=== PATIENT | male | born 1945 | race Caucasian/White ===

== ENCOUNTER 2017-10-30 16:17 | Emergency (ER) | payer MEDICARE, BC, SELFPAY | END 2017-10-30 18:56 | disposition home or self-care (01) | PROVIDERS: Emergency Provider Emergency Medicine; Family Provider Family Medicine; Visit Provider Emergency Medicine | DX: E86.0 Dehydration (principal) | CPT/HCPCS: 36000; 71010; 71045; 80053; 81003; 83605; 84145; 84484; 85025; 85610; 85730; 87040; 87400; 93005; 93010; 96361; 96374; 96375; 99058; 99285; J1200; J2930 ==

== ENCOUNTER → 2018-01-14 12:02 | Outpatient (CLI) | payer MEDICARE, BC, SELFPAY ==
[2018-01-14 13:01] LABS: Free T4, Direct Thyroxine 1.13 ng/dL (0.78-2.19)
[2018-01-14 13:15] LABS: Thyroid Stimulating Hormone 0.42 uIU/mL (0.47-4.68)
== END ==
PROVIDERS: PCP Family Medicine; Visit Provider Family Medicine
DX: E03.9 Hypothyroidism, unspecified (principal)
CPT/HCPCS: 36415; 84439; 84443

== ENCOUNTER → 2018-10-27 13:53 | Outpatient (CLI) | payer MEDICARE, BC, SELFPAY ==
[2018-10-27 16:04] LABS: Free T3, Triiodothyronine Free 2.98 pg/mL (2.77-5.27); Free T4, Direct Thyroxine 0.51 ng/dL (0.78-2.19)
== END ==
PROVIDERS: PCP Student in an Organized Health Care Education/Training Program; Visit Provider Student in an Organized Health Care Education/Training Program
DX: E03.9 Hypothyroidism, unspecified (principal)
CPT/HCPCS: 36415; 84439; 84443; 84481

== ENCOUNTER → 2019-01-22 15:50 | Outpatient (CLI) | payer MEDICARE, BC, SELFPAY ==
[2019-01-22 19:05] LABS: Alanine Aminotransferase 16 IU/L (21-72); Albumin 4.8 g/dL (3.5-5.0); Albumin Globulin Ratio 1.8 (1.0-2.8); Alkaline Phosphatase 72 U/L (38-126); Aspartate Aminotransferase 19 IU/L (17-59); BUN Creatinine Ratio 21.1 (6-22); Bilirubin Total 1.1 mg/dL (0.2-1.3); Blood Urea Nitrogen 19 mg/dL (9-20); Carbon Dioxide 29 mmol/L (22-32); Chloride 102 mmol/L (98-107); Cholesterol 220 mg/dL (140-199); Estimated Glomerular Filt Rate > 60.0 mL/min (>60); Globulin 2.7 g/dL (1.7-4.1); Glucose 88 mg/dL (80-110); HDL Cholesterol 73 mg/dL (40-60); HEMOLYSIS < 15 (0-50); LDL Cholesterol Calculated 122 mg/dL (<100); Potassium 4.6 mmol/L (3.4-5.1); Sodium 141 mmol/L (137-145); Total Protein 7.5 g/dL (6.3-8.2); Triglycerides 125 mg/dL (35-150)
[2019-01-22 19:21] LABS: Free T4, Direct Thyroxine 1.12 ng/dL (0.78-2.19); Vitamin D 25 Hydroxy (D3) 31.1 ng/mL (30.0-100.0)
[2019-01-22 19:35] LABS: Thyroid Stimulating Hormone 0.63 uIU/mL (0.47-4.68)
== END ==
PROVIDERS: PCP Student in an Organized Health Care Education/Training Program; Visit Provider Student in an Organized Health Care Education/Training Program
DX: E03.9 Hypothyroidism, unspecified (principal); E78.2 Mixed hyperlipidemia; I10 Essential (primary) hypertension; E55.9 Vitamin D deficiency, unspecified
CPT/HCPCS: 36415; 80053; 80061; 82306; 84439; 84443

== ENCOUNTER → 2019-03-06 12:10 | Outpatient (CLI) | payer MEDICARE, BC, SELFPAY ==
--- NOTE | 2019-03-06 12:11 | DI.CT.S_ITS ---
PROCEDURE: CT ABDOMEN PELVIS W CON INDICATIONS: left sided ab pain, unintentional weight loss TECHNIQUE: After the administration of oral and intravenous contrast, 5 mm thick sections acquired from the diaphragms to the symphysis. 5 mm thick coronal and sagittal reformats were performed. For radiation dose reduction, the following was used: automated exposure control, adjustment of mA and/or kV according to patient size. COMPARISON: None. FINDINGS: Image quality: Diagnostic. ABDOMEN: Lung bases: Heterogeneous areas of consolidation are identified within the left costophrenic angle and which are noted to abut the pleural wall and demonstrates decreased enhancement. There are at least 3 nodular densities identified within this region. The largest measures up to approximately 2.5 x 2.7 cm. Left lower lobe bronchiectasis is incidentally noted. No significant bronchiectasis within the imaged portions of the right lower lobe are present. Solid organs: The liver is hypodense when compared to the spleen. No definite liver lesions are appreciated. There is no intrahepatic or extrahepatic biliary dilatation. The gallbladder is not dilated or inflamed. The spleen is mildly enlarged and measures up to 14.3 cm in AP dimension no definite splenic lesions are evident. The adrenals and pancreas are within normal limits. The kidneys are normal in size. There is no hydronephrosis. Peritoneum and bowel: There is a small hiatal hernia. Otherwise, the stomach is unremarkable. The small bowel loops are nondilated. Moderate amount of residual stool is seen within the colon. The appendix is not definitely seen. There is no free fluid, loculated fluid collection or free air. Nodes and vessels: No retroperitoneal or mesenteric adenopathy. Aorta and inferior vena cava are normal in caliber. Bones: No acute fractures or suspicious osseous lesions are identified. Bilateral L5 pars defects are present with corresponding grade 1 anterolisthesis of L5 on S1. Mild to moderate degenerative changes of the lumbar spine are noted. PELVIS: Genitourinary: Bladder wall thickness is normal. The prostate is not significantly enlarged. Miscellaneous: No inguinal hernias or adenopathy. No free fluid or loculated fluid collection is identified. Bones: No suspicious bony lesions. No acute pelvic fracture is evident. A small bone island within the femoral neck on the right is present. Mild degenerative changes of the pelvic joints are present. IMPRESSION: 1. Nodular areas of consolidation at the left lung base are suspicious for lung masses versus less likely rounded atelectasis. A chest CT with contrast is recommended for further evaluation. 2. No acute abnormality within the abdomen or pelvis. 3. Large amount of residual stool within the colon may or present constipation. No bowel obstruction. 4. Mild splenomegaly. 5. Probable mild hepatic steatosis. 6. Small hiatal hernia. Dictated by: Ziyad Bach M.D. on 03/06/2019 at 13:30 Approved by: Ziyad Bach M.D. on 03/06/2019 at 14:05
[2019-03-06 12:29] LABS: Add Manual Diff / Slide Review NO; Basophils Absolute Auto 0 /uL (0-100); Basophils Percent Auto 0.5 % (0-2); Eosinophils Absolute Auto 100 /uL (0-450); Eosinophils Percent Auto 1.9 % (2-4); Hematocrit 34.1 % (41-53); Hemoglobin 12.5 g/dL (13.5-17.5); Lymphocytes Absolute Auto 900 /uL (1100-4500); Lymphocytes Percent Auto 21.3 % (25-40); Mean Corpuscular HGB Conc 36.6 % (30-36); Mean Corpuscular Hemoglobin 32.7 PG (26-34); Mean Corpuscular Volume 89.4 fL (80-100); Monocytes Absolute Auto 500 /uL (0-900); Monocytes Percent Auto 12.9 % (3-14); Neutrophils Absolute Auto 2600 /uL (1500-7000); Neutrophils Percent Auto 63.4 % (50-75); Platelet Count 161 X10^3/uL (150-400); Red Blood Cell Count 3.81 X10^6/uL (4.5-5.9); Red Cell Distribution Width 12.7 % (11.6-14.8); White Blood Cell Count 4.1 X10^3/uL (4.5-11.0)
[2019-03-06 12:44] LABS: Alanine Aminotransferase 16 IU/L (21-72); Albumin 4.6 g/dL (3.5-5.0); Albumin Globulin Ratio 1.5 (1.0-2.8); Alkaline Phosphatase 74 U/L (38-126); Aspartate Aminotransferase 19 IU/L (17-59); Bilirubin Total 0.9 mg/dL (0.2-1.3); Blood Urea Nitrogen 20 mg/dL (9-20); Calcium 9.7 mg/dL (8.4-10.2); Carbon Dioxide 30 mmol/L (22-32); Chloride 99 mmol/L (98-107); Estimated Glomerular Filt Rate > 60.0 mL/min (>60); Globulin 3.1 g/dL (1.7-4.1); Glucose 95 mg/dL (80-110); HEMOLYSIS < 15 (0-50); Potassium 4.4 mmol/L (3.4-5.1); Sodium 137 mmol/L (137-145); Total Protein 7.7 g/dL (6.3-8.2)
[2019-03-06 13:20] LABS: Thyroid Stimulating Hormone 0.34 uIU/mL (0.47-4.68)
== END ==
PROVIDERS: PCP Student in an Organized Health Care Education/Training Program; Visit Provider Nurse Practitioner
DX: R63.4 Abnormal weight loss (principal); R10.9 Unspecified abdominal pain; R91.8 Other nonspecific abnormal finding of lung field; R16.1 Splenomegaly, not elsewhere classified; E03.9 Hypothyroidism, unspecified
CPT/HCPCS: 36415; 74177; 80053; 84443; 85025; Q9967

== ENCOUNTER → 2019-03-10 14:39 | Outpatient (CLI) | payer MEDICARE, BC, SELFPAY ==
--- NOTE | 2019-03-10 14:41 | DI.CT.S_ITS ---
PROCEDURE: CT CHEST W CON INDICATIONS: Lung Nodules TECHNIQUE: After the administration of intravenous contrast, 5 mm thick sections acquired from the pulmonary apices to the posterior costophrenic angles. 1 mm axial lung, 5 mm thick coronal and sagittal reformats and 7 mm axial MIP were acquired. For radiation dose reduction, the following was used: automated exposure control, adjustment of mA and/or kV according to patient size. COMPARISON: [facility], CT, CT ABDOMEN PELVIS W CON, 03/06/2019, 13:22. FINDINGS: Image quality: Excellent. Lungs and pleura: Previous CT finding of nodular densities in posterior aspect of left lung base are less well-defined on the current study, and likely represent resolving nodular infiltrates. No other pulmonary nodule or mass is identified. Ill-defined and patchy airspace opacities are seen scattered in left lower lobe with mild bronchiectasis in left lower lobe. No pleural effusions or pneumothorax. Central and peripheral airways are patent. Mediastinum: Heart size is normal. No pericardial effusion. No mediastinal or hilar adenopathy by size criteria. Thoracic aorta and central pulmonary arteries are normal in size. Esophagus is normal in caliber. There is a small hiatal hernia. Bones and chest wall: No suspicious bony lesions. No vertebral body compression fractures. No axillary or supraclavicular adenopathy by size criteria. Thyroid gland is within normal limits. Abdomen: Visualized upper abdominal solid organs appear normal. Upper abdominal bowel loops are normal in caliber. IMPRESSION: 1. Previously described nodular densities in left lung base are less well-defined and are small in size, most likely represent resolving nodular infiltrates. Hazy opacities scattered in left lower lobe with mild bronchiectasis is noted. No other pulmonary nodule or mass is seen. Additional followup CT in 3-6 month is recommended to confirm complete resolution. 2. No mediastinal or hilar lymphadenopathy. 3. Small hiatal hernia. Dictated by: Scotty Coats M.D. on 03/10/2019 at 15:51 Approved by: Scotty Coats M.D. on 03/10/2019 at 16:42
== END ==
PROVIDERS: PCP Student in an Organized Health Care Education/Training Program; Visit Provider Family Medicine
DX: R91.8 Other nonspecific abnormal finding of lung field (principal); K44.9 Diaphragmatic hernia without obstruction or gangrene
CPT/HCPCS: 71260; Q9967

== ENCOUNTER → 2019-05-05 17:19 | Outpatient (CLI) | payer MEDICARE, BC, SELFPAY ==
[2019-05-05 17:38] LABS: Occult Blood 1 Negative (Negative); Occult Blood 2 Negative (Negative); Occult Blood 3 Negative (Negative)
== END ==
PROVIDERS: Nurse Practitioner; PCP Student in an Organized Health Care Education/Training Program; Visit Provider Student in an Organized Health Care Education/Training Program
DX: K92.2 Gastrointestinal hemorrhage, unspecified (principal); R10.9 Unspecified abdominal pain
CPT/HCPCS: 82270

== ENCOUNTER 2019-09-25 09:00 | Outpatient (RCR) | payer MEDICARE, BC, SELFPAY ==
--- NOTE | 2019-08-26 18:49 | PT.OIE ---
Current Diagnoses Other abnormalities of gait and mobility (08/26/19) Abnormal posture (08/26/19) Weakness (08/26/19) Past Medical History (Last Updated 07/24/19 @ 08:35 by Yann Dempsey MD) Constipation (Chronic) Depression (Chronic) Hypothyroidism (Chronic Unknown) Hypothyroidism (acquired) (Chronic) Past Surgical History (Last Updated 01/23/19 @ 07:00 by Yann Dempsey MD) Hx of cataract surgery (Resolved Unknown) Hx of knee surgery (Resolved Unknown) Visit Care Team Role Provider Type Yann Dempsey MD Attending Provider Physician Primary Care Provider Referring Provider Specialty: Internal Medicine Address: [address] [place] [address], [facility] Email: [email or web address] Physical Therapy Initial Evaluation PT-OP-A Visit Information Start: 08/26/19 09:49 Freq: Status: Active Protocol: Document 08/26/19 09:49 [facility] (Rec: 08/26/19 11:25 [facility] [id number]) Out-Patient Physical Therapy Visit Information Visit Information Visit Type Initial Evaluation Visit Start Time 09:50 Visit Stop Time 10:30 Total Visit Minutes 40 Visit Number 1 Number of LOAN EXAMINER Visits 0 PT-OP-B Current Condition Start: 08/26/19 09:49 Freq: Status: Active Protocol: Document 08/26/19 09:49 [facility] (Rec: 08/26/19 11:25 [facility] [id number]) Current Condition History of Current Condition Current Complaints dec balacne, R knee pain History of Current Condition Pt reports he has noticed his balance is a little worse since he tried doing some balacne exercises at home. No falls reported. Pt reports he likes to walk but hasn't done a ton recently. Pt avoids climbing ladders d/t concern of balance. Pt reports intermittent R knee pain. Unsure how often or why. Pt occ gets charley horses in calves when sitting Treatment Goals Patient/Caregiver Goals improve balance PT-OP-C Subjective Start: 08/26/19 09:49 Freq: Status: Active Protocol: Document 08/26/19 09:49 [facility] (Rec: 08/27/19 18:43 [facility] [id number]) Patient Questionnaires ABC- Activity Specific Balance Confidence Scale ABC Score 86 ABC Functional Impairment 1 to <20% Impaired (Score 81- 99) PT-OP-D Balance Start: 08/26/19 09:49 Freq: Status: Active Protocol: Document 08/26/19 09:49 [facility] (Rec: 08/27/19 18:43 [facility] [id number]) Balance Tests Silver Balance Test Silver Balance Test Score 55 PT-OP-E Functional Tests Start: 08/26/19 09:49 Freq: Status: Active Protocol: Document 08/26/19 09:49 [facility] (Rec: 08/27/19 18:43 [facility] [id number]) Functional Tests Dynamic Gait Index (DGI) Score 23 Functional Gait Assessment Score 25 Functional Gait Assessment Impairment 1 to <20% Impaired (Score 25- Rating 29) PT-OP-G Mobility & Gait Start: 08/26/19 09:49 Freq: Status: Active Protocol: Document 08/26/19 09:49 [facility] (Rec: 08/27/19 18:43 [facility] [email or web address]) OP Gait Assessment Comments Gait Comments Mostly leg walker but no signficiant deviation for evidence for imbalance PT-OP-J Posture/Palpation/Skin Start: 08/26/19 09:49 Freq: Status: Active Protocol: Document 08/26/19 09:49 [facility] (Rec: 08/26/19 11:25 [facility] [id number]) Posture Evaluation Comments Posture Comments fwd & head & shoulders PT-OP-M Strength Start: 08/26/19 09:49 Freq: Status: Active Protocol: Document 08/26/19 09:49 [facility] (Rec: 08/26/19 11:25 [facility] [id number]) Hip Strength Hip Manual Muscle Testing Right Flexion (L2) 4+ Good+ Extension (S1) 4- Good- Abduction 4- Good- External Rotation 4 Good Internal Rotation 4- Good- Left Flexion (L2) 4+ Good+ Extension (S1) 3+ Fair+ Abduction 4 Good External Rotation 4- Good- Internal Rotation 4 Good Knee Strength Knee Manual Muscle Testing Right Flexion (S2) 5 Normal Extension (L3) 5 Normal Left Flexion (S2) 5 Normal Extension (L3) 5 Normal Ankle/Foot Strength Ankle and Foot Manual Muscle Testing Right Dorsiflexion (L4) 5 Normal Plantarflexion (S1) 5 Normal Left Dorsiflexion (L4) 5 Normal Plantarflexion (S1) 5 Normal Comments PF tested seated PT-OP-Q Treatments Start: 08/26/19 09:49 Freq: Status: Active Protocol: Document 08/26/19 09:49 [facility] (Rec: 08/27/19 18:43 [facility] [email or web address]) Therapeutic Exercises Standing Exercises hip abd Side bilateral Equipment Used L1 Reps/Minutes 10 hip ext Side bilateral Equipment Used L1 Reps/Minutes 10 PT-OP-T Assessment and Plan Start: 08/26/19 09:49 Freq: Status: Active Protocol: Document 08/26/19 09:49 [facility] (Rec: 08/26/19 11:25 [facility] [id number]) Physical Therapy Assessment Rehab Potential Rehabilitation Potential Excellent Evaluation Complexity Number of Personal Factors/Comorbidities 3 or More Number of Body Systems Impaired 4 or More Clinical Presentation at Evaluation Evolving Impairments Impairments Balance,Gait,Posture,Strength Goals posture Flexographic Press Plate Setter Goal (LTG) Pt will be able to correct posture within his mechanical limits without cueing. LTG Duration 10/25/19 balance Flexographic Press Plate Setter Goal (LTG) Pt will score 28/30 on FGA to show improved balance LTG Duration 10/25/19 weakness Short Term Goal (STG) Pt will be indepw ith HEP STG Duration 09/24/19 [facility] Goal (LTG) Pt will have 5/5 LE strength and 4/5 LPM to show good stability. LTG Duration 10/25/19 Assessment Summary Assessment Pt presents with concerns about his balance and LE strength with pt noting some recent deterioration. He is motivated to do some exercises to feel more steady to prevent falls. He has mild balance impairments but does not show as a fall risk based on testing. He is likely to improve with therapy as he does have some high level balance deficits and some LE weakness and would beenfit from addressing this with HEP developed for pt to work on at home. Physical Therapy Plan Frequency and Duration Frequency of Treatment 1-2x/week Duration of Treatment 2 months Plan of Care Start Date 08/26/19 Plan of Care End Date 10/25/19 Therapeutic Interventions Therapeutic Interventions Aquatic Therapy,Balance Training,Gait Training,Home Exercise Program,Joint Mobilizations,Manual Therapy, Neuromuscular Re-education, Patient/Caregiver Education, Self-Care/Home Management, Taping,Therapeutic Activities, Therapeutic Exercises Modalities Cold Pack/Ice Massage,Hot Packs Next Visit Focus/Plan Next Note Type Treatment Note Next Visit Plan standing balance HEP that is safe for pt to do indep, Hip strengthening, shuttle balance , foam pads, high level balance
--- NOTE | 2019-08-26 18:49 | PT.OPPOC ---
Physical, Occupational & Speech Therapy At [facility] Current Diagnoses Other abnormalities of gait and mobility (08/26/19) Abnormal posture (08/26/19) Weakness (08/26/19) Visit Care Team Role Provider Type Yann Dempsey MD Attending Provider Physician Primary Care Provider Referring Provider Specialty: Internal Medicine Address: [address] [place] [address], [address], [facility] Email: [email or web address] Plan Of Care PT-OP-T Assessment and Plan Start: 08/26/19 09:49 Freq: Status: Active Protocol: Document 08/26/19 09:49 [facility] (Rec: 08/26/19 11:25 [facility] [id number]) Physical Therapy Assessment Rehab Potential Rehabilitation Potential Excellent Evaluation Complexity Number of Personal Factors/Comorbidities 3 or More Number of Body Systems Impaired 4 or More Clinical Presentation at Evaluation Evolving Impairments Impairments Balance,Gait,Posture,Strength Goals posture Service Planner Goal (LTG) Pt will be able to correct posture within his mechanical limits without cueing. LTG Duration 10/25/19 balance Service Planner Goal (LTG) Pt will score 28/30 on FGA to show improved balance LTG Duration 10/25/19 weakness Short Term Goal (STG) Pt will be indepw ith HEP STG Duration 09/24/19 [facility] Goal (LTG) Pt will have 5/5 LE strength and 4/5 LPM to show good stability. LTG Duration 10/25/19 Assessment Summary Assessment Pt presents with concerns about his balance and LE strength with pt noting some recent deterioration. He is motivated to do some exercises to feel more steady to prevent falls. He has mild balance impairments but does not show as a fall risk based on testing. He is likely to improve with therapy as he does have some high level balance deficits and some LE weakness and would beenfit from addressing this with HEP developed for pt to work on at home. Physical Therapy Plan Frequency and Duration Frequency of Treatment 1-2x/week Duration of Treatment 2 months Plan of Care Start Date 08/26/19 Plan of Care End Date 10/25/19 Therapeutic Interventions Therapeutic Interventions Aquatic Therapy,Balance Training,Gait Training,Home Exercise Program,Joint Mobilizations,Manual Therapy, Neuromuscular Re-education, Patient/Caregiver Education, Self-Care/Home Management, Taping,Therapeutic Activities, Therapeutic Exercises Modalities Cold Pack/Ice Massage,Hot Packs Next Visit Focus/Plan Next Note Type Treatment Note Next Visit Plan standing balance HEP that is safe for pt to do indep, Hip strengthening, shuttle balance , foam pads, high level balance Plan of Care Dates Plan of Care Start Date 08/26/19 Plan of Care End Date 10/25/19 Electronically Signed by: Ellen Maynard, PT 08/27/19 0714 Please Sign and Return: I have reviewed this Plan of Care and certify that the skilled therapy services above are required to meet the patient?s needs. Physician Signature Date Printed Name and Credentials Clinical Instructor Signature Printed Name and Credentials
--- NOTE | 2019-09-01 16:29 | PT.OTN ---
Current Diagnoses Other abnormalities of gait and mobility (09/01/19) Abnormal posture (09/01/19) Weakness (09/01/19) Physical Therapy Treatment Note PT-OP-A Visit Information Start: 08/26/19 09:49 Freq: Status: Active Protocol: Document 09/01/19 12:22 [facility] (Rec: 09/01/19 16:28 [facility] [email or web address]) Out-Patient Physical Therapy Visit Information Visit Information Visit Type Treatment Note Visit Note 08/24 Visit Start Time 13:00 Visit Stop Time 13:43 Total Visit Minutes 43 Visit Number 2 Number of LUMBER KILN OPERATOR Visits 0 PT-OP-B Current Condition Start: 08/26/19 09:49 Freq: Status: Active Protocol: Document 08/26/19 09:49 [facility] (Rec: 08/26/19 11:25 [facility] [id number]) Current Condition History of Current Condition Current Complaints dec balacne, R knee pain History of Current Condition Pt reports he has noticed his balance is a little worse since he tried doing some balacne exercises at home. No falls reported. Pt reports he likes to walk but hasn't done a ton recently. Pt avoids climbing ladders d/t concern of balance. Pt reports intermittent R knee pain. Unsure how often or why. Pt occ gets charley horses in calves when sitting Treatment Goals Patient/Caregiver Goals improve balance PT-OP-C Subjective Start: 08/26/19 09:49 Freq: Status: Active Protocol: Document 09/01/19 12:22 [facility] (Rec: 09/01/19 16:28 [facility] [email or web address]) OP-PT Subjective Patient Comments Patient Comments Pt reports he has been completing his HEP daily and his is usually there with him. would like for him to work on his posture and improve balance. PT-OP-D Balance Start: 08/26/19 09:49 Freq: Status: Active Protocol: Document 08/26/19 09:49 [facility] (Rec: 08/27/19 18:43 [facility] [email or web address]) Balance Tests Silver Balance Test Silver Balance Test Score 55 PT-OP-E Functional Tests Start: 08/26/19 09:49 Freq: Status: Active Protocol: Document 08/26/19 09:49 [facility] (Rec: 08/27/19 18:43 [facility] [email or web address]) Functional Tests Dynamic Gait Index (DGI) Score 23 Functional Gait Assessment Score 25 Functional Gait Assessment Impairment 1 to <20% Impaired (Score 25- Rating 29) PT-OP-G Mobility & Gait Start: 08/26/19 09:49 Freq: Status: Active Protocol: Document 08/26/19 09:49 [facility] (Rec: 08/27/19 18:43 [facility] [id number]) OP Gait Assessment Comments Gait Comments Mostly leg walker but no signficiant deviation for evidence for imbalance PT-OP-J Posture/Palpation/Skin Start: 08/26/19 09:49 Freq: Status: Active Protocol: Document 08/26/19 09:49 [facility] (Rec: 08/26/19 11:25 [facility] [id number]) Posture Evaluation Comments Posture Comments fwd & head & shoulders PT-OP-M Strength Start: 08/26/19 09:49 Freq: Status: Active Protocol: Document 08/26/19 09:49 [facility] (Rec: 08/26/19 11:25 [facility] [id number]) Hip Strength Hip Manual Muscle Testing Right Flexion (L2) 4+ Good+ Extension (S1) 4- Good- Abduction 4- Good- External Rotation 4 Good Internal Rotation 4- Good- Left Flexion (L2) 4+ Good+ Extension (S1) 3+ Fair+ Abduction 4 Good External Rotation 4- Good- Internal Rotation 4 Good Knee Strength Knee Manual Muscle Testing Right Flexion (S2) 5 Normal Extension (L3) 5 Normal Left Flexion (S2) 5 Normal Extension (L3) 5 Normal Ankle/Foot Strength Ankle and Foot Manual Muscle Testing Right Dorsiflexion (L4) 5 Normal Plantarflexion (S1) 5 Normal Left Dorsiflexion (L4) 5 Normal Plantarflexion (S1) 5 Normal Comments PF tested seated PT-OP-Q Treatments Start: 08/26/19 09:49 Freq: Status: Active Protocol: Document 09/01/19 12:22 [facility] (Rec: 09/01/19 16:28 [facility] [email or web address]) Gym Equipment Shuttle Balance red clips Comments fwd & side: wide KRYSTAL, narrow KRYSTAL forward/backward weight shifts , side to side weightshifts staggered BL fwd wide KRYSTAL fwd used body blade Therapeutic Exercises Standing Exercises wall posture Comments attempted wall posture with BL shld abd lunges Standing Exercise Name with rail, mini Side bilateral Reps/Minutes 20 squats Standing Exercise Name over chair, mini Side bilateral Reps/Minutes 20 hip abd Side bilateral Equipment Used L1 Reps/Minutes 20 hip ext Side bilateral Equipment Used L1 Reps/Minutes 20 Neuro Re-Education Treatment Balance Activities hurdles Comments 1. forward stepping with foam 2. side stepping over keely staggered Comments 1. on floor EO/EC/head turns 2. on blue foam EO/EC/head turns tandem Comments 1. on floor EO/EC/head turns 2. on blue foam EO/EC/head turns nbos Comments 1. on floor EO/EC/head turns 2. on blue foam EO/EC/head turns PT-OP-T Assessment and Plan Start: 08/26/19 09:49 Freq: Status: Active Protocol: Document 09/01/19 12:22 [facility] (Rec: 09/01/19 16:28 SP [email or web address]) Physical Therapy Assessment Goals posture Custodial Goal (LTG) Pt will be able to correct posture within his mechanical limits without cueing. LTG Duration 10/25/19 balance Custodial Goal (LTG) Pt will score 28/30 on FGA to show improved balance LTG Duration 10/25/19 weakness Short Term Goal (STG) Pt will be indepw ith HEP STG Duration 09/24/19 Med Surg Nurse Goal (LTG) Pt will have 5/5 LE strength and 4/5 LPM to show good stability. LTG Duration 10/25/19 Assessment Summary Assessment Pt demonstrates B hip ER during hip abd and ext. Pt required cueing for posture and form during squat and lunge exercises. He is able to tolerate higher level balance activities and continues to improve ankle strategies however is challenged by unstable surfaces. Physical Therapy Plan Frequency and Duration Frequency of Treatment 1-2x/week Duration of Treatment 2 months Plan of Care Start Date 08/26/19 Plan of Care End Date 10/25/19 Next Visit Focus/Plan Next Note Type Treatment Note Next Visit Plan progress posture exercises, continue with higher level balance activities and incorporate a variety of different surfaces
--- NOTE | 2019-09-16 10:30 | PT.OTN ---
Current Diagnoses Other abnormalities of gait and mobility (09/16/19) Abnormal posture (09/16/19) Weakness (09/16/19) Physical Therapy Treatment Note PT-OP-A Visit Information Start: 08/26/19 09:49 Freq: Status: Active Protocol: Document 09/16/19 10:30 DLM (Rec: 09/16/19 13:49 DLM [id number]) Out-Patient Physical Therapy Visit Information Visit Information Visit Type Treatment Note Visit Start Time 10:30 Visit Stop Time 11:20 Total Visit Minutes 50 Visit Number 3 Number of SCHOOL ATTENDANCE SECRETARY Visits 0 Evaluation Information Evaluation Date 08/26/19 PT-OP-B Current Condition Start: 08/26/19 09:49 Freq: Status: Active Protocol: Document 08/26/19 09:49 [facility] (Rec: 08/26/19 11:25 [facility] [id number]) Current Condition History of Current Condition Current Complaints dec balance, R knee pain History of Current Condition Pt reports he has noticed his balance is a little worse since he tried doing some balance exercises at home. No falls reported. Pt reports he likes to walk but hasn't done a ton recently. Pt avoids climbing ladders d/t concern of balance. Pt reports intermittent R knee pain. Unsure how often or why. Pt occ gets charley horses in calves when sitting Treatment Goals Patient/Caregiver Goals improve balance PT-OP-C Subjective Start: 08/26/19 09:49 Freq: Status: Active Protocol: Document 09/16/19 10:30 DLM (Rec: 09/16/19 13:49 DLM [id number]) OP-PT Subjective Patient Comments Patient Comments They have many questions about the HEP, not sure they are doing it correctly. His is trying to coach cleaner him with his exercises. PT-OP-D Balance Start: 08/26/19 09:49 Freq: Status: Active Protocol: Document 08/26/19 09:49 [facility] (Rec: 08/27/19 18:43 [facility] [id number]) Balance Tests Silver Balance Test Silver Balance Test Score 55 PT-OP-E Functional Tests Start: 08/26/19 09:49 Freq: Status: Active Protocol: Document 08/26/19 09:49 [facility] (Rec: 08/27/19 18:43 [facility] [id number]) Functional Tests Dynamic Gait Index (DGI) Score 23 Functional Gait Assessment Score 25 Functional Gait Assessment Impairment 1 to <20% Impaired (Score 25- Rating 29) PT-OP-G Mobility & Gait Start: 08/26/19 09:49 Freq: Status: Active Protocol: Document 08/26/19 09:49 [facility] (Rec: 08/27/19 18:43 [facility] [id number]) OP Gait Assessment Comments Gait Comments Mostly leg walker but no significant deviation for evidence for imbalance PT-OP-J Posture/Palpation/Skin Start: 08/26/19 09:49 Freq: Status: Active Protocol: Document 08/26/19 09:49 [facility] (Rec: 08/26/19 11:25 [facility] [id number]) Posture Evaluation Comments Posture Comments fwd & head & shoulders PT-OP-M Strength Start: 08/26/19 09:49 Freq: Status: Active Protocol: Document 08/26/19 09:49 [facility] (Rec: 08/26/19 11:25 [facility] [id number]) Hip Strength Hip Manual Muscle Testing Right Flexion (L2) 4+ Good+ Extension (S1) 4- Good- Abduction 4- Good- External Rotation 4 Good Internal Rotation 4- Good- Left Flexion (L2) 4+ Good+ Extension (S1) 3+ Fair+ Abduction 4 Good External Rotation 4- Good- Internal Rotation 4 Good Knee Strength Knee Manual Muscle Testing Right Flexion (S2) 5 Normal Extension (L3) 5 Normal Left Flexion (S2) 5 Normal Extension (L3) 5 Normal Ankle/Foot Strength Ankle and Foot Manual Muscle Testing Right Dorsiflexion (L4) 5 Normal Plantarflexion (S1) 5 Normal Left Dorsiflexion (L4) 5 Normal Plantarflexion (S1) 5 Normal Comments PF tested seated PT-OP-Q Treatments Start: 08/26/19 09:49 Freq: Status: Active Protocol: Document 09/16/19 10:30 DLM (Rec: 09/16/19 13:49 DLM [id number]) Therapeutic Exercises Standing Exercises wall posture Standing Exercise Name back to wall, feet out, attempts to get head back Comments needed a lot of cuing and education lunges Standing Exercise Name with rail, mini Side bilateral Reps/Minutes 10 reps each side Comments a lot of cuing and education needed squats Standing Exercise Name over chair, full sit done Resistance physical and v.c. needed Reps/Minutes 20 Comments poor control on descent hip abd Side bilateral Equipment Used L1 exercise band Reps/Minutes 2 x 10 reps Comments cuing for technique hip ext Side bilateral Equipment Used L1 exercise band Reps/Minutes 2 x 10 reps Comments cuing for technique Neuro Re-Education Treatment Balance Activities Single Limb Standing Details no UE support used Surface firm Equipment in // bars Reps/Duration 30 sec holds x 3 reps each Comments education on technique and reviewed written HEP tandem Surface firm Equipment in // bars Reps/Duration one min each side Comments education on technique, reviewed written HEP Self-Care/Home Management Treatment Education Patient Education Home Exercise Program,Posture Caregiver Education his is present and participate in all education and review of HEP PT-OP-T Assessment and Plan Start: 08/26/19 09:49 Freq: Status: Active Protocol: Document 09/16/19 10:30 DLM (Rec: 09/16/19 13:49 DLM [id number]) Physical Therapy Assessment Goals posture Clinical Research Scientist Goal (LTG) Pt will be able to correct posture within his mechanical limits without cueing. LTG Duration 10/25/19 balance Assisted Goal (LTG) Pt will score 28/30 on FGA to show improved balance LTG Duration 10/25/19 weakness Short Term Goal (STG) Pt will be indep with HEP STG Duration 09/24/19 Assisted Goal (LTG) Pt will have 5/5 LE strength and 4/5 LPM to show good stability. LTG Duration 10/25/19 Progress Towards Goals Progress Towards Goals Progressing Toward Goals Assessment Summary Assessment Pt and his attended therapy with masks today but they report having no illness themselves. They have many questions about the HEP. They needed extensive education to perform HEP. He tolerated treatment well over-all. His poor awareness of his body position makes it more difficult to follow through with good technique during exercises. His form during all exercises improved with repetition of the movement patterns. Physical Therapy Plan Frequency and Duration Frequency of Treatment 1-2x/week Duration of Treatment 2 months Plan of Care Start Date 08/26/19 Plan of Care End Date 10/25/19 Therapeutic Interventions Therapeutic Interventions Aquatic Therapy,Balance Training,Gait Training,Home Exercise Program,Joint Mobilizations,Manual Therapy, Neuromuscular Re-education, Patient/Caregiver Education, Self-Care/Home Management, Taping,Therapeutic Activities, Therapeutic Exercises Modalities Cold Pack/Ice Massage,Hot Packs Next Visit Focus/Plan Next Note Type Treatment Note Next Visit Plan review HEP with pt and his , advance exercises in the clinic for posture and balance as jez
--- NOTE | 2019-09-25 09:50 | PT.OTN ---
Current Diagnoses Other abnormalities of gait and mobility (09/25/19) Abnormal posture (09/25/19) Weakness (09/25/19) Physical Therapy Treatment Note PT-OP-A Visit Information Start: 08/26/19 09:49 Freq: Status: Active Protocol: Document 09/25/19 09:00 SP (Rec: 09/25/19 11:00 SP [id number]) Out-Patient Physical Therapy Visit Information Visit Information Visit Type Treatment Note Visit Note 10/22 Visit Start Time 09:00 Visit Stop Time 09:50 Total Visit Minutes 50 Visit Number 4 Number of CHANNELING MACHINE RUNNER Visits 1 PT-OP-B Current Condition Start: 08/26/19 09:49 Freq: Status: Active Protocol: Document 08/26/19 09:49 [facility] (Rec: 08/26/19 11:25 [facility] [id number]) Current Condition History of Current Condition Current Complaints dec balacne, R knee pain History of Current Condition Pt reports he has noticed his balance is a little worse since he tried doing some balacne exercises at home. No falls reported. Pt reports he likes to walk but hasn't done a ton recently. Pt avoids climbing ladders d/t concern of balance. Pt reports intermittent R knee pain. Unsure how often or why. Pt occ gets charley horses in calves when sitting Treatment Goals Patient/Caregiver Goals improve balance PT-OP-C Subjective Start: 08/26/19 09:49 Freq: Status: Active Protocol: Document 09/25/19 09:00 SP (Rec: 09/25/19 11:00 SP [id number]) OP-PT Subjective Patient Comments Patient Comments Pt attended with his and wearing face masks for prevention today doing some exercises at home but not as much as should do to pretty busy carring boxes and walking more at home and feel was enough activity without tiring him out to much. PT-OP-D Balance Start: 08/26/19 09:49 Freq: Status: Active Protocol: Document 08/26/19 09:49 [facility] (Rec: 08/27/19 18:43 [facility] [email or web address]) Balance Tests Silver Balance Test Silver Balance Test Score 55 PT-OP-E Functional Tests Start: 08/26/19 09:49 Freq: Status: Active Protocol: Document 08/26/19 09:49 [facility] (Rec: 08/27/19 18:43 [facility] [email or web address]) Functional Tests Dynamic Gait Index (DGI) Score 23 Functional Gait Assessment Score 25 Functional Gait Assessment Impairment 1 to <20% Impaired (Score 25- Rating 29) PT-OP-G Mobility & Gait Start: 08/26/19 09:49 Freq: Status: Active Protocol: Document 08/26/19 09:49 [facility] (Rec: 08/27/19 18:43 [facility] [email or web address]) OP Gait Assessment Comments Gait Comments Mostly leg walker but no signficiant deviation for evidence for imbalance PT-OP-J Posture/Palpation/Skin Start: 08/26/19 09:49 Freq: Status: Active Protocol: Document 08/26/19 09:49 [facility] (Rec: 08/26/19 11:25 [facility] [id number]) Posture Evaluation Comments Posture Comments fwd & head & shoulders PT-OP-M Strength Start: 08/26/19 09:49 Freq: Status: Active Protocol: Document 08/26/19 09:49 [facility] (Rec: 08/26/19 11:25 [facility] [id number]) Hip Strength Hip Manual Muscle Testing Right Flexion (L2) 4+ Good+ Extension (S1) 4- Good- Abduction 4- Good- External Rotation 4 Good Internal Rotation 4- Good- Left Flexion (L2) 4+ Good+ Extension (S1) 3+ Fair+ Abduction 4 Good External Rotation 4- Good- Internal Rotation 4 Good Knee Strength Knee Manual Muscle Testing Right Flexion (S2) 5 Normal Extension (L3) 5 Normal Left Flexion (S2) 5 Normal Extension (L3) 5 Normal Ankle/Foot Strength Ankle and Foot Manual Muscle Testing Right Dorsiflexion (L4) 5 Normal Plantarflexion (S1) 5 Normal Left Dorsiflexion (L4) 5 Normal Plantarflexion (S1) 5 Normal Comments PF tested seated PT-OP-Q Treatments Start: 08/26/19 09:49 Freq: Status: Active Protocol: Document 09/25/19 09:00 SP (Rec: 09/25/19 11:00 SP [id number]) Therapeutic Exercises Standing Exercises wall posture Standing Exercise Name back to wall, feet out, attempts to get head back Comments Needed minimal cuing for CS ext with looking foward (chin tuck) lunges Standing Exercise Name mini rail contact as needed Side bilateral Reps/Minutes 2x5 each side Comments minimal cuing for proper form squats Standing Exercise Name over chair with no UE support Resistance physical and occasional v.c. needed Reps/Minutes 2x5 Comments fair control descent hip abd Side bilateral Equipment Used L2 exercise band Reps/Minutes 2 x 10 reps Comments cuing for technique by upright posture hip ext Side bilateral Equipment Used L2 exercise band Reps/Minutes 2 x 10 reps Comments cuing for technique by cued upright posture Neuro Re-Education Treatment Balance Activities Single Limb Standing Details no UE support used Surface firm Equipment in // bars, not needed Reps/Duration 30 sec holds x 3 reps each Comments education on technique and reviewed written HEP staggered Details feet together, stagger, tandem Equipment back to corner and chair front Comments 1. on floor EO/EC/head turns 2. on blue foam EO/EC/head turns (not today) Next tx continue PT-OP-T Assessment and Plan Start: 08/26/19 09:49 Freq: Status: Active Protocol: Document 09/25/19 09:00 SP (Rec: 09/25/19 11:00 SP [id number]) Physical Therapy Assessment Goals posture Route Rider Goal (LTG) Pt will be able to correct posture within his mechanical limits without cueing. LTG Duration 10/25/[address] Rider Goal (LTG) Pt will score 28/30 on FGA to show improved balance LTG Duration 10/25/19 weakness Short Term Goal (STG) Pt will be indepw ith HEP STG Duration 09/24/19 Intermediate Goal (LTG) Pt will have 5/5 LE strength and 4/5 LPM to show good stability. LTG Duration 10/25/19 Assessment Summary Assessment Tx focused on HEP review, able to increase resistance to standign hip abd/ext Tb #2. Requried decreased cuing and improved balance today. Added NBOS and tandem stance back to corner and chair front with head turns and EC for home, very little unsteady good self recovery, safe to perform at home. gives great cuing for proper form and posture. Physical Therapy Plan Frequency and Duration Frequency of Treatment 1-2x/week Duration of Treatment 2 months Plan of Care Start Date 08/26/19 Plan of Care End Date 10/25/19 Therapeutic Interventions Therapeutic Interventions Aquatic Therapy,Balance Training,Gait Training,Home Exercise Program,Joint Mobilizations,Manual Therapy, Neuromuscular Re-education, Patient/Caregiver Education, Self-Care/Home Management, Taping,Therapeutic Activities, Therapeutic Exercises Modalities Cold Pack/Ice Massage,Hot Packs Next Visit Focus/Plan Next Note Type Treatment Note Next Visit Plan Assess response to last tx. Reivew tandem balance at corner/renetta front HEP, increase challenge balance shuttle balance/balance board, continue hurdles or step up bottom step no UE supprt for home application. Patient and concerned COVID 19 awareness and wants HEP in case cant come to PT for them to progress his strength and balance advance exercises in the clinic for posture and balance as jez.
--- NOTE | 2020-01-06 11:13 | PT.OPDS ---
Current Diagnoses Other abnormalities of gait and mobility (09/25/19) Abnormal posture (09/25/19) Weakness (09/25/19) Visit Care Team Role Provider Type Yann Dempsey MD Attending Provider Physician Primary Care Provider Referring Provider Specialty: Internal Medicine Address: [address] [place] [address], [facility] Email: [email or web address] Visit Number Visit Number 4 PT-OP-T Assessment and Plan Start: 08/26/19 09:49 Freq: Status: Active Protocol: Document 01/06/20 11:12 [facility] (Rec: 01/06/20 11:13 [facility] [id number]) Physical Therapy Plan Discharge Physical Therapy Discharge Reasons No Longer Attending PT Discharge Comments Pt has not been seen for 3 months and when called to rescheudle, pt requested dc.
== END 2020-01-07 07:43 ==
LOC: PHYS 09:00
PROVIDERS: PCP Student in an Organized Health Care Education/Training Program; Referring Provider Student in an Organized Health Care Education/Training Program; Visit Provider Student in an Organized Health Care Education/Training Program
DX: R26.89 Other abnormalities of gait and mobility (principal); R53.1 Weakness; R29.3 Abnormal posture
CPT/HCPCS: 97110; 97112; 97162

== ENCOUNTER → 2019-12-31 10:13 | Outpatient (CLI) | payer MEDICARE, BC, SELFPAY ==
[2019-12-31 12:43] LABS: Vitamin B12 492 pg/mL (239-931)
== END ==
PROVIDERS: PCP Student in an Organized Health Care Education/Training Program; Referring Provider Specialist; Visit Provider Specialist
DX: R41.89 Other symptoms and signs involving cognitive functions and awareness (principal)
CPT/HCPCS: 36415; 82607

== ENCOUNTER 2020-01-31 15:24 | Inpatient (IN) | payer MEDICARE, BC, SELFPAY ==
[2020-01-31] VITALS (13 sets, daily range): BP systolic 100–127; BP diastolic 55–65; PULSE 52–64; RESP 14–18; TEMP 36.4–36.8; O2SAT 95–100; BMI 21.9
--- NOTE | 2020-01-31 15:29 | DI.CT.S_ITS ---
PROCEDURE: CT STROKE INDICATIONS: Facial droop, clinical concern for stroke TECHNIQUE: Noncontrast 4.5 mm thick angled axial sections acquired from the foramen magnum to the vertex, with coronal reformats. For radiation dose reduction, the following was used: automated exposure control, adjustment of mA and/or kV according to patient size. COMPARISON: None. FINDINGS: Image quality: Excellent. CSF spaces: Basal cisterns are patent. No extra-axial fluid collections. The ventricles are symmetric in size and shape. Brain: No intracranial bleeds or masses. There is cerebral volume loss for age, with resultant ventricular and sulcal prominence. There are periventricular and deep white matter chronic small vessel ischemic changes. There is intracranial internal carotid artery atherosclerosis. Skull and face: Calvarium and visualized facial bones appear intact, without suspicious lesions. Sinuses: Visualized sinuses and mastoids are clear. IMPRESSION: No acute intracranial hemorrhage is seen. No acute intracranial process is seen. Note is made of age-appropriate brain parenchymal volume loss and chronic small vessel ischemic changes. Note: Case discussed by telephone with Dr. Lee at 2:40 p.m. [place] time on January 31, 2020. This study fulfills neurological imaging criteria for inclusion or exclusion of acute stroke therapies based on available published neurological guidelines. Dictated by: Timothy Diaz M.D. on 01/31/2020 at 14:39 Approved by: Timothy Diaz M.D. on 01/31/2020 at 14:41
--- NOTE | 2020-01-31 15:31 | ED_ITS ---
HPI - Neuro Symptoms/Deficit General Chief Complaint: Neuro Symptoms/Deficit Stated Complaint: Code Stroke Time Seen by Provider: 01/31/20 15:31 Source: patient and EMS Mode of arrival: EMS Limitations: no limitations History of Present Illness HPI Narrative: The patient developed a right-sided weakness and right facial weakness about 50 minutes prior to arrival. The patient declined the initial right weakness, that history was given by his . He did concur with the right facial weakness and right facial droop. One set happened while at rest at home. He has no history of CVA. Upon arrival he is oriented to person place. He has no complaints of speech or memory. He has no complaints of his vision. He obeys commands without difficulty. He has no chest pain or palpitations. He denies prior history of stroke or TIA. He has a pre-existing droop to the left eye. He does take medications for hypertension, and hyperlipidemia. He does not use tobacco. He denies recent illness. No cough, dyspnea or fever. Related Data Home Medications Medication Instructions Recorded Confirmed docusate sodium 100 mg capsule 200 mg PO DAILY 01/22/19 07/21/19 Previous Rx's Medication Instructions Recorded food supplemt, lactose-reduced 1 each PO .QDAY #5688 ml 03/12/19 0.05 gram-1.5 kcal/mL oral liquid levothyroxine 100 mcg tablet 100 mcg PO DAILY #90 tab 03/15/19 phenelzine 15 mg tablet 30 mg PO QDAY #180 tab 07/21/19 donepezil 10 mg tablet 10 mg PO DAILY #90 tab 10/20/19 atorvastatin 40 mg tablet 40 mg PO BEDTIME #90 tab 10/23/19 losartan 25 mg tablet 25 mg PO DAILY #90 tab 12/02/19 Allergies Allergy/AdvReac Type Severity Reaction Status Date / Time No Known Drug Allergies Allergy Verified 01/31/20 15:44 Review of Systems Review of Systems ROS Unobtainable: All systems reviewed & are unremarkable except as noted in HPI and below Constitutional Constitutional: Denies body ache(s), Denies chills, Denies fatigue, Denies fever(s), Denies headache(s) and Reports weakness Eyes Eyes: Denies blurry vision, Denies change in vision and Denies diplopia ENT Ears, Nose, Mouth, and Throat: Denies headache(s), Denies neck pain, Denies disequilibrium and Denies sore throat Cardiovascular Cardiovascular: Denies chest pain, Denies irregular heart rhythm, Denies lightheadedness, Denies palpitations and Denies dyspnea Respiratory Respiratory: Denies cough and Denies dyspnea Gastrointestinal Gastrointestinal: Denies abdominal pain, Denies change in bowel habits, Denies nausea and Denies vomiting Musculoskeletal Musculoskeletal: Denies back pain, Denies neck pain and Reports numbness Integumentary/Breasts Skin/Breast: Denies pruritus, Denies erythema, Denies rash and Denies wounds Neurologic Neurologic: Reports as per HPI, Denies confusion, Denies headache(s), Reports numbness, Denies disequilibrium and Reports weakness Psychiatric Psychiatric: Denies anxiety and Denies confusion Endocrine Endocrine: Denies fatigue and Denies palpitations Hematologic/Lymphatic Hematologic/Lymphatic: Denies easy bleeding and Denies easy bruising Allergic/Immunologic Comments: No significant issues. Patient History Medical History (Updated 01/31/20 @ 18:24 by Ronald Lee MD) Constipation (Chronic) Depression (Chronic) Hyperlipidemia (Acute) Hypertension (Acute) Hypothyroidism (Chronic Unknown) Hypothyroidism (acquired) (Chronic) Surgical History Hx of cataract surgery (Resolved Unknown) Hx of knee surgery (Resolved Unknown) Family History Father No problems noted. Mother Diabetes mellitus Grandfather Cancer Grandmother No problems noted. Social History marital status: household members: spouse lives independently: Yes Smoking Status: Never smoker alcohol intake: never substance use type: does not use Smoking Status: Never smoker Exam Initial Vital Signs Initial Vital Signs: Vital Signs Temperature 98.3 F 01/31/20 15:34 Pulse Rate 64 01/31/20 15:34 Respiratory Rate 18 01/31/20 15:34 Blood Pressure 127/60 01/31/20 15:34 Pulse Oximetry 98 01/31/20 15:34 Const General: cooperative and well developed Nutritional Appearance: well nourished Limitations: mental status not altered HENPA Head: normocephalic and atraumatic Nose: external nose normal Face and sinus: sinuses nontender and face symmetric Mouth: oral mucosae normal and moist mucous membranes Teeth and gingiva: dentition normal Throat: tonsils normal and uvula midline Eyes General: appearance normal, both eyes and all related structures Eyelids: eyelids normal Conjunctivae: conjunctivae normal Sclera: sclerae normal Pupils: PERRL EOM: EOM intact bilaterally Other: Left-sided ptosis. No visual field deficits. Neck Neck: No lymphadenopathy and No JVD Carotids: no bruits Chest Chest: normal inspection of the chest Resp Effort & Inspection: normal respiratory effort and able to speak in complete sentences Auscultation: clear to auscultation bilaterally, no rales, no rhonchi and no wheezes Cardio Rate: regular rate Rhythm: regular rhythm Heart Sounds: S1 normal, S2 normal, no click, no gallops, no murmurs and no rubs Pulses: normal peripheral pulses GI Inspection: non-distended Palpation: soft, no hepatosplenomegaly, No guarding and No tender Auscultation: normal bowel sounds Back/Spine/Pelvis Back: normal to inspection and No back tenderness Skin General: no rashes or lesions noted and No petechiae Neuro General: patient alert, patient oriented x3 and gait normal Other: The patient has a right facial droop, motor exam extremities normal. He has slight tingling to the right face, sensory exams extremities is normal. His slight change of speech, orientation, vocabulary, and memory are otherwise normal. Extrem General: full ROM, no pedal edema and no calf tenderness Psych Appearance: grossly normal Mental Status: mental status grossly normal Attitude: cooperative Thought Content: normal and suicidality Judgment: judgment good Scores NIH Stroke Scale Level of Conciousness: Alert, keenly responsive Ask month/age: Answers one question correctly, intubated follow commands Open/close eyes, close hand: Performs both tasks correctly Best gaze horizontal: Normal Visual schneider: No visual loss Facial palsy: Minor paralysis, flattened nasolabial fold, asymmetry on smiling Left arm drift: No drift for full 10 sec Right arm drift: No drift for full 10 sec Left leg drift: No drift for full 10 sec Right leg drift: No drift for full 10 sec Limb ataxia: Absent Sensory on face/arms/legs: Mild to moderate sensory loss, can tell touch Best language: No aphasia, normal Dysarthria: Normal Extinction or inattention: No abnormality Total NIH Stroke scale score: 3 Course Course Course Narrative: The patient presented with a history consistent with CVA. He had rapid resolution of the right side apparently, his NIHSS upon arrival was 3. He had already improved. Initial head CT was normal. He was given aspirin. CT a the brain was also evaluated is normal. His an NIHSS improved to 0. His evaluation is otherwise benign. The situation was discussed with the hospi talist, Dr. Mcallister. The patient will be admitted to telemetry for additional evaluation. Orders Ordered: ED Orders 01/31/20 15:15 Complete Blood Count AUTO DIFF Stat Comprehensive Metabolic Panel Stat Partial Thromboplastin Time Stat Prothrombin Time INR Stat Troponin & CK Cardiac Panel Stat 01/31/20 15:29 CT Stroke Stat 01/31/20 15:41 CT angio head and neck Stat 01/31/20 16:20 Urine Drug Screen, Rapid Stat Discontinued Medications Aspirin (Aspirin Chew) 324 mg PO NOW ONE Stop: 01/31/20 15:53 Last Admin: 01/31/20 15:58 Dose: 324 mg Documented by: NHI Vital Signs Vital signs: Vital Signs - 8 hr 01/31/20 15:34 01/31/20 16:16 01/31/20 16:30 Temperature 98.3 F Pulse Rate 64 59 L 59 L Respiratory Rate 18 16 15 Blood Pressure 127/60 108/59 L Pulse Oximetry 98 97 97 01/31/20 16:45 01/31/20 17:05 01/31/20 17:30 Temperature Pulse Rate 58 L 60 62 Respiratory Rate 14 15 Blood Pressure 100/55 L Pulse Oximetry 99 99 98 MDM - Neuro Symptoms/Deficit Lab Data Result diagrams: 01/31/20 15:15 01/31/20 15:15 Labs: Lab Results 01/31/20 01/31/20 01/31/20 Range/Units 15:15 15:15 15:15 WBC 9.9 (4.5-11.0) X10^3/uL RBC 3.71 L (4.5-5.9) X10^6/uL Hgb 12.2 L (13.5-17.5) g/dL Hct 34.4 L (41-53) % MCV 92.7 (80-100) fL MCH 32.9 (26-34) PG MCHC 35.5 (30-36) % RDW 12.7 (11.6-14.8) % Plt Count 124 L (150-400) X10^3/uL Neut % (Auto) 84.2 H (50-75) % Lymph % (Auto) 6.1 L (25-40) % Campbell % (Auto) 9.2 (3-14) % Eos % (Auto) 0.3 L (2-4) % Baso % (Auto) 0.2 (0-2) % Neut # (Auto) 8300 H (8965-0677) /uL Lymph # (Auto) 600 L (9081-9860) /uL Campbell # (Auto) 900 (0-900) /uL Eos # (Auto) 0 (0-450) /uL Baso # (Auto) 0 (0-100) /uL PT 11.8 (10.1-12.7) SECONDS INR 1.0 (0.9-1.3) APTT 29 (26.4-36.2) SECONDS Sodium 136 L (137-145) mmol/L Potassium 3.8 (3.4-5.1) mmol/L Chloride 102 (98-107) mmol/L Carbon Dioxide 28 (22-32) mmol/L BUN 15 (9-20) mg/dL Creatinine 0.81 (0.66-1.25) mg/dL Estimated GFR > 60.0 (>60) mL/min BUN/Creatinine Ratio 18.5 (6-22) Glucose 193 H (80-110) mg/dL Calcium 9.4 (8.4-10.2) mg/dL Total Bilirubin 2.0 H (0.2-1.3) mg/dL AST 29 (17-59) IU/L ALT 27 (<50) IU/L Alkaline Phosphatase 62 (38-126) U/L Total Creatine Kinase 120 (55-170) U/L CK-MB (CK-2) 2.37 (<2.37) ng/mL CK-MB (CK-2) Rel Index 2.0 (1.5-5.0) % Troponin I < 0.012 (0.01-0.034) ng/mL Total Protein 6.6 (6.3-8.2) g/dL Albumin 4.1 (3.5-5.0) g/dL Globulin 2.5 (1.7-4.1) g/dL Albumin/Globulin Ratio 1.6 (1.0-2.8) Point of Care Testing Glucose POC [address] scan - head: Radiologist's Impression: No acute findings. CTA Head: Radiologist's Impression: No acute findings. ECG Data Attestation: I personally reviewed and interpreted this ECG as follows: (Normal sinus rhythm rate 66 bpm. Normal intervals. No ectopy. No acute findings.) Critical Care Time Critical Care Time Critical Care Time: Yes Total Critical Care Time: 45 Attestation: Critical care time included the initial assessment of the patient, review of past medical record, review of EKG, radiology and lab data. Clinical decisions were made. The patient was notified of the findings and the clinical decisions, and consultation with the admitting physician was done. Discharge Plan Departure Patient Disposition: Admitted as Observation Clinical Impression: Acute CVA (cerebrovascular accident) Admit Date/Time: 01/31/20 18:12 Admit Provider: Quincy Mcallister
[2020-01-31 15:40] LABS: Add Manual Diff / Slide Review NO; Basophils Absolute Auto 0 /uL (0-100); Basophils Percent Auto 0.2 % (0-2); Eosinophils Absolute Auto 0 /uL (0-450); Eosinophils Percent Auto 0.3 % (2-4); Hematocrit 34.4 % (41-53); Hemoglobin 12.2 g/dL (13.5-17.5); Lymphocytes Absolute Auto 600 /uL (1100-4500); Lymphocytes Percent Auto 6.1 % (25-40); Mean Corpuscular HGB Conc 35.5 % (30-36); Mean Corpuscular Hemoglobin 32.9 PG (26-34); Mean Corpuscular Volume 92.7 fL (80-100); Monocytes Absolute Auto 900 /uL (0-900); Monocytes Percent Auto 9.2 % (3-14); Neutrophils Absolute Auto 8300 /uL (1500-7000); Neutrophils Percent Auto 84.2 % (50-75); Platelet Count 124 X10^3/uL (150-400); Red Blood Cell Count 3.71 X10^6/uL (4.5-5.9); Red Cell Distribution Width 12.7 % (11.6-14.8); White Blood Cell Count 9.9 X10^3/uL (4.5-11.0)
--- NOTE | 2020-01-31 15:41 | DI.CT.S_ITS ---
PROCEDURE: CT ANGIO HEAD AND NECK INDICATIONS: TIA TECHNIQUE: Noncontrast images were performed earlier in the day and not repeated. After the administration of intravenous contrast, 1 mm thick sections acquired from the aortic arch through the [place]. Post-contrast 4.5 mm thick sections then re-acquired from the foramen magnum to the vertex. 3-dimensional etjdybe-dpasnunew-dpvpbnanhg (MIP) and/or volume rendering reformats were acquired of the central intracranial vasculature and neck separately. COMPARISON: [facility], CT, CT STROKE, 01/31/2020, 15:20. FINDINGS: Image quality: Excellent. BRAIN: CSF spaces: Ventricles are normal in size and shape. Basal cisterns are patent. No extra-axial fluid collections. Brain: No midline shift. No intracranial bleeds or masses. Hyatt-white matter interface appears intact. Skull and face: Calvarium and facial bones appear intact, without suspicious lesions. Orbits appear normal. Sinuses: Sinuses and mastoids are clear. HEAD CT ANGIOGRAPHY: Anterior circulation: Intracranial internal carotid arteries are normal in size and flow. The flow within the paired anterior cerebral arteries is normal and symmetric. The flow within the middle cerebral arteries is normal and symmetric. The anterior communicating artery is seen. No aneurysms are seen. Posterior circulation: Visualized portions of the vertebral arteries demonstrate normal caliber, and join to form a normal appearing basilar artery. There is a prominent right posterior communicating artery seen, with an accompanying diminutive right P1 segment. This is attributed to a type origin of the right posterior cerebral artery, which is considered to be a normal developmental variant of typically no clinical consequence. Flow within the posterior cerebral arteries is normal and symmetric. No aneurysms are seen. NECK CT ANGIOGRAPHY: Carotid system: The great vessels demonstrate a conventional anatomy as they arise from the aortic arch. The origins of the common carotid arteries appear patent. The common carotid arteries demonstrate normal caliber and courses. The bifurcation regions are both widely patent. The internal carotid arteries demonstrate normal calibers and courses. Posterior circulation: The origins of the vertebral arteries both appear widely patent. The more superior extracranial portions of both vertebral arteries also demonstrate normal courses and calibers. The right vertebral artery is dominant to the left. They join to form a normal appearing basilar artery. Soft tissues: Visualized neck soft tissues demonstrate no suspicious abnormalities. Bones: No suspicious bony lesions. Visualized cervical spine appears normally aligned. Age-appropriate bony degenerative changes are seen. IMPRESSION: Unremarkable angiogram, without a hemodynamically significant stenosis identified. Any quantitative measurements of stenosis were performed using NASCET criteria. Dictated by: Timothy Diaz M.D. on 01/31/2020 at 16:20 Approved by: Timothy Diaz M.D. on 01/31/2020 at 16:22
[2020-01-31 15:50] LABS: Prothrombin Time 11.8 SECONDS (10.1-12.7)
[2020-01-31 15:53] LABS: PTT Partial Thromboplastin Tim 29 SECONDS (26.4-36.2)
[2020-01-31] MEDS: ASPIRIN 81 MG CHEW TAB 324 MG PO (15:58)
[2020-01-31 16:43] LABS: Alanine Aminotransferase 27 IU/L (<50); Albumin 4.1 g/dL (3.5-5.0); Albumin Globulin Ratio 1.6 (1.0-2.8); Alkaline Phosphatase 62 U/L (38-126); Aspartate Aminotransferase 29 IU/L (17-59); BUN Creatinine Ratio 18.5 (6-22); Blood Urea Nitrogen 15 mg/dL (9-20); Calcium 9.4 mg/dL (8.4-10.2); Carbon Dioxide 28 mmol/L (22-32); Chloride 102 mmol/L (98-107); Creatine Kinase 120 U/L (55-170); Estimated Glomerular Filt Rate > 60.0 mL/min (>60); Globulin 2.5 g/dL (1.7-4.1); Glucose 193 mg/dL (80-110); HEMOLYSIS < 15 (0-50); Potassium 3.8 mmol/L (3.4-5.1); Sodium 136 mmol/L (137-145); Total Protein 6.6 g/dL (6.3-8.2)
[2020-01-31 16:53] LABS: Troponin I < 0.012 ng/mL (0.01-0.034)
[2020-01-31 16:58] LABS: Creatine Kinase MB 2.37 ng/mL (<2.37)
--- NOTE | 2020-01-31 18:20 | DI.RAD.S_ITS ---
PROCEDURE: XR CHEST 1V INDICATIONS: TIA TECHNIQUE: One view of the chest was acquired. COMPARISON: [facility], CT, CT CHEST W CON, 03/10/2019, 14:49. [facility], CR, CHEST 1 VIEW, 10/30/2017, 17:19. FINDINGS: Surgical changes and devices: None. Lungs and pleura: Lungs are clear. No pleural effusions or pneumothorax. Mediastinum: Mediastinal contours appear normal. Heart size is normal. Bones and chest wall: No suspicious bony lesions. Overlying soft tissues appear unremarkable. IMPRESSION: No evidence acute pulmonary process. Dictated by: Aakash Guzman M.D. on 01/31/2020 at 19:01 Approved by: Aakash Guzman M.D. on 01/31/2020 at 19:01
--- NOTE | 2020-01-31 18:43 | DI.MRI.S_ITS ---
PROCEDURE: MR STROKE Pre- and post-contrast brain MRI, non-contrast brain MR angiogram, pre- and postcontrast neck MR angiogram INDICATIONS: TIA TECHNIQUE: Brain: Noncontrast axial T1 spin echo, axial T2 fast spin echo, sagittal and axial FLAIR, coronal T2 fast spin echo, axial gradient echo, axial diffusion and ADC through the brain. After the administration of contrast, axial 3D VIBE of the cranial vasculature and brain. Brain MRA: Non-contrast 3-D time of flight MR angiogram, with multiple dgvbbow-hmfjwvglx-fhmnlxwcvz (MIP) reformats performed. Neck MRA: Axial and sagittal TruFISP through the neck. Coronal dynamic MR angiogram during administration of contrast in the arterial and venous phases, with 3-dimenstional wmtxqci-sqzpznxhf-zagouqolqh (MIP) reformats constructed from subtraction images. COMPARISON: [facility], CT, CT ANGIO HEAD AND NECK, 01/31/2020, 16:46. [facility], CT, CT STROKE, 01/31/2020, 15:20. FINDINGS: Image quality: Excellent. BRAIN: CSF spaces: Ventricles are normal in size and shape. Basal cisterns are patent. No extra-axial fluid collections. Brain: No intracranial bleeds or mass effects. Hyatt-white matter interface is normal. There is mild, diffuse cerebral volume loss. There are mild periventricular and subcortical white matter chronic microvascular ischemic changes. Diffusion weighted images show no acute ischemic insults. Brainstem appears normal. Normal intravascular flow voids are present. No abnormal intracranial enhancement. Dural sinuses demonstrate normal postcontrast enhancement. Skull and face: Calvarial marrow signal is normal. Orbits appear normal. Sinuses: Sinuses and mastoids are clear. BRAIN MR ANGIOGRAM: Anterior circulation: Intracranial internal carotid arteries are normal in size and enhancement. The flow within the paired anterior cerebral arteries is normal. 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 There is normal flow in the A2 segment of the right anterior cerebral artery via patent anterior communicating artery. The flow within the middle cerebral arteries is normal and symmetric. The anterior communicating artery is seen. No stenoses, occlusions, or aneurysms. Posterior circulation: The visualized portions of the vertebral arteries demonstrate normal caliber, and join to form a normal appearing basilar artery. The flow within the posterior cerebral arteries is normal and symmetric. Right posterior cerebral artery has a origin which is a congenital anatomic variant. No stenoses, occlusions, or aneurysms. NECK MR ANGIOGRAM: Carotids: Great vessels demonstrate a conventional anatomy as they arise from the aortic arch. The origins of the common carotid arteries appear patent. The calibers and courses of both common carotid arteries are normal. The bifurcation regions appear normal bilaterally. The internal carotid arteries demonstrate normal course and caliber. Posterior circulation: The origins of the vertebral arteries appear patent. 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 More superior portions of both vertebral arteries demonstrate normal course and caliber, and join to form a normal appearing basilar artery. Miscellaneous: Subclavian arteries appear patent. Pre-contrast images through the neck show no soft tissue abnormalities. IMPRESSION: BRAIN MRI: 1. No acute intracranial disease process. 2. No areas of acute or chronic infarction. 3. No abnormal intracranial mass or suspicious postcontrast enhancement. 4. Mild, diffuse cerebral volume loss. 5. Mild periventricular and subcortical white matter chronic microvascular ischemic changes. BRAIN MR ANGIOGRAM: No large vessel occlusion, hemodynamically significant stenosis or aneurysm. NECK MR ANGIOGRAM: No large vessel occlusion, hemodynamically significant stenosis or aneurysm. Dictated by: Patsy Rizzo MD, PhD on 02/01/2020 at 11:51 Approved by: Patsy Rizzo MD, PhD on 02/01/2020 at 12:02
--- NOTE | 2020-01-31 18:47 | P.HP_ITS ---
History of Present Illness History of Present Illness Date Patient Seen: 01/31/20 Time Patient Seen: 18:00 Date of Onset of Symptoms: 01/31/20 Chief complaint: Code Stroke Narrative: Patient is a 74-year-old male with history of hypertension, hyperlipidemia, hypothyroidism, memory loss who had an unwitnessed ground level fall about 50 minutes prior to ED arrival. 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 Per ER physician documentation, his observed right sided weakness. Patient endorses some weakness of his right lower face and was noted to have some drooping of his right lower lip by the ER physician. By the time this examiner saw patient the facial drooping had resolved. Patient denies any headache, LOC, change in vision or diplopia, unilateral weakness or numbness of arms or legs, difficulty with speech, chest pain or palpitations. He has pre-existing ptosis of the left eye. He is not a smoker. It is noted patient takes donepezil but unclear if he carries diagnosis of dementia. He states his keeps track of his medications. Spouse is not available at time of this examination for corroborative history. Head CT showed age-related small-vessel disease without acute findings. CTA was normal. Patient History Medical History (Updated 01/31/20 @ 18:24 by Ronald Lee MD) Constipation (Chronic) Depression (Chronic) Hyperlipidemia (Acute) Hypertension (Acute) Hypothyroidism (Chronic Unknown) Hypothyroidism (acquired) (Chronic) Surgical History Hx of cataract surgery (Resolved Unknown) Hx of knee surgery (Resolved Unknown) Family & Social History Family History Father No problems noted. Mother Diabetes mellitus Grandfather Cancer Grandmother No problems noted. Social History: household members spouse lives independently Yes Safety & Behavioral: Feels Safe in Current Yes Environment Been Physically Hurt or No Threatened By a Person Tobacco & Substance use: Smoking Status Never smoker alcohol intake never alcohol intake frequency 0-2 drinks per day Substance Use Type does not use Meds Home Medications and Allergies Home Medications Medication Instructions Recorded Confirmed Type docusate sodium 100 mg capsule 200 mg PO DAILY 01/22/19 07/21/19 History food supplemt, lactose-reduced 1 each PO .QDAY #5688 ml 03/12/19 07/21/19 Rx 0.05 gram-1.5 kcal/mL oral liquid levothyroxine 100 mcg tablet 100 mcg PO DAILY #90 tab 03/15/19 07/21/19 Rx phenelzine 15 mg tablet 30 mg PO QDAY #180 tab 07/21/19 01/31/20 Rx donepezil 10 mg tablet 10 mg PO DAILY #90 tab 10/20/19 Rx atorvastatin 40 mg tablet 40 mg PO BEDTIME #90 tab 10/23/19 Rx losartan 25 mg tablet 25 mg PO DAILY #90 tab 12/02/19 Rx Allergies Allergy/AdvReac Type Severity Reaction Status Date / Time No Known Drug Allergies Allergy Verified 01/31/20 15:44 Review of Systems Review of Systems ROS: Yes All systems reviewed with the patient and are negative except as otherwise documented Exam Vital Signs (past 8 hours): - 01/31/20 15:34 01/31/20 16:16 01/31/20 16:30 Temperature 98.3 F Pulse Rate 64 59 L 59 L Respiratory Rate 18 16 15 Blood Pressure 127/60 108/59 L Pulse Oximetry 98 97 97 01/31/20 16:45 01/31/20 17:05 01/31/20 17:30 Temperature Pulse Rate 58 L 60 62 Respiratory Rate 14 15 Blood Pressure 100/55 L Pulse Oximetry 99 99 98 01/31/20 18:00 01/31/20 18:25 01/31/20 18:30 Temperature Pulse Rate 52 L 58 L 56 L Respiratory Rate 14 15 16 Blood Pressure 121/60 106/57 L Pulse Oximetry 98 98 97 01/31/20 18:33 Temperature 97.6 F Pulse Rate Respiratory Rate Blood Pressure Pulse Oximetry Oxygen Delivery Method Room Air Narrative Exam Narrative: General: Patient is alert elderly male in no acute distress HEENT: Nontraumatic, pupils equal and reactive, extraocular muscles intact, visual schneider grossly intact, there is mild ptosis of the left eye. There is no facial asymmetry and no facial weakness. Neck: Supple, no lymphadenopathy Lungs: Breathing nonlabored, clear to auscultation Heart: Normal S1 and S2, regular rate and rhythm, no murmur Abdomen: Soft, nontender, no HSM Extremities: Warm, dry, no edema Neurological: Alert, affect normal, oriented to month and year, follows com mands without difficulty, no aphasia, no pronator drift, lower extremity strength intact, [id number] and heel to melvin intact, no focal numbness Skin: No rash or petechiae Objective Labs Result Diagrams: 01/31/20 15:15 01/31/20 15:15 Labs: Laboratory Results - last 24 hr 01/31/20 01/31/20 01/31/20 15:15 15:15 15:15 WBC 9.9 RBC 3.71 L Hgb 12.2 L Hct 34.4 L MCV 92.7 MCH 32.9 MCHC 35.5 RDW 12.7 Plt Count 124 L Neut % (Auto) 84.2 H Lymph % (Auto) 6.1 L Gilpin % (Auto) 9.2 Eos % (Auto) 0.3 L Baso % (Auto) 0.2 Neut # (Auto) 8300 H Lymph # (Auto) 600 L Gilpin # (Auto) 900 Eos # (Auto) 0 Baso # (Auto) 0 PT 11.8 INR 1.0 APTT 29 Sodium 136 L Potassium 3.8 Chloride 102 Carbon Dioxide 28 BUN 15 Creatinine 0.81 Estimated GFR > 60.0 BUN/Creatinine Ratio 18.5 Glucose 193 H Calcium 9.4 Total Bilirubin 2.0 H AST 29 ALT 27 Alkaline Phosphatase 62 Total Creatine Kinase 120 CK-MB (CK-2) 2.37 CK-MB (CK-2) Rel Index 2.0 Troponin I < 0.012 Total Protein 6.6 Albumin 4.1 Globulin 2.5 Albumin/Globulin Ratio 1.6 Assessment & Plan Assessment & Plan narrative: This is a 74-year-old male with history of memory loss, hypertension, hyperlipidemia, hypothyroidism who presents with acute weakness and ground level fall with right facial weakness observed by spouse and ER physician. 1. Acute TIA, present on admission, active -right facial weakness resolved in the ED -head CT and CTA without acute findings -admit to hospital observation -received aspirin in ED, continue aspirin 81 mg daily -BP noted low normal, start NS 100 cc/hour to support blood pressure in setting of acute TIA -neuro check q.4 hours -MR stroke protocol -transthoracic echo -telemetry monitoring -general diet 2. Essential hypertension, chronic -continue losartan 25 mg q.d. per home routine 3. Hyperlipidemia, chronic -continue atorvastatin 40 mg HS per home routine -check lipid panel 4. Memory loss -unclear if patient carries diagnosis of dementia, continue donepezil 10 mg daily 5. Mood disorder NOS -affect normal, patient is on phenelzine which is a MAO I inhibitor 6. Chronic anemia -patient noted to have mild normocytic anemia which appears chronic dating back to at least 2018 -check iron studies 7. Hypothyroidism -continue levothyroxine 100 mcg q.d. per home routine Code status: Full code per discussion with patient on admission Surrogate decision maker: Spouse DVT prophylaxis: Lovenox
[2020-01-31 19:20] LABS: Cholesterol 103 mg/dL (140-199); HDL Cholesterol 58 mg/dL (40-60); LDL Cholesterol Calculated 31 mg/dL (<100); Triglycerides 70 mg/dL (35-150)
--- NOTE | 2020-01-31 19:42 | PC.NURSE ---
Per - patient has a normal speech impediment and also has been seen recently by Dr. Dudley Burris, neurology, for memory loss/mild cognitive impairment. Patient has strict dietary restrictions due to medication Nardil, including: yogurt, cheese (except cottage cheese), aged meats (smoke/cured, sausage/bologna, liver), soy/teriyaki sauce, tofu, or anything with meat tenderizer on it. 's # is
[2020-01-31] MEDS: SODIUM CHLORIDE 0.9% 1,000 ML 100 ML IV (19:53)
[2020-01-31 19:56] LABS: Ferritin 177 ng/mL (18-464)
[2020-01-31 21:11] LABS: COVID19 -Nasal RAPID Negative (Negative)
[2020-01-31] MEDS: ATORVASTATIN 20 MG TABLET 40 MG PO (21:12)
[2020-01-31 21:27] LABS: HEMOLYSIS < 15 (0-50); Iron 31 ug/dL (49-181)
[2020-01-31 21:37] LABS: Percent Iron Saturation 11 % (20-50); Total Iron Binding Capacity 284 ug/dL (261-462); Transferrin 204 mg/dL (206-381)
--- NOTE | 2020-01-31 23:13 | PC.NURSE ---
Patient has slight speech impediment at baseline, per - not considered in NIH stroke scale.
[2020-02-01] VITALS (16 sets, daily range): BP systolic 95–166; BP diastolic 49–104; PULSE 55–98; RESP 14–18; TEMP 36.6–36.9; O2SAT 96–100
--- NOTE | 2020-02-01 00:15 | PC.NURSE ---
NIH/lily check - pt has slight droop on R lower lip. States his lip feels, abnormal. More like it's swollen than numb. All other assessments WNL.
--- NOTE | 2020-02-01 01:06 | PC.NURSE ---
Addendum entered by Natalee Lara R.N. 02/01/20 03:58: Vitals stable throughout night. Q4 neuro checks WNL Original Note: Rapid response/bayron Blue called at 0035. Pt was sitting in bath chair in bathroom, preparing for a shower. 2 COMMUNITY DEVELOPMENT COORDINATOR's present at time and noticed pt began to not respond to their questions. This RN was called and found the patient to be answering questions but very slow/lethargic. MEDICAL TERMINOLOGIST reported a heart rate of 31. Bayron Mike/rapid response was called, pt was aided into recliner chair. Code team arrived, pacer pads were placed and pt was evaluated Pt began to improve once he was in a reclining position. BG = 147. Pt was evaluated by nurse practitioner, NIH scale scored w/deficit of a slight right sided droop of lower lip - no other deficits. Pt continued to improve and stated he was feeling much better. Now resting comfortably in bed. Blood pressure checks q 30 minutes.
--- NOTE | 2020-02-01 01:09 | PM.EVENT ---
Event Note Date Patient Seen: 02/01/20 Time Patient Seen: 00:35 Event Note: Mr. González Hough is a 74-year-old male with history of hypertension, hyperlipidemia, hypothyroidism, memory loss who had an unwitnessed ground level fall about 50 minutes prior to ED arrival. 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 Per ER physician documentation, his observed right sided weakness. Patient endorses some weakness of his right lower face and was noted to have some drooping of his right lower lip. Initial NIH score was 3. The patient's symptoms had improved and the patient was admitted to the medicine service for further evaluation monitoring of TIA. The patient was being assisted to the shower when he demonstrated a decreased level of conscious but not syncope was helped to seated position. A code blue was called. The patient transfer to recliner chair. Patient was obtained but responsive pale and diaphoretic. Telemetry demonstrates sinus bradycardia without block ischemia or infarct. The patient's quickly assessed for neurological event with BEFAST exam and found to be at baseline functioning. While reclined in the chair the patient's heart rate improved slowly but steadily and diaphoresis cleared. Patient mentation improved to conversant and interactive and appropriate aligning with preventing mental status per the nurse. Vasovagal episode, acute -unclear event trigger. Heart rate decreased to 32 on telemetry and steadily improved while reclined improving to greater than 60. -no complaints of chest pain or palpitations, no complaints shortness of breath. Mentation improving to baseline -pacer pads remain applied, Multi lead analysis reveals sinus bradycardia with no indication of block, ischemia or infarct. Patient remains on telemetry. Patient with stable vital signs and back to baseline function.
[2020-02-01 01:40] LABS: UR Morphine/Opiate cutoff 300 Negative (Negative); Ur Creatinine 50 (Normal); Ur Specific Gravity 1.015 (Normal); Urine Amphetamines Negative (Negative); Urine Barbiturates Negative (Negative); Urine Benzodiazepines Negative (Negative); Urine Cocaine Negative (Negative); Urine MDMA Negative (Negative); Urine Methadone Negative (Negative); Urine Methamphetamines Negative (Negative); Urine Oxycodone Negative (Negative); Urine Phencyclidine Negative (Negative); Urine Tetrahydrocannabinol Negative (Negative); Urine Tricyclic Antidepressant Negative (Negative); Urine pH 5 (Normal)
[2020-02-01] MEDS: SODIUM CHLORIDE 0.9% 1,000 ML 100 ML IV ×2 (02:47→14:55)
[2020-02-01] MEDS: LEVOTHYROXINE 100 MCG TABLET PO (06:11)
[2020-02-01] MEDS: DONEPEZIL 5 MG TABLET 10 MG PO (10:14)
[2020-02-01] MEDS: ENOXAPARIN 40 MG/0.4 ML SYRINGE SUBCUT (10:14)
[2020-02-01] MEDS: DOCUSATE 100 MG CAPSULE 200 MG PO (10:14)
--- NOTE | 2020-02-01 11:16 | CM.DANOTE ---
DCP assessment: EMR Reviewed: patient is a 74 yr old male who was admitted for TIA symptoms. Patients PCP is Dr Lerner. Cm/RN met with patient at the bedside and explained role. Patient was alert and oriented x3 at time of Visit. Patient currently lives in a single level home with his Lissette on [facility]. Patient only has a cane at home and no other DME. Patient states he is Independent and drives at base line. patient is Pending PT and OT evaluations as well as an MRI and an ECHO. I: Medicare and [employer] P: D/C home with when medically stable. This may change pending results of ECHO, MRI , OT and PT evaluations. Dr. Mendez is R/O heart issues that may need a account review specialist to manage. Cm department will follow to determine if any changes need to be made to D/C plan. Shey Parson RN Discharge Planning/Care Management CM Discharge Assessment Start: 02/01/20 11:13 Freq: Status: Active Protocol: Document 02/01/20 11:13 HS (Rec: 02/01/20 11:16 HS [id number]) Discharge Planning Assessment Assigned Blowing Weasand Shey Parson RN DPOA/Assigned Designee Name Lissette Prado () Contact Information [phone] Advance Directives? No History Provided By Patient Has Patient been admitted in last 30 No days? Prior Living Arrangements Mobile home Household Members spouse Type of transporation used prior to Drives own vehicle admit Willing to Return to Facility? No Independent with ADL's Yes Is patient alert and oriented? Yes Caregiver for Another No DME Already Rented / Owned Cane Comment no other DME at home. Discharge Plan Home Referrals Initiated None needed Additional Comment patient doesn't want any services at this time. Whiteboard Updated in Patient Room with Yes name and ext. # of Blowing Weasand Review Status In Process Next Review Type Continued Stay Review
--- NOTE | 2020-02-01 11:32 | DI.ECHO.S_ITS ---
Echocardiogram Report + + :Name: ANN MARIE BROWN Study Date: 02/01/2020 Height: 68 in : :[facility] Weight: 143 lb : : Gender: Male BSA: 1.8 m2 : :: 1945 Age: 74 yrs BP: 106/62 mmHg: :Reason For Study: TIA : :Ordering Physician: SHELLI, : :DANTE Performed By: Zuly Lyle : :Referring: DANTE MARQUES : + + Interpretation Summary 1) Normal left ventricular thickness, size, wall motion, and systolic function (EF 60-65%). 2) Normal right ventricular size and function. 3) No significant valvular abnormalities. 4) No prior Echo available for comparison. Procedure: A two-dimensional transthoracic echocardiogram with color flow and Doppler was performed. The study quality was technically adequate. There is no prior echocardiogram noted for this patient. The heart rate ranged between 60-63 bpm during the study. Left Ventricle: The left ventricle is normal in size and wall thickness. The ejection fraction is estimated to be 60-65%. Left ventricular systolic function is normal without focal wall motion abnormalities. Diastolic parameters suggest probable normal left ventricular diastolic function and normal filling pressures. Right Ventricle: The right ventricle is normal in size and function. Atria: Both atria are normal in size. There is no Doppler evidence for an interatrial shunt. Mitral Valve: The mitral valve is normal in structure and function. There is trace mitral regurgitation. Aortic Valve: The aortic valve is trileaflet. The aortic valve opens well. There is no aortic valve stenosis. No aortic regurgitation is present. Tricuspid Valve: The tricuspid valve is normal in structure and function. The right ventricular systolic pressure is estimated to be at least 31 mmHg based on an estimated right atrial pressure of 3 mm Hg. There is mild tricuspid regurgitation. Pulmonic Valve: The pulmonic valve is not well seen, but is grossly normal. There is no pulmonic valvular regurgitation. Great Vessels: The aortic root is normal size. The ascending aorta could not be visualized. The IVC is of normal diameter and collapses greater than 50% with a sniff. This suggests a low right atrial pressure of 3 mm Hg. Pericardium/ Pleura There is no pericardial effusion. There is no pleural effusion. MMode/2D Measurements & Calculations LVIDd: 4.7 cm LVOT diam: 2.0 cm LVIDs: 2.8 cm Ao root diam: 3.2 cm FS: 39.5 % Ao Arch Diam (Prox Trans): 2.4 cm EPSS: 0.45 cm IVSd: 0.85 cm LVPWd: 0.77 cm LV perez. diameter/BSA (cm/m^2): 2.7 LV sys. diameter/BSA (cm/m^2): 1.6 LA A2 area: 12.3 cm2 RA long axis: 5.0 cm LA A4 area: 12.4 cm2 RA area: 14.0 cm2 LA length (vol): 4.2 cm RA vol: 33.2 ml LA vol: 30.8 ml RA : 18.7 ml/m2 LA vol index: 17.4 ml/m2 IVC diam: 1.8 cm RVD1 (basal): 3.8 cm TAPSE: 3.5 cm Doppler Measurements & Calculations Ao V2 max: 149.1 cm/sec LVOT Max Nathan: 115.7 cm/sec Ao V2 mean: 97.3 cm/sec LV V1 max P.4 mmHg Ao max P.9 mmHg LV V1 VTI: 22.4 cm Ao mean P.4 mmHg MIGUELINA(I,D): 2.4 cm2 Ao V2 VTI: 29.3 cm MIGUELINA(V,D): 2.4 cm2 sev ratio: 0.77 MIGUELINA indexed to BSA (cm^2/m^2): 1.3 MV E max nathan: 78.6 cm/sec TR max nathan: 264.7 cm/sec MV A max nathan: 74.7 cm/sec TR max P.0 mmHg MV E/A: 1.1 PA V2 max: 91.4 cm/sec Med Peak E' Nathan: 8.7 cm/sec PA V2 mean: 59.0 cm/sec E/E' med: 9.1 PA mean P.7 mmHg Lat Peak E' Nathan: 9.0 cm/sec PA pr(Accel): 15.6 mmHg E/E' lat: 8.7 E/e' average: 8.9 MV dec time: 0.19 sec SV(LVOT): 69.6 ml Reading Physician:12:31 PM
--- NOTE | 2020-02-01 15:25 | PC.NURSE ---
Syncopal episode: Late entry (occurred starting at 1128 when patient arriving back from [facility]). DI staff arrived to room 223 at 1128 with patient in wheelchair. When this health underwriter stepped in front of patient noted that he was minimally responsive, eyes partly open, answered yes, I think so when asked if he was with us. Per DI transport staff patient had been responsive and did all transfers for them without any issue. Vitals obtained with patient seated in chair, BP 153/104. Was able to stand and transfer back into bed with 3-person stand/pivot and gait belt. Dr Mendez called and in with patient as of 1130. Vitals measured when patient supine immediately after back to bed, BP 95/49, HR 60. Vitals about 5 minutes later 106/62, HR 68. Patient gradually became more alert once in back in bed, but was unable to really describe how he felt and did not remember episode at all when questioned about it afterwards. A stat EKG was obtained, and tele monitoring replaced. Patient was able to stand at bedside, with 2-person assist to use the urinal, without becoming dizzy/lightheaded/syncopal. Rested in bed most of the afternoon, did not eat lunch... his only complaint being that he is just very tired. Call light within reach, bed alarm on, door and curtain open for easy visualization.
[2020-02-01 16:17] LABS: Creatine Kinase 65 U/L (55-170)
[2020-02-01 16:24] LABS: Erythrocyte Sedimentation Rate 17 MM/HR (0-15)
[2020-02-01 16:30] LABS: Troponin I < 0.012 ng/mL (0.01-0.034)
--- NOTE | 2020-02-01 16:32 | P.DS_ITS ---
History of Present Illness History of Present Illness Date Patient Seen: 02/01/20 Chief complaint: Code Stroke Narrative: Patient is a 74-year-old male with history of hypertension, hyperlip idemia, hypothyroidism, memory loss who had an unwitnessed ground level fall about 50 minutes prior to ED arrival. 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 Per ER physician documentation, his observed right sided weakness. Patient endorses some weakness of his right lower face and was noted to have some drooping of his right lower lip by the ER physician. By the time this examiner saw patient the facial drooping had resolved. Patient denies any headache, LOC, change in vision or diplopia, unilateral weakness or numbness of arms or legs, difficulty with speech, chest pain or palpitations. He has pre-existing ptosis of the left eye. He is not a smoker. It is noted patient takes donepezil but unclear if he carries diagnosis of dementia. He states his keeps track of his medications. Spouse is not available at time of this examination for corroborative history. Head CT showed age-related small-vessel disease without acute findings. CTA was normal. Discharge Providers Provider Date of admission: 02/01/20 11:31 Discharge Date: 02/01/20 Primary care physician: Yann Dempsey MD Discharge provider: Niki Mendez MD Summary Hospital Course Discharge Diagnosis: 1. Probable sick sinus syndrome 2. Syncope, secondary to sick sinus syndrome 3. Probable contrast iodine allergy, with resultant rash 4. Left anterior fascicular block, with an incomplete right bundle branch block 5. Hypertension 6. Hyperlipidemia 7. Hypothyroid 8. Depression Hospital Course: Patient was admitted to the hospital after an unwitnessed fall at home. The patient was found to have right-sided weakness. It there was concern raised regarding possibility of a stroke. Patient had a head CT noncontrast in the emergency room which was unremarkable. He underwent a CT angio with contrast of the head neck which showed no significant vascular abnormality. The patient then had an MRI of the brain which showed no acute stroke he underwent a cardiac echo as well. The dictated cardiac echo results are still pending. The patient had an episode yesterday when he was getting up to the shower and was diaphoretic and had a near syncopal event. At that time his heart rate was 32. He was laid back in bed with improvement of symptomatology. This morning patient was coming back from [facility] when he was trans ferring from the chair to the bed where he felt lightheaded diaphoretic and pale. Heart rate at that time was 53. Blood pressure was 95 systolic. The patient had no identifiable bradycardic rhythm on telemetry. As the patient has had recurrent near syncopal episode associated with bradycardia it was felt that he likely has sick sinus syndrome and would benefit from a pacemaker placement. Arrangements were made to transfer him to [facility] for possible pacemaker placement. The patient developed an abrupt rash on the chest abdomen back and upper extremities. This was new since admission. It was somewhat paretic. It was in close proximity to him receiving IV contrast for his CT angio. It was presumed that the patient had a iodine contrast allergy. He will be given Benadryl and hydrocortisone. Patient will be notified that he likely has a iodine allergy. The patient has a history of depression. He has been treated with an MAO inhibitor Nardil. As a result there multiple medications at interact including many anesthetic that must be considered during his clinical course. Overall the patient is made significant improvement. He is deemed appropriate for transfer and arrangements are made for him to be transferred Exam Vital Signs (past 8 hours): - 02/01/20 10:24 02/01/20 11:28 02/01/20 11:31 Temperature Pulse Rate 60 Respiratory Rate Blood Pressure 153/104 H 95/49 L Pulse Oximetry 98 96 96 02/01/20 11:35 02/01/20 12:29 02/01/20 16:11 Temperature 98.4 F 98.4 F Pulse Rate 68 68 76 Respiratory Rate 14 18 Blood Pressure 106/62 113/68 144/66 H Pulse Oximetry 96 100 99 Oxygen Delivery Method Room Air Oxygen Flow Rate 0 Narrative Exam Narrative: Pleasant gentleman in no obvious distress HEENT: Normocephalic atraumatic, sclerae anicteric, left facial droop is noted tongue is midline Skin macular eruption on the chest abdomen back upper extremities and lower extremities, rate and pruritic, mildly erythematous Lungs: Clear to auscultation Cardiac: Regular rate and rhythm normal S1-S2 with a 2/6 systolic ejection mu rmur Abdomen soft nontender nondistended Extremities: No edema Objective Labs Result Diagrams: 01/31/20 15:15 01/31/20 15:15 Labs: Laboratory Results - last 24 hr 01/31/20 01/31/20 01/31/20 15:15 15:15 15:15 ESR Sodium 136 L Potassium 3.8 Chloride 102 Carbon Dioxide 28 BUN 15 Creatinine 0.81 Estimated GFR > 60.0 BUN/Creatinine Ratio 18.5 Glucose 193 H Calcium 9.4 Magnesium Iron 31 L TIBC 284 % Saturation 11 L Transferrin 204 L Ferritin 177 Total Bilirubin 2.0 H AST 29 ALT 27 Alkaline Phosphatase 62 Total Creatine Kinase 120 CK-MB (CK-2) 2.37 CK-MB (CK-2) Rel Index 2.0 Troponin I < 0.012 Total Protein 6.6 Albumin 4.1 Globulin 2.5 Albumin/Globulin Ratio 1.6 Triglycerides 70 Cholesterol 103 L LDL Cholesterol, Calc 31 HDL Cholesterol 58 U Opiates 300ng/mL cut Ur Oxycodone Screen Urine Methadone Screen Ur Barbiturates Screen U Tricyclic Antidepress Ur Phencyclidine Scrn Ur Amphetamines Screen U Methamphetamines Scrn Ur MDMA Scrn (Ecstasy) U Benzodiazepines Scrn Urine Cocaine Screen U Marijuana (THC) Screen COVID-19 PCR 01/31/20 01/31/20 02/01/20 15:15 18:45 01:10 ESR Sodium Potassium Chloride Carbon Dioxide BUN Creatinine Estimated GFR BUN/Creatinine Ratio Glucose Calcium Magnesium 2.0 Iron TIBC % Saturation Transferrin Ferritin Total Bilirubin AST ALT Alkaline Phosphatase Total Creatine Kinase CK-MB (CK-2) CK-MB (CK-2) Rel Index Troponin I Total Protein Albumin Globulin Albumin/Globulin Ratio Triglycerides Cholesterol LDL Cholesterol, Calc HDL Cholesterol U Opiates 300ng/mL cut Negative Ur Oxycodone Screen Negative Urine Methadone Screen Negative Ur Barbiturates Screen Negative U Tricyclic Antidepress Negative Ur Phencyclidine Scrn Negative Ur Amphetamines Screen Negative U Methamphetamines Scrn Negative Ur MDMA Scrn (Ecstasy) Negative U Benzodiazepines Scrn Negative Urine Cocaine Screen Negative U Marijuana (THC) Screen Negative COVID-19 PCR Negative 02/01/20 02/01/20 14:50 14:50 ESR 17 H Sodium Potassium Chloride Carbon Dioxide BUN Creatinine Estimated GFR BUN/Creatinine Ratio Glucose Calcium Magnesium Iron TIBC % Saturation Transferrin Ferritin Total Bilirubin AST ALT Alkaline Phosphatase Total Creatine Kinase 65 CK-MB (CK-2) TNP CK-MB (CK-2) Rel Index TNP Troponin I < 0.012 Total Protein Albumin Globulin Albumin/Globulin Ratio Triglycerides Cholesterol LDL Cholesterol, Calc HDL Cholesterol U Opiates 300ng/mL cut Ur Oxycodone Screen Urine Methadone Screen Ur Barbiturates Screen U Tricyclic Antidepress Ur Phencyclidine Scrn Ur Amphetamines Screen U Methamphetamines Scrn Ur MDMA Scrn (Ecstasy) U Benzodiazepines Scrn Urine Cocaine Screen U Marijuana (THC) Screen COVID-19 PCR Discharge Plan Discharge Plan Patient Disposition: [facility] Other facility: [facility] Under care of provider: Dr. Dona Hoyos Discharge orders & Medications Prescriptions: No Action donepezil [Aricept] 10 mg tablet 10 mg PO DAILY Qty: 90 RF: 1 atorvastatin 40 mg tablet 40 mg PO BEDTIME Qty: 90 RF: 1 losartan 25 mg tablet 25 mg PO DAILY Qty: 90 RF: 3 Ensure Plus 0.05-1.5 gram-kcal/mL liquid 1 each PO .QDAY Qty: 5688 RF: 11 levothyroxine 100 mcg tablet 100 mcg PO DAILY Qty: 90 RF: 3 phenelzine [Nardil] 15 mg tablet 30 mg PO QDAY Qty: 180 RF: 1 famotidine 10 mg Tablet 10 mg PO DAILY RF: 0 cholecalciferol (vitamin D3) [Vitamin D3] 50 mcg (2,000 unit) Tablet 50 mcg PO BID RF: 0 Follow up/Referrals: Yann Dempsey MD [Primary Care Provider] - Discharge Health Status Multidrug resistant organism: No MDRO Diet/Activity/Treatments Diet: Low-fat, Low-sodium and Low-cholesterol Liquid consistency: Normal/Thin Food texture: Regular Activity: as tolerated Discharge Data Primary Care Provider: Yann Dempsey
[2020-02-01 16:34] LABS: C-Reactive Protein Quant 10.8 mg/dL (<1.0)
[2020-02-01] MEDS: HYDROCORTISONE 100 MG/2 ML VIAL 50 MG IV (17:30)
--- NOTE | 2020-02-01 18:26 | PC.NURSE ---
Evening Shift Note- Patient transfered to [facility] in [place]. Patient left via ALS transport with all personal belonging at 1730. Report called to AMARILYS Winn. notified and provided room number and phone number.
== END 2020-02-01 17:30 | disposition short-term general hospital (02) | DRG 309 ==
LOC: ED 16:24 → AC 18:13
PROVIDERS: Internal Medicine; Nurse Practitioner Adult Health; Admitting Provider Internal Medicine; Emergency Provider Emergency Medicine; PCP Student in an Organized Health Care Education/Training Program; Visit Provider Internal Medicine
DX: I49.5 Sick sinus syndrome (principal); I45.2 Bifascicular block; L27.0 Generalized skin eruption due to drugs and medicaments taken internally; T50.8X5A Adverse effect of diagnostic agents, initial encounter; I44.4 Left anterior fascicular block; I10 Essential (primary) hypertension; E78.5 Hyperlipidemia, unspecified; E03.9 Hypothyroidism, unspecified; W18.30XA Fall on same level, unspecified, initial encounter; D64.9 Anemia, unspecified; R55 Syncope and collapse; F32.9 Major depressive disorder, single episode, unspecified
CPT/HCPCS: 36415; 70450; 70496; 70498; 70548; 70553; 71045; 80053; 80061; 80305; 82550; 82553; 82728; 82962; 83540; 83550; 83735; 84443; 84484; 85025; 85610; 85651; 85730; 86140; 87635; 93005; 93306; 99285; G0378; Q3014; A9579; J1650; J1720; Q9967

== ENCOUNTER → 2020-04-13 08:38 | Outpatient (CLI) | payer MEDICARE, BC, SELFPAY ==
[2020-01-31 18:51] VITALS: BMI 21.9
[2020-04-14 09:02] LABS: COVID19 Sendout Not Detected (Not Detect)
== END ==
PROVIDERS: PCP Student in an Organized Health Care Education/Training Program; Visit Provider Physician Assistant
DX: Z11.59 Encounter for screening for other viral diseases (principal)
CPT/HCPCS: 87635

== ENCOUNTER → 2020-04-27 13:42 | Outpatient (CLI) | payer MEDICARE, BC, SELFPAY ==
[2020-04-21 14:12] VITALS: BMI 21.9
[2020-04-27 14:32] LABS: Add Manual Diff / Slide Review NO; Basophils Absolute Auto 0 /uL (0-100); Basophils Percent Auto 0.7 % (0-2); Eosinophils Absolute Auto 0 /uL (0-450); Eosinophils Percent Auto 1.1 % (2-4); Hematocrit 36.9 % (41-53); Hemoglobin 12.9 g/dL (13.5-17.5); Lymphocytes Absolute Auto 800 /uL (1100-4500); Lymphocytes Percent Auto 19.4 % (25-40); Mean Corpuscular Hemoglobin 32.7 PG (26-34); Mean Corpuscular Volume 93.5 fL (80-100); Monocytes Absolute Auto 400 /uL (0-900); Monocytes Percent Auto 9.3 % (3-14); Neutrophils Absolute Auto 2800 /uL (1500-7000); Neutrophils Percent Auto 69.5 % (50-75); Platelet Count 177 X10^3/uL (150-400); Red Blood Cell Count 3.95 X10^6/uL (4.5-5.9); Red Cell Distribution Width 13.2 % (11.6-14.8); Reticulocyte Count, Percent 0.8 % (0.87-2.60); White Blood Cell Count 4.1 X10^3/uL (4.5-11.0)
[2020-04-27 14:49] LABS: HEMOLYSIS < 15 (0-50); Iron 103 ug/dL (49-181)
[2020-04-27 15:00] LABS: Percent Iron Saturation 32 % (20-50); Total Iron Binding Capacity 326 ug/dL (261-462); Transferrin 269 mg/dL (206-381)
[2020-04-27 15:25] LABS: Ferritin 145 ng/mL (18-464)
[2020-04-27 15:55] LABS: Folate > 20.0 ng/mL (2.76-20.0)
== END ==
PROVIDERS: PCP Student in an Organized Health Care Education/Training Program; Referring Provider Student in an Organized Health Care Education/Training Program; Visit Provider Student in an Organized Health Care Education/Training Program
DX: D64.9 Anemia, unspecified (principal)
CPT/HCPCS: 36415; 82728; 82746; 83540; 83550; 85025; 85045

== ENCOUNTER 2020-05-18 13:10 | Outpatient (RCR) | payer MEDICARE, BC, SELFPAY ==
[2020-04-21 14:12] VITALS: BMI 21.9
--- NOTE | 2020-05-20 13:42 | ST.OPIE ---
Visit Care Team Role Provider Type Yann Dempsey MD Attending Provider Physician Primary Care Provider Referring Provider Specialty: Internal Medicine [address]: [address] [place] [address], [address], [place], [address] Email: [email or web address] Speech-Language Pathology Initial Evaluation COMPENSATION EXPERT Adult Cognitive Linguistic Eval Start: 05/18/20 13:16 Freq: Status: Active Protocol: Document 05/18/20 13:16 MATEUSZ (Rec: 05/18/20 13:26 [email or web address]) Adult Cognitive Linguistic Evaluation Session Time Visit Start Time 13:30 Visit Stop Time 14:30 Total Visit Minutes 60 Visit Information Visit Number Initial Evaluation Plan of Care Dates 05/18/20 - 08/18/19 Insurance Information Medicare Referral Referring Provider Dr. Yann Dempsey Reason for Referral Impaired Cognition Setting Assessment Location Outpatient Care Visit Type Note Type Initial evaluation Next Note Type Next Note Type Treatment Note Patient Information Identification Type Name,ID Card Medical History The pt is a 74-yr-old male with, per MD report, gradually worsening problems at home that are associated with emotional lability, depression, and social isolation. Patient continues to have difficulty with multitasking, short term recall, and numerical tasks. He has tried to use puzzles to keep his skills up and his having trouble doing do. There has been no other interval change in symptoms. His is concerned about behavioral changes and the patient's quality of life. The pt was hospitalized secondary to an unwitnessed GLF. There was concern of possible stroke s/t observations of right-sided weakness and facial droop, but this was ruled out by imaging , and symptoms resolved at hospital. The patient has a 20-yr history of depression, is followed by a Psychiatrist and treated with medication. His stated that his depression is stable with medication at this time. Additionally, the pt has had pneumonia 17 times over his life, with lungs impacted by his service in the [place]; therefore, he and his have been exceptionally cautious during the COVID-19 pandemic, as the pt is in a high risk category. The pt also has recently been diagnosed with sleep apnea and has just received a CPAP which he has not yet used. 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 The couple provided case history supplemental to medical records. When asked about memory and cognitive changes, the pt stated, I've been told I have memory problems and was unable to identify any specific areas of cognitive decline. His identified areas where she has observed changes including WFD, memory loss, difficulty with simple math and concepts of time, dates, and orientation to place (e.g., at a familiar grocery store). She stated he has always been absentminded, paying attention to and remembering only things that are of direct importance and interest to him. She also directly requested that therapy focus on establishing a home practice routine, as the couple is very leery of leaving their home. Finally, she stated, You will have to convince González that he needs to come back to see you, if you want him to. Formal Assessment Standardized Test/Screener Type [facility] Mental Status ([facility]) Administration Complete Results Prior to assessment, the pt's informed that the pt had been given the [place] test several times recently. Therefore, the [facility] assessment tool was administered with the following results: pts - Mild Neurocognitive Impairment Pt was oriented to date and state; completed basic addition and subtraction accurately; named 14 animals in 60 seconds; restated 2- digit numbers backwards; correctly placed an X in a triangle and identified the largest of 3 objects; and correctly answered all questions relating to a short story presented orally. In the clock task, the pt included all numbers but in reverse order (counter-clockwise) and pointed hands to the 11 and 10 , in positions that would normally read 1:10. Hands were of 2 lengths with the hour hand pointing to the 11 and the minute hand pointing to the 10. Unfortunately, upon completion of the UMs, the pt and his informed that this was the same test the pt has been given repeatedly his Neurologist, not the [facility]. The pt stated he was familiar with the story and several other tasks. Therefore, the results of this assessment are questionable. Administeration of the SCCAN will be done at next session to more thoroughly assess the pt's skills and may indicate a different level of impairment and prognosis. Findings/Results Language Function Moderately impaired Findings The pt participated very little in conversation during the session, frequently defaulting to his . Therefore, informal assessment of his expressive and receptive language skills was not meaningfully made. His informed that the pt has always had a bit of a speech impediment, which was not perceived by the COMPENSATION EXPERT, given the minimal responses made by the pt. These speech and language skills will be further assessed in subsequent treatment sessions. Suspect cognitive decline is due in part to lack of opportunity for cognitive engagement secondary to retired work status and isolation resulting from COVID -19 restrictions and long history of depression. Lack of healthy rest/sleep secondary to sleep apnea may also play a role; hopefully the use of CPAP will yield positive changes. Discussed POC in light of COVID-19 pandemic. Agreed to meet weekly x3 to complete assessment and establish HEP. Recommended the pt read aloud to target WFDs, engage in enjoyable puzzles and games of his choosing with his or others, if possible, to increase social engagement as well as general cognitive communication skills. Cognitive Communication Deficits Self-awareness of Cognitive- Limited awareness (minimal Communication Deficits appreciation without specificity) Prognosis Prognosis Fair Based on Family support,Comorbidities, Other (comment) Comment Reduced self-awareness of deficits Plan of Care Speech-Language Treatment Yes Frequency 8 visits Duration in 4 mos Patient/Caregiver Education Described results of evaluation,Patient expressed agreement with goals and treatment plans,Family/ caregivers expressed understanding of evaluation, Family/caregivers expressed agreement with goals and treatment plan,Patient requires further education/ training Short Term Goals 1. The pt will participate in further assessment of expressive, receptive and cognitive communication skills to identify strengths and deficits and to guide POC. 2. The pt will engage with cognitively challenging activities (e.g., games, puzzles, reading/viewing content) with at least one other person no less than 3x/ wk to increase exposure to cogntive stimulation and decrease isolation. 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 The pt will demonstrate 80% or greater independent compliance with HEP to improve cognitive communication skills necessary for functional ADLs and to improve QOL. 2. The pt will demonstrate no greater than mild cognitive communication deficits in order to maintain/improve independence and QOL. Additional goals to be developed upon assessment completion Discharge Recommendations Home,Outpatient therapy
--- NOTE | 2020-08-10 11:33 | ST.OPDS ---
Visit Care Team Role Provider Type Yann Dempsey MD Attending Provider Physician Primary Care Provider Referring Provider Address: [address] [place] [address], [address], [place], [address] [employer] Treatment Note [employer] Treatment Note Start: 05/18/20 13:16 Freq: Status: Active Protocol: Document 08/10/20 09:29 MATEUSZ (Rec: 08/10/20 09:30 [email or web address] [id number]) Speech Pathology Treatment Note Visit Information Plan of Care Dates 05/18/20 - 08/18/19 Insurance Information Medicare Setting Treatment Setting Outpatient Care Next Note Type Next Note Type Discharge Summary General Information General Information he pt is a 74-yr-old male with , per MD report, gradually worsening problems at home that are associated with emotional lability, depression , and social isolation. Patient continues to have difficulty with multitasking, short term recall, and numerical tasks. He has tried to use puzzles to keep his skills up and his having trouble doing do. There has been no other interval change in symptoms. His is concerned about behavioral changes and the patient's quality of life. The pt was hospitalized secondary to an unwitnessed GLF. There was concern of possible stroke s/t observations of right-sided weakness and facial droop, but this was ruled out by imaging , and symptoms resolved at hospital. The patient has a 20-yr history of depression, is followed by a Psychiatrist and treated with medication. His stated that his depression is stable with medication at this time. Additionally, the pt has had pneumonia 17 times over his life, with lungs impacted by his service in the [place] War; therefore, he and his have been exceptionally cautious during the COVID-19 pandemic, as the pt is in a high risk category. The pt also has recently been diagnosed with sleep apnea and has just received a CPAP which he has not yet used. Subjective Observations/Patient Presentation The pt was seen for initial evaluation on 05/16/20 and has not returned for therapy d/t COVID-19 risks. He is discharged from services at this time. Chief Complaint(s) Cognitive Objective Short Term Goals 1. The pt will participate in further assessment of expressive, receptive and cognitive communication skills to identify strengths and deficits and to guide POC. 2. The pt will engage with cognitively challenging activities (e.g., games, puzzles, reading/viewing content) with at least one other person no less than 3x/ wk to increase exposure to cogntive stimulation and decrease isolation. Additional goals to be developed upon assessment completion Shelter Goals 1. The pt will demonstrate 80% or greater independent compliance with HEP to improve cognitive communication skills necessary for functional ADLs and to improve QOL. 2. The pt will demonstrate no greater than mild cognitive communication deficits in order to maintain/improve independence and QOL. Additional goals to be developed upon assessment completion Plan Therapy Recommendations Discharge from Speech Therapy
== END 2020-08-31 07:53 ==
LOC: SP 13:10
PROVIDERS: PCP Student in an Organized Health Care Education/Training Program; Referring Provider Student in an Organized Health Care Education/Training Program; Visit Provider Student in an Organized Health Care Education/Training Program
DX: R41.89 Other symptoms and signs involving cognitive functions and awareness (principal)
CPT/HCPCS: 96125

== ENCOUNTER 2020-06-13 14:13 | Emergency (ER) | payer MEDICARE, BC, SELFPAY ==
[2020-04-21 14:12] VITALS: BMI 21.9
[2020-06-13] VITALS (11 sets, daily range): BP systolic 150–163; BP diastolic 72–77; PULSE 54–59; RESP 13–24; TEMP 35.7; O2SAT 97–100
--- NOTE | 2020-06-13 15:31 | DI.RAD.S_ITS ---
PROCEDURE: XR CHEST 1V INDICATIONS: chest pain TECHNIQUE: One view of the chest was acquired. COMPARISON: [facility], , CHEST 1 VIEW, 10/30/2017, 17:19. [facility], , XR CHEST 1V, 01/31/2020, 18:18. FINDINGS: Surgical changes and devices: None. Lungs and pleura: Lungs are clear. No pleural effusions or pneumothorax. Mediastinum: The cardiac contours are within normal limits. The aorta demonstrates calcification and tortuosity. Bones and chest wall: No suspicious bony lesions. Age-appropriate bony degenerative changes are seen. Overlying soft tissues appear unremarkable. IMPRESSION: Portable chest within normal limits. Dictated by: Timothy Diaz M.D. on 06/13/2020 at 14:48 Approved by: Timothy Diaz M.D. on 06/13/2020 at 14:49
[2020-06-13 15:41] LABS: Prothrombin Time 11.2 SECONDS (10.1-12.7)
[2020-06-13 15:42] LABS: Add Manual Diff / Slide Review NO; Basophils Absolute Auto 0 /uL (0-100); Basophils Percent Auto 0.6 % (0-2); Eosinophils Absolute Auto 0 /uL (0-450); Eosinophils Percent Auto 1.1 % (2-4); Hematocrit 36.9 % (41-53); Lymphocytes Absolute Auto 900 /uL (1100-4500); Lymphocytes Percent Auto 23.3 % (25-40); Mean Corpuscular HGB Conc 35.2 % (30-36); Mean Corpuscular Hemoglobin 32.8 PG (26-34); Mean Corpuscular Volume 93.3 fL (80-100); Monocytes Absolute Auto 400 /uL (0-900); Neutrophils Absolute Auto 2400 /uL (1500-7000); Platelet Count 158 X10^3/uL (150-400); Red Blood Cell Count 3.95 X10^6/uL (4.5-5.9); Red Cell Distribution Width 13.1 % (11.6-14.8); White Blood Cell Count 3.8 X10^3/uL (4.5-11.0)
[2020-06-13 15:44] LABS: PTT Partial Thromboplastin Tim 32 SECONDS (26.4-36.2)
[2020-06-13 15:46] LABS: Alanine Aminotransferase 18 IU/L (<50); Albumin 4.3 g/dL (3.5-5.0); Albumin Globulin Ratio 1.4 (1.0-2.8); Alkaline Phosphatase 64 U/L (38-126); Aspartate Aminotransferase 26 IU/L (17-59); BUN Creatinine Ratio 22.5 (6-22); Bilirubin Total 1.3 mg/dL (0.2-1.3); Blood Urea Nitrogen 16 mg/dL (9-20); Carbon Dioxide 32 mmol/L (22-32); Chloride 102 mmol/L (98-107); Creatine Kinase 39 U/L (55-170); Estimated Glomerular Filt Rate > 60.0 mL/min (>60); Glucose 90 mg/dL (80-110); HEMOLYSIS < 15 (0-50); Lipase 90 U/L (23-300); Potassium 4.1 mmol/L (3.4-5.1); Sodium 137 mmol/L (137-145); Total Protein 7.3 g/dL (6.3-8.2)
[2020-06-13 15:57] LABS: Troponin I < 0.012 ng/mL (0.01-0.034)
--- NOTE | 2020-06-13 16:46 | ED_ITS ---
HPI - Chest Pain General Chief Complaint: Chest Pain Stated Complaint: Chest Pain, Brief Sharp Pain, Upper Left Time Seen by Provider: 06/13/20 14:50 Source: patient Mode of arrival: Ambulatory Limitations: no limitations History of Present Illness HPI narrative: PATIENT IS A 74-YEAR-OLD MALE WHO PRESENTS WITH left-sided chest pain off and on for last 3 days. Most of the history is given by his who just found out about his chest pain today. He has a hard time describing it but it seems to be a dull ache that is nonradiating comes and goes without provocation or palliation.. No recent travel. He has no lower extremity edema. He is currently denying any pain Related Data Home Medications Medication Instructions Recorded Confirmed cholecalciferol (vitamin D3) 50 mcg PO BID 01/31/20 04/27/20 [Vitamin D3] famotidine 10 mg tablet 20 mg PO BID tab 04/04/20 04/27/20 phenelzine 15 mg PO TID 06/13/20 06/13/20 Previous Rx's Medication Instructions Recorded food supplemt, lactose-reduced 1 each PO .QDAY #5688 ml 03/12/19 0.05 gram-1.5 kcal/mL oral liquid atorvastatin 40 mg tablet 40 mg PO BEDTIME #90 tab 10/23/19 losartan 25 mg tablet 25 mg PO DAILY #90 tab 12/02/19 levothyroxine 100 mcg tablet 100 mcg PO DAILY #90 tab 04/27/20 phenelzine 15 mg tablet 15 mg PO TID #270 tab 05/05/20 Allergies Allergy/AdvReac Type Severity Reaction Status Date / Time contrast dye Allergy Mild Rash Uncoded 04/27/20 12:49 Review of Systems Review of Systems ROS Unobtainable: All systems reviewed & are unremarkable except as noted in HPI and below Constitutional Constitutional: Denies chills, Denies fever(s), Denies lethargy and Denies weakness Cardiovascular Cardiovascular: Reports as per HPI, Reports chest pain, Denies diaphoresis, Denies syncope, Denies rapid heart rate, Denies pedal edema, Denies edema, Denies claudication, Denies lightheadedness, Denies radiating jaw, neck or arm pain, Denies dyspnea and Denies dyspnea on exertion Respiratory Respiratory: Denies cough, Denies dyspnea, Denies dyspnea on exertion and Denies wheezing Gastrointestinal Gastrointestinal: Denies abdominal pain, Denies change in bowel habits, Denies diarrhea, Denies nausea and Denies vomiting Musculoskeletal Musculoskeletal: Denies back pain and Denies myalgias Integumentary/Breasts Skin/Breast: Denies pruritus, Denies erythema, Denies rash and Denies wounds Neurologic Neurologic: Denies syncope, Denies memory loss and Denies weakness Psychiatric Psychiatric: Denies memory loss Allergic/Immunologic Allergic/Immunologic: Denies wheezing Patient History Medical History (Updated 06/13/20 @ 17:43 by Claudia Denney DO) Constipation Depression Hyperlipidemia Hypertension Hypothyroidism (Unknown) Hypothyroidism (acquired) Surgical History Hx of cataract surgery (Unknown) Hx of knee surgery (Unknown) Family History Father Hypertension Heart disease Mother Diabetes mellitus Hypertension Dementia Grandfather Cancer Grandmother No problems noted. Family/Other Hypertension Diabetes mellitus Social History marital status: household members: spouse lives independently: Yes Smoking Status: Never smoker alcohol intake: never substance use type: does not use Smoking Status: Never smoker alcohol intake frequency: 0-2 drinks per day Substance Use Type: does not use Exam Initial Vital Signs Initial Vital Signs: Vital Signs Temperature 96.2 F L 06/13/20 14:25 Pulse Rate 58 L 06/13/20 14:25 GENERAL: A week alert male HEENT: Head atraumatic,EOMI, pupils reactive, face symmetric, moist mucous membranes CARDIOVASCULAR: Regular rate and rhythm without murmurs, rubs or gallops. RESPIRATORY: Breath sounds equal bilaterally, no wheezes rales or rhonchi. ABDOMEN: Soft, nontender. Normoactive bowel sounds all 4 quadrants. No guarding or rebound. EXTREMITIES: Normal range of motion, no clubbing or edema. Neurovascularly intact NEUROLOGICAL: Alert and oriented x4.Normal gait and speech. Guardian Ad Litem strength equal bilaterally SKIN: Warm, dry, no laceration, no petechiae, no rashes or lesions. Course Orders Ordered: ED Orders 06/13/20 15:15 Complete Blood Count AUTO DIFF Stat Comprehensive Metabolic Panel Stat Lipase Stat Partial Thromboplastin Time Stat Prothrombin Time INR Stat Troponin & CK Cardiac Panel Stat 06/13/20 15:31 XR chest 1V Stat Vital Signs Vital signs: Vital Signs - 8 hr 06/13/20 14:25 06/13/20 14:32 06/13/20 14:40 Temperature 96.2 F L Pulse Rate 58 L 58 L 56 L Respiratory Rate 16 15 Blood Pressure 162/77 H 163/76 H Pulse Oximetry 99 99 06/13/20 15:00 06/13/20 15:30 06/13/20 16:00 Temperature Pulse Rate 54 L 56 L 57 L Respiratory Rate 13 24 23 Blood Pressure 153/72 H 150/74 H 156/76 H Pulse Oximetry 99 97 100 06/13/20 16:30 06/13/20 16:31 06/13/20 16:43 Temperature Pulse Rate 57 L 57 L 59 L Respiratory Rate 20 21 16 Blood Pressure 158/75 H 155/77 H Pulse Oximetry 99 06/13/20 17:00 06/13/20 17:30 Temperature Pulse Rate 57 L 56 L Respiratory Rate 20 21 Blood Pressure 156/75 H 154/72 H Pulse Oximetry 99 100 MDM - Chest Pain Lab Data Attestation: I reviewed the patient's lab results. Result diagrams: 06/13/20 15:15 06/13/20 15:15 Labs: Lab Results 06/13/20 06/13/20 06/13/20 Range/Units 15:15 15:15 15:15 WBC 3.8 L (4.5-11.0) X10^3/uL RBC 3.95 L (4.5-5.9) X10^6/uL Hgb 13.0 L (13.5-17.5) g/dL Hct 36.9 L (41-53) % MCV 93.3 (80-100) fL MCH 32.8 (26-34) PG MCHC 35.2 (30-36) % RDW 13.1 (11.6-14.8) % Plt Count 158 (150-400) X10^3/uL Neut % (Auto) 65.0 (50-75) % Lymph % (Auto) 23.3 L (25-40) % Gove % (Auto) 10.0 (3-14) % Eos % (Auto) 1.1 L (2-4) % Baso % (Auto) 0.6 (0-2) % Neut # (Auto) 2400 (7202-4210) /uL Lymph # (Auto) 900 L (3049-4182) /uL Gove # (Auto) 400 (0-900) /uL Eos # (Auto) 0 (0-450) /uL Baso # (Auto) 0 (0-100) /uL PT 11.2 (10.1-12.7) SECONDS INR 1.0 (0.9-1.3) APTT 32 D (26.4-36.2) SECONDS Sodium 137 (137-145) mmol/L Potassium 4.1 (3.4-5.1) mmol/L Chloride 102 (98-107) mmol/L Carbon Dioxide 32 (22-32) mmol/L BUN 16 (9-20) mg/dL Creatinine 0.71 (0.66-1.25) mg/dL Estimated GFR > 60.0 (>60) mL/min BUN/Creatinine Ratio 22.5 H (6-22) Glucose 90 (80-110) mg/dL Calcium 10.0 (8.4-10.2) mg/dL Total Bilirubin 1.3 (0.2-1.3) mg/dL AST 26 (17-59) IU/L ALT 18 (<50) IU/L Alkaline Phosphatase 64 (38-126) U/L Total Creatine Kinase 39 L (55-170) U/L CK-MB (CK-2) TNP CK-MB (CK-2) Rel Index TNP Troponin I < 0.012 (0.01-0.034) ng/mL Total Protein 7.3 (6.3-8.2) g/dL Albumin 4.3 (3.5-5.0) g/dL Globulin 3.0 (1.7-4.1) g/dL Albumin/Globulin Ratio 1.4 (1.0-2.8) Lipase 90 (23-300) U/L Imaging Data Chest x-ray: Radiologist's Impression: PROCEDURE: XR CHEST 1V INDICATIONS: chest pain TECHNIQUE: One view of the chest was acquired. COMPARISON: [facility], , CHEST 1 VIEW, 10/30/2017, 17:19. [facility], , XR CHEST 1V, 01/31/2020, 18:18. FINDINGS: Surgical changes and devices: None. Lungs and pleura: Lungs are clear. No pleural effusions or pneumothorax. Mediastinum: The cardiac contours are within normal limits. The aorta demonstra tavia calcification and tortuosity. Bones and chest wall: No suspicious bony lesions. Age-appropriate bony degenerative changes are seen. Overlying soft tissues appear unremarkable. IMPRESSION: Portable chest within normal limits. Dictated by: Timothy Diaz M.D. on 06/13/2020 at 14:48 ECG Data Attestation: I personally reviewed and interpreted this ECG as follows: Prior ECG tracings: available for review Interpretation: Normal sinus rhythm rate 58 p.r. interval 194 QRS [address] changes similar to previous EKG MDM Narrative Medical decision making narrative: Patient did have an echocardiogram her earlier this year that did not show any abnormality. At this time does not quite sound like cardiac workup in the ED is negative. I feel he can have a stress test as outpatient does not need to be admitted to the hospital Discharge Plan Departure Patient Disposition: Home Clinical Impression: Atypical chest pain Instructions: DI for Atypical Chest Pain Activity Restrictions/Additional Instructions: *You have been diagnosed with atypical chest pain *What to do: At this time the you not need to stay in the hospital to have a stress test however you still may need [address] Wyatt can help schedule this *Continue to take medications as directed *Follow up with your primary care provider in 2-3 days *Return to ER if you should have worsening chest discomfort shortness of breath or any new, worsening or concerning symptoms Prescriptions: No Action atorvastatin 40 mg tablet 40 mg PO BEDTIME Qty: 90 RF: 1 losartan 25 mg tablet 25 mg PO DAILY Qty: 90 RF: 3 levothyroxine 100 mcg tablet 100 mcg PO DAILY Qty: 90 RF: 3 phenelzine [Nardil] 15 mg tablet 15 mg PO TID Qty: 270 RF: 1 Ensure Plus 0.05-1.5 gram-kcal/mL liquid 1 each PO .QDAY Qty: 5688 RF: 11 cholecalciferol (vitamin D3) [Vitamin D3] 50 mcg (2,000 unit) Tablet 50 mcg PO BID RF: 0 famotidine 10 mg tablet 20 mg PO BID RF: 0 phenelzine 15 mg tablet 15 mg PO TID RF: 0 Referrals: Yann Dempsey MD [Primary Care Provider] -
== END 2020-06-13 18:32 | disposition home or self-care (01) ==
PROVIDERS: Emergency Provider Emergency Medicine; PCP Student in an Organized Health Care Education/Training Program
DX: R07.89 Other chest pain (principal)
CPT/HCPCS: 36415; 71045; 80053; 82550; 83690; 84484; 85025; 85610; 85730; 93005; 93010; 99283; 99284

== ENCOUNTER → 2020-06-27 13:22 | Outpatient (CLI) | payer MEDICARE, BC, SELFPAY ==
[2020-04-21 14:12] VITALS: BMI 21.9
[2020-06-27 15:31] LABS: COVID19 -Nasal RAPID Negative (Negative)
== END ==
PROVIDERS: PCP Student in an Organized Health Care Education/Training Program; Visit Provider Physician Assistant
DX: Z01.812 Encounter for preprocedural laboratory examination; Z20.828 Contact with and (suspected) exposure to other viral communicable diseases
CPT/HCPCS: 87635; C9803

== ENCOUNTER → 2020-06-29 07:48 | Outpatient (CLI) | payer MEDICARE, BC, SELFPAY ==
[2020-04-21 14:12] VITALS: BMI 21.9
== END ==
PROVIDERS: PCP Student in an Organized Health Care Education/Training Program; Referring Provider Student in an Organized Health Care Education/Training Program; Visit Provider Student in an Organized Health Care Education/Training Program
DX: R07.89 Other chest pain (principal); Z53.9 Procedure and treatment not carried out, unspecified reason

== ENCOUNTER 2020-07-09 15:27 | Emergency (ER) | payer MEDICARE, BC, SELFPAY ==
[2020-04-21 14:12] VITALS: BMI 21.9
[2020-07-09] VITALS (9 sets, daily range): BP systolic 106–127; BP diastolic 55–64; PULSE 74–87; RESP 16; TEMP 36.8; O2SAT 95–99; BMI 21.2
--- NOTE | 2020-07-09 17:02 | PC.NURSE ---
reports noticing rash on pt at about 1300 this afternoon. Rash is generalized all over pts body. PT reports it is itchy.
--- NOTE | 2020-07-09 19:16 | ED.SKABFB ---
HPI - Skin/Abscess/Foreign Bdy General Chief complaint: Skin/Abscess/Foreign Body Stated complaint: Rash/Whole Body, HX Constipation Time Seen by Provider: 07/09/20 19:03 Source: patient and family Mode of arrival: Ambulatory Limitations: no limitations History of Present Illness HPI narrative: Patient is a 74-year-old male who does have memory issues presenting today with his with a rash that started today. She states that he has had issues with constipation in the past they felt he was constipated the last couple of days. She gave him a Vicente Colace yesterday to see if it would help his the only new medication he has had. She says that he has had in the past not had issue but it has been a number of years. In fact they are going to come here today for possible enema however they noticed that he developed a rash on his arms and trunk. He denies any pruritus no difficulty breathing tongue swelling or lip swelling. He denies any abdominal pain. She states that they just tried using the restroom and he was having intense pain and cursing which is something that is abnormal for him. She states that because of 1 of the medications he is on- phenelzine he cannot take Benadryl complaint: rash and other (Constipation) Onset (ago): hour(s) Relieving factors: none Exacerbating factors: none Related Data Home Medications Medication Instructions Recorded Confirmed cholecalciferol (vitamin D3) 100 mcg PO BID 01/31/20 07/09/20 [Vitamin D3] famotidine 10 mg tablet 20 mg PO BID tab 04/04/20 04/27/20 phenelzine 15 mg PO TID 06/13/20 07/09/20 docusate sodium [Ex-Lax (docusate)] 300 mg PO DAILY PRN 07/09/20 07/09/20 polyethylene glycol 3350 [Miralax] 17 g PO DAILY PRN 07/09/20 07/09/20 Previous Rx's Medication Instructions Recorded food supplemt, lactose-reduced 1 each PO .QDAY #5688 ml 03/12/19 0.05 gram-1.5 kcal/mL oral liquid atorvastatin 40 mg tablet 40 mg PO BEDTIME #90 tab 10/23/19 losartan 25 mg tablet 25 mg PO DAILY #90 tab 12/02/19 levothyroxine 100 mcg tablet 100 mcg PO DAILY #90 tab 04/27/20 prednisone 20 mg PO DAILY #4 tab 07/09/20 Allergies Allergy/AdvReac Type Severity Reaction Status Date / Time contrast dye Allergy Mild Rash Uncoded 07/09/20 15:35 Review of Systems Review of Systems ROS Unobtainable: All systems reviewed & are unremarkable except as noted in HPI and below Constitutional Constitutional: Denies chills, Denies fever(s), Denies frequent falls, Denies lethargy and Denies weakness Cardiovascular Cardiovascular: Denies chest pain, Denies irregular heart rhythm, Denies lightheadedness, Denies palpitations, Denies dyspnea, Denies dyspnea on exertion and Denies orthopnea Respiratory Respiratory: Denies cough, Denies dyspnea, Denies dyspnea on exertion and Denies wheezing Gastrointestinal Gastrointestinal: Reports as per HPI, Reports change in stool character and Reports constipation Musculoskeletal Musculoskeletal: Denies back pain and Denies myalgias Integumentary/Breasts Skin/Breast: Reports as per HPI and Reports rash Neurologic Neurologic: Denies frequent falls and Denies weakness Endocrine Endocrine: Denies palpitations Allergic/Immunologic Allergic/Immunologic: Denies wheezing Patient History Medical History (Updated 07/09/20 @ 20:32 by Claudia Denney DO) Constipation Depression Hyperlipidemia Hypertension Hypothyroidism (Unknown) Hypothyroidism (acquired) Surgical History Hx of cataract surgery (Unknown) Hx of knee surgery (Unknown) Family History Father Hypertension Heart disease Mother Diabetes mellitus Hypertension Dementia Grandfather Cancer Grandmother No problems noted. Family/Other Hypertension Diabetes mellitus Social History marital status: household members: spouse lives independently: Yes Smoking Status: Never smoker alcohol intake: never substance use type: does not use Smoking Status: Never smoker alcohol intake frequency: 0-2 drinks per day Substance Use Type: does not use Exam Initial Vital Signs Initial Vital Signs: Vital Signs Temperature 98.3 F 07/09/20 15:35 Pulse Rate 87 07/09/20 15:35 Respiratory Rate 16 07/09/20 15:35 Blood Pressure 111/62 07/09/20 15:35 Pulse Oximetry 95 07/09/20 15:35 GENERAL: Alert pleasant 74-year-old male slightly confused HEENT: Head atraumatic,EOMI, pupils reactive, face symmetric, moist mucous membranes CARDIOVASCULAR: Regular rate and rhythm without murmurs, rubs or gallops. RESPIRATORY: Breath sounds equal bilaterally, no wheezes rales or rhonchi. ABDOMEN: Soft, nontender. Normoactive bowel sounds all 4 quadrants. No guarding or rebound. EXTREMITIES: Normal range of motion, no clubbing or edema. Neurovascularly intact NEUROLOGICAL: Alert male cranial nerves grossly intact SKIN: Hives noted on arms and trunk. Procedures Rectal Disimpaction Time out performed rectal disimpaction: Yes Indication: fecal impaction Procedural Sedation: No Sedation/Analgesia: none Technique: manual disimpaction with gloved finger Result: significant stool output Patient Tolerated Procedure: Well Complications: none Course Orders Ordered: ED Orders 07/09/20 19:33 XR abdomen min 2V Stat Discontinued Medications Lidocaine HCl (Lidocaine 2% (Urojet) 5 Ml Gel) 5 ml TOP NOW ONE Stop: 07/09/20 20:38 Last Admin: 07/09/20 20:41 Dose: 5 ml Documented by: NARDA Prednisone (Prednisone 20 Mg Tablet) 20 mg PO NOW ONE Stop: 07/09/20 19:34 Last Admin: 07/09/20 19:45 Dose: 20 mg Documented by: NARDA Sodium Biphosphate/Sodium Phosphate (Fleets Enema) 1 each OR NOW ONE Stop: 07/09/20 19:34 Last Admin: 07/09/20 19:45 Dose: 1 each Documented by: NARDA Vital Signs Vital signs: Vital Signs - 8 hr 07/09/20 15:35 07/09/20 18:03 07/09/20 18:04 Temperature 98.3 F Pulse Rate 87 82 76 Respiratory Rate 16 Blood Pressure 111/62 122/56 L Pulse Oximetry 95 97 97 07/09/20 18:30 07/09/20 19:00 07/09/20 19:23 Temperature Pulse Rate 74 78 76 Respiratory Rate Blood Pressure 110/59 L 114/62 112/55 L Pulse Oximetry 97 99 07/09/20 19:30 07/09/20 21:29 07/09/20 21:32 Temperature Pulse Rate 77 85 Respiratory Rate 16 Blood Pressure 106/55 L 127/64 Pulse Oximetry 98 98 MDM - Skin/Abscess/Foreign Bdy Imaging Data Abdominal x-ray: Radiologist's Impression: PROCEDURE: XR ABDOMEN MIN 2V INDICATIONS: pain, constipation TECHNIQUE: 2 views of the abdomen were acquired. COMPARISON: None. FINDINGS: Surgical changes and devices: None. Bowel: No pneumoperitoneum. Nonspecific bowel gas pattern with gaseous distention of the mid to distal colon and moderate size solid quantity of rectal stool. No dilated air-filled small bowel loops. Soft tissues: No masses; visualized solid organ contours appear normal in size. No suspicious abdominal calcifications. Bones: No suspicious bony abnormalities. IMPRESSION: Probable rectal obstipation. Dictated by: Jimena Cuellar M.D. on 07/09/2020 at 20:06 Approved by: Jimena Cuellar M.D. on 07/09/2020 at 20:07 [facility] Narrative Medical decision making narrative: The patient was manually disimpacted with a large amount of stool removed. He did not have any bowel movement afterwards. He clearly has a rash all over his body including buttocks and legs. It seems be urticaria nature. Benadryl is contraindicated with the phenelzine. He is given prednisone and prescription for prednisone. Recommend avoiding Dulcolax at this time. I told like she can try an enema again at home. X-ray and exam do confirm obvious rectal obstipation at this time I do not feel any further imaging or blood work is indicated. He is also not having any anaphylactic reaction this time. Discharge Plan Departure Patient Disposition: Home Clinical Impression: Constipation, Urticaria Instructions: DI for Constipation, DI for Hives Activity Restrictions/Additional Instructions: *You have been diagnosed with constipation and allergic reaction *What to do: Rash may be from Dulcolax. Recommend avoiding this medication. Please stick with MiraLax which has worked in the past. Increase water intake *Continue to take medications as directed Prednisone 20 mg once daily for 4 days--> SENT TO [facility] [place] *Follow up with your primary care provider in 2-3 days *Return to ER if you should have worsening rash, increased abdominal pain, worsening constipation or any new, worsening or concerning symptoms Prescriptions: New prednisone 20 mg tablet 20 mg PO DAILY Qty: 4 RF: 0 No Action atorvastatin 40 mg tablet 40 mg PO BEDTIME Qty: 90 RF: 1 losartan 25 mg tablet 25 mg PO DAILY Qty: 90 RF: 3 levothyroxine 100 mcg tablet 100 mcg PO DAILY Qty: 90 RF: 3 Ensure Plus 0.05-1.5 gram-kcal/mL liquid 1 each PO .QDAY Qty: 5688 RF: 11 polyethylene glycol 3350 [Miralax] 17 gram/dose Powder 17 g PO DAILY PRN (Reason: Constipation) RF: 0 docusate sodium [Ex-Lax (docusate)] 100 mg Tablet 300 mg PO DAILY PRN (Reason: Constipation) RF: 0 cholecalciferol (vitamin D3) [Vitamin D3] 50 mcg (2,000 unit) Tablet 100 mcg PO BID RF: 0 famotidine 10 mg tablet 20 mg PO BID RF: 0 phenelzine 15 mg tablet 15 mg PO TID RF: 0 Referrals: Yann Dempsey MD [Primary Care Provider] -
--- NOTE | 2020-07-09 19:33 | DI.RAD.S_ITS ---
PROCEDURE: XR ABDOMEN MIN 2V INDICATIONS: pain, constipation TECHNIQUE: 2 views of the abdomen were acquired. COMPARISON: None. FINDINGS: Surgical changes and devices: None. Bowel: No pneumoperitoneum. Nonspecific bowel gas pattern with gaseous distention of the mid to distal colon and moderate size solid quantity of rectal stool. No dilated air-filled small bowel loops. Soft tissues: No masses; visualized solid organ contours appear normal in size. No suspicious abdominal calcifications. Bones: No suspicious bony abnormalities. IMPRESSION: Probable rectal obstipation. Dictated by: Jimena Cuellar M.D. on 07/09/2020 at 20:06 Approved by: Jimena Cuellar M.D. on 07/09/2020 at 20:07
[2020-07-09] MEDS: FLEETS ENEMA 1 EACH PR (19:45)
[2020-07-09] MEDS: predniSONE 20 MG TABLET PO (19:45)
[2020-07-09] MEDS: LIDOCAINE 2% (UROJET) 5 ML GEL TOP (20:41)
--- NOTE | 2020-07-09 21:05 | PC.NURSE ---
Pt on BSC. Spouse asking about discharge time due to needing to catch the ferry back home. PT given prune juice per request.
== END 2020-07-09 21:46 | disposition home or self-care (01) ==
PROVIDERS: Emergency Provider Emergency Medicine; PCP Student in an Organized Health Care Education/Training Program
DX: K59.00 Constipation, unspecified (principal); L50.9 Urticaria, unspecified; E78.5 Hyperlipidemia, unspecified; I10 Essential (primary) hypertension; E03.9 Hypothyroidism, unspecified
CPT/HCPCS: 74019; 99281; 99283

== ENCOUNTER 2020-10-08 20:06 | Inpatient (IN) | payer MEDICARE, BC, SELFPAY ==
[2020-04-21 14:12] VITALS: BMI 21.9
[2020-10-08] VITALS (12 sets, daily range): BP systolic 80–106; BP diastolic 49–61; PULSE 66–89; RESP 13–36; TEMP 36.6; O2SAT 83–99
[2020-10-08] MEDS: SODIUM CHLORIDE 0.9% 1,000 ML 1000 ML IV ×2 (20:40→23:03)
--- NOTE | 2020-10-08 20:40 | DI.RAD.S_ITS ---
PROCEDURE: XR CHEST 1V INDICATIONS: suspected sepsis TECHNIQUE: One view of the chest was acquired. COMPARISON: [facility], [facility], XR CHEST 1V, 06/13/2020, 15:34. FINDINGS: Surgical changes and devices: None. Lungs and pleura: Slight appearance of increased retrocardiac streaky opacity. Mediastinum: Mediastinal contours appear normal. Heart size is normal. Bones and chest wall: No suspicious bony lesions. Overlying soft tissues appear unremarkable. IMPRESSION: Slight retrocardiac streaky opacity. While this could represent atelectasis, developing pneumonia cannot be excluded. Dictated by: Roseanna Abraham M.D. on 10/08/2020 at 21:16 Approved by: Roseanna Abraham M.D. on 10/08/2020 at 21:17
[2020-10-08 20:52] LABS: INR 1.1 (0.9-1.3); Prothrombin Time 12.5 SECONDS (10.1-12.7)
[2020-10-08 20:54] LABS: PTT Partial Thromboplastin Tim 30 SECONDS (26.4-36.2)
--- NOTE | 2020-10-08 20:56 | ED.GENADULT ---
HPI - General Adult General Chief complaint: Weakness Stated complaint: Lethargic/ Febrile/ UTI/Sepsis Time Seen by Provider: 10/08/20 20:56 Source: patient and EMS Mode of arrival: EMS Limitations: no limitations History of Present Illness HPI narrative: 75-year-old gentleman with history of memory loss, hypertension, hypothyroidism presents with global weakness, increased lethargy, fever worsening memory low back and left flank pain and dysuria with hematuria developing this afternoon. His was concerned that perhaps this was constipation causing more of his problems and a Fleet's enema was administered with significant stool returned but no change to the dysuria. He had his 2nd COVID shot and within a week of that developed a urticarial rash over much of his body and was started on prednisone taper. The taper is almost done and as he is in the emergency department noticing more urticarial lesions over his arms (prior to any medications being administered in the ER). He is not complaining of dyspnea, wheezing, cough, abdominal pain and notes no lower extremity edema. Related Data Home Medications Medication Instructions Recorded Confirmed cholecalciferol (vitamin D3) 50 mcg PO BID 01/31/20 10/08/20 [Vitamin D3] famotidine 10 mg tablet 10 mg PO BID tab 04/04/20 10/08/20 phenelzine 15 mg PO TID 06/13/20 10/08/20 docusate sodium [Ex-Lax (docusate)] 300 mg PO DAILY PRN 07/09/20 08/10/20 polyethylene glycol 3350 [Miralax] 17 g PO DAILY PRN 07/09/20 08/10/20 memantine 10 mg tablet 10 mg PO BID 08/10/20 10/08/20 Previous Rx's Medication Instructions Recorded food supplemt, lactose-reduced 1 each PO .QDAY #5688 ml 03/12/19 0.05 gram-1.5 kcal/mL oral liquid losartan 25 mg tablet 25 mg PO DAILY #90 tab 12/02/19 levothyroxine 100 mcg tablet 100 mcg PO DAILY #90 tab 04/27/20 epinephrine 0.3 mg/0.3 mL 0.3 mg IM ONCE #1 ea 07/27/20 injection, auto-injector clonidine HCl 0.2 mg tablet 0.2 mg PO ONCE PRN #10 tab 08/10/20 atorvastatin 40 mg tablet 40 mg PO BEDTIME #90 tab 08/31/20 prednisone 20 mg tablet 20 mg PO DAILY #10 tab 10/04/20 Allergies Allergy/AdvReac Type Severity Reaction Status Date / Time contrast dye Allergy Mild Rash Uncoded 08/10/20 09:00 Review of Systems Review of Systems Narrative: Review of systems is otherwise unremarkable except for as noted in HPI Patient History Medical History Constipation Depression Hyperlipidemia Hypertension Hypothyroidism (acquired) Obstructive sleep apnea syndrome Snoring Surgical History Hx of cataract surgery (Unknown) Hx of knee surgery (Unknown) Family History Father Hypertension Heart disease Mother Diabetes mellitus Hypertension Dementia Grandfather Cancer Grandmother No problems noted. Family/Other Hypertension Diabetes mellitus Social History marital status: household members: spouse lives independently: Yes Smoking Status: Never smoker alcohol intake: never substance use type: does not use Smoking Status: Never smoker alcohol intake frequency: 0-2 drinks per day Substance Use Type: does not use Exam Narrative Exam Narrative: General: Frail-appearing in no acute distress. Significant memory dysfunction, minimally participating in history HEENT: Dry mucous membranes, normal sclera with reactive pupils, Neck: No JVD, supple Respiratory: Lungs are clear to auscultation, no wheezing no rales no rhonchi. Full and symmetrical air movement Cardiac: Regular rate and rhythm no murmurs no bruits Abdomen: Soft, mild suprapubic tenderness, good bowel tones, no flank pain Skin: Warm and dry, urticarial rash over both forearms Neurologic: Globally weak but Grossly neurologically intact with no obvious asymmetries or abnormalities Extremities: No trauma, well perfused, 1+ bilateral lower extremity edema Psych: Cooperative, flat affect, minimal insight Initial Vital Signs Initial Vital Signs: Vital Signs Pulse Rate 68 10/08/20 20:12 Pulse Oximetry 95 10/08/20 20:12 Course Orders Ordered: ED Orders 10/08/20 20:40 XR chest 1V Stat 10/08/20 20:43 EKG-12 Lead Stat 10/08/20 21:00 Lactate (Lactic Acid) Stat 10/08/20 21:08 Blood Culture Stat 10/08/20 23:10 Lactate (Lactic Acid) Stat 10/08/20 23:22 COVID19 - ADMIT ([employer] swab/PCR) Stat Acetaminophen (Acetaminophen 325 Mg Tablet) 650 mg PO Q6HR PRN PRN Reason: Fever/Mild Pain (1-3) Atorvastatin Calcium (Atorvastatin 20 Mg Tablet) 40 mg PO BEDTIME MICHELLE Bisacodyl (Bisacodyl 10 Mg Supp) 10 mg ID DAILY PRN PRN Reason: Constipation Enoxaparin Sodium (Enoxaparin 30 Mg/0.3 Ml Syringe) 30 mg SUBCUT DAILY [facility] Haloperidol (Haloperidol 5 Mg/Ml Vial) 1 mg IV Q1H PRN PRN Reason: Agitation Last Admin: 10/09/20 02:30 Dose: 1 mg Documented by: MILKA Hydromorphone HCl (Hydromorphone 0.5 Mg Inj) 0.5 mg IV Q6H PRN PRN Reason: Pain, Moderate (4-6) Last Admin: 10/09/20 03:30 Dose: 0.5 mg Documented by: MILKA Vancomycin HCl (Vancomycin) 1,000 mg in 200 mls @ 200 mls/hr IV Q24H [facility] Last Infusion: 10/09/20 04:20 Dose: 0 mls/hr Documented by: Admin: 10/09/20 03:19 Dose: 200 mls/hr Documented by: MILKA Lactated Ringer's (Lactated Ringers) 1,000 mls @ 75 mls/hr IV CONT [facility] Last Admin: 10/09/20 03:19 Dose: 75 mls/hr Documented by: MILKA Meropenem 500 mg/ Sodium (Chloride) 100 mls @ 200 mls/hr IV Q12H [facility] Last Admin: 10/09/20 04:50 Dose: 200 mls/hr Documented by: MILKA Levothyroxine Sodium (Levothyroxine 100 Mcg Tablet) 100 mcg PO 0600 [facility] Naloxone HCl (Naloxone 0.4 Mg/Ml Vial) 0.2 mg IV Q2MIN PRN PRN Reason: Opiate Reversal Ondansetron HCl (Ondansetron 4 Mg/2 Ml Inj) 4 mg IV Q8HR PRN PRN Reason: Nausea And Vomiting Polyethylene Glycol (Polyethylene Glycol 3350 17 Gm Powd.Pack) 17 gm PO DAILY PRN PRN Reason: Constipation Vancomycin HCl (Vancomycin Per Pharmacy) 1 request MISC NOW ONE Stop: 10/09/20 05:26 Discontinued Medications Apixaban (Apixaban 5 Mg Tablet) 5 mg PO BID MICHELLE Bisacodyl (Bisacodyl 10 Mg Supp) 10 mg ID NOW ONE Stop: 10/09/20 05:18 Haloperidol (Haloperidol 5 Mg/Ml Vial) 1 mg IV NOW ONE Stop: 10/09/20 01:11 Haloperidol (Haloperidol 5 Mg/Ml Vial) 1 mg IV NOW ONE Stop: 10/09/20 02:18 Last Admin: 10/09/20 03:21 Dose: 1 mg Documented by: MILKA Sodium Chloride (Normal Saline 0.9%) 1,000 mls @ 1,000 mls/hr IV BOLUS ONE Stop: 10/08/20 21:39 Last Infusion: 10/08/20 22:25 Dose: 0 mls/hr Documented by: Admin: 10/08/20 20:40 Dose: 1,000 mls/hr Documented by: GERARD Sodium Chloride (Normal Saline 0.9%) 1,000 mls @ 1,000 mls/hr IV BOLUS ONE Stop: 10/08/20 23:50 Last Infusion: 10/09/20 00:30 Dose: 0 mls/hr Documented by: Admin: 10/08/20 23:03 Dose: 1,000 mls/hr Documented by: GERARD Piperacillin/Tazobactam/Dextrose (Zosyn) 3.375 gm in 50 mls @ 100 mls/hr IV NOW ONE Stop: 10/08/20 23:21 Last Infusion: 10/08/20 23:38 Dose: 0 mls/hr Documented by: Admin: 10/08/20 23:04 Dose: 100 mls/hr Documented by: GERARD Levofloxacin (Levaquin) 750 mg in 150 mls @ 100 mls/hr IV Q24H MICHELLE Meropenem 2 gm/ Sodium (Chloride) 100 mls @ 200 mls/hr IV Q8H MICHELLE Piperacillin/Tazobactam/Dextrose (Zosyn) 4.5 gm in 100 mls @ 200 mls/hr IV Q6H MICHELLE Meropenem 2 gm/ Sodium (Chloride) 100 mls @ 200 mls/hr IV Q12H MICHELLE Vital Signs Vital signs: Vital Signs - 8 hr 10/08/20 22:00 10/08/20 22:30 10/08/20 23:00 Pulse Rate 89 71 66 Respiratory Rate 36 H 23 Blood Pressure 94/51 L 101/57 L Pulse Oximetry 83 L 98 97 Medical Decision Making Medical Records Medical records reviewed: Yes I reviewed the patient's medical records. Lab Data Lab results reviewed: Yes I reviewed the patient's lab results. Result diagrams: 10/08/20 20:00 10/09/20 04:35 Labs: Lab Results 10/08/20 10/08/20 10/08/20 Range/Units 20:00 20:00 20:00 WBC 19.8 H (4.5-11.0) X10^3/uL RBC 3.43 L (4.5-5.9) X10^6/uL Hgb 10.9 L (13.5-17.5) g/dL Hct 31.8 L (41-53) % MCV 92.8 (80-100) fL MCH 31.9 (26-34) PG MCHC 34.3 (30-36) % RDW 12.8 (11.6-14.8) % Plt Count 152 (150-400) X10^3/uL Neut % (Auto) 92.9 H (50-75) % Lymph % (Auto) 0.9 L (25-40) % [place] % (Auto) 6.1 (3-14) % Eos % (Auto) 0.0 L (2-4) % Baso % (Auto) 0.1 (0-2) % Neut # (Auto) 39956 H (0041-0204) /uL Lymph # (Auto) 200 L (7173-0362) /uL [place] # (Auto) 1200 H (0-900) /uL Eos # (Auto) 0 (0-450) /uL Baso # (Auto) 0 (0-100) /uL PT 12.5 (10.1-12.7) SECONDS INR 1.1 (0.9-1.3) APTT 30 (26.4-36.2) SECONDS Sodium 135 L (137-145) mmol/L Potassium 4.6 (3.4-5.1) mmol/L Chloride 99 (98-107) mmol/L Carbon Dioxide 24 (22-32) mmol/L BUN 54 H (9-20) mg/dL Creatinine 2.53 H (0.66-1.25) mg/dL Estimated GFR 25.0 L (>60) mL/min BUN/Creatinine Ratio 21.3 (6-22) Glucose 109 (80-110) mg/dL Lactate (0.7-2.1) mmol/L Calcium 8.5 (8.4-10.2) mg/dL Total Bilirubin 1.3 (0.2-1.3) mg/dL AST 59 (17-59) IU/L ALT 23 (<50) IU/L Alkaline Phosphatase 83 (38-126) U/L Total Protein 6.0 L (6.3-8.2) g/dL Albumin 3.4 L (3.5-5.0) g/dL Globulin 2.6 (1.7-4.1) g/dL Albumin/Globulin Ratio 1.3 (1.0-2.8) Lipase 38 (23-300) U/L Procalcitonin 159 H (<0.5) ng/mL 10/08/20 Range/Units 21:00 WBC (4.5-11.0) X10^3/uL RBC (4.5-5.9) X10^6/uL Hgb (13.5-17.5) g/dL Hct (41-53) % MCV (80-100) fL MCH (26-34) PG MCHC (30-36) % RDW (11.6-14.8) % Plt Count (150-400) X10^3/uL Neut % (Auto) (50-75) % Lymph % (Auto) (25-40) % [place] % (Auto) (3-14) % Eos % (Auto) (2-4) % Baso % (Auto) (0-2) % Neut # (Auto) (2463-4622) /uL Lymph # (Auto) (3240-5800) /uL [place] # (Auto) (0-900) /uL Eos # (Auto) (0-450) /uL Baso # (Auto) (0-100) /uL PT (10.1-12.7) SECONDS INR (0.9-1.3) APTT (26.4-36.2) SECONDS Sodium (137-145) mmol/L Potassium (3.4-5.1) mmol/L Chloride (98-107) mmol/L Carbon Dioxide (22-32) mmol/L BUN (9-20) mg/dL Creatinine (0.66-1.25) mg/dL Estimated GFR (>60) mL/min BUN/Creatinine Ratio (6-22) Glucose (80-110) mg/dL Lactate 2.4 H (0.7-2.1) mmol/L Calcium (8.4-10.2) mg/dL Total Bilirubin (0.2-1.3) mg/dL AST (17-59) IU/L ALT (<50) IU/L Alkaline Phosphatase (38-126) U/L Total Protein (6.3-8.2) g/dL Albumin (3.5-5.0) g/dL Globulin (1.7-4.1) g/dL Albumin/Globulin Ratio (1.0-2.8) Lipase (23-300) U/L Procalcitonin (<0.5) ng/mL ECG Data Attestation: I personally reviewed and interpreted this ECG as follows: Interpretation: Sinus rhythm at a rate of 72 Leftward axis Normal intervals No acute ischemic changes MDM Narrative Medical decision making narrative: Cheek catheter placed and has minimal concentrated urine returned. 75-year-old gentleman with progressive dementia presents with fever, minimal urinary output, slightly elevated lactic acid, hypotension and urine suggesting acute urinary tract infection. There is no evidence of acute coronary syndrome, stroke, pneumonia, heart failure, intra-abdominal infection. He is given a L of fluid started on Zosyn after Cheek is placed and urine sample is obtained. His lactic acid level comes down from 2.4 to 1.6 and he remains afebrile in the emergency department. Blood pressure does respond to fluid resuscitation. Patient will need admission for urinary tract infection with acute dehydration and acute renal injury Discharge Plan Departure Patient Disposition: Admitted As Inpatient Clinical Impression: Acute dehydration Acute renal failure Qualifiers: Acute renal failure type: unspecified Qualified Code(s): N17.9 - Acute kidney failure, unspecified Urinary tract infection Qualifiers: Urinary tract infection type: acute cystitis Hematuria presence: with hematuria Qualified Code(s): N30.01 - Acute cystitis with hematuria Admit Date/Time: 10/08/20 23:01 Admit Provider: Jose Roberson
[2020-10-08 20:58] LABS: Add Manual Diff / Slide Review NO; Basophils Absolute Auto 0 /uL (0-100); Basophils Percent Auto 0.1 % (0-2); Eosinophils Absolute Auto 0 /uL (0-450); Hematocrit 31.8 % (41-53); Hemoglobin 10.9 g/dL (13.5-17.5); Lymphocytes Absolute Auto 200 /uL (1100-4500); Lymphocytes Percent Auto 0.9 % (25-40); Mean Corpuscular HGB Conc 34.3 % (30-36); Mean Corpuscular Hemoglobin 31.9 PG (26-34); Mean Corpuscular Volume 92.8 fL (80-100); Monocytes Absolute Auto 1200 /uL (0-900); Monocytes Percent Auto 6.1 % (3-14); Neutrophils Absolute Auto 18400 /uL (1500-7000); Neutrophils Percent Auto 92.9 % (50-75); Platelet Count 152 X10^3/uL (150-400); Red Blood Cell Count 3.43 X10^6/uL (4.5-5.9); Red Cell Distribution Width 12.8 % (11.6-14.8); White Blood Cell Count 19.8 X10^3/uL (4.5-11.0)
[2020-10-08 21:01] LABS: Alanine Aminotransferase 23 IU/L (<50); Albumin 3.4 g/dL (3.5-5.0); Albumin Globulin Ratio 1.3 (1.0-2.8); Alkaline Phosphatase 83 U/L (38-126); Aspartate Aminotransferase 59 IU/L (17-59); BUN Creatinine Ratio 21.3 (6-22); Bilirubin Total 1.3 mg/dL (0.2-1.3); Blood Urea Nitrogen 54 mg/dL (9-20); Calcium 8.5 mg/dL (8.4-10.2); Carbon Dioxide 24 mmol/L (22-32); Chloride 99 mmol/L (98-107); Globulin 2.6 g/dL (1.7-4.1); Glucose 109 mg/dL (80-110); HEMOLYSIS < 15 (0-50); Lipase 38 U/L (23-300); Potassium 4.6 mmol/L (3.4-5.1); Sodium 135 mmol/L (137-145)
[2020-10-08 21:35] LABS: Lactate (Lactic Acid) 2.4 mmol/L (0.7-2.1)
[2020-10-08 21:41] LABS: Procalcitonin 159 ng/mL (<0.5)
[2020-10-08] MEDS: PIPERACILLIN-TAZO 3.375 GM/50 ML FROZ.PIGGY IV (23:04)
[2020-10-08 23:23] LABS: Reflexed Lactate in 2 Hours Y
[2020-10-08 23:29] LABS: Appearance Urine UA CLOUDY; Bilirubin Urine UA NEGATIVE (NEGATIVE); Color Urine UA YELLOW; Glucose Urine UA TRACE g/dL (Negative); Ketones Urine UA NEGATIVE (NEGATIVE); Leukocyte Esterase Urine UA TRACE (NEGATIVE); Nitrite Urine UA POSITIVE (Negative); Occult Blood Urine UA 3+ (Negative); Protein Urine UA 1+ (Negative); pH Urine UA 7.5 (4.5-8.0)
[2020-10-08 23:29] LABS: Lactate (Lactic Acid) 1.6 mmol/L (0.7-2.1)
--- NOTE | 2020-10-08 23:33 | PC.NURSE ---
Pt alert but only oriented to self. Pts was present but needed to go home to take care of their dog. Her name is Lissette and she can be reached at [phone]. She would like to be kept updated on patient's status. Pt has had labs drawn, including urine sent down, and agrawal was placed.
[2020-10-08 23:45] LABS: Bacteria Urine Many (>30); Culture Indicated Urine Specimen Cultured; RBC Urine 10-30/HPF (0-5/HPF); WBC Urine 1-5/HPF (0-5/HPF)
--- NOTE | 2020-10-08 23:50 | DI.CT.S_ITS ---
PROCEDURE: CT ABDOMEN PELVIS WO CON INDICATIONS: Sepsis, acute kidney injury TECHNIQUE: Noncontrast 5 mm thick sections acquired from the diaphragms to the symphysis. 5 mm thick coronal and sagittal reformats were then performed. For radiation dose reduction, the following was used: automated exposure control, adjustment of mA and/or kV according to patient size. COMPARISON: [facility], CT, CT ABDOMEN PELVIS W CON, 03/06/2019, 13:22. [facility], CR, XR CHEST 1V, 10/08/2020, 21:10. [facility], CR, XR ABDOMEN MIN 2V, 07/09/2020, 19:40. FINDINGS: Image quality: Excellent. Lung bases: Dependent atelectasis can be seen on both sides, left greater than right. Heart size is normal. Urinary system: Both kidneys are normal in size. No kidney stones. No hydronephrosis. There is senescent cobwebbing seen on both sides. Both ureters appear non-dilated throughout their expected courses. The urinary bladder is decompressed by the presence of a Cheek catheter. No calcified bladder stones are seen. Other solid organs: Liver is normal in size. Gallbladder wall is not thickened. Pancreas is normal in contours. Spleen is normal in size. There is generalized minimal nodular thickening of the adrenal glands noted. Peritoneum and bowel: Prominent stool is seen within the rectum, with the rectal wall measuring 7.8 cm transversely. Wall thickening can be seen involving the cecum. Unenhanced bowel loops otherwise demonstrate normal wall thickness and caliber. No free fluid or air. A normal appendix is incidentally noted. Nodes and vessels: No retroperitoneal or mesenteric adenopathy by size criteria. Aorta and inferior vena cava are normal in caliber. Abdominal wall: No ventral hernias. Pelvis: No free pelvic fluid. No inguinal adenopathy. Bilateral fat containing inguinal hernias are seen, left larger than right. Bones: No suspicious bony lesions. No vertebral body compression fractures. Mild dextroconvex scoliotic curvature is seen. Focal degenerative change is seen at L5-S1. Bilateral L5 pars defects are seen, with mild grade 1 L5-S1 anterolisthesis Milder degenerative changes are seen elsewhere. IMPRESSION: No hydronephrosis or stones can be seen. Prominent stool seen at the rectal vault. Mild wall thickening can be seen involving the cecum. Please consider typhlitis. Incidental note is made of: Generalized minimal nodular thickening of the adrenal glands Normal appendix Cheek catheter Fat containing inguinal hernias, left larger than right Dextroconvex scoliotic curvature Focal L5-S1 degenerative change L5 pars defects, with grade 1 L5-S1 anterolisthesis Note: No significant discrepancy from the preliminary report. Dictated by: Timothy Diaz M.D. on 10/09/2020 at 7:20 Approved by: Timothy Diaz M.D. on 10/09/2020 at 7:26
[2020-10-09] VITALS (32 sets, daily range): BP systolic 80–119; BP diastolic 43–73; PULSE 64–105; RESP 9–28; TEMP 36.6–37.1; O2SAT 93–99; BMI 24.2
--- NOTE | 2020-10-09 00:13 | P.HP_ITS ---
History of Present Illness History of Present Illness Date Patient Seen: 10/09/20 Time Patient Seen: 01:13 Chief complaint: Lethargic/ Febrile/ UTI/Sepsis Narrative: Mr. González Hough is a Movement is all purposeful The patient has memory issues and is confused and unable to contribute to the medical record. Per phone conversation with the patient's she does report that the patient has longstanding confusional issues but is is function much lower than baseline. She distal he states that he to block the morning last night he was having shaking chills and rigors. She describes his teeth would be chattering if his mouth closed. She reports the patient had no complaints of headaches but has been dizzy, chest pain or palpitations, shortness of breath cough or wheezing. He has not reported to her having abdominal pain pre does have constipation. Upon arrival to the ER the patient temperature is 97.9, heart rate of 66, blood pressure is 93/53 dropping to 80/50 with respirations of 18 saturating at 96%. Chest x-ray identifies retrocardiac streaky opacities. On laboratory analysis he has white count of 19.8 with neutrophils of 18,400, hemoglobin of 10.9, hematocrit 31.8 and platelets 152. His coagulation studies within normal limits. He has a sodium 135 potassium 4.6, a BUN of 54 and a creatinine of 1.53. His nonfasting glucose is 109. He has a total bilirubin of 1.3 with an AST of 59, ALT of 23 and alkaline phosphatase of 93. His initial lactic acid is 2.4 and on repeat is 1.6 his procalcitonin is 159. His COVID screening is negative. Ordered additional lab studies including a cardiac panel which showed a total CK of 1234, CK-MB of 13.40 for an index of 1.1. His troponin is 0.016. Also ordered a proBNP which is of 3670. Also ordered a CT of the abdomen and pelvis which finds no urinary tract obstruction with perinephritic stranding likely sequelae of renal insufficiency, mild bilateral pelviectasis no thickening of the adrenal glands, fecal retention constipation of the rectum and sigmoid junction, mesenteric swirl sign with mid abdomen with fluid filled loops of small bowel thickening of the cecum, bladder wall thickening. In the ER the patient received 2 L of normal saline, blood cultures and urine culture were completed and then administered Zosyn 3.375 g IV. The patient initially requested for admission for urosepsis found to be cecal colitis. Patient History Medical History Constipation Depression Hyperlipidemia Hypertension Hypothyroidism (acquired) Obstructive sleep apnea syndrome Snoring Surgical History Hx of cataract surgery (Unknown) Hx of knee surgery (Unknown) Family & Social History Family History Father Hypertension Heart disease Mother Diabetes mellitus Hypertension Dementia Grandfather Cancer Grandmother No problems noted. Family/Other Hypertension Diabetes mellitus Social History: household members spouse lives independently Yes Safety & Behavioral: Feels Safe in Current Yes Environment Been Physically Hurt or No Threatened By a Person Tobacco & Substance use: Smoking Status Never smoker alcohol intake never alcohol intake frequency 0-2 drinks per day Substance Use Type does not use Meds Home Medications and Allergies Home Medications Medication Instructions Recorded Confirmed Type food supplemt, lactose-reduced 1 each PO .QDAY #5688 ml 03/12/19 10/08/20 Rx 0.05 gram-1.5 kcal/mL oral liquid losartan 25 mg tablet 25 mg PO DAILY #90 tab 12/02/19 10/08/20 Rx cholecalciferol (vitamin D3) 50 mcg PO BID 01/31/20 10/08/20 History [Vitamin D3] famotidine 10 mg tablet 10 mg PO BID tab 04/04/20 10/08/20 History levothyroxine 100 mcg tablet 100 mcg PO DAILY #90 tab 04/27/20 10/08/20 Rx phenelzine 15 mg PO TID 06/13/20 10/08/20 History docusate sodium [Ex-Lax (docusate)] 300 mg PO DAILY PRN 07/09/20 08/10/20 History polyethylene glycol 3350 [Miralax] 17 g PO DAILY PRN 07/09/20 08/10/20 History epinephrine 0.3 mg/0.3 mL 0.3 mg IM ONCE #1 ea 07/27/20 08/10/20 Rx injection, auto-injector clonidine HCl 0.2 mg tablet 0.2 mg PO ONCE PRN #10 tab 08/10/20 08/10/20 Rx memantine 10 mg tablet 10 mg PO BID 08/10/20 10/08/20 History atorvastatin 40 mg tablet 40 mg PO BEDTIME #90 tab 08/31/20 10/08/20 Rx prednisone 20 mg tablet 20 mg PO DAILY #10 tab 10/04/20 10/08/20 Rx Allergies Allergy/AdvReac Type Severity Reaction Status Date / Time contrast dye Allergy Mild Rash Uncoded 08/10/20 09:00 Review of Systems Review of Systems ROS: Yes All systems reviewed with the patient and are negative except as otherwise documented Exam Vital Signs (past 8 hours): - 10/08/20 20:12 10/08/20 20:14 10/08/20 20:17 Temperature 97.9 F Pulse Rate 68 73 66 Respiratory Rate 31 H 18 Blood Pressure 93/53 L 93/53 L Pulse Oximetry 95 99 96 10/08/20 20:30 10/08/20 20:31 10/08/20 20:33 Temperature Pulse Rate 68 73 72 Respiratory Rate 13 24 18 Blood Pressure 80/50 L 82/49 L Pulse Oximetry 91 89 L 99 10/08/20 21:00 10/08/20 21:30 10/08/20 22:00 Temperature Pulse Rate 69 67 89 Respiratory Rate 16 36 H Blood Pressure 89/51 L 88/50 L Pulse Oximetry 99 98 83 L 10/08/20 22:30 10/08/20 23:00 Temperature Pulse Rate 71 66 Respiratory Rate 23 Blood Pressure 94/51 L 101/57 L Pulse Oximetry 98 97 Oxygen Delivery Method Room Air Narrative Exam Narrative: GENERAL APPEARANCE: well developed, well nourished, with confusion and agitation and metabolic encephalopathy. HEENT: Normocephalic, PERRLA, conjunctiva clear, EOMs intact without nystagmus, no sinus tenderness to percussion, no rhinorrhea, mucous membranes are dry and pink. NECK/THYROID: neck supple, no JVD, no thyromegaly, trachea midline. LYMPH NODES: no cervical or supraclavicular lymphadenopathy. SKIN: [place], warm and dry. HEART: regular rate and rhythm, auscultation bear by patient movement and agitation however S1-S2 with no murmur are appreciated, brisk capillary refill, no edema LUNGS: Auscultation hampered by patient movement, breath sounds clear to auscultation bilaterally as able to auscultate, no conversational dyspnea, no tachypnea, oxygen saturation 98%, no cough present. CHEST: Symmetrical movement, no accessory muscle use, good tidal volume. ABDOMEN: Soft, no distention, no abdominal elicited on palpation, no guarding or peritoneal signs, no organomegaly, unable auscultated bowel times. EXTREMITIES: moves all extremities, strength is 5/5 and symmetrical, no deformities or joint effusions no clubbing or cyanosis. NEUROLOGIC: Patient is confused disoriented, no lateralizing symptoms, unable to assess cranial nerve function secondary to lack of patient cooperation, sensation intact to light touch, hearing grossly normal to speech. PSYCH: Confused agitated pulling on lines and Cheek catheter, combative with staff. Objective Labs Result Diagrams: 10/08/20 20:00 10/08/20 20:00 Labs: Laboratory Results - last 24 hr 10/08/20 10/08/20 10/08/20 20:00 20:00 20:00 WBC 19.8 H RBC 3.43 L Hgb 10.9 L Hct 31.8 L MCV 92.8 MCH 31.9 MCHC 34.3 RDW 12.8 Plt Count 152 Neut % (Auto) 92.9 H Lymph % (Auto) 0.9 L [place] % (Auto) 6.1 Eos % (Auto) 0.0 L Baso % (Auto) 0.1 Neut # (Auto) 58096 H Lymph # (Auto) 200 L [place] # (Auto) 1200 H Eos # (Auto) 0 Baso # (Auto) 0 PT 12.5 INR 1.1 APTT 30 Sodium 135 L Potassium 4.6 Chloride 99 Carbon Dioxide 24 BUN 54 H Creatinine 2.53 H Estimated GFR 25.0 L BUN/Creatinine Ratio 21.3 Glucose 109 Lactate Calcium 8.5 Total Bilirubin 1.3 AST 59 ALT 23 Alkaline Phosphatase 83 Total Protein 6.0 L Albumin 3.4 L Globulin 2.6 Albumin/Globulin Ratio 1.3 Lipase 38 Procalcitonin 159 H Urine Color Urine Appearance Urine pH Ur Specific [place] Urine Protein Urine Glucose (UA) Urine Ketones Urine Occult Blood Urine Nitrate Urine Bilirubin Urine Urobilinogen Ur Leukocyte Esterase Urine RBC Urine WBC Urine Bacteria Ur Culture Indicated? 10/08/20 10/08/20 10/08/20 21:00 23:10 23:15 WBC RBC Hgb Hct MCV MCH MCHC RDW Plt Count Neut % (Auto) Lymph % (Auto) [place] % (Auto) Eos % (Auto) Baso % (Auto) Neut # (Auto) Lymph # (Auto) [place] # (Auto) Eos # (Auto) Baso # (Auto) PT INR APTT Sodium Potassium Chloride Carbon Dioxide BUN Creatinine Estimated GFR BUN/Creatinine Ratio Glucose Lactate 2.4 H 1.6 Calcium Total Bilirubin AST ALT Alkaline Phosphatase Total Protein Albumin Globulin Albumin/Globulin Ratio Lipase Procalcitonin Urine Color Yellow Urine Appearance Cloudy Urine pH 7.5 Ur Specific [place] 1.020 Urine Protein 1+ H Urine Glucose (UA) Trace H Urine Ketones Negative Urine Occult Blood 3+ H Urine Nitrate Positive Urine Bilirubin Negative Urine Urobilinogen 1.0 Ur Leukocyte Esterase Trace H Urine RBC 10-30/hpf H Urine WBC 1-5/hpf Urine Bacteria Many (>30) H Ur Culture Indicated? Specimen cultured Assessment & Plan Assessment & Plan narrative: This is a 75-year-old male patient with a past me dical history severe depression, memory loss, hypertension, hyperlipidemia hypothyroidism constipation presents to the emergency department with fevers and progressive weakness patient was initially thought to be uroseptic with metabolic encephalopathy and hypotension with finding cecal colitis. 1. Sepsis with end-organ dysfunction, due to bacterial infection, present on admission, active -patient with acute renal failure with a creatinine of 2.53, elevated white count at 19.8 with neutrophils of 18,400, procalcitonin of 159 with cardiac dysfunction with proBNP of 3670. -patient received 2 L of IV fluid in the emergency department consistent with a sepsis bolus of 30 milliliters/kilos, administered an additional 500 cc bolus for hypotension with lactated Ringer's at 75 cc/hour. -patient initially administered Zosyn 3.375 g in the emergency department. Antibiotics changed to meropenem 2 g every 12 hours for renal dosing and vancomycin pharmacy to dose. -will repeat CBC, BMP, troponin, BMP and procalcitonin. 2. Cecal colitis, present on admission, active. -patient is afebrile with no abdominal pain elicited on palpation. -white count of 19.8 with neutrophils of 18,400 and procalcitonin of 159. -antibiotic therapy as above. -will consider surgical evaluation however is not urgent absent nausea vomiting or significant abdominal findings on exam. 3. Cystitis, present on admission, active -CT scan identifies bladder wall thickening. -urinalysis: Positive protein, glucose, blood, leukocyte esterase, bacteria, reflex to culture. -Cheek catheter placed in the ER draining concentrated jane urine improving to pale yellow. -urine culture pending will update antibiotic therapy pending culture results. 4. Metabolic encephalopathy, present on admission, active -patient has baseline confusion and memory issues and has been on memantine 10 mg daily. -upon arrival to the floor the patient is striking out at staff attempting to remove his Cheek catheter and IVs. -the patient has not responded to least restrictive measures attempting to get out of bed and high risk for injury. -the patient is placed in 2 point soft wrist restraints for patient's safety. -will continue patient we orientation to situation and surroundings. Had spoken to the patient's was return to [facility] and cannot return until morning. -ordered haloperidol, 1 mg IV repeat x1 in 15 minutes, a very tall 1 mg IV every hour as needed for a total dose of 5 mg 5. Hypertension, chronic. -patient is hypotensive with pressure down to 80/50 in the emergency department. -blood pressure responded to fluid resuscitation with no requirement for vasopressors. -will hold patient's clonidine 0.2 mg daily 6. Hyperlipidemia, chronic, stable -will continue patient's home regimen of atorvastatin 40 mg daily. 7. Major depression, present on admission, active -the patient is reports: Through many antidepressants defined that phenezline is affective. She requests we continue the medication to prevent decompensation. VTE prophylaxis: Enoxaparin 30 mg renally dosed IV fluid: Lactated Ringer 75 cc/hour Diet: NPO Code status: Full code, the patient's is his surrogate decision maker. The patient is admitted to the intensive care unit to the severity of his symptoms, multiple system organ dysfunction with hypotension responding to IV fluid therapy. Patient is at high risk for decompensation related to sepsis and infection. The patient is admitted as an inpatient with expected length of stay to be greater than 2 midnights Critical care time: 70 minutes with greater than 50% involved in direct patient care and evaluation. COVID-19 COVID-19 status: Negative Result date/Date tested (Pos, Neg/Pending): 10/08/20 Scores GCS Maryjane coma scale eye opening: Spontaneous [place] coma scale verbal response: Confused [place] coma scale motor response: Obey commands (Movement is all purposeful, refusing to obey commands.) Maryjane coma scale total score: 14 SOFA PaO2/FIO2: >=400 mmHg Platelets: >= 150 Bilirubin: 1.2-1.9 mg/dL Hypotension: MAP < 70 mmHg Maryjane Coma Scale: 15 Renal: Creatinine 2.0-3.4 mg/dL SOFA Score: 4 Quality MIPS - Admit I confirm the patient?s Advance Care Plan is present, Code status is documented, Surrogate decision maker is in patient?s record [If Yes, STOP here]: Yes
[2020-10-09 00:16] LABS: Creatine Kinase 1234 U/L (55-170)
[2020-10-09 00:23] LABS: COVID19 - ADMIT (NP swab/PCR) Negative (Negative)
[2020-10-09 00:29] LABS: NT-proBNP (BNP-Adult 18+) 3670 pg/mL (<450); Troponin I 0.016 ng/mL (0.01-0.034)
[2020-10-09 00:31] LABS: CKMB % Relative Index 1.1 % (1.5-5.0)
--- NOTE | 2020-10-09 00:32 | PC.NURSE ---
Left voicemail for Lissette regarding patient transfer to Rm [address]. [address] prior to transfer
--- NOTE | 2020-10-09 01:13 | PC.NURSE ---
Pt was transported to CT and then up to room 226. Upon arrival to room, pt became very agitated and combative with staff; he grabbed and held RNs arms tightly, was verbally abusive and swung and kicked at RNs. Hospitalist notified.
[2020-10-09] MEDS: HALOPERIDOL 5 MG/ML VIAL (01:15)
[2020-10-09] MEDS: HALOPERIDOL 5 MG/ML VIAL 1 MG IV ×3 (02:30→19:50)
[2020-10-09] MEDS: VANCOMYCIN 1,000 MG/200 ML PIGGYBACK 200 MG IV (03:19)
[2020-10-09] MEDS: LACTATED RINGERS 1,000 ML 75 ML IV ×2 (03:19→21:20)
[2020-10-09] MEDS: HYDROMORPHONE 0.5 MG INJ IV ×3 (03:30→20:02)
[2020-10-09] MEDS: MEROPENEM 500 MG in SODIUM CHLORIDE 0.9% 100 ML 200 ML IV ×2 (04:50→16:56)
--- NOTE | 2020-10-09 05:05 | PC.NURSE ---
Admit/Market Reporter Note-Upon arrival to ICU Room 226, patient was initially calm, moved from stretcher to bed with minimal assist, was confused, as reported from ED RN, but quickly became verbally aggressive, agitated, hitting, kicking, attempting to bite at staff. Unable to reorient or deescalate patient, 5 staff members and MENTAL HEALTH CASE MANAGER at bedside. Patient's , Lissette, was called. She spoke with the patient, he remained confused and anxious. She is on [facility] and unable to come be at the bedside d/t no ferry service at night. Ultimately, patient received a total of 3mg IV Haldol in 1mg increments over 3 hours, one dose of 0.5mg IV Dilaudid, and soft wrist restraints were initiated to keep him from pulling at lines and tubes, in addition to keep him from attempting to hit staff. LR @ 75ml/hr, LR 500ml bolus, Vancomycin, and Mennum IV abx also given, see Emar. Patient is afebrile, SR, ST to 120 when agitated, BP low but stable with MAP >65, see vital trends. SpO2 >93% on RA, lungs CTA, Cheek patent with cloudy jane UOP that started clearing to yellow by am. Box of patients medications in room, will be sent home with when she visits in am.
[2020-10-09 05:24] LABS: Alanine Aminotransferase 21 IU/L (<50); Albumin 2.6 g/dL (3.5-5.0); Albumin Globulin Ratio 1.1 (1.0-2.8); Alkaline Phosphatase 64 U/L (38-126); Aspartate Aminotransferase 60 IU/L (17-59); BUN Creatinine Ratio 28.1 (6-22); Bilirubin Total 0.8 mg/dL (0.2-1.3); Blood Urea Nitrogen 54 mg/dL (9-20); Calcium 7.5 mg/dL (8.4-10.2); Carbon Dioxide 23 mmol/L (22-32); Chloride 107 mmol/L (98-107); Estimated Glomerular Filt Rate 34.3 mL/min (>60); Globulin 2.4 g/dL (1.7-4.1); Glucose 84 mg/dL (80-110); HEMOLYSIS 16 (0-50); Magnesium 1.8 mg/dL (1.6-2.3); Potassium 4.2 mmol/L (3.4-5.1); Sodium 136 mmol/L (137-145)
[2020-10-09 06:39] LABS: Add Manual Diff / Slide Review NO; Basophils Absolute Auto 0 /uL (0-100); Basophils Percent Auto 0.1 % (0-2); Eosinophils Absolute Auto 0 /uL (0-450); Eosinophils Percent Auto 0.1 % (2-4); Hematocrit 28.4 % (41-53); Hemoglobin 9.9 g/dL (13.5-17.5); Lymphocytes Absolute Auto 400 /uL (1100-4500); Lymphocytes Percent Auto 3.1 % (25-40); Mean Corpuscular HGB Conc 34.8 % (30-36); Mean Corpuscular Hemoglobin 32.2 PG (26-34); Mean Corpuscular Volume 92.4 fL (80-100); Monocytes Absolute Auto 1000 /uL (0-900); Monocytes Percent Auto 7.2 % (3-14); Neutrophils Absolute Auto 12500 /uL (1500-7000); Neutrophils Percent Auto 89.5 % (50-75); Platelet Count 103 X10^3/uL (150-400); Red Blood Cell Count 3.07 X10^6/uL (4.5-5.9); Red Cell Distribution Width 12.9 % (11.6-14.8); White Blood Cell Count 13.9 X10^3/uL (4.5-11.0)
[2020-10-09 06:58] LABS: NT-proBNP (BNP-Adult 18+) 2580 pg/mL (<450); Troponin I < 0.012 ng/mL (0.01-0.034)
[2020-10-09 07:02] LABS: Procalcitonin 90.3 ng/mL (<0.5)
[2020-10-09] MEDS: MINERAL OIL 1 EACH ENEMA PR (08:23)
[2020-10-09] MEDS: SODIUM CHLORIDE 0.9% 500 ML 1000 ML IV (08:26)
[2020-10-09] MEDS: ENOXAPARIN 30 MG/0.3 ML SYRINGE SUBCUT (08:28)
--- NOTE | 2020-10-09 09:01 | PM.CN ---
History of Present Illness Consult details Date Patient Seen: 10/09/20 Time Patient Seen: 08:31 Chief complaint: Lethargic/ Febrile/ UTI/Sepsis Reason for consult: abnormal CT abdomen Requesting provider: Jose Roberson Narrative: This is a 75 yo man with baseline cognitive decline/short term memory loss/confusion who was admitted last night by the hospitalist for dehydration, typhlitis. He presented to the ER with rigors/shaking chills/dizziness. He was found to have a WBC of 19, and CT scan which shows perinephritic stranding, fecal retention/constipation of the rectum and sigmoid junction, mesenteric swirl sign with mid abdomen with fluid filled loops of small bowel thickening of the cecum, bladder wall thickening. ROS: The patient reports chronic constipation. Denies abdominal pain, nausea, vomiting. Thirteen system review is otherwise negative other than as mentioned below and in HPI. PE: GENERAL: Eyes closed, but opens them to voice, and answers questions appropriately. Appears stated age. Vital signs noted. HENT: Normocephalic, atraumatic. Hearing intact. EYES: Conjunctiva pink, sclera white, no periorbital swelling. CARDIOVASCULAR: Regular rate. No pedal edema. RESPIRATORY: Non-tachypneic, breathing comfortably on room air. GASTROINTESTINAL: Abdomen soft and non-distended, nontender, no palpable masses, non tympanic, no visible scars GENITALURINARY: No flank tenderness. MUSCULOSKELETAL: Equal tone and mass bilaterally. SKIN: Warm, dry, soft, appropriate color for ethnicity. No other lesions, rashes, or wounds. NEURO: Alert and Oriented X 3. No gross sensory deficits, or cognitive issues. PSYCH: Appropriate affect and mood. Meds Home Medications and Allergies Home Medications Medication Instructions Recorded Confirmed Type food supplemt, lactose-reduced 1 each PO .QDAY #5688 ml 03/12/19 10/08/20 Rx 0.05 gram-1.5 kcal/mL oral liquid losartan 25 mg tablet 25 mg PO DAILY #90 tab 12/02/19 10/08/20 Rx cholecalciferol (vitamin D3) 50 mcg PO BID 01/31/20 10/08/20 History [Vitamin D3] famotidine 10 mg tablet 10 mg PO BID tab 04/04/20 10/08/20 History levothyroxine 100 mcg tablet 100 mcg PO DAILY #90 tab 04/27/20 10/08/20 Rx phenelzine 15 mg PO TID 06/13/20 10/08/20 History docusate sodium [Ex-Lax (docusate)] 300 mg PO DAILY PRN 07/09/20 08/10/20 History polyethylene glycol 3350 [Miralax] 17 g PO DAILY PRN 07/09/20 08/10/20 History epinephrine 0.3 mg/0.3 mL 0.3 mg IM ONCE #1 ea 07/27/20 08/10/20 Rx injection, auto-injector clonidine HCl 0.2 mg tablet 0.2 mg PO ONCE PRN #10 tab 08/10/20 08/10/20 Rx memantine 10 mg tablet 10 mg PO BID 08/10/20 10/08/20 History atorvastatin 40 mg tablet 40 mg PO BEDTIME #90 tab 08/31/20 10/08/20 Rx prednisone 20 mg tablet 20 mg PO DAILY #10 tab 10/04/20 10/08/20 Rx Allergies Allergy/AdvReac Type Severity Reaction Status Date / Time contrast dye Allergy Mild Rash Uncoded 08/10/20 09:00 Exam Vital Signs (past 8 hours): - 10/09/20 01:11 10/09/20 01:50 10/09/20 02:25 Temperature 98.1 F 98.1 F Pulse Rate 79 105 H 92 H Respiratory Rate 20 28 H 22 Blood Pressure 96/52 L 85/43 L 96/52 L Pulse Oximetry 98 94 94 10/09/20 02:50 10/09/20 03:20 10/09/20 03:59 Temperature Pulse Rate 82 79 76 Respiratory Rate 18 16 12 Blood Pressure 101/56 L 102/73 102/73 Pulse Oximetry 93 93 94 10/09/20 04:32 10/09/20 05:00 10/09/20 06:00 Temperature Pulse Rate 72 73 68 Respiratory Rate 10 L 12 12 Blood Pressure 97/52 L 92/53 L 91/54 L Pulse Oximetry 97 98 98 10/09/20 07:00 10/09/20 08:52 Temperature Pulse Rate 72 71 Respiratory Rate 19 13 Blood Pressure 104/57 L 119/55 L Pulse Oximetry 98 97 Oxygen Delivery Method Room Air Oxygen Flow Rate [address] scan - abdomen: Radiologist's impression: CT scan which shows perinephritic stranding, fecal retention/constipation of the rectum and sigmoid junction, mesenteric swirl sign with mid abdomen with fluid filled loops of small bowel thickening of the cecum, bladder wall thickening. Labs Result Diagrams: 10/09/20 04:35 10/09/20 04:35 Labs: Laboratory Results - last 24 hr 10/08/20 10/08/20 10/08/20 20:00 20:00 20:00 WBC 19.8 H RBC 3.43 L Hgb 10.9 L Hct 31.8 L MCV 92.8 MCH 31.9 MCHC 34.3 RDW 12.8 Plt Count 152 Neut % (Auto) 92.9 H Lymph % (Auto) 0.9 L [place] % (Auto) 6.1 Eos % (Auto) 0.0 L Baso % (Auto) 0.1 Neut # (Auto) 98178 H Lymph # (Auto) 200 L [place] # (Auto) 1200 H Eos # (Auto) 0 Baso # (Auto) 0 PT 12.5 INR 1.1 APTT 30 Sodium 135 L Potassium 4.6 Chloride 99 Carbon Dioxide 24 BUN 54 H Creatinine 2.53 H Estimated GFR 25.0 L BUN/Creatinine Ratio 21.3 Glucose 109 Lactate Calcium 8.5 Magnesium Total Bilirubin 1.3 AST 59 ALT 23 Alkaline Phosphatase 83 Total Creatine Kinase CK-MB (CK-2) CK-MB (CK-2) Rel Index Troponin I NT-Pro-B Natriuret Pep Total Protein 6.0 L Albumin 3.4 L Globulin 2.6 Albumin/Globulin Ratio 1.3 Lipase 38 Procalcitonin 159 H Urine Color Urine Appearance Urine pH Ur Specific [place] Urine Protein Urine Glucose (UA) Urine Ketones Urine Occult Blood Urine Nitrate Urine Bilirubin Urine Urobilinogen Ur Leukocyte Esterase Urine RBC Urine WBC Urine Bacteria Ur Culture Indicated? SARS-CoV-2 (PCR) 10/08/20 10/08/20 10/08/20 21:00 23:10 23:10 WBC RBC Hgb Hct MCV MCH MCHC RDW Plt Count Neut % (Auto) Lymph % (Auto) [place] % (Auto) Eos % (Auto) Baso % (Auto) Neut # (Auto) Lymph # (Auto) [place] # (Auto) Eos # (Auto) Baso # (Auto) PT INR APTT Sodium Potassium Chloride Carbon Dioxide BUN Creatinine Estimated GFR BUN/Creatinine Ratio Glucose Lactate 2.4 H 1.6 Calcium Magnesium Total Bilirubin AST ALT Alkaline Phosphatase Total Creatine Kinase 1234 H CK-MB (CK-2) 13.40 H CK-MB (CK-2) Rel Index 1.1 L Troponin I 0.016 NT-Pro-B Natriuret Pep 3670 H Total Protein Albumin Globulin Albumin/Globulin Ratio Lipase Procalcitonin Urine Color Urine Appearance Urine pH Ur Specific [place] Urine Protein Urine Glucose (UA) Urine Ketones Urine Occult Blood Urine Nitrate Urine Bilirubin Urine Urobilinogen Ur Leukocyte Esterase Urine RBC Urine WBC Urine Bacteria Ur Culture Indicated? SARS-CoV-2 (PCR) 10/08/20 10/08/20 10/09/20 23:15 23:22 04:35 WBC RBC Hgb Hct MCV MCH MCHC RDW Plt Count Neut % (Auto) Lymph % (Auto) [place] % (Auto) Eos % (Auto) Baso % (Auto) Neut # (Auto) Lymph # (Auto) [place] # (Auto) Eos # (Auto) Baso # (Auto) PT INR APTT Sodium 136 L Potassium 4.2 Chloride 107 Carbon Dioxide 23 BUN 54 H Creatinine 1.92 H Estimated GFR 34.3 L BUN/Creatinine Ratio 28.1 H Glucose 84 Lactate Calcium 7.5 L Magnesium 1.8 Total Bilirubin 0.8 AST 60 H ALT 21 Alkaline Phosphatase 64 Total Creatine Kinase CK-MB (CK-2) CK-MB (CK-2) Rel Index Troponin I NT-Pro-B Natriuret Pep Total Protein 5.0 L Albumin 2.6 L Globulin 2.4 Albumin/Globulin Ratio 1.1 Lipase Procalcitonin Urine Color Yellow Urine Appearance Cloudy Urine pH 7.5 Ur Specific [place] 1.020 Urine Protein 1+ H Urine Glucose (UA) Trace H Urine Ketones Negative Urine Occult Blood 3+ H Urine Nitrate Positive Urine Bilirubin Negative Urine Urobilinogen 1.0 Ur Leukocyte Esterase Trace H Urine RBC 10-30/hpf H Urine WBC 1-5/hpf Urine Bacteria Many (>30) H Ur Culture Indicated? Specimen cultured SARS-CoV-2 (PCR) Negative 10/09/20 10/09/20 04:35 04:35 WBC 13.9 H RBC 3.07 L Hgb 9.9 L Hct 28.4 L MCV 92.4 MCH 32.2 MCHC 34.8 RDW 12.9 Plt Count 103 L Neut % (Auto) 89.5 H Lymph % (Auto) 3.1 L [place] % (Auto) 7.2 Eos % (Auto) 0.1 L Baso % (Auto) 0.1 Neut # (Auto) 37939 H Lymph # (Auto) 400 L [place] # (Auto) 1000 H Eos # (Auto) 0 Baso # (Auto) 0 PT INR APTT Sodium Potassium Chloride Carbon Dioxide BUN Creatinine Estimated GFR BUN/Creatinine Ratio Glucose Lactate Calcium Magnesium Total Bilirubin AST ALT Alkaline Phosphatase Total Creatine Kinase CK-MB (CK-2) CK-MB (CK-2) Rel Index Troponin I < 0.012 NT-Pro-B Natriuret Pep 2580 H Total Protein Albumin Globulin Albumin/Globulin Ratio Lipase Procalcitonin 90.3 H Urine Color Urine Appearance Urine pH Ur Specific [place] Urine Protein Urine Glucose (UA) Urine Ketones Urine Occult Blood Urine Nitrate Urine Bilirubin Urine Urobilinogen Ur Leukocyte Esterase Urine RBC Urine WBC Urine Bacteria Ur Culture Indicated? SARS-CoV-2 (PCR) Assessment & Plan Assessment and plan (1) Abnormal CT scan: Status: Acute (2) Chronic constipation: Status: Acute Assessment & Plan narrative: This is a 75-year-old man who is admitted to the hospitalist service. I was consulted regarding his CT scan. He does technically have a swirl sign on the CT scan, but it is very mild, and I do not think it represents a significant threat to his bowel. His abdominal exam is entirely benign, and at this point I would recommend close observation, hydration, and bowel care. He may benefit from mineral oil from above or below, including mineral oil enemas if tolerated to help unobstruct his rectum. He may pass things through simply with hydration and oral bowel regimen. I do not see a surgical indication at this point, but if something changes on his condition or his abdominal exam, please call us to see him again. I will sign off for now. COVID-19 COVID-19 status: Negative Time Spent With Patient Time with patient: 25 - 35 minutes
--- NOTE | 2020-10-09 11:17 | PC.NURSE ---
Addendum entered by Brianda Wang R.N. 10/09/20 14:12: pt assisted to bsc for XL brown soft formed stool- sent to lab for GI panel, agrawal remains intact and marginal b/p remain- pt will get a picc line later this afternoon for potential pressors if indicated Original Note: pt soft spoken and requires frequent reorientation- but remains calm and cooperative as able- lungs dim bilat bases not requiring any o2 at all with spo2 97-100% on room air. present at bedside and supportive - pt maintained with NPO status and 1 x 500cc NS given - present MAP 67+, agrawal with odorous urine adequate amounts- mineral oil fleets given with no results other than enema material. Bilat wrist restraints removed at 0730 upon initial assessment
[2020-10-09] MEDS: SODIUM CHLORIDE 0.9% 1,000 ML 1000 ML IV ×2 (13:50→16:33)
--- NOTE | 2020-10-09 15:43 | P.PN_ITS ---
Subjective Subjective Date Patient Seen: 10/09/20 Time Patient Seen: 07:43 Interval history: He is confused today and can not provide detailed description of his symptoms. He denies pain aside from slight abdominal pain. He is too confused to provide further details. Exam Vital Signs (past 8 hours): - 10/09/20 08:00 10/09/20 08:52 10/09/20 09:00 Temperature Pulse Rate 65 71 77 Respiratory Rate 18 13 16 Blood Pressure 101/72 119/55 L Pulse Oximetry 98 97 98 10/09/20 09:52 10/09/20 11:00 10/09/20 12:00 Temperature 98.8 F Pulse Rate 64 71 75 Respiratory Rate 9 L 12 16 Blood Pressure 102/49 L 94/54 L 86/51 L Pulse Oximetry 99 98 97 10/09/20 13:36 10/09/20 14:36 10/09/20 15:42 Temperature 98.6 F Pulse Rate 69 73 75 Respiratory Rate 13 17 16 Blood Pressure 87/48 L 85/52 L Pulse Oximetry 95 95 Oxygen Delivery Method Room Air Oxygen Flow Rate 0 Narrative Exam Narrative: GENERAL APPEARANCE: chronically ill appearing, with confusion and agitation HEENT: Normocephalic, PERRL, conjunctiva clear, EOMs intact without nystagmus, no sinus tenderness to percussion, no rhinorrhea, mucous membranes are dry and pink. NECK/THYROID: neck supple, trachea midline. LYMPH NODES: no cervical or supraclavicular lymphadenopathy. SKIN: [place], warm and dry. HEART: regular rate and rhythm, auscultation bear by patient movement and agitation however S1-S2 with no murmur are appreciated, brisk capillary refill, no edema LUNGS: breath sounds clear to auscultation bilaterally, no tachypnea CHEST: Symmetrical movement, no accessory muscle use, good tidal volume. ABDOMEN: Soft, no distention, no abdominal elicited on palpation, no guarding or peritoneal signs, no organomegaly, unable auscultated bowel times. EXTREMITIES: moves all extremities, strength is 5/5 and symmetrical, no deformities or joint effusions no clubbing or cyanosis. NEUROLOGIC: Patient is confused disoriented, no lateralizing symptoms, unable to assess cranial nerve function secondary to lack of patient cooperation, sensation intact to light touch, hearing grossly normal to speech. PSYCH: Confused agitated pulling on lines and Cheek catheter Objective Labs Result Diagrams: 10/09/20 04:35 10/09/20 04:35 Labs: Laboratory Results - last 24 hr 10/08/20 10/08/20 10/08/20 20:00 20:00 20:00 WBC 19.8 H RBC 3.43 L Hgb 10.9 L Hct 31.8 L MCV 92.8 MCH 31.9 MCHC 34.3 RDW 12.8 Plt Count 152 Neut % (Auto) 92.9 H Lymph % (Auto) 0.9 L [place] % (Auto) 6.1 Eos % (Auto) 0.0 L Baso % (Auto) 0.1 Neut # (Auto) 60178 H Lymph # (Auto) 200 L [place] # (Auto) 1200 H Eos # (Auto) 0 Baso # (Auto) 0 PT 12.5 INR 1.1 APTT 30 Sodium 135 L Potassium 4.6 Chloride 99 Carbon Dioxide 24 BUN 54 H Creatinine 2.53 H Estimated GFR 25.0 L BUN/Creatinine Ratio 21.3 Glucose 109 Lactate Calcium 8.5 Magnesium Total Bilirubin 1.3 AST 59 ALT 23 Alkaline Phosphatase 83 Total Creatine Kinase CK-MB (CK-2) CK-MB (CK-2) Rel Index Troponin I NT-Pro-B Natriuret Pep Total Protein 6.0 L Albumin 3.4 L Globulin 2.6 Albumin/Globulin Ratio 1.3 Lipase 38 Procalcitonin 159 H Urine Color Urine Appearance Urine pH Ur Specific [place] Urine Protein Urine Glucose (UA) Urine Ketones Urine Occult Blood Urine Nitrate Urine Bilirubin Urine Urobilinogen Ur Leukocyte Esterase Urine RBC Urine WBC Urine Bacteria Ur Culture Indicated? Nasal Screen MRSA (PCR) SARS-CoV-2 (PCR) 10/08/20 10/08/20 10/08/20 21:00 23:10 23:10 WBC RBC Hgb Hct MCV MCH MCHC RDW Plt Count Neut % (Auto) Lymph % (Auto) [place] % (Auto) Eos % (Auto) Baso % (Auto) Neut # (Auto) Lymph # (Auto) [place] # (Auto) Eos # (Auto) Baso # (Auto) PT INR APTT Sodium Potassium Chloride Carbon Dioxide BUN Creatinine Estimated GFR BUN/Creatinine Ratio Glucose Lactate 2.4 H 1.6 Calcium Magnesium Total Bilirubin AST ALT Alkaline Phosphatase Total Creatine Kinase 1234 H CK-MB (CK-2) 13.40 H CK-MB (CK-2) Rel Index 1.1 L Troponin I 0.016 NT-Pro-B Natriuret Pep 3670 H Total Protein Albumin Globulin Albumin/Globulin Ratio Lipase Procalcitonin Urine Color Urine Appearance Urine pH Ur Specific [place] Urine Protein Urine Glucose (UA) Urine Ketones Urine Occult Blood Urine Nitrate Urine Bilirubin Urine Urobilinogen Ur Leukocyte Esterase Urine RBC Urine WBC Urine Bacteria Ur Culture Indicated? Nasal Screen MRSA (PCR) SARS-CoV-2 (PCR) 10/08/20 10/08/20 10/09/20 23:15 23:22 04:35 WBC RBC Hgb Hct MCV MCH MCHC RDW Plt Count Neut % (Auto) Lymph % (Auto) [place] % (Auto) Eos % (Auto) Baso % (Auto) Neut # (Auto) Lymph # (Auto) [place] # (Auto) Eos # (Auto) Baso # (Auto) PT INR APTT Sodium 136 L Potassium 4.2 Chloride 107 Carbon Dioxide 23 BUN 54 H Creatinine 1.92 H Estimated GFR 34.3 L BUN/Creatinine Ratio 28.1 H Glucose 84 Lactate Calcium 7.5 L Magnesium 1.8 Total Bilirubin 0.8 AST 60 H ALT 21 Alkaline Phosphatase 64 Total Creatine Kinase CK-MB (CK-2) CK-MB (CK-2) Rel Index Troponin I NT-Pro-B Natriuret Pep Total Protein 5.0 L Albumin 2.6 L Globulin 2.4 Albumin/Globulin Ratio 1.1 Lipase Procalcitonin Urine Color Yellow Urine Appearance Cloudy Urine pH 7.5 Ur Specific [place] 1.020 Urine Protein 1+ H Urine Glucose (UA) Trace H Urine Ketones Negative Urine Occult Blood 3+ H Urine Nitrate Positive Urine Bilirubin Negative Urine Urobilinogen 1.0 Ur Leukocyte Esterase Trace H Urine RBC 10-30/hpf H Urine WBC 1-5/hpf Urine Bacteria Many (>30) H Ur Culture Indicated? Specimen cultured Nasal Screen MRSA (PCR) SARS-CoV-2 (PCR) Negative 10/09/20 10/09/20 10/09/20 04:35 04:35 11:20 WBC 13.9 H RBC 3.07 L Hgb 9.9 L Hct 28.4 L MCV 92.4 MCH 32.2 MCHC 34.8 RDW 12.9 Plt Count 103 L Neut % (Auto) 89.5 H Lymph % (Auto) 3.1 L [place] % (Auto) 7.2 Eos % (Auto) 0.1 L Baso % (Auto) 0.1 Neut # (Auto) 32810 H Lymph # (Auto) 400 L [place] # (Auto) 1000 H Eos # (Auto) 0 Baso # (Auto) 0 PT INR APTT Sodium Potassium Chloride Carbon Dioxide BUN Creatinine Estimated GFR BUN/Creatinine Ratio Glucose Lactate Calcium Magnesium Total Bilirubin AST ALT Alkaline Phosphatase Total Creatine Kinase CK-MB (CK-2) CK-MB (CK-2) Rel Index Troponin I < 0.012 NT-Pro-B Natriuret Pep 2580 H Total Protein Albumin Globulin Albumin/Globulin Ratio Lipase Procalcitonin 90.3 H Urine Color Urine Appearance Urine pH Ur Specific [place] Urine Protein Urine Glucose (UA) Urine Ketones Urine Occult Blood Urine Nitrate Urine Bilirubin Urine Urobilinogen Ur Leukocyte Esterase Urine RBC Urine WBC Urine Bacteria Ur Culture Indicated? Nasal Screen MRSA (PCR) Negative for mrsa SARS-CoV-2 (PCR) PFSH Medical History Constipation Depression Hyperlipidemia Hypertension Hypothyroidism (acquired) Obstructive sleep apnea syndrome Snoring Surgical History Hx of cataract surgery (Unknown) Hx of knee surgery (Unknown) Family History Father Hypertension Heart disease Mother Diabetes mellitus Hypertension Dementia Grandfather Cancer Grandmother No problems noted. Family/Other Hypertension Diabetes mellitus Social History marital status: household members: spouse lives independently: Yes Smoking Status: Never smoker alcohol intake: never substance use type: does not use Assessment & Plan Assessment & Plan narrative: 75-year-old male patient with a past medical history severe depression, memory loss, hypertension, hyperlipidemia hypothyroidism constipation presents to the emergency department with fevers and progressive weakness patient was initially thought to be uroseptic with metabolic encephalopathy and hypotension with finding cecal colitis. 1. Sepsis with end-organ dysfunction, due to bacterial infection, present on admission, active -patient with acute renal failure with a creatinine of 2.53, elevated white count at 19.8 with neutrophils of 18,400, procalcitonin of 159 with cardiac dysfunction with proBNP of 3670. -patient received 2 L of IV fluid in the emergency department, administered additional 1.5L IVF fluid bolus on floor today -patient initially administered Zosyn 3.375 g in the emergency department. Antibiotics changed to meropenem 2 g every 12 hours for renal dosing and vancomycin pharmacy to dose. -cultures pending but etiology is possible urinary infection, vs pneumonia, vs colitis 2. Cecal colitis, possible, rule out. -patient is afebrile with no abdominal pain elicited on palpation. -white count of 19.8 with neutrophils of 18,400 and procalcitonin of 159. -antibiotic therapy as above. -appreciate surgical consultation, no surgical need per consult -unlikely c diff, but if stools will send stool for microbiology 3. Cystitis, present on admission, active -CT scan identifies bladder wall thickening. -urinalysis: Positive protein, glucose, blood, leukocyte esterase, bacteria, reflex to culture. -Cheek catheter placed in the ER draining concentrated jane urine improving to pale yellow. -urine culture pending will update antibiotic therapy pending culture results. -follow up blood cultures 4. Questionable pneumonia. Currently not having any respiratory symptoms -cxray noted slight changes on xray that may represent early pneumonia -given severity of infection, unlikely that is cause of sepsis -for now on broad spectrum antibiotics 4. Metabolic encephalopathy, present on admission, active -patient has baseline confusion and memory issues and has been on memantine 10 mg daily. -upon arrival to the floor the patient is striking out at staff attempting to remove his Cheek catheter and IVs. -the patient has not responded to least restrictive measures attempting to get out of bed and high risk for injury. -the patient is placed in 2 point soft wrist restraints for patient's safety. needed haldol for agitation on admission with good response -will continue patient to orient patient, is improved with at bedside 5. Hypertension, chronic. -patient is hypotensive with pressure down to 80/50 in the emergency department. Responsive to IV bolus of fluid -blood pressure responded to fluid resuscitation with no requirement for vasopressors. -will hold patient's clonidine 0.2 mg daily 6. Hyperlipidemia, chronic, stable -will continue patient's home regimen of atorvastatin 40 mg daily. 7. Major depression, present on admission, active -the patient is reports: Through many antidepressants defined that phenezline is affective. She requests we continue the medication to prevent decompensation. VTE prophylaxis: Enoxaparin 30 mg renally dosed IV fluid: Lactated Ringer 75 cc/hour Diet: NPO Code status: Full code, the patient's is his surrogate decision maker.
--- NOTE | 2020-10-09 16:19 | CM.DANOTE ---
DCP ASSESSMENT: Patient is a 75 year-old male admitted for lethargic, febrile, UTI and sepsis. PCP is Yann Dempsey. Primary payer is Medicare and out of State [employer]. REPLANTER Student met with patient who was in bed alert and Lissette Prado was at bedside. Educated patient and on role of social work in D/C planning. Patient engaged in interview but, presented confused. answered most questions. reported patient has been having more memory loss over the last 8-months. Patient and live on [facility] in a mobile home. endorses providing support to for most meal prep, chores and transportation as he has not driven for the last 8 months. He does not use any adaptive equipment or DME and manages dressing, bathing. Lissette said he has been a little more unstable with walking and would like physical therapy. Spoke with Hospitalist regarding a PT order when patient is more cognitively clear. is comfortable taking patient home at time of D/C. PLAN: Anticipate D/C home with when medically stable. CM Team to continue to follow. DAVID Marroquin MSW Student Discharge Planning/Care Management Advanced directive, confirm from FAMILY Start: 10/09/20 03:03 Freq: Q24H Status: Complete Protocol: Document 10/09/20 02:00 SMS (Rec: 10/09/20 03:13 SMS [id number]) Advance Directive, confirm on record Time 02:00 Person contacted Lissette Copy received No Copy received No Advanced directive available on record No Document 10/09/20 10:54 TJB (Rec: 10/09/20 10:54 TJB [id number]) Advance Directive, confirm on record Time 02:00 Person contacted Lissette Copy received No Time 10:54 Person contacted LISSETTE- SPOUSE Copy received No Advanced directive available on record No CM Discharge Assessment Start: 10/09/20 10:28 Freq: Status: Active Protocol: Document 10/09/20 10:28 AL (Rec: 10/09/20 10:32 AL [id number]) Discharge Planning Assessment Assigned Ambulatory Services Representative DAVID Peña Student Contact Information Lissette Prado, . Advance Directives? No Advance Directives on File No History Provided By Patient,Significant Other, Medical Record Has Patient been admitted in last 30 No days? Prior Living Arrangements Mobile home Household Members spouse Type of transporation used prior to Relies on Others admit Comment Lissette provides all transportation for patient. He quit driving 8 months ago Independent with ADL's No Is patient alert and oriented? No: Oriented to self Needs Assistance With Meal Prep,Home Chores / Shopping Comment provides assistance with meals (he does engage in simple meal prep), transportation and chores/ shopping Caregiver for Another No Comment no other DME at home. Discharge Plan Home Transportation Arrangement Lissette will provide transportation Additional Comment was interested in PT Whiteboard Updated in Patient Room with Yes name and ext. # of Ambulatory Services Representative Review Status In Process
--- NOTE | 2020-10-09 16:30 | DI.RAD.S_ITS ---
PROCEDURE: XR CHEST FOR PICC 1V INDICATIONS: PICC line placement COMPARISON: [facility], CR, XR CHEST 1V, 01/31/2020, 18:18. [facility], CR, XR CHEST 1V, 06/13/2020, 15:34. [facility], CR, XR CHEST 1V, 10/08/2020, 21:10. FINDINGS: A left-sided PICC line is seen, with the tip overlying the inferior aspect of the superior vena cava, just above the cavoatrial junction. Mild generalized interstitial prominence can be seen. On this semiupright portable chest examination, no large pneumothorax or large pleural effusions are seen. No focal infiltrates are seen. IMPRESSION: Tip of PICC is seen overlying the inferior aspect of the superior vena cava. Interstitial prominence is seen throughout. The interstitial prominence is nonspecific, yet may be related to pulmonary edema. Dictated by: Timothy Diaz M.D. on 10/09/2020 at 15:47 Approved by: Timothy Diaz M.D. on 10/09/2020 at 15:48
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
[2020-10-09] MEDS: LACTATED RINGERS 500 ML 1000 ML IV (19:32)
[2020-10-09] MEDS: LORazepam 2 MG/ML INJ 0.5 MG IV (20:51)
[2020-10-10] VITALS (23 sets, daily range): BP systolic 118–159; BP diastolic 7–99; PULSE 62–111; RESP 12–23; TEMP 36.4–37.7; O2SAT 84–99
[2020-10-10 02:37] LABS: Enterococcus species Not Detected (Not Detect); Listeria monocytogenes Not Detected (Not Detect); Staphylococcus species Not Detected (Not Detect)
[2020-10-10 02:41] LABS: Acinetobacter baumannii Not Detected (Not Detect); Candida albicans Not Detected (Not Detect); Candida glabrata Not Detected (Not Detect); Candida krusei Not Detected (Not Detect); Candida parapsilosis Not Detected (Not Detect); Candida tropicalis Not Detected (Not Detect); E. coli Not Detected (Not Detect); Enterobacter cloacae complex Not Detected (Not Detect); Enterobacteriaceae species Not Detected (Not Detect); Haemophilus influenzae Not Detected (Not Detect); Neisseria meningitidis Not Detected (Not Detect); Proteus species Not Detected (Not Detect); Pseudomonas aeruginosa Not Detected (Not Detect); Serratia marcescens Not Detected (Not Detect); Streptococcus agalactiae (Gr B Not Detected (Not Detect); Streptococcus pneumonia Not Detected (Not Detect); Streptococcus pyogenes (Gr A) Not Detected (Not Detect); Streptococcus species Not Detected (Not Detect)
[2020-10-10] MEDS: VANCOMYCIN 1,000 MG/200 ML PIGGYBACK 200 MG IV (03:10)
[2020-10-10] MEDS: MEROPENEM 500 MG in SODIUM CHLORIDE 0.9% 100 ML 200 ML IV ×2 (04:10→16:19)
[2020-10-10] MEDS: HYDROMORPHONE 0.5 MG INJ IV ×2 (04:19→17:28)
[2020-10-10 05:07] LABS: Add Manual Diff / Slide Review NO; Basophils Absolute Auto 0 /uL (0-100); Basophils Percent Auto 0.3 % (0-2); Eosinophils Absolute Auto 100 /uL (0-450); Eosinophils Percent Auto 1.5 % (2-4); Hematocrit 25.5 % (41-53); Hemoglobin 8.9 g/dL (13.5-17.5); Lymphocytes Absolute Auto 500 /uL (1100-4500); Lymphocytes Percent Auto 5.6 % (25-40); Mean Corpuscular HGB Conc 34.8 % (30-36); Mean Corpuscular Hemoglobin 32.1 PG (26-34); Mean Corpuscular Volume 92.1 fL (80-100); Monocytes Absolute Auto 900 /uL (0-900); Monocytes Percent Auto 9.5 % (3-14); Neutrophils Absolute Auto 7500 /uL (1500-7000); Neutrophils Percent Auto 83.1 % (50-75); Platelet Count 93 X10^3/uL (150-400); Red Blood Cell Count 2.77 X10^6/uL (4.5-5.9); Red Cell Distribution Width 12.7 % (11.6-14.8)
[2020-10-10 05:13] LABS: Creatine Kinase 479 U/L (55-170)
--- NOTE | 2020-10-10 05:27 | PC.NURSE ---
Addendum entered by [place] Sweeney R.N. 10/10/20 06:54: 0745- Am lab shows glucose of 45. COMPUTER HARDWARE DESIGNER Tommy notified and orders rec. 1 amp D50 IVP given and maint fluid changed to D5 at 75cc/hr. Will recheck glucose at 0715. Will monitor. Original Note: 0500- Patient has been restless at times but not combative. Uop is good and patient is afebrile. Labs show improvement but noted that PLT are down to 93 will advise day RN so she can determine if enoxiprine should be given. Lab reports one blood culture is positive but no ID yet and sensitivities are pending. Medicated x1 for C/O back pain. states patient suffers from chronic low back pain. BP has been stable with a mean above 60 all shift. Will monitor.
[2020-10-10 05:58] LABS: BUN Creatinine Ratio 36.7 (6-22); Blood Urea Nitrogen 33 mg/dL (9-20); Carbon Dioxide 19 mmol/L (22-32); Chloride 106 mmol/L (98-107); Estimated Glomerular Filt Rate > 60.0 mL/min (>60); Glucose 46 mg/dL (80-110); HEMOLYSIS < 15 (0-50); Magnesium 1.7 mg/dL (1.6-2.3); Phosphorous 2.3 mg/dL (2.3-3.7); Potassium 3.7 mmol/L (3.4-5.1); Sodium 134 mmol/L (137-145)
[2020-10-10] MEDS: DEXTROSE 50 % IN WATER 25 GM/50 ML SYRINGE (06:49)
[2020-10-10] MEDS: DEXTROSE 5% WATER 1,000 ML 75 ML IV ×2 (06:50→18:30)
--- NOTE | 2020-10-10 08:11 | PC.NURSE ---
Addendum entered by Yoselin Ivan R.N. 10/10/20 13:33: Pt has been NPO per MD order. Pt given sips of water with MD permission. Pt able to swallow small sips safely, good cough, able to cough on command. Pt's cognitive status is waxing and waning and could benefit from a swallow eval for cognition as he cannot consistently follow commands. Addendum entered by Yoselin Ivan R.N. 10/10/20 10:21: Pt became agitated, attempted to forcefully get OOB, OPTICAL SCIENTIST sitter and this RN were able to keep pt in bed, but he was agitated, saying he needed to go home. Pt grabbed his agrawal catheter, it took 2 people to get the catheter tubing out of his hands. Pt given 0.5 mg iv ativan. Pt is now more subdued, sitting in bed and conversing with OPTICAL SCIENTIST sitter. Will continue to monitor. Pt's SPO2 monitor moved to toe, SPO2 on RA 95%. Original Note: Dayshift Note: Pt with dementia at baseline, likely exacerbated by being in hospital and urosepsis. Pt mostly sleeping at this time, opens eyes to name, but is minimally verbally responsive. Pt says no when asked if he is having pain. Pt initially laying flat on RA, SPO2 84%. Repositioned with HOB 30 degrees. Placed on 2 L NC with SPO2 88%, titrated up to 3 L NC with SPO2 up to 96%. Attempted RA wean with SpO2 88-90 when sleeping. Again placed on 2 L NC with SPO2 95%. Lungs CTA. No oberved increase in WOB. Pt with history of sleep apnea, will attempt to wean O2 when pt is more awake. Pt is in SR with 1st degree AVB. HR 70s. Bp 130s-150s/60s-80s. Pt with good BTs. Soft abdomen, non-tender. Pt is NPO at this time per MD order. Indwelling catheter in place draining clear yellow urine. 1:1 sitter with pt in room as pt has been combative and restless. Will continue to monitor, notify MD with changes.
[2020-10-10] MEDS: LORazepam 2 MG/ML INJ 0.5 MG IV (10:12)
[2020-10-10] MEDS: ENOXAPARIN 40 MG/0.4 ML SYRINGE SUBCUT (14:36)
--- NOTE | 2020-10-10 16:32 | PC.NURSE ---
Patient has been in the chair since I arrived for my shift at 15:00. He repeatedly tries to leave the chair and needs to be redirected to remain seated. He follows the directive for a few minutes and then repeats the cycle all over again shortly thereafter. Patient is confused and sees things that are not there.
[2020-10-10] MEDS: HALOPERIDOL 5 MG/ML VIAL 1 MG IV (16:43)
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
[2020-10-10] MEDS: HALOPERIDOL 5 MG/ML VIAL (17:28)
--- NOTE | 2020-10-10 17:59 | PM.PN.1 ---
Subjective Subjective Date Patient Seen: 10/10/20 Interval history: Patient remains markedly confused. He is unable to provide any history. He was more alert and right earlier today. He has become more combative. He is actually attempting to hit staff. Attempts were made to feed the patient. It he had some difficulty swallowing. He is agitated and somewhat delirious. Exam Vital Signs (past 8 hours): - 10/10/20 10:00 10/10/20 11:00 10/10/20 11:12 Temperature 98.2 F 98.4 F Pulse Rate 88 79 111 H Respiratory Rate 18 17 Blood Pressure 159/84 H 142/67 H 142/7 H Pulse Oximetry 96 96 10/10/20 12:00 10/10/20 13:00 10/10/20 14:00 Temperature 99.0 F 99.3 F 99.5 F Pulse Rate 79 78 83 Respiratory Rate 16 16 16 Blood Pressure 155/69 H 143/72 H 143/99 H Pulse Oximetry 96 95 96 10/10/20 15:00 Temperature 99.9 F H Pulse Rate 86 Respiratory Rate 14 Blood Pressure 148/72 H Pulse Oximetry 94 Oxygen Delivery Method Room Air Oxygen Flow Rate 0 Narrative Exam Narrative: Ill-appearing male lying in bed unable to cooperate, and very confused Lungs: Decreased breath sounds, otherwise clear to auscultation Cardiac exam: Regular rate rhythm normal S1-S2 Abdomen: Soft nontender nondistended Extremities: No edema Neuro exam: Patient is uncooperative, he is confused, he is combative, at times he has calm, other times he is agitated Objective Labs Result Diagrams: 10/10/20 04:58 10/10/20 04:58 Labs: Laboratory Results - last 24 hr 10/08/20 10/10/20 10/10/20 21:08 04:58 04:58 WBC 9.0 RBC 2.77 L Hgb 8.9 L Hct 25.5 L MCV 92.1 MCH 32.1 MCHC 34.8 RDW 12.7 Plt Count 93 L Neut % (Auto) 83.1 H Lymph % (Auto) 5.6 L [place] % (Auto) 9.5 Eos % (Auto) 1.5 L Baso % (Auto) 0.3 Neut # (Auto) 7500 H Lymph # (Auto) 500 L [place] # (Auto) 900 Eos # (Auto) 100 Baso # (Auto) 0 Sodium Potassium Chloride Carbon Dioxide BUN Creatinine Estimated GFR BUN/Creatinine Ratio Glucose Calcium Phosphorus Magnesium Total Creatine Kinase 479 H D A. baumannii (PCR) Not detected Rossy albicans (PCR) Not detected C. glabrata (PCR) Not detected C. krusei (PCR) Not detected C. parapsilosis (PCR) Not detected C. tropicalis (PCR) Not detected Enterobacteriac sp PCR Not detected E. cloacae complex PCR Not detected Enterococcus sp PCR Not detected E. coli (PCR) Not detected H. influenzae (PCR) Not detected Klebsiella oxytoca PCR Not detected Klebsiella pneumoniae Not detected List. monocytogenes PCR Not detected N. meningitidis (PCR) Not detected Proteus species (PCR) Not detected Serratia marcescens PCR Not detected Staphylococcus sp PCR Not detected Staph aureus (PCR) Not detected mecA-Methicil Res Gene Not Reportable Streptococcus sp PCR Not detected Group A Strep (PCR) Not detected Strep agalactiae (PCR) Not detected Strep pneumoniae (PCR) Not detected P. aeruginosa (PCR) Not detected Sylvia/B-Vanco Res Genes Not Reportable KPC-Carbap Res Gene PCR Not Reportable 10/10/20 04:58 WBC RBC Hgb Hct MCV MCH MCHC RDW Plt Count Neut % (Auto) Lymph % (Auto) [place] % (Auto) Eos % (Auto) Baso % (Auto) Neut # (Auto) Lymph # (Auto) [place] # (Auto) Eos # (Auto) Baso # (Auto) Sodium 134 L Potassium 3.7 Chloride 106 Carbon Dioxide 19 L BUN 33 H Creatinine 0.90 Estimated GFR > 60.0 BUN/Creatinine Ratio 36.7 H Glucose 46 L Calcium 7.0 L Phosphorus 2.3 Magnesium 1.7 Total Creatine Kinase A. baumannii (PCR) Rossy albicans (PCR) C. glabrata (PCR) C. krusei (PCR) C. parapsilosis (PCR) C. tropicalis (PCR) Enterobacteriac sp PCR E. cloacae complex PCR Enterococcus sp PCR E. coli (PCR) H. influenzae (PCR) Klebsiella oxytoca PCR Klebsiella pneumoniae List. monocytogenes PCR N. meningitidis (PCR) Proteus species (PCR) Serratia marcescens PCR Staphylococcus sp PCR Staph aureus (PCR) mecA-Methicil Res Gene Streptococcus sp PCR Group A Strep (PCR) Strep agalactiae (PCR) Strep pneumoniae (PCR) P. aeruginosa (PCR) Sylvia/B-Vanco Res Genes KPC-Carbap Res Gene PCR PFSH Medical History Constipation Depression Hyperlipidemia Hypertension Hypothyroidism (acquired) Obstructive sleep apnea syndrome Snoring Surgical History Hx of cataract surgery (Unknown) Hx of knee surgery (Unknown) Family History Father Hypertension Heart disease Mother Diabetes mellitus Hypertension Dementia Grandfather Cancer Grandmother No problems noted. Family/Other Hypertension Diabetes mellitus Social History marital status: household members: spouse lives independently: Yes Smoking Status: Never smoker alcohol intake: never substance use type: does not use Assessment & Plan Assessment & Plan narrative: 1. Septic shock, present on admission Patient admitted with confusion, shock, with a systolic blood pressure of 80/50, organ dysfunction such as renal failure, creatinine elevated at 2.53, and acute encephalopathy Blood cultures positive for Gram-negative rods Urine culture growing Morganella Repeat lactate 2.2 HYPOTENSION RESOLVED EARLIER, patient remains febrile at 99.3 2. Acute metabolic encephalopathy -likely related to underlying sepsis, with septic shock -patient is bacteremic, and a urinary tract infection -he is off is MAO inhibitor, patient is unable to take oral intake at this time, will continue to monitor him closely, and resume MAO inhibitor once he can take it 3. Acute on chronic renal failure -secondary to septic shock Blood pressure improved -creatinine normalized now for 1.92 the 0.90 4. Hypertension -blood pressure elevated at 140 3/90, -will resume clonidine 5. Hypoglycemia -likely related to sep sepsis and inability to eat. -IV fluids resumed with D5 -will consider swallow evaluation once mentation is improved 6. Hypothyroid -continue L-thyroxine 7. Depression -will resume phenezine once patient to take p.o. 8. Dementia, now with delirium, related to sepsis -continue Haldol, will hold Ativan at this time
--- NOTE | 2020-10-10 18:01 | PC.NURSE ---
Addendum entered by Mere Posadas R.N. 10/10/20 22:06: 2200: Patient has been significantly less agitated since 1800. Repeat BG was 83. Patient's is now at bedside and this seems to help the patient stay calm and cooperative. Left note with QUARTER INSPECTOR about a speech consult for a swallow evaluation- at present, patient is not able to follow commands consistently enough to swallow on command- as well as patient's home medication Nardil and special diet requirements when restarted. Original Note: Patient in chair at beginning of shift. Patient A/O only to self, although uncooperative with even answering basic questions about birthday/age. Patient is visibly hallucinating, reaching out arms and grasping, but unable to tell us what he is seeing. Vitals stable, slightly elevated temp of 99.7 F. Lungs clear, no tele, no fluids running. AIR DRIER as 1:1. Around 1630 patient started to become increasingly agitated and unable to be oriented or distracted. Patient got out of the chair despite myself and AIR DRIER trying to keep him in the chair. 1mg of IV haldol was given as ordered PRN. Patient unsteady and had to be held up with assistance. We were able to forcibly guide patient to the edge of the bed where it then took both of us with full strength to keep the patient from standing back up. During this time, patient was combative, punching/kicking/scratching, as well as grabbing onto clothing/badges and having to pry athletic turf worker off finger by finger. Additional help was called for, three RNs, two CNAs, and the security project manager were needed to keep patient in bed and from grabbing onto PICC line and nurses clothing. At this time AMARILYS Cotto received verbal order from Dr. Mendez for 5mg dose of IV haldol. Patient relaxed for approximately 5 minutes before becoming agitated again. Use of four point soft restraints were requested but Dr. Mendez refused despite patient requiring 5 people to physically restrain him. At approximately 1730 0.5mg of dilaudid was given for FLACC of 6. After a few minutes patient was snoring, although still waking up intermittently and trying to get up, however he is now easier to restrain and distract. Patient still appears to be hallucinating. Patient still requires 2 people to keep him from getting up/pulling on PICC line when he becomes alert. At 1800 finger BG was 68, received verbal order to restart continuous 5% dextrose at 75 ml/hr from Dr. Mendez.
[2020-10-10 18:43] LABS: Lactate (Lactic Acid) 1.2 mmol/L (0.7-2.1)
--- NOTE | 2020-10-10 20:01 | PC.NURSE ---
Patient's arrived at 19:45. She spoke to him and his talking in his sleep slowed down and calmed him down
[2020-10-10 20:16] LABS: Procalcitonin 19.2 ng/mL (<0.5)
[2020-10-10] MEDS: MEROPENEM 1 GM in SODIUM CHLORIDE 0.9% 100 ML 200 ML IV (23:54)
[2020-10-11] VITALS (7 sets, daily range): BP systolic 110–172; BP diastolic 56–83; PULSE 58–67; RESP 13–16; TEMP 36.1–36.8; O2SAT 91–97
[2020-10-11] MEDS: DEXTROSE 5% WATER 1,000 ML 75 ML IV (00:08)
--- NOTE | 2020-10-11 00:56 | PC.NURSE ---
Addendum entered by Karina Pearson R.N. 10/11/20 06:03: 0600 LUIS Sanders notified of administration of Dilaudid for discomfort and agitation. Pt C/O urgency and some abd discomfort. Pt restless. Patient seemed to relax briefly, but now attempting to get OOB. 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 Patient is twitching occasionally and picking in the air. Patient is starting to kick some as well. Orders received for Ativan. requesting patient receive something to relax, as he has slept little during the night. Original Note: is present at bedside. Pt is wakeful at intervals and is calm. Repositioning self in bed.
--- NOTE | 2020-10-11 01:06 | PC.NURSE ---
Addendum entered by Klever Ruff CNA 10/11/20 06:52: Pt waking frequently, usually jolting awake then falling back asleep with snoring a few seconds later. Pt will state he has to use the bathroom or state that he needs to get up. Attempted multiple times to allow him to use the urinal, but only to find his brief soiled. Pt continuing to be restless, but consolable back to lying in bed. Addendum entered by Klever Ruff CNA 10/11/20 04:08: Pt's brief soiled. Changed brief, linens, and gown w/ at bedside. Addendum entered by Klever Ruff CNA 10/11/20 02:27: Patient made 2 attempts in past 45min to get out of bed stating I need to save the animals. awake at bedside and both times was able to speak to him to calm him and return to lying down in bed. Original Note: Sitting for pt, at bedside, pt calm for me since start of noc shift, waking up briefly for about 10-20 seconds to reposition. Pt alerted me that he may need to urinate, he recognized urinal and positioned appropriately himself, however he was unable to void. Brief and linen was dry. Pt sleeping soundly
[2020-10-11] MEDS: HYDROMORPHONE 0.5 MG INJ IV (05:19)
[2020-10-11 05:50] LABS: Alanine Aminotransferase 22 IU/L (<50); Albumin 2.7 g/dL (3.5-5.0); Alkaline Phosphatase 70 U/L (38-126); Aspartate Aminotransferase 44 IU/L (17-59); BUN Creatinine Ratio 21.1 (6-22); Bilirubin Total 0.8 mg/dL (0.2-1.3); Blood Urea Nitrogen 16 mg/dL (9-20); Carbon Dioxide 28 mmol/L (22-32); Chloride 101 mmol/L (98-107); Estimated Glomerular Filt Rate > 60.0 mL/min (>60); Globulin 2.6 g/dL (1.7-4.1); Glucose 92 mg/dL (80-110); HEMOLYSIS < 15 (0-50); Potassium 3.4 mmol/L (3.4-5.1); Sodium 132 mmol/L (137-145); Total Protein 5.3 g/dL (6.3-8.2)
[2020-10-11] MEDS: LORazepam 2 MG/ML INJ 0.5 MG IV (06:15)
[2020-10-11] MEDS: MEROPENEM 1 GM in SODIUM CHLORIDE 0.9% 100 ML 200 ML IV ×2 (08:11→16:16)
--- NOTE | 2020-10-11 08:31 | PC.NURSE ---
Addendum entered by Lissa Zapata CNA 10/11/20 14:37: Pt has been urinating very frequently. Each Incontinence has had a lot of urine in the brief. When he tries to get up it just means he has to pee but the PT is not able to hold it so he has been incontinent for must of my shift. Addendum entered by Lissa Zapata CNA 10/11/20 11:54: Pt has been resting for most of the shift. Pt still jumps and talks occasionally in his sleep but otherwise looks peaceful. He has made a few attempts to get out of bed because he has to pee but is easily redirected when offered the urinal. Pt lets me help with jeronimo-care and changing but falls back asleep right after care is done and sometimes in the middle of care. Original Note: This SUPERVISOR COMMISSARY PRODUCTION took over for 1:1 observation. Pt was restless in beginning of shift when I first got here but was easily redirected and has now been sleeping for about an hour.
--- NOTE | 2020-10-11 08:54 | PC.NURSE ---
0815 - Patient resting soundly. 1:1 sitter in room. Abx infusion. Monitor.
[2020-10-11] MEDS: ENOXAPARIN 40 MG/0.4 ML SYRINGE SUBCUT (09:45)
--- NOTE | 2020-10-11 10:55 | SLP.IPNOTE ---
Attempted to see pt for swallow evaluation. Pt was resting with sitter present. Discussed with Nsg. Will allow pt to rest now and re-attempt later in the day.
--- NOTE | 2020-10-11 11:59 | PC.NURSE ---
Pt resting in bed with eyes closed, rouses to voice, states that he is very tired and goes back to sleep. 1:1 sitter in room, D5 infusing per order, most recent BG 96. Will continue to monitor.
--- NOTE | 2020-10-11 15:26 | ST.IPCSEOM ---
Visit Care Team Role Provider Type Yann Dempsey MD Primary Care Provider Physician Specialty: Internal Medicine Address: [address] [place] [address], [address], [place], [address] Email: [email or web address] Reyez MD Emergency Provider Physician Referring Provider Specialty: Emergency Medicine Address: [address] [place] [address], [id number] Email: LUIS Altman Admit Provider Physician Attending Provider Specialty: Internal Medicine Address: [address] [place] [address], [id number] Email: [email or web address] Current Diagnoses Other constipation (10/08/20) Acute kidney failure, unspecified (10/08/20) Abnormal findings on diagnostic imaging of other specified body structures (10/08/20) Past Medical History (Last Reviewed 10/09/20 @ 09:07 by Joycelyn Qiu MD) Constipation (Medical) Depression (Medical) Hyperlipidemia (Medical) Hypertension (Medical) Hypothyroidism (acquired) (Medical) Obstructive sleep apnea syndrome (Medical) Snoring (Medical) Speech-Language Pathology Swallow Evaluation LANDFILL GAS TECHNICIAN Clinical Swallow Evaluation Start: 10/11/20 15:12 Freq: Status: Active Protocol: Document 10/11/20 15:12 TLC (Rec: 10/11/20 15:26 TLC [id number]) Clinical Swallow Evaluation Session Time Visit Start Time 14:40 Visit Stop Time 15:00 Total Visit Minutes 20 Setting Assessment Location Acute Care Visit Type Note Type Initial evaluation Next Note Type Next Note Type Treatment Note Patient Information Identification Type Name Subjective Observations Patient was sleeping in bed. Sitter present in room. Patient awoke to his name and a sternal rub. He agreed to participate in a swallow evaluation. Reported by Patient Current Diet Nothing by mouth Baseline Feeding Method Independent in self-feeding Objective Assessment Mental Status Lethargic Oral Integrity Xerostomia/Dry mouth Dentition Within normal limits Lip Function Moderate impairment Observation of Lips at Rest Symmetrical Tongue Function Moderate impairment Observations of Tongue at Rest Within normal limits Tongue Protrusion Reduced range of motion, Reduced strength Tongue Lateralization Reduced range of motion, Reduced strength Phonation Breathy,Hoarse,Reduced loudness Comment Oral [facility] exam was limited due to patient's reduced level of alertness. He followed directions ~50% of the time. On multiple occasions, he needed cues to open his eyes and remain awake . Overall oral impairment is likely related to decreased alertness and should be re- evaluated daily as patient's alertness increases. Food and Liquid Trials Position During Assessment Slightly reclined Liquids Trialed Ice chips,Thin Solids Trialed Puree Administration Type Tea spoon,Cup single sip,Straw ,Needs some assistance Oral Impairment Within functional limits Pharyngeal Impairment Within functional limits Fatigue/Endurance Severe fatigue Results Patient consumed ~10 sips of ice water and ~5 bites of apple sauce before falling back asleep. Patient exhibited throat clearing twice throughout the assessment with small change in vocal quality which improved following cue for second swallow. No overt s /sx of aspiration were observed. No advanced textures trialed due reduced alertness. Findings Swallowing Function Oropharyngeal phase dysphagia Swallowing Function Comments d/t reduced alertness Contributing Factors to Swallow Reduced alertness or attention Impairment ,Difficulty following directions,Reduced oral strength/coordination/ sensation Prognosis Fair Impact on Safety and Functioning Risk for aspiration,Risk for inadequate nutrition/hydration Recommendations Instrumental Assessment No Swallowing Treatment Yes Recommended Solids Puree Recommended Liquids Thin Other Recommendations Advance diet as tolerated Safety Precautions/Swallowing 1 to 1 close supervision,Feed Recommendations only when alert,Reduce distractions,Remain upright ( 90 degrees) during all oral intake,Small bites and sips when eating Medication Recommendations Crushed in Carrier Education Patient/Caregiver Education Patient requires further education/training,Family/ caregivers require further education/training Goals Short-term Goals Patient will maintain alertness in order to safely consume a meal. Patient will implement recommended strategies in order to safely consume the least restrictive diet without overt s/sx of aspiration.
[2020-10-11] MEDS: SODIUM CHLORIDE 0.9% 250 ML 21 ML IV (16:23)
--- NOTE | 2020-10-11 16:28 | PC.NURSE ---
Addendum entered by Yoselin Goyal CNA 10/11/20 20:25: pt resting and comforted by at bedside Original Note: pt in and out of sleep, when trying to perform care pt either refuses or falls asleep mid intervention. pt refused vital signs and states if I want something, I will ask for it. pt currently resting but frequently fidgets with gown and blankets.
[2020-10-11] MEDS: HALOPERIDOL 5 MG/ML VIAL IV (17:05)
--- NOTE | 2020-10-11 17:34 | PC.NURSE ---
pt sleeping but frequently wakes and becomes agitated/wants to get out of bed. took 2 CNAs and 2 RNs in room to deescalate pt.
[2020-10-11] MEDS: CEFTRIAXONE 2 GM/50 ML FROZ.PIGGY IV (17:59)
[2020-10-11] MEDS: HALOPERIDOL 5 MG/ML VIAL 2 MG IV (18:04)
[2020-10-11] MEDS: HYDROMORPHONE 1 MG INJ IV (18:04)
[2020-10-11] MEDS: LORazepam 2 MG/ML INJ 1 MG IV (18:05)
--- NOTE | 2020-10-11 18:55 | PM.PN.1 ---
Subjective Subjective Date Patient Seen: 10/11/20 Interval history: Patient continues to be delirious combative and agitated. He is required multiple people to restrain him and multiple doses of medication to control his behavior. Despite that he did have a period of lucidity today where he was able to pass a swallow evaluation. The patient has low-grade fever. Blood cultures and urine cultures are growing Morganella species which is pansensitive. Patient is unable to provide any further history. He remains markedly confused Exam Vital Signs (past 8 hours): - 10/11/20 12:37 Temperature 97.2 F L Pulse Rate 67 Respiratory Rate 14 Blood Pressure 172/81 H Pulse Oximetry 94 Oxygen Delivery Method Room Air Oxygen Flow Rate 0 Narrative Exam Narrative: Ill-appearing confused male lying in bed agitated and combative HEENT: Normocephalic atraumatic oropharynx reveals dry mucous membrane neck is supple Lungs: Decreased breath sounds otherwise clear Cardiac exam: Regular rate and rhythm normal S1-S2 Abdomen: Soft nontender nondistended, no hepatosplenomegaly Extremities no edema Objective Labs Result Diagrams: 10/10/20 04:58 10/11/20 05:15 Labs: Laboratory Results - last 24 hr 10/08/20 10/10/20 10/11/20 21:08 19:30 05:15 Sodium 132 L Potassium 3.4 Chloride 101 Carbon Dioxide 28 BUN 16 Creatinine 0.76 Estimated GFR > 60.0 BUN/Creatinine Ratio 21.1 Glucose 92 Calcium 8.0 L Total Bilirubin 0.8 AST 44 ALT 22 Alkaline Phosphatase 70 Total Protein 5.3 L Albumin 2.7 L Globulin 2.6 Albumin/Globulin Ratio 1.0 Procalcitonin 19.2 H A. baumannii (PCR) Not detected Rossy albicans (PCR) Not detected C. glabrata (PCR) Not detected C. krusei (PCR) Not detected C. parapsilosis (PCR) Not detected C. tropicalis (PCR) Not detected Enterobacteriac sp PCR Not detected E. cloacae complex PCR Not detected Enterococcus sp PCR Not detected E. coli (PCR) Not detected H. influenzae (PCR) Not detected Klebsiella oxytoca PCR Not detected Klebsiella pneumoniae Not detected List. monocytogenes PCR Not detected N. meningitidis (PCR) Not detected Proteus species (PCR) Not detected Serratia marcescens PCR Not detected Staphylococcus sp PCR Not detected Staph aureus (PCR) Not detected Streptococcus sp PCR Not detected Group A Strep (PCR) Not detected Strep agalactiae (PCR) Not detected Strep pneumoniae (PCR) Not detected P. aeruginosa (PCR) Not detected PFSH Medical History Constipation Depression Hyperlipidemia Hypertension Hypothyroidism (acquired) Obstructive sleep apnea syndrome Snoring Surgical History Hx of cataract surgery (Unknown) Hx of knee surgery (Unknown) Family History Father Hypertension Heart disease Mother Diabetes mellitus Hypertension Dementia Grandfather Cancer Grandmother No problems noted. Family/Other Hypertension Diabetes mellitus Social History marital status: household members: spouse lives independently: Yes Smoking Status: Never smoker alcohol intake: never substance use type: does not use Assessment & Plan Assessment & Plan narrative: Septic shock, present on admission Patient admitted with confusion, shock, with a systolic blood pressure of 80/50, organ dysfunction such as renal failure, creatinine elevated at 2.53, and acute encephalopathy Blood cultures positive for Gram-negative rods Urine culture growing Morganella Repeat lactate 2.2 HYPOTENSION RESOLVED EARLIER, patient remains febrile at 99.3 Urine and blood cultures growing Morganella, this is pansensitive, Will discontinue meropenem, start ceftriaxone 2 g IV daily 2. Acute metabolic encephalopathy -likely related to underlying sepsis, with septic shock -patient is bacteremic, and a urinary tract infection -he is off is MAO inhibitor, patient is unable to take oral intake at this time, will continue to monitor him closely, and resume -patient remains encephalopathic, he is clearly delirious. Will start him on Seroquel -Will so resume his MAO inhibitor other oral medications now that he is on a dysphagia diet 3. Acute on chronic renal failure -secondary to septic shock Blood pressure improved -creatinine normalized now for 1.92 the 0.90 -discontinue IV hydration -will continue to follow creatinine closely, avoid nephrotoxic agent 4. Hypertension -blood pressure elevated at 140 3/90, -will resume clonidine -resume usual outpatient medications including losartan 5. Hypoglycemia -likely related to sep sepsis and inability to eat. -will advance diet per speech based on swallow eval today -6. Hypothyroid -continue L-thyroxine 7. Depression -will resume phenezine once patient to take p.o. 8. Dementia, now with delirium, related to sepsis -patient continues to be agitated and delirious. Will start Seroquel 25 b.i.d. -continue Dilaudid, Ativan, Haldol for highly aggressive behavior -hopefully once he is back on his MAO inhibitor, and Seroquel behavior will improved
--- NOTE | 2020-10-11 23:15 | PC.NURSE ---
1700, attempted to get out of bed several times. pt resistant to care. pt then able to stand up on the side of the bed, but was quickly loosing balance, ble weakness. pt refused to stay in bed. It took 5 staff members to get him back in bed; at that time pt grabbed RN's shirt and squeezed another RN's hand, pt was also swinging his arms. Verbal order from Dr. Mendez to give 5mg IV haldol. Around 1730 pt was trying to get out of bed and was swinging his arms to staff. Verbal order from Dr. Mendez for 2pt restraint and to give ativan, haldol and dilaudid together. placed order for non-violent restraint. per provider, patient maybe taken off restraint once meds take effect. Notified regarding pt's situation. 1950: pt sleeping. by his bedside. 2pt restraint removed.
[2020-10-12] VITALS (8 sets, daily range): BP systolic 102–174; BP diastolic 53–84; PULSE 61–83; RESP 12–20; TEMP 36.3–36.7; O2SAT 94–97
--- NOTE | 2020-10-12 01:54 | PC.NURSE ---
warehouse shift supervisor: pt has been sleeping. at bedside. bed tilt to prevent pressure injury. 1:1 w/cloth dye range operator. no restraints.
--- NOTE | 2020-10-12 02:25 | PC.NURSE ---
Addendum entered by Niki Vega CNA 10/12/20 03:07: JOSE note: changed patient's brief. Patient was wet and needed 2 person to change. Pushing staff off him, while change happening. Since patient's was next to us, we didn't want to alarm her, so we changed him as quick as feasible to allow him to get back to bed. Original Note: ELECTRICAL DESIGNER note: patient was moving around, eyes closed. got up to see what's going on González? Checked his brief, dry. Provided oral care with lemon swabs. Patient is in bed, alarm on, resting. Patient's , Lissette, is at bed side. Sitting right outside patient room with direct eye contact with patient.
[2020-10-12 05:34] LABS: Add Manual Diff / Slide Review NO; Basophils Absolute Auto 0 /uL (0-100); Basophils Percent Auto 0.4 % (0-2); Eosinophils Absolute Auto 100 /uL (0-450); Eosinophils Percent Auto 2.6 % (2-4); Hematocrit 29.8 % (41-53); Hemoglobin 10.7 g/dL (13.5-17.5); Lymphocytes Absolute Auto 1000 /uL (1100-4500); Lymphocytes Percent Auto 18.4 % (25-40); Mean Corpuscular HGB Conc 35.9 % (30-36); Mean Corpuscular Hemoglobin 31.7 PG (26-34); Mean Corpuscular Volume 88.2 fL (80-100); Monocytes Absolute Auto 600 /uL (0-900); Monocytes Percent Auto 10.3 % (3-14); Neutrophils Absolute Auto 3800 /uL (1500-7000); Neutrophils Percent Auto 68.3 % (50-75); Platelet Count 105 X10^3/uL (150-400); Red Blood Cell Count 3.38 X10^6/uL (4.5-5.9); Red Cell Distribution Width 12.8 % (11.6-14.8); White Blood Cell Count 5.5 X10^3/uL (4.5-11.0)
[2020-10-12 05:40] LABS: Alanine Aminotransferase 21 IU/L (<50); Albumin 2.9 g/dL (3.5-5.0); Albumin Globulin Ratio 1.1 (1.0-2.8); Alkaline Phosphatase 68 U/L (38-126); Aspartate Aminotransferase 37 IU/L (17-59); BUN Creatinine Ratio 16.7 (6-22); Bilirubin Total 0.7 mg/dL (0.2-1.3); Blood Urea Nitrogen 12 mg/dL (9-20); Calcium 8.3 mg/dL (8.4-10.2); Carbon Dioxide 30 mmol/L (22-32); Chloride 101 mmol/L (98-107); Estimated Glomerular Filt Rate > 60.0 mL/min (>60); Globulin 2.6 g/dL (1.7-4.1); Glucose 78 mg/dL (80-110); HEMOLYSIS < 15 (0-50); Potassium 3.5 mmol/L (3.4-5.1); Sodium 135 mmol/L (137-145); Total Protein 5.5 g/dL (6.3-8.2)
[2020-10-12 05:57] LABS: Vancomycin Trough < 5.0 ug/mL (10-20)
[2020-10-12] MEDS: DEXTROSE 5%-0.45% NS 1,000 ML 100 ML IV ×2 (07:53→17:31)
[2020-10-12] MEDS: ENOXAPARIN 40 MG/0.4 ML SYRINGE SUBCUT (09:08)
--- NOTE | 2020-10-12 09:50 | SLP.IPNOTE ---
Attempted to see pt for continued swallow evaluation. Discussed with Nsg. Pt has not been rousable this morning. Will attempt again later in the day.
--- NOTE | 2020-10-12 10:50 | PC.NURSE ---
BP elevated at 174/84. Patient rouses to name but does not open eyes. Attempted twice to give morning medications and did not wake first attempt. Second attempt he opened his mouth for the pill in apple sauce and then pulled the pill out saying there is a seed in there. Attempted redirection and patient continued to refuse. Incontinent of bowel and bladder, wearing brief which he has soiled twice. laying comfortably and does not appear to be in pain. Call light within reach. 1:1 observation.
--- NOTE | 2020-10-12 11:42 | P.PN_ITS ---
Subjective Subjective Date Patient Seen: 10/12/20 Interval history: The patient is a 75-year-old male who was admitted to the hospital with septic shock. The patient's blood cultures are growing Morganella, urine cultures are growing Morganella. Patient continues to be confused and delirious. He has required multiple doses of medications for controlling his behavior. He was seen by speech pathology yesterday and his diet was upgraded to a dysphagia diet however with agitation he has been unable to eat. The patient has been off his usual Namenda, and antidepressant, final seen. He remains markedly confused and off from his baseline. Exam Vital Signs (past 8 hours): - 10/12/20 05:31 10/12/20 07:51 10/12/20 10:56 Temperature 97.4 F L 97.5 F L Pulse Rate 61 64 Respiratory Rate 16 14 12 Blood Pressure 174/84 H 153/74 H Pulse Oximetry 97 94 Oxygen Delivery Method Room Air Oxygen Flow Rate 0 Narrative Exam Narrative: Ill-appearing elderly male lying in bed with his eyes closed, he is minimally cooperative, he will arouse, and say a few Lungs: Decreased breath sounds with occasional scattered crackles Cardiac exam: Regular rate and rhythm normal S1-S2 with a 2/6 systolic ejection murmur Abdomen: Soft nontender nondistended Extremities: No edema Objective Labs Result Diagrams: 10/12/20 05:20 10/12/20 05:20 Labs: Laboratory Results - last 24 hr 10/12/20 10/12/20 10/12/20 05:20 05:20 05:20 WBC 5.5 RBC 3.38 L Hgb 10.7 L Hct 29.8 L MCV 88.2 D MCH 31.7 MCHC 35.9 RDW 12.8 Plt Count 105 L Neut % (Auto) 68.3 Lymph % (Auto) 18.4 L [place] % (Auto) 10.3 Eos % (Auto) 2.6 Baso % (Auto) 0.4 Neut # (Auto) 3800 Lymph # (Auto) 1000 L [place] # (Auto) 600 Eos # (Auto) 100 Baso # (Auto) 0 Sodium 135 L Potassium 3.5 Chloride 101 Carbon Dioxide 30 BUN 12 Creatinine 0.72 Estimated GFR > 60.0 BUN/Creatinine Ratio 16.7 Glucose 78 L Calcium 8.3 L Total Bilirubin 0.7 AST 37 ALT 21 Alkaline Phosphatase 68 Total Protein 5.5 L Albumin 2.9 L Globulin 2.6 Albumin/Globulin Ratio 1.1 Vancomycin Trough < 5.0 L PFSH Medical History Constipation Depression Hyperlipidemia Hypertension Hypothyroidism (acquired) Obstructive sleep apnea syndrome Snoring Surgical History Hx of cataract surgery (Unknown) Hx of knee surgery (Unknown) Family History Father Hypertension Heart disease Mother Diabetes mellitus Hypertension Dementia Grandfather Cancer Grandmother No problems noted. Family/Other Hypertension Diabetes mellitus Social History marital status: household members: spouse lives independently: Yes Smoking Status: Never smoker alcohol intake: never substance use type: does not use Assessment & Plan Assessment & Plan narrative: Septic shock, present on admission Patient admitted with confusion, shock, with a systolic blood pressure of 80/50, organ dysfunction such as renal failure, creatinine elevated at 2.53, and acute encephalopathy Blood cultures positive for Gram-negative rods Urine culture growing Morganella Repeat lactate 2.2 HYPOTENSION RESOLVED EARLIER, patient remains febrile at 99.3 Urine and blood cultures growing Morganella, this is pansensitive, Will discontinue meropenem, start ceftriaxone 2 g IV daily No further fevers, will recheck procalcitonin, and continue ceftriaxone, anticipate a minimum of 7 days of IV antibiotic 2. Acute metabolic encephalopathy -likely related to underlying sepsis, with septic shock -patient is bacteremic, and a urinary tract infection -he is off is MAO inhibitor, patient is unable to take oral intake at this time, will continue to monitor him closely, and resume -patient remains encephalopathic, he is clearly delirious. Will start him on Seroquel -Will so resume his MAO inhibitor other oral medications now that he is on a dysphagia diet -patient continues to be delerious but may be improving a little -will add melatonin to bedtime regimen 3. Acute on chronic renal failure -secondary to septic shock Blood pressure improved -creatinine normalized now for 1.92 the 0.90 -discontinue IV hydration -will continue to follow creatinine closely, avoid nephrotoxic agent 4. Hypertension -blood pressure elevated at 140 3/90, -will resume clonidine -resume usual outpatient medications including losartan 5. Hypoglycemia -likely related to sep sepsis and inability to eat. -will advance diet per speech based on swallow eval today -blood sugar low again this morning, IVF restarted, goal to encourage oral intake when he is able -6. Hypothyroid -continue L-thyroxine 7. Depression -will resume phenezine once patient to take p.o. 8. Dementia, now with delirium, related to sepsis -patient continues to be agitated and delirious. Will start Seroquel 25 b.i.d. -continue Dilaudid, Ativan, Haldol for highly aggressive behavior -hopefully once he is back on his MAO inhibitor, and Seroquel behavior will improved -resume namenda when taking oral
--- NOTE | 2020-10-12 12:36 | SLP.IPNOTE ---
Checked with nursing regarding pt's status. Nursing reported pt still not responsive. Also noted that pt has been combative with nursing staff. Will try again later today or tomorrow.
[2020-10-12] MEDS: HALOPERIDOL 5 MG/ML VIAL 2 MG IV ×2 (13:56→19:19)
[2020-10-12] MEDS: LORazepam 2 MG/ML INJ 1 MG IV ×2 (13:56→19:18)
--- NOTE | 2020-10-12 14:12 | PC.NURSE ---
Patient became agitated around 14:10 and attempted to gte out of bed and was pulling at bracelet and IV site. This medical underwriter gave PRN 2m IV haldol and 1 mg Atavan. Patient was redirected to chair. His brief was changed and positioned for his comfort. Call light within reach, 1:1 sitter at door.
--- NOTE | 2020-10-12 15:41 | CM.DPC ---
DCP Ongoing Planning: Per MD, pt with sepsis and switched yesterday to Ceftriaxone IV-Abx and his labs are improving and pt making medical progress but still with delirium/confusion and seems to have twice a day increased agitation/behaviors. ST completed eval with pt and recommended 1:1 supervision for feeding and crushed pills. Attempt will be made today to get pt to take his home meds and Seroquel towards trying to help pt clear closer to baseline. Pt currently too confused and agitated to safely work with PT/OT and those orders on hold until pt more medially appropriate to work with therapies. Pt currently 2PA with nursing due to confusion and inability to follow commands. Spouse has been bedside and supportive with pt and aware that waiting to see if pt will clear to better determine his d/c planning needs and if he will return closer to baseline for safe return home with her to [place] vs need for SNF/LTC planning and pt's memory issues and current agitation could be barriers to placement if needed. Plan: SW to follow closely for PT/OT eval when pt more medically appropriate towards determining d/c planning needs. Kianna Alba, SUPERVISOR RIDE [employer]SEMBLY
[2020-10-12] MEDS: CEFTRIAXONE 2 GM/50 ML FROZ.PIGGY IV (17:30)
[2020-10-12] MEDS: HYDROMORPHONE 1 MG INJ IV (19:19)
[2020-10-12] MEDS: MELATONIN 3 MG TABLET 6 MG PO (20:29)
[2020-10-12] MEDS: QUETIAPINE 25 MG TABLET PO (20:29)
[2020-10-12] MEDS: MEMANTINE HCL 5 MG TABLET 10 MG PO (20:37)
[2020-10-12] MEDS: ATORVASTATIN 20 MG TABLET 40 MG PO (20:37)
[2020-10-13] VITALS (10 sets, daily range): BP systolic 128–170; BP diastolic 72–87; PULSE 56–95; RESP 14–20; TEMP 36.7–37.1; O2SAT 95–97
[2020-10-13] MEDS: DEXTROSE 5%-0.45% NS 1,000 ML 100 ML IV ×2 (04:31→14:34)
[2020-10-13] MEDS: SODIUM CHLORIDE 0.9% FLUSH 10 ML IV ×2 (04:40→23:57)
--- NOTE | 2020-10-13 04:57 | PC.NURSE ---
patient has been sleeping most of shift. Now awake and partially sitting up in bed. Does not respond to questions asked but does follow simple directions. Breath sounds CTA with RA sat of 97%. HRR but bradycardic with rate in 50's. BT present and abdomen is soft. Has been incontinent of urine. Turning self. Gait not assessed as has not been out of bed this shift. FLACC score is 0. Provided 1:1 staff observation due to metabolic encephalopathy and past impulsive/combative behavior but has been cooperative this shift. SCD's not in use as increase patient agitation. Fall risk score is high at RN discretion and bed alarm is activated.
[2020-10-13 05:06] LABS: Alanine Aminotransferase 21 IU/L (<50); Albumin 2.7 g/dL (3.5-5.0); Alkaline Phosphatase 59 U/L (38-126); Aspartate Aminotransferase 32 IU/L (17-59); BUN Creatinine Ratio 17.6 (6-22); Bilirubin Total 0.4 mg/dL (0.2-1.3); Blood Urea Nitrogen 12 mg/dL (9-20); Calcium 8.3 mg/dL (8.4-10.2); Carbon Dioxide 31 mmol/L (22-32); Chloride 101 mmol/L (98-107); Estimated Glomerular Filt Rate > 60.0 mL/min (>60); Globulin 2.6 g/dL (1.7-4.1); Glucose 121 mg/dL (80-110); HEMOLYSIS < 15 (0-50); Potassium 3.3 mmol/L (3.4-5.1); Sodium 135 mmol/L (137-145); Total Protein 5.3 g/dL (6.3-8.2)
[2020-10-13 05:11] LABS: Add Manual Diff / Slide Review NO; Basophils Absolute Auto 0 /uL (0-100); Basophils Percent Auto 0.5 % (0-2); Eosinophils Absolute Auto 200 /uL (0-450); Eosinophils Percent Auto 3.7 % (2-4); Hematocrit 28.2 % (41-53); Hemoglobin 10.1 g/dL (13.5-17.5); Lymphocytes Absolute Auto 1100 /uL (1100-4500); Lymphocytes Percent Auto 25.2 % (25-40); Mean Corpuscular HGB Conc 35.7 % (30-36); Mean Corpuscular Hemoglobin 31.6 PG (26-34); Mean Corpuscular Volume 88.5 fL (80-100); Monocytes Absolute Auto 600 /uL (0-900); Monocytes Percent Auto 12.1 % (3-14); Neutrophils Absolute Auto 2700 /uL (1500-7000); Neutrophils Percent Auto 58.5 % (50-75); Platelet Count 116 X10^3/uL (150-400); Red Blood Cell Count 3.18 X10^6/uL (4.5-5.9); Red Cell Distribution Width 12.7 % (11.6-14.8); White Blood Cell Count 4.5 X10^3/uL (4.5-11.0)
[2020-10-13 05:15] LABS: NT-proBNP (BNP-Adult 18+) 674 pg/mL (<450)
[2020-10-13] MEDS: LEVOTHYROXINE 100 MCG TABLET PO (06:14)
--- NOTE | 2020-10-13 09:01 | DIET.PN ---
Dietary Progress Note RD alerted to pt with no POs x3d due to septic shock/metabolic encephalopathy/somnolence/combativeness. Pt seen by SLT designated dysphagia diet c thin liquids. Pt did consume 75% dinner meal on 10/12. Pts renal fxn normalized. Ordering ONS Ensure Enlive bid until POs consistently >75% and happy to continue if pt desires so.
[2020-10-13] MEDS: LORazepam 2 MG/ML INJ 1 MG IV ×2 (09:11→14:57)
--- NOTE | 2020-10-13 09:12 | SLP.IPNOTE ---
Attempted to see pt for a.m. meal. Pt just waking up. He told this LOADING UNIT OPERATOR that he would pass on breakfast. Will try later today.
[2020-10-13] MEDS: ENOXAPARIN 40 MG/0.4 ML SYRINGE SUBCUT (09:33)
--- NOTE | 2020-10-13 09:57 | PC.NURSE ---
Addendum entered by Ashtyn Jaimes R.N. 10/13/20 15:17: Pt able to eat about 50% of lunch and cooperate for a bed bath. Potassium 3.3, Dr. Light notified in person. Pt able to take seroquel and MAOI at 1400 crushed in applesauce. Pt became agitated and nondirectable at 1430, trying to get out of bed. Addendum entered by Ashtyn Jaimes R.N. 10/13/20 12:42: Pt received full bed bath and had several large voids. Pt more awake and cooperative/lucid at noon. Is sitting up in bed eating lunch with assistance. Speech pathology notified that pt is awake and willing to eat now. Original Note: pt slept soundly until 9am, then woke up and tried to get out of bed. With two person staff assist, unable redirect back into bed or up to chair. Gave 1mg Ativan and pt relaxed. Pt is refusing to take medications.
--- NOTE | 2020-10-13 12:57 | SLP.IPNOTE ---
RN called and notified VARNISH INSPECTOR that patient was sitting up eating lunch. Once VARNISH INSPECTOR arrived on floor, patient had finished eating. Per nursing staff, patient ate lunch without overt s/sx of aspiration. No treatment provided on this date. Patient remains on puree diet d/t reduced alertness. VARNISH INSPECTOR will follow to advance diet as tolerated.
[2020-10-13] MEDS: QUETIAPINE 25 MG TABLET PO (14:28)
[2020-10-13] MEDS: PHENELZINE 15 MG 15 EACH PO (14:34)
--- NOTE | 2020-10-13 16:03 | DIET.PN ---
Addendum entered by Orly Owusu 10/13/20 17:12: RD okayed by hospitalist to add high tyramine foods to adverse reaction list in order to efficiently communicate to kitchen for future admits. Original Note: Dietary Progress Note RD Note: Contacted by nursing c pts spouse concerned regarding pt meal trays c Rx Nardil. Pt needs to avoid tyramine and pressor amines in diet. Pt to avoid: aged cheeses: eg cheddar, blue, gorgonzola, stilton aged meats: eg dry sausage such as salami, mortadella, dried duck soy sauce fermented soy emery and fermented soy emery paste, tofu/fermented emery curd, miso soup gina beans, snowpeas, saurkraut, katherine igor, beer, est extracts (marmite) Provided list to kitchen and brought one up to nursing staff. Hospital patient menu offers cheddar and blue cheese, soy sauce, tofu, and snowpeas but no other items on this list.
[2020-10-13] MEDS: CEFTRIAXONE 2 GM/50 ML FROZ.PIGGY IV (17:17)
--- NOTE | 2020-10-13 18:01 | PC.NURSE ---
Patient ate about 6 spoonfuls of pureed mashed potatoes and chicken.
--- NOTE | 2020-10-13 18:32 | PM.PN.1 ---
Subjective Subjective Date Patient Seen: 10/13/20 Time Patient Seen: 18:32 Interval history: The patient is a 75-year-old male who was admitted to the hospital with septic shock. The patient's blood cultures are growing Morganella, urine cultures are growing Morganella. Patient continues to be confused and delirious, although he is slowly improving. He has required multiple doses of medications for controlling his behavior. He was seen by speech pathology yesterday and his diet was upgraded to a dysphagia diet. He was able to tolerate dinner yesterday evening and some of his breakfast. Exam Vital Signs (past 8 hours): - 10/13/20 11:04 10/13/20 11:49 10/13/20 15:52 Temperature 98.3 F Pulse Rate 64 62 95 H Respiratory Rate 14 16 16 Blood Pressure 157/75 H 166/79 H 149/81 H Pulse Oximetry 95 97 95 Oxygen Delivery Method Room Air Oxygen Flow Rate 0 Narrative Exam Narrative: Ill-appearing elderly male lying in bed with his eyes closed, he is minimally cooperative, he will arouse, mouths words and is comprehensible to his however not to this provider. Lungs: Decreased breath sounds with occasional scattered crackles Cardiac exam: Regular rate and rhythm normal S1-S2 with a 2/6 systolic ejection murmur Abdomen: Soft nontender nondistended Extremities: No edema Objective Labs Result Diagrams: 10/13/20 04:40 10/13/20 04:40 Labs: Laboratory Results - last 24 hr 10/13/20 10/13/20 04:40 04:40 WBC 4.5 RBC 3.18 L Hgb 10.1 L Hct 28.2 L MCV 88.5 MCH 31.6 MCHC 35.7 RDW 12.7 Plt Count 116 L Neut % (Auto) 58.5 Lymph % (Auto) 25.2 [place] % (Auto) 12.1 Eos % (Auto) 3.7 Baso % (Auto) 0.5 Neut # (Auto) 2700 Lymph # (Auto) 1100 [place] # (Auto) 600 Eos # (Auto) 200 Baso # (Auto) 0 Sodium 135 L Potassium 3.3 L Chloride 101 Carbon Dioxide 31 BUN 12 Creatinine 0.68 Estimated GFR > 60.0 BUN/Creatinine Ratio 17.6 Glucose 121 H Calcium 8.3 L Total Bilirubin 0.4 AST 32 ALT 21 Alkaline Phosphatase 59 NT-Pro-B Natriuret Pep 674 H Total Protein 5.3 L Albumin 2.7 L Globulin 2.6 Albumin/Globulin Ratio 1.0 PFSH Medical History Constipation Depression Hyperlipidemia Hypertension Hypothyroidism (acquired) Obstructive sleep apnea syndrome Snoring Surgical History Hx of cataract surgery (Unknown) Hx of knee surgery (Unknown) Family History Father Hypertension Heart disease Mother Diabetes mellitus Hypertension Dementia Grandfather Cancer Grandmother No problems noted. Family/Other Hypertension Diabetes mellitus Social History marital status: household members: spouse lives independently: Yes Smoking Status: Never smoker alcohol intake: never substance use type: does not use Assessment & Plan Assessment & Plan narrative: Septic shock, present on admission Patient admitted with confusion, shock, with a systolic blood pressure of 80/50, organ dysfunction such as renal failure, creatinine elevated at 2.53, and acute encephalopathy Blood and urine cultures with Morganella, sensitive to ceftriaxone Patient was initially continued on meropenem, narrowed to ceftriaxone yesterday Laboratory evaluation has shown continued improvement in leukocytosis and procalcitonin. 2. Acute metabolic encephalopathy, slightly in -likely related to underlying sepsis, with septic shock -patient is bacteremic, and a urinary tract infection -patient remains encephalopathic, he is clearly delirious. Somewhat improved with initiation of Seroquel. Will try and limit Ativan and Haldol. -Have resumed his MAO inhibitor other oral medications now that he is on a dysphagia diet -patient continues to be delerious but may be improving a little -will add melatonin to bedtime regimen 3. Acute on chronic renal failure, acute portion resolved -secondary to septic shock Blood pressure improved -creatinine normalized now -discontinued IV hydration -will continue to follow creatinine closely, avoid nephrotoxic agent 4. Hypertension -will resume clonidine -resume usual outpatient medications including losartan 5. Hypoglycemia -likely related to sep sepsis and inability to eat. -will advance diet per speech based on swallow eval today -blood sugar low again this morning, IVF restarted, goal to encourage oral intake when he is able 6. Hypothyroid -continue L-thyroxine 7. Depression -will resume phenezine 8. Dementia, now with delirium, related to sepsis -patient continues to be agitated and delirious. Have started Seroquel 25 b.i.d. -continue Dilaudid, Ativan, Haldol for highly aggressive behavior -hopefully once he is back on his MAO inhibitor, and Seroquel behavior will improved -resume namenda when taking oral
--- NOTE | 2020-10-13 19:17 | PC.NURSE ---
Addendum entered by Raj Flores CNA 10/13/20 19:41: Patient continued to repeatedly try to get out of bed for another 20 minutes Original Note: Patient became increasingly agitated and managed to quickly pull himself down the bed in an attempt to get out. I called in the RN to get him repositioned in bed. Patient repeatedly kept trying to get out of the bed for the next 20 minutes.
[2020-10-13] MEDS: MEMANTINE HCL 5 MG TABLET 10 MG PO (19:46)
--- NOTE | 2020-10-13 21:50 | PC.NURSE ---
Had a good conversation with patient. González was asking and answering questions coherently. He stated that he is starting to remember things and that they are coming back to him in bits and pieces. He is slightly agitated and keeps trying to get out of bed. I asked if his bottom was sore and he said yes, so I had him bridge and put a waffle cushion under him bottom.
--- NOTE | 2020-10-13 22:19 | PC.NURSE ---
Shift Note: Pt refused all PO meds this shift. taking sips of H2O and ensure but all attempts to give meds unsuccessful. Has remained cooperative for most of shift, occasionally attempts to get OOB but is redirected without much effort. IV D5 1/2 NS @ 100hr continues to DAYSI picc line.
[2020-10-13] MEDS: HALOPERIDOL 5 MG/ML VIAL 2 MG IV (23:56)
[2020-10-14] VITALS (7 sets, daily range): BP systolic 109–178; BP diastolic 63–87; PULSE 60–88; RESP 15–20; TEMP 36.4–37.2; O2SAT 94–98
--- NOTE | 2020-10-14 00:01 | PC.NURSE ---
The patient appears restless and has been attempting to get out of bed, mumbling the need to 'see my animals' and that [place] and needs to get home. Difficult to redirect at first, AMARILYS Collins assisted in calming the patient back to lying down in bed and changing the bed linens. The patient refuses to wear a gown at this time. 1:1 sitter at the bedside for safety monitoring.
[2020-10-14] MEDS: LORazepam 2 MG/ML INJ 1 MG IV (00:40)
[2020-10-14] MEDS: DEXTROSE 5%-0.45% NS 1,000 ML 100 ML IV (00:48)
--- NOTE | 2020-10-14 00:49 | PC.NURSE ---
Addendum entered by Elo Saunders CNA 10/14/20 06:22: 0620 pt has been attempting to get out of bed several times and hour but is easily redirected to stay in bed. the patient seems more alert at the moment and followed commands while this MENTALLY IMPAIRED TEACHER did a total linen change, changed his brief and redressed him in a gown. Still hallucinating, trying to 'eat' things in midair and reaching out into the air. Currently pleasantly confused and cooperative with care. This MENTALLY IMPAIRED TEACHER will continue to monitor 1:1 at bedside. Addendum entered by Elo Saunders CNA 10/14/20 02:01: 0200 pt is less agitated, but still restless and attempting to get out of bed. The last half hour he is much easier to redirect and frequently sits up and lays himself back down. Frequently reaches into the air, appearing to search for something. Continues to mumble to himself. Original Note: 1240 the patient became very agitated and aggressive stating to this sitter I[place], i think it would solve a lot of problems. When this sitter was attempted to calm him down, the patient hit my arm once, saying shut up and get out of my way. AMARILYS Collins helped calm him and the patient lay down, seemingly very tired. He was medicated accordingly. He has been sitting up and attempting to get out of bed every few minutes. This MENTALLY IMPAIRED TEACHER will continue to monitor at bedside.
--- NOTE | 2020-10-14 01:34 | PC.NURSE ---
Addendum entered by Karina Pearson R.N. 10/14/20 05:31: Patient resting for longer periods of time. Patient sitting up in bed occasionally, but able to redirect. No further episodes of being combative. Potassium rider of 40 meq infusing at this time. Original Note: 5027 -2045 Patient awake and attempting to get OOB. Patient encouraged to stay in bed. However, continues to sit up and move towards end of bed. Tommy SMITH notified of patient unable to be redirected and making multiple attempts to get OOB and becoming increasingly agitated. Orders received for Haldol 2 mg and same given. Patient continues with agitation and attempting to kick GOLF COURSE STARTER. Tommy SMITH notified of patients increasing agitation and behaviors. Ativan 1 mg IV ordered and given. Patient less agitated after 30 minutes, but continues to sit up in bed and moves towards the foot of the bed. Patient assisted to head of bed and additional warm blanket given. Patient requesting chocolate ice cream. Patient taking few bites and lying down presently.
[2020-10-14] MEDS: SODIUM CHLORIDE 0.9% FLUSH 10 ML IV (05:07)
[2020-10-14] MEDS: POTASSIUM CHLORIDE 40 MEQ in SODIUM CHLORIDE 0.9% 500 ML 130 ML IV (05:15)
[2020-10-14 05:19] LABS: Magnesium 1.8 mg/dL (1.6-2.3)
[2020-10-14] MEDS: LEVOTHYROXINE 100 MCG TABLET PO (06:14)
[2020-10-14] MEDS: QUETIAPINE 25 MG TABLET PO (08:10)
[2020-10-14] MEDS: ENOXAPARIN 40 MG/0.4 ML SYRINGE SUBCUT (08:11)
[2020-10-14] MEDS: PHENELZINE 15 MG 15 EACH PO ×2 (08:12→14:32)
--- NOTE | 2020-10-14 09:08 | SLP.IPNOTE ---
Attempted to see pt for breakfast. Pt had just completed his meal. Brief conversation with pt during which I told hime we would try again at noon meal.
--- NOTE | 2020-10-14 11:10 | PC.NURSE ---
Addendum entered by Lakshmi Castillo R.N. 10/14/20 14:50: Pt increasingly agitated toward end of shift. Not redirectable. Pt is c/o back pain, per his , lower back pain remains chronic and he takes meds as needed at home. Ok with him having pain control. Given with good effect. IVF have been off since 11 am, as PO intake has improved. Diet restriction list at bedside. and has ordered meals through weekend. Addendum entered by Lakshmi Castillo R.N. 10/14/20 13:32: Speech has evaluated Pt and he advances to [facility] soft, with thin liquids. Self feeding quite a bit this shift. Sitting upright, this is safely allowed for eating 100% of meal on his own. Updated high tyramine foods list requested from dietary for bedside, as Pt was nearly nerved a stir agustin with lunch. Original Note: AM SHIFT Pt is agreeable and redirectable this AM. Tactile, busy with his hands, but cooperative with 1:1 supervision for safety. is in at bedside, feels there is significant improvement from her visit 24 hrs ago. Taking meds well crushed in pudding. OT and PT working with Pt.
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
--- NOTE | 2020-10-14 13:00 | PM.PN.1 ---
Subjective Subjective Date Patient Seen: 10/14/20 Time Patient Seen: 13:00 Interval history: The patient is a 75-year-old male who was admitted to the hospital with septic shock. The patient's blood cultures are growing Morganella, urine cultures are growing Morganella. Patient continues to be confused and delirious, although he is slowly improving. He has required multiple doses of medications for controlling his behavior. His diet was advanced. He seems to shut down when in the presence of anyone with a white coat evidenced today as he will not speak or follow commands when in the room, but shortly after exiting he can be seen talking with staff. Exam Vital Signs (past 8 hours): - 10/14/20 07:00 10/14/20 11:00 Temperature 98.1 F 98.9 F Pulse Rate 60 88 Respiratory Rate 15 Blood Pressure 166/87 H 146/77 H Pulse Oximetry 96 98 Oxygen Delivery Method Room Air Oxygen Flow Rate 0 Narrative Exam Narrative: General: Ill-appearing elderly male lying in bed with his eyes closed, he is minimally cooperative with me but will eat and talk with staff. Lungs: Decreased breath sounds, poor effort but no obvious wheezing, rhonchi, rales. Cardiac exam: Regular rate and rhythm normal S1-S2 with a 2/6 systolic murmur Abdomen: Soft nontender nondistended Extremities: No edema Objective Labs Result Diagrams: 10/13/20 04:40 10/13/20 04:40 Labs: Laboratory Results - last 24 hr 10/14/20 05:00 Magnesium 1.8 PFSH Medical History Constipation Depression Hyperlipidemia Hypertension Hypothyroidism (acquired) Obstructive sleep apnea syndrome Snoring Surgical History Hx of cataract surgery (Unknown) Hx of knee surgery (Unknown) Family History Father Hypertension Heart disease Mother Diabetes mellitus Hypertension Dementia Grandfather Cancer Grandmother No problems noted. Family/Other Hypertension Diabetes mellitus Social History marital status: household members: spouse lives independently: Yes Smoking Status: Never smoker alcohol intake: never substance use type: does not use Assessment & Plan Assessment & Plan narrative: 1. Septic shock, present on admission Patient admitted with confusion, shock, with a systolic blood pressure of 80/50, organ dysfunction such as renal failure, creatinine elevated at 2.53, and acute encephalopathy Blood and urine cultures with Morganella, sensitive to ceftriaxone Patient was initially continued on meropenem, narrowed to ceftriaxone on 10/12. Laboratory evaluation has shown continued improvement in leukocytosis and procalcitonin. 2. Acute metabolic encephalopathy, slightly improving. -likely related to underlying sepsis, with septic shock -patient is bacteremic, and a urinary tract infection -patient remains encephalopathic, he is clearly delirious which may be due to both sepsis and hospital delirium in the setting of known dementia. Somewhat improved with initiation of Seroquel. Will try and limit Ativan and Haldol. -Have resumed his MAO inhibitor other oral medications now that he is on a dysphagia diet -patient continues to be delerious but may be improving a little -melatonin to bedtime regimen 3. Acute on chronic renal failure, acute portion resolved -secondary to septic shock Blood pressure improved -creatinine normalized now -discontinued IV hydration -will continue to follow creatinine closely, avoid nephrotoxic agent 4. Hypertension -resume usual outpatient medications including losartan 5. Hypoglycemia -likely related to sepsis and inability to eat. -will advance diet per speech based on swallow eval today -blood sugar low again this morning, IVF restarted, goal to encourage oral intake when he is able 6. Hypothyroid -continue L-thyroxine 7. Depression -will resume phenezine 8. Dementia, now with delirium, related to sepsis -patient continues to be agitated and delirious. Have started Seroquel 25 b.i.d. -continue Dilaudid, Ativan, Haldol for highly aggressive behavior -hopefully once he is back on his MAO inhibitor, and Seroquel behavior will improved -resume namenda when taking oral Dispo: pending PT/OT, however not cooperative with therapies today. Timing of discharge uncertain.
--- NOTE | 2020-10-14 13:00 | ST.IPDYTX ---
Visit Care Team Role Provider Type Yann Dempsey MD Primary Care Provider Physician Specialty: Internal Medicine Address: [address] [place] [address], [address], [place], [address] Email: [email or web address] Gilma Reyez MD Emergency Provider Physician Referring Provider Specialty: Emergency Medicine Address: [address] [place] [address], [id number] Email: LUIS Altman Admit Provider Physician Attending Provider Specialty: Internal Medicine Address: [address] [place] [address], [id number] Email: [email or web address] MANAGER ASSET MANAGEMENT Dysphagia Treatment MANAGER ASSET MANAGEMENT Dysphagia Treatment Start: 10/14/20 12:45 Freq: Status: Active Protocol: Document 10/14/20 12:46 LNK (Rec: 10/14/20 13:00 LNK [id number]) Dysphagia Treatment Session Time Visit Start Time 12:00 Visit Stop Time 12:30 Total Visit Minutes 30 Setting Assessment Location Acute Care Visit Type Note Type Treatment Note Patient Information Identification Type Name,Other Subjective Observations Pt was seated upright in his bed. Pt apparently has white -coat syndrome per . This MANAGER ASSET MANAGEMENT chose trial foods and was outside pt's room observing while nursing provided trial foods to pt. Pt 's was in his room. Pt self fed all trial foods. Pt much more alert and interacting with nursing staff. Treatment Liquids Trialed Thin Solids Trialed Dysphagia Advanced,Mechanical Soft Oral Strategies Lingual Sweep Pharyngeal Strategies Sitting Upright (90 deg) Treatment Activities Pt was given a fruit cup and turkey sandwich with his meal at noon. Pt was observed to safely tolerate both trial foods. Nursing was able to observe visually that there was no pocketing or oral stasis present following swallows. Observed pt eat all of fruit cup and all of a half sandwich without s/sx aspiration. No cough/choke, wet voicing, throat-clear observed. Assessment Patient Response to Treatment Excellent Assessment of Improvement Pt is much more lucid today. He continues to be figity with his hands. He was covering with staff and his . Improvement in his level of alertness allowed for diet upgrade. Diet Recommendations Recommendations Upgrade Diet Order Liquids Order Thin Diet Order Mechanical Soft Medication Recommendations As Tolerated,Whole in Carrier, Crushed in Carrier Additional Dietary Needs 1:1 Supervision,1:1 Assistance Aspiration Precautions Recommended Precautions Upright at 90 Degrees,Lingual Sweep,Check for Pocketing Treatment Plan Placement Recommendation after Discharge Home,Home with Home Health Therapy Recommendations Monitor pt for diet change tolerance and s/sx aspiration Advance diet as indicated Dysphagia Goals Pt will safely tolerate the least restrictive diet to meet nutrition and hydration needs without s/sx aspiration
--- NOTE | 2020-10-14 13:25 | PT-IP ANOTE ---
checked with nurse and stated that pt is doing better today and is alert and ok for PT to work with. checked on pt and spouse in room with NAC. pt in bed with eyes closed and is very restless. NAC stated that OT just worked with pt. spouse stated that it is only now that pt is calming down. obtained home set up and PLOF of pt from spouse. spouse agreed for PT to check again in the afternoon.
[2020-10-14] MEDS: HYDROMORPHONE 1 MG INJ IV (14:32)
--- NOTE | 2020-10-14 14:45 | PT-IP ANOTE ---
OT stated that pt is unable to follow commands during OT session and has hallucinations as well. OT talked to Dr. Light that pt is not appropriate for therapy intervention at this time and agreed to d/c eval orders for both PT/OT. checked back with pt and pt's spouse. pt continues to be lethargic/eyes closed but restless. nurse stated that pt is unable to follow directions. informed pt's spouse regarding PT goals and that eval will be d/c for now until pt is more alert and more stable to follow directions. spouse is understood and agreed. will d/c PT eval orders.
[2020-10-14] MEDS: CEFTRIAXONE 2 GM/50 ML FROZ.PIGGY IV (16:51)
[2020-10-14] MEDS: HALOPERIDOL 5 MG/ML VIAL IM (22:15)
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
--- NOTE | 2020-10-14 23:32 | PC.NURSE ---
Addendum entered by Lianne Magana R.N. 10/15/20 03:52: BODY MECHANIC noted patient to be partially sitting up in bed so she went in and spoke to him. Requested that she be able to take his BP and he stated not and grabbed hold of his upper arm. BODY MECHANIC attempted to check his brief but he would not allow her to take sheet down. Did not pursue further cares so as not to agitate patient. Original Note: patient is currently lying calmly in bed and responds to questions asked but not always appropriate. When asked his birthdate stated 7 months prior to today. When asked where he is stated right where I'm suppose to be. Following simple directions. Breath sounds CTA with last sat of 95% on RA. HRR. Denied nausea. BT present and abdomen is soft; was incontinent of stool on previous shift. Is incontinent of urine. Able to move himself in bed. Gait not assessed at this time. Allevyn dressing to left elbow is CDI. Denies pain. SCD's not in use as patient becomes more agitated with them on. Fall risk score is high and bed alarm is activated and has 1:1 nursing observation.
--- NOTE | 2020-10-15 04:00 | PC.NURSE ---
Addendum entered by Elo Saunders CNA 10/15/20 06:21: 0620 pt attempted to get out of bed saying I need to use the bathroom. I explained that he could use the urinal in the bed and he agreed to try and he voided 400 mL. His brief was also wet and he allowed me to change his brief and a total linen change by turning and following directions without complaint. Pt is now resting comfortably and this FARM MACHINERY MECHANIC will continue 1:1 monitoring. Original Note: 0400 pt has been sleeping uneventfully for noc shift so far with a single attempt to get out of bed. He was easily redirected to lay down and immediately closed his eyes in sleep again. This FARM MACHINERY MECHANIC will continue to monitor 1:1 for safety.
[2020-10-15] MEDS: SODIUM CHLORIDE 0.9% FLUSH 10 ML IV (05:05)
[2020-10-15 05:44] LABS: Blood Urea Nitrogen 13 mg/dL (9-20); Calcium 8.7 mg/dL (8.4-10.2); Carbon Dioxide 32 mmol/L (22-32); Chloride 103 mmol/L (98-107); Estimated Glomerular Filt Rate > 60.0 mL/min (>60); Glucose 95 mg/dL (80-110); HEMOLYSIS < 15 (0-50); Sodium 138 mmol/L (137-145)
[2020-10-15 06:17] VITALS: BP 147/78; PULSE 67; RESP 17; TEMP 36.9; O2SAT 96
[2020-10-15] MEDS: LEVOTHYROXINE 100 MCG TABLET PO (06:32)
[2020-10-15] MEDS: ENOXAPARIN 40 MG/0.4 ML SYRINGE SUBCUT (09:34)
[2020-10-15] MEDS: MEMANTINE HCL 5 MG TABLET 10 MG PO ×2 (09:34→17:30)
[2020-10-15] MEDS: QUETIAPINE 25 MG TABLET PO ×2 (09:34→17:31)
[2020-10-15] MEDS: PHENELZINE 15 MG 15 EACH PO ×3 (09:35→17:32)
--- NOTE | 2020-10-15 10:17 | PM.PN.1 ---
Subjective Subjective Date Patient Seen: 10/15/20 Time Patient Seen: 10:17 Interval history: The patient is a 75-year-old male with PMH of dementia, HTN, hypothyroidism who was admitted to the hospital with septic shock. The patient's blood cultures are growing Morganella, urine cultures are growing Morganella. Patient today denies complaints, including fever, chills, abdominal pain, nausea, or vomiting. No chest pain or shortness of breath. His mental status is much better today, he has communicated with me and has clear and coherent speech. Will reorder physical therapy and occupational therapy given his marked improvement in mental status. Exam Vital Signs (past 8 hours): - 10/15/20 06:17 Temperature 98.5 F Pulse Rate 67 Respiratory Rate 17 Blood Pressure 147/78 H Pulse Oximetry 96 Oxygen Delivery Method Room Air Oxygen Flow Rate 0 Narrative Exam Narrative: GENERAL APPEARANCE: Well developed, well nourished, elderly male in no acute distress SKIN: Inspection of the skin reveals no rashes, ulcerations or petechiae. HEENT: Normocephalic atraumatic, extraocular muscles are intact, oropharynx is clear and mucous membranes are moist, neck is supple without adenopathy NECK: Supple and symmetric. There was no thyroid enlargement, and no tenderness, or masses were felt. CHEST: Normal AP diameter and normal contour without any kyphoscoliosis. LUNGS: Auscultation of the lungs revealed no wheezes, rhonchi, or rales. CARDIOVASCULAR: There was a regular rate and rhythm without any murmurs, gallops, rubs. Peripheral pulses were 2+ and symmetric. ABDOMEN: Soft and nontender with normal bowel sounds. No ascites was noted. MUSCULOSKELETAL: There was no tenderness or effusions noted. Muscle strength and tone were normal. EXTREMITIES: No cyanosis, clubbing or edema. NEUROLOGIC: Alert and oriented to person and place, (i don't know to date). Strength is grossly +5/5 in the Upper Extremities and Lower Extremities Bilaterally but diffusely weak. Sensation to touch was normal. Cognitive impairment evident. Psych: calm, cooperative. intermittently agitated. Objective Labs Result Diagrams: 10/13/20 04:40 10/15/20 05:05 Labs: Laboratory Results - last 24 hr 10/15/20 05:05 Sodium 138 Potassium 4.0 Chloride 103 Carbon Dioxide 32 BUN 13 Creatinine 1.00 Estimated GFR > 60.0 BUN/Creatinine Ratio 13.0 Glucose 95 Calcium 8.7 PFSH Medical History Constipation Depression Hyperlipidemia Hypertension Hypothyroidism (acquired) Obstructive sleep apnea syndrome Snoring Surgical History Hx of cataract surgery (Unknown) Hx of knee surgery (Unknown) Family History Father Hypertension Heart disease Mother Diabetes mellitus Hypertension Dementia Grandfather Cancer Grandmother No problems noted. Family/Other Hypertension Diabetes mellitus Social History marital status: household members: spouse lives independently: Yes Smoking Status: Never smoker alcohol intake: never substance use type: does not use Assessment & Plan Assessment & Plan narrative: The patient is a 75-year-old male with PMH of dementia, HTN, hypothyroidism who was admitted to the hospital with septic shock. 1. Septic shock, present on admission Patient admitted with confusion, shock, with a systolic blood pressure of 80/50, organ dysfunction such as renal failure, creatinine elevated at 2.53, and acute encephalopathy Blood and urine cultures with Morganella, sensitive to ceftriaxone Patient was initially continued on meropenem, narrowed to ceftriaxone on 10/12, will continue given improvement. Laboratory evaluation has shown continued improvement in leukocytosis and procalcitonin. 2. Acute metabolic encephalopathy, improving. -likely related to underlying sepsis, with septic shock -Have resumed his MAO inhibitor other oral medications now that he is on a dysphagia diet -patient continues to be diminished from baseline but has continuously improved. -melatonin to bedtime regimen 3. Acute on chronic renal failure, acute portion resolved -secondary to septic shock Blood pressure improved -creatinine normalized now -discontinued IV hydration -will continue to follow creatinine closely, avoid nephrotoxic agent 4. Hypertension -resumed usual outpatient medications including losartan 5. Hypoglycemia, resolved -likely related to sepsis and inability to eat. -will advance diet per speech based on swallow eval today -blood sugar low again this morning, IVF restarted, goal to encourage oral intake when he is able 6. Hypothyroid -continue L-thyroxine 7. Depression -will resume phenelzine 8. Dementia, now with delirium, related to sepsis -patient continues to be agitated and delirious. Have started Seroquel 25 b.i.d. -continue Dilaudid, Ativan, Haldol for highly aggressive behavior -hopefully once he is back on his MAO inhibitor, and Seroquel behavior will improved -resume namenda when taking oral Dispo: pending PT/OT evaluations, either home with home health or SNF. Timing of discharge given improvement in mental status today is 1-2 days.
[2020-10-15 12:37] VITALS: BP 124/79; PULSE 70; RESP 16; TEMP 36.2; O2SAT 98
--- NOTE | 2020-10-15 15:10 | PT.IIE ---
Current Diagnoses Other constipation (10/08/20) Acute kidney failure, unspecified (10/08/20) Abnormal findings on diagnostic imaging of other specified body structures (10/08/20) Surgical History (Last Reviewed 10/09/20 @ 09:07 by Joycelyn Qiu MD) Hx of cataract surgery (Unknown) Hx of knee surgery (Unknown) Medical History (Last Reviewed 10/09/20 @ 09:07 by Joycelyn Qiu MD) Constipation Depression Hyperlipidemia Hypertension Hypothyroidism (acquired) Obstructive sleep apnea syndrome Snoring Physical Therapy Inpatient Evaluation/Re-Eval M1 PT/OT-IP Prior Functional Status Start: 10/14/20 14:35 Freq: NEEDED Status: Active Protocol: Document 10/15/20 15:39 CGR (Rec: 10/15/20 15:52 CGR [id number]) Medical Review Prior Functional Status Medical History Reviewed Yes Communication Pt is an effective verbal communicator. Mobility and Gait Pt was IND for all mobility prior to admit. Pt's spouse states that he would ambulate to the end of the drive to take out the trash without difficulty, a total for about 3/4 of a mile. Activities of Daily Living and IADL's Pt was IND with all ADLs but needed VC to initiate some simple ADLs tasks. Pt showers and dresses without assist. Pt no longer cooks as he has burned multiple pots. Social History Household Members spouse Living Arrangements Mobile home Number of Floors (Floors) One Floor Number of Stairs To Enter/Railing? 7 steps to enter with railing on R assending and wall on left. Home Environment Standard Height Toilet,Tub/ Shower Home Equipment Quad Cane,Straight Cane,Tub Transfer Bench Employment Status Retired Additional Social History Comment Pt lives with . Pt does not drive but still drives as needed. M1 PT/OT-IP Prior Functional Status Start: 10/15/20 17:33 Freq: NEEDED Status: Active Protocol: Document 10/15/20 15:10 AB (Rec: 10/15/20 17:54 AB [id number]) Medical Review Prior Functional Status Medical History Reviewed Yes Communication pt was initially sleepy but once more alert was able to follow directions and respond to questions Mobility and Gait spouse stated that pt is independent with all mobilities and ambulation without AD Activities of Daily Living and IADL's per OT's note: Pt was IND with all ADLs but needed VC to initiate some simple ADLs tasks. Pt showers and dresses without assist. Pt no longer cooks as he has burned multiple pots. Social History Household Members spouse Living Arrangements Mobile home Number of Floors (Floors) One Floor Number of Stairs To Enter/Railing? 7 steps to enter with railing on R ascending and wall on left. Home Environment Standard Height Toilet,Tub/ Shower Home Equipment Quad Cane,Straight Cane,Tub Transfer Bench Employment Status Retired Additional Social History Comment Pt lives with . Pt does not drive but still drives as needed. M2 PT-IP Current Condition Start: 10/15/20 17:33 Freq: NEEDED Status: Active Protocol: Document 10/15/20 15:10 AB (Rec: 10/15/20 17:54 AB [id number]) Physical Therapy Current Condition Current Condition Evaluation Date 10/15/20 Treatment Diagnosis UTI; difficulty in walking Onset Date 10/08/20 Precautions Other Precautions falls M3 PT-IP Subjective Start: 10/15/20 17:33 Freq: NEEDED Status: Active Protocol: Document 10/15/20 15:10 AB (Rec: 10/15/20 17:54 AB [id number]) Subjective Physical Therapy Visit Type Type Initial Evaluation Visit Start Time 15:10 Visit Stop Time 15:33 Total Visit Minutes 23 Number of CRAFT DEMONSTRATOR Visits 0 Physical Therapy Visit Comments Patient Comments agreed to do PT; spouse in room with pt M4 PT-IP Mobility and Gait Start: 10/15/20 17:33 Freq: NEEDED Status: Active Protocol: Document 10/15/20 15:10 AB (Rec: 10/15/20 17:54 AB [id number]) PT-Bed Mobility Assessment Supine to Sit Supine to Sit Standby Assistance Sit to Supine Sit to Supine Standby Assistance PT-Transfer Assessment Sit to and From Stand Sit to and from Stand Minimal Assistance,1 Person Assistance,Use of Upper Extremities Equipment Transfer Assistive Device Gait Belt,Front Wheeled Walker Orthotic/Prosthetic Devices or Brace: No Transfers Transfer Destination Toilet Transfer Technique ambulated using FWW Transfer Ability Level of Assist Contact Guard Assistance,1 Person Assistance,Use of Upper Extremities Comments Mobility Comments pt sitting on chair. spouse in room. pt is sleepy but able to answer to questions but initially kept his eye closed. positioned pt more upright and instructed to open his eyes and was able to follow directions. completed sit to stand from chair min A ambulated towards the sink using FWW CGA and cues and was able to maintain standing using counter for support while doing handwashing. pt ambulated from the sink to the toilet without AD but required min A with LLE tending to cross over midline. OT assisted pt with toilet transfers. pt agreed to ambulate more and initially using FWW but then pt started to just carry FWW so ambulated pt more without AD and cued for steadiness and safety. pt has decrease safety awareness and tried to stand on 1 leg but required mod A for steadiness. Pt stated that he was trying to show off. instructed pt to walk to the bed. completed sit <>supine SBA. pt wanted to stay in bed and lay back SBA. positioned in bed. call light and table placed within reach. Left pt with OT and spouse in room. Gait Assessment Gait Gait Assistance Required: Contact Guard Assist,Minimum Assistance Distance (Feet) 35 Able to Maintain Weight Bearing Status Yes During Gait Assistive Devices Assistive Device None,Gait Belt,Front Wheeled Walker Orthotic/Prosthetic Devices or Brace: No Gait Deviations General Gait Pattern Ataxic,Decreased Stride Length ,Decreased Feet Clearance, Narrow Based Gait Factors Limiting Gait Function Factors Limiting Gait Function Decreased Activity Tolerance, Decreased Strength,Difficulty Following Directions,Poor Balance,Poor Safety Awareness Comments Gait Comments pls refer to mobility section for details assessed ambulation without AD and require min A and cues for safety. assessed ambulation using fWW and required CGA and cues and is steadier with use of FWW. recommending use of FWW at this time but PT to continue working towards ambulation without AD. PT-Balance Assessment Sitting Balance and Reactions Static Sitting Balance Ability Good Dynamic Sitting Balance Ability Good Standing Balance and Reactions Static Standing Balance Ability Fair Dynamic Standing Balance Ability Poor Device Used without AD M5 PT-IP Objective Assessments Start: 10/15/20 17:33 Freq: NEEDED Status: Active Protocol: Document 10/15/20 15:10 AB (Rec: 10/15/20 17:54 AB [id number]) Orientation Orientation/Cognition Orientation Name Safety Awareness Decreased Safety Awareness Memory Description Short Term Impaired,Longterm Impaired Comments alert and able to follow directions but with poor safety awareness and need max cues for instructions Gross Range of Motion Lower Extremity ROM Assessment Within Functional Limits Strength Lower Extremity Strength Assessment Within Functional Limits Muscle Tone Muscle Tone WNL Yes M6 PT-IP Treatment Start: 10/15/20 17:33 Freq: NEEDED Status: Active Protocol: Document 10/15/20 15:10 AB (Rec: 10/15/20 17:54 AB [id number]) Physical Therapy Treatment Education Education Provided Safety M7 PT-IP Assessment and Plan Start: 10/15/20 17:33 Freq: NEEDED Status: Active Protocol: Document 10/15/20 15:10 AB (Rec: 10/15/20 17:54 AB [id number]) PT Summary Assessment and Plan Potential Rehabilitation Potential Good Status of Condition at Evaluation Stable Summary Impairments Pain,ROM,Strength,Balance, Coordination,Cognition,Bed Mobility,Transfers,Gait, Activity Tolerance Assessment Summary pt requiring min A with ambulation without AD and has decrease cognition affecting safety awareness and requires max A for all tasks for directions. pt able to ambulate with use of FWW CGA but needs cues for safe use. pt has memory issues even prior to hospitalization and carryover of tasks and safety is a concern and needs to be more independent with mobility and hopefully without AD to decrease risk of falls. pt will benefit from SNF rehab at this time to improve overall strength, standing balance/ tolerance , ambulation and safety awareness. will continue to assess progress for safe d/c needs. Goals Bed Mobility Goal Independent Transfer Goal Independent,Front Wheeled Walker Gait Goal Independent,Front Wheel Walker Gait Distance 200 Other Goals ambulated without AD 150 ft SBA up/down 7 steps R rail ascending SBA Days to Meet Goals 5 Frequency of Treatment Frequency Of Treatment Once a Day Treatment Plan Physical Therapy Treatment Plan Bed Mobility Training,Transfer Training,Gait Training, Therapeutic Exercise,Balance Retraining,Discharge Planning, Neuromuscular Re-ed, Coordination Retraining Precautions Other Precautions falls Recommendations To Nursing Amount of Assist Needed 1 Person Assist Discharge Recommendations PT Discharge Recommendations SNF Rehab Transportation Needs at Discharge Private Vehicle
--- NOTE | 2020-10-15 15:31 | CM.DPNOTE ---
Addendum entered by Danelle Sims, MANAGER TRANSPORTATION PLANNING 10/16/20 14:17: Attempted following SNF referrals: [facility], [facility], [facility] and [facility], spoke w/all but [facility] fam at this time d/t sun downing behaviors...however, if admissions teams are contacted Saturday, and patient has had a good, calm and cooperative night, it's possible review can be done again, and by admissions staff that work M-F. Updated Dr Light. Sent referral to [facility] , faxed completed F2F, H+P and therapy notes, placed call, and rep explained she did not have the schedule for [facility] and would need to have someone f/u w/ DC case planner Saturday. LM for spouse Lissette to please CB as soon as she can to review DCP (no identifiers on her cell), also left copy of Senior Resource Guide and DME provider list in patient room. Patient has been calm, cooperative and not attempting to get up at all today, 1:1 not needed today, OT currently assisting patient in the shower. Medically ready for DC Saturday; Home w/ spouse and [facility] vs SNF stay (?) Following closely JW Original Note: DCP Note Lengthy conversation w/patient's spouse Lissette yesterday afternoon and again today, reviewed DCP options and strongly suggested that spouse make plans now so she doesn't feel overwhelmed when patient is medically closer to DC; spouse much less resistant to discussing plans today and asks if patient could have a short stay at [facility], before he returns home? This MANAGER TRANSPORTATION PLANNING placed call to [facility], had to LM w/referral information. PT/OT evals pending today. Patient improving medically and mentally, sleeping during this MANAGER TRANSPORTATION PLANNING's visit. Patient far below functional baseline and may benefit from short term rehab stay if SNF could accommodate Following closely JW
--- NOTE | 2020-10-15 15:33 | OT.IP.EVAL ---
Current Diagnoses Other constipation (10/08/20) Acute kidney failure, unspecified (10/08/20) Abnormal findings on diagnostic imaging of other specified body structures (10/08/20) Past Medical History (Last Reviewed 10/09/20 @ 09:07 by Joycelyn Qiu MD) Constipation Depression Hyperlipidemia Hypertension Hypothyroidism (acquired) Obstructive sleep apnea syndrome Snoring Surgical History (Last Reviewed 10/09/20 @ 09:07 by Joycelyn Qiu MD) Hx of cataract surgery (Unknown) Hx of knee surgery (Unknown) Occupational Therapy Inpatient Evaluation/Re-Eval M1 PT/OT-IP Prior Functional Status Start: 10/14/20 14:35 Freq: NEEDED Status: Active Protocol: Document 10/15/20 15:39 CGR (Rec: 10/15/20 15:52 CGR [id number]) Medical Review Prior Functional Status Medical History Reviewed Yes Communication Pt is an effective verbal communicator. Mobility and Gait Pt was IND for all mobility prior to admit. Pt's spouse states that he would ambulate to the end of the drive to take out the trash without difficulty, a total for about 3/4 of a mile. Activities of Daily Living and IADL's Pt was IND with all ADLs but needed VC to initiate some simple ADLs tasks. Pt showers and dresses without assist. Pt no longer cooks as he has burned multiple pots. Social History Household Members spouse Living Arrangements Mobile home Number of Floors (Floors) One Floor Number of Stairs To Enter/Railing? 7 steps to enter with railing on R assending and wall on left. Home Environment Standard Height Toilet,Tub/ Shower Home Equipment Quad Cane,Straight Cane,Tub Transfer Bench Employment Status Retired Additional Social History Comment Pt lives with . Pt does not drive but still drives as needed. M2 OT-IP Current Condition Start: 10/14/20 14:35 Freq: Status: Active Protocol: Document 10/15/20 15:39 CGR (Rec: 10/15/20 15:52 CGR [id number]) Occupational Therapy Current Condition Current Condition Evaluation Date 10/15/20 Treatment Diagnosis septic shock with encephalopathy Diagnosis Onset Date 10/08/20 M3 OT- IP Subjective and Pain Start: 10/14/20 14:35 Freq: Status: Active Protocol: Document 10/15/20 15:39 CGR (Rec: 10/15/20 15:52 CGR [id number]) OT- Subjective Occupational Therapy Visit Type Type Initial Evaluation Visit Start Time 15:10 Visit Stop Time 15:33 Total Visit Minutes 23 Notes co-eval with P.T. OT Pain Assessment Pain When Pain Assessed At Rest Pain Present Pain Present Denied Pain M4 OT- IP ADL's Start: 10/14/20 14:35 Freq: Status: Active Protocol: Document 10/15/20 15:39 CGR (Rec: 10/15/20 15:52 CGR [id number]) OT [id number] Comments OT Self-Feeding Comments Not meal time OT ADL-Grooming General Evaluation Grooming Ability Minimal Assistance Comments OT Grooming Comments for washing hands standing at sink. Pt needed assist with getting soap and bynum towel OT ADL-Oral Care Comments Oral Care Comments Not performed OT ADL-Dressing General Eval Lower Body Dressing Ability Standby Assistance Areas Needing Assistance Socks Comments OT Dressing Comments seated EOB without difficulty OT ADL-Toileting General Evaluation Toileting Ability Standby Assistance Comments OT Toileting Comments simulated seated on toilet OT ADL-Bathing Comments OT Bathing Comments not performed M5 OT- IP IADL's Start: 10/14/20 14:35 Freq: Status: Active Protocol: Document 10/15/20 15:39 CGR (Rec: 10/15/20 15:52 CGR [id number]) OT-Instrumental Activities of Daily Living Deficits IADL Deficits Identified Deficits Home Safety Awareness Awareness of Need for Assistance at Home Decreased Awareness Ability to Problem Solve Emergency Unable to Problem Solve Situations Medication Management Medication Management Caregiver Administers Money Management Money Management Caregiver Provides Assistance Meal Preparation Meal Preparation Caregiver Provides Assist Carpenter Form Carpenter Form Caregiver Provides Assist Driving Driving Comments 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 Reported dementia at baseline. OT- Vision and Hearing OT- Hearing Assessment OT- Hearing Assessment Hearing Impaired OT- Vision Assessment Vision Assessment Comments vision not tested in this session. No glasses noted. M7 OT- IP Mobility and Balance Start: 10/14/20 14:35 Freq: Status: Active Protocol: Document 10/15/20 15:39 CGR (Rec: 10/15/20 15:52 CGR [id number]) OT- Bed Mobility Assessment Rolling Level of Assistance Standby Assistance Supine to Sit Supine to Sit Assist Standby Assistance Sit to Supine Sit to Supine Assist Standby Assistance Scooting Scooting to Edge of Bed Standby Assistance OT-Transfer Assessment Sit to and From Stand Sit to and from Stand Contact Guard Assistance, Minimal Assistance Transfers Transfer Ability Contact Guard Assistance, Minimal Assistance Technique Transfer Destination Bed,Chair,Toilet Transfer Technique Stand Step Pivot Devices Transfer Assistive Devices Gait Belt,Front Wheeled Walker Comments Mobility Comments Pt ambulated with and without walker. Pt is CGA-min a without walker and CGA with walker. OT- Balance Assessment Sitting Balance and Reactions Static Sitting Balance Ability Fair Dynamic Sitting Balance Ability Fair M8 OT- IP Objective Assessments Start: 10/14/20 14:35 Freq: Status: Active Protocol: Document 10/15/20 15:39 CGR (Rec: 10/15/20 15:52 CGR [id number]) OT Gross Range of Motion Upper Extremity Range of Motion Assessment Within Functional Limits OT Strength Upper Extremity Strength Assessment Within Functional Limits OT- Coordination Assessment Comments Coordination Comments not tested in this session OT-Muscle Tone Assessment Muscle Tone WNL Yes OT Sensation Assessment Edema Edema Absent M9 OT- IP Assessment and Plan Start: 10/14/20 14:35 Freq: Status: Active Protocol: Document 10/15/20 15:39 CGR (Rec: 10/15/20 15:52 CGR [id number]) OT Summary Assessment and Plan Potential Rehabilitation Potential Good Analytic Complexity at Evaluation Moderate Summary OT Impairments Balance,Functional Cognition, Functional Mobility,Self- Feeding,Grooming,Dressing, Toileting,Bathing,Toilet Transfers,Shower Transfers, Activity Tolerance Progress Towards Goals Slow Progress due to Medical Issues Assessment Summary Pt presents as a moderate complexity evaluation s/p admit for septic shock with encephalopathy. Pt is able to follow commands inconsistently in todays session but did better with more activity. Pt will benefit from continued therapy services while hospitalized and may benefit from SNF upon discharge. Goals Self-Feeding Goal Independent Grooming Goal Independent Dressing Goal Independent Toileting Goal Independent Bathing Goal Independent Toilet Transfer Goal Independent Shower Transfer Goal Independent Days to Meet Goals 10 Frequency of Treatment Frequency Of Treatment Once a Day Treatment Plan OT Treatment Plan ADL Training,Functional Cognition Training,Functional Mobility,Patient/Family Education,Discharge Planning Other Treatment Recommendations and Next ADLs standing, shower Treatment Focus Discharge Recommendations OT Discharge Recommendations Home with Assistance,SNF Rehab Transportation Needs at Discharge Private Vehicle
[2020-10-15 15:52] VITALS: BP 136/67; PULSE 62; RESP 16; TEMP 35.9; O2SAT 100
[2020-10-15] MEDS: CEFTRIAXONE 2 GM/50 ML FROZ.PIGGY IV (17:29)
[2020-10-15] MEDS: MELATONIN 3 MG TABLET 6 MG PO (17:30)
[2020-10-15] MEDS: ATORVASTATIN 20 MG TABLET 40 MG PO (17:31)
[2020-10-15 19:45] VITALS: BP 106/57; PULSE 65; RESP 15; TEMP 36.6; O2SAT 98
[2020-10-15 23:00] VITALS: BP 138/67; PULSE 78; RESP 18; TEMP 36.8; O2SAT 98
[2020-10-16] VITALS (7 sets, daily range): BP systolic 88–144; BP diastolic 51–69; PULSE 60–70; RESP 14–18; TEMP 36.1–36.9; O2SAT 95–99
--- NOTE | 2020-10-16 02:45 | PC.NURSE ---
Addendum entered by Lianne Magana R.N. 10/16/20 05:30: SLIP COVER SEAMSTRESS reports patient asked what's an easy and painless way to commit suicide, I just want out of here. Original Note: at start of shift patient set off bed alarm and got out of bed with SLIP COVER SEAMSTRESS in room. Stated he wanted to go home. Ambulated around room with SBA as refused to use walker. Made aware it was night time and patient agreeable to going back to bed. Now awake so assessment performed. Is oriented to self and that he is in the hospital although thought hospital was in [place]. States he does not care what the date is and when told states I won't remember it anyway. Breath sounds CTA with RA sat of 98%. HRR. Denies nausea. BT present and abdomen is soft. Has at times used urinal to void but is also incontinent at times. Is turning himself in bed. When asked if he was having pain stated only that caused by you annoying me. Was cooperative with assessment. Fall risk score is high and bed alarm is activated. Has 1:1 staff observation. SCD's not in use so as not to increase agitation.
[2020-10-16] MEDS: LEVOTHYROXINE 100 MCG TABLET PO (05:20)
[2020-10-16] MEDS: SODIUM CHLORIDE 0.9% FLUSH 10 ML IV ×2 (05:23→09:11)
--- NOTE | 2020-10-16 05:35 | PC.NURSE ---
2330 PT quickly got out of bed, and would not allow PRODUCT MANAGENT INTERN to assist or use walker or gait belt, very firmly pushing walker and PRODUCT MANAGENT INTERN away. Ambulated to bathroom and window to look out, stating what's the quickest way out of here, and telling PRODUCT MANAGENT INTERN to get back, get away from me. PT seemed steady on feet and was quickly convinced to return to bed. After a similar effort at 2345 patient settled down for the night and twice more woke briefly to ask why he was here, returning quickly to sleep. Changed brief at 0530 with RN, and patient was cooperative. Brief was only slightly wet, but pt stated that he did not need to toilet.
[2020-10-16 05:52] LABS: BUN Creatinine Ratio 19.2 (6-22); Blood Urea Nitrogen 14 mg/dL (9-20); Calcium 8.7 mg/dL (8.4-10.2); Carbon Dioxide 29 mmol/L (22-32); Chloride 103 mmol/L (98-107); Estimated Glomerular Filt Rate > 60.0 mL/min (>60); Glucose 91 mg/dL (80-110); HEMOLYSIS < 15 (0-50); Sodium 135 mmol/L (137-145)
[2020-10-16] MEDS: ENOXAPARIN 40 MG/0.4 ML SYRINGE SUBCUT (09:11)
[2020-10-16] MEDS: MEMANTINE HCL 5 MG TABLET 10 MG PO ×2 (09:11→17:53)
[2020-10-16] MEDS: PHENELZINE 15 MG 15 EACH PO ×3 (09:11→17:52)
[2020-10-16] MEDS: QUETIAPINE 25 MG TABLET PO ×2 (09:11→17:52)
--- NOTE | 2020-10-16 09:32 | PT.IPTN ---
Current Diagnoses Other constipation (10/08/20) Acute kidney failure, unspecified (10/08/20) Abnormal findings on diagnostic imaging of other specified body structures (10/08/20) Physical Therapy Treatment Note M2 PT-IP Current Condition Start: 10/15/20 17:33 Freq: NEEDED Status: Active Protocol: Document 10/15/20 15:10 AB (Rec: 10/15/20 17:54 AB [id number]) Physical Therapy Current Condition Current Condition Evaluation Date 10/15/20 Treatment Diagnosis UTI; difficulty in walking Onset Date 10/08/20 Precautions Other Precautions falls M3 PT-IP Subjective Start: 10/15/20 17:33 Freq: NEEDED Status: Active Protocol: Document 10/16/20 09:00 LJ (Rec: 10/16/20 09:32 LJ [id number]) Subjective Physical Therapy Visit Type Type Treatment Note Visit Start Time 09:00 Visit Stop Time 09:18 Total Visit Minutes 18 Number of DIGITAL COLOR PRESS OPERATOR Visits 1 Physical Therapy Visit Comments Patient Comments Pt agreeable to do PT. Spouse not in room M4 PT-IP Mobility and Gait Start: 10/15/20 17:33 Freq: NEEDED Status: Active Protocol: Document 10/16/20 09:00 LJ (Rec: 10/16/20 09:32 LJ [id number]) PT-Transfer Assessment Sit to and From Stand Sit to and from Stand Standby Assistance,Use of Upper Extremities Equipment Transfer Assistive Device Gait Belt Orthotic/Prosthetic Devices or Brace: No Transfers Transfer Destination Chair Transfer Technique Ambulated to chair then turned to sit Transfer Ability Level of Assist Standby Assistance,1 Person Assistance,Use of Upper Extremities Comments Mobility Comments Pt sitting in chair awake and alert. Agreed to ambulate in hallway and trial walking without AD. Pt ambulated in hallway~200' CGA with FWW towed by DIGITAL COLOR PRESS OPERATOR. Pt walked steadily without LOB. Slowed down near corners with slight confusion as to where to go next. Pt ambulation mostly CGA but trialed SBA on and off during the walk with about 1/3 of the time being SBA. He did well and ambulation remained steady but slow. Nursing entered room to deliver meds. Pt left with nursing in room. Gait Assessment Gait Gait Assistance Required: Standby Assistance,Contact Guard Assist Distance (Feet) 200 Able to Maintain Weight Bearing Status Yes During Gait Assistive Devices Assistive Device None,Gait Belt Orthotic/Prosthetic Devices or Brace: No Gait Deviations General Gait Pattern Ataxic,Decreased Stride Length ,Decreased Feet Clearance, Narrow Based Gait Factors Limiting Gait Function Factors Limiting Gait Function Decreased Activity Tolerance, Decreased Strength,Poor Balance,Poor Safety Awareness Comments Gait Comments See mobility section M5 PT-IP Objective Assessments Start: 10/15/20 17:33 Freq: NEEDED Status: Active Protocol: Document 10/15/20 15:10 AB (Rec: 10/15/20 17:54 AB [id number]) Orientation Orientation/Cognition Orientation Name Safety Awareness Decreased Safety Awareness Memory Description Short Term Impaired,Dry Chain Operator Impaired Comments alert and able to follow directions but with poor safety awareness and need max cues for instructions Gross Range of Motion Lower Extremity ROM Assessment Within Functional Limits Strength Lower Extremity Strength Assessment Within Functional Limits Muscle Tone Muscle Tone WNL Yes M6 PT-IP Treatment Start: 10/15/20 17:33 Freq: NEEDED Status: Active Protocol: Document 10/16/20 09:00 LJ (Rec: 10/16/20 09:32 LJ [id number]) Physical Therapy Treatment Education Education Provided Safety M7 PT-IP Assessment and Plan Start: 10/15/20 17:33 Freq: NEEDED Status: Active Protocol: Document 10/16/20 09:00 LJ (Rec: 10/16/20 09:32 LJ [id number]) PT Summary Assessment and Plan Potential Rehabilitation Potential Good Status of Condition at Evaluation Stable Summary Impairments Pain,ROM,Strength,Balance, Coordination,Cognition,Bed Mobility,Transfers,Gait, Activity Tolerance Assessment Summary Pt requiring less assist with ambulation without AD. No signs of balance issues with ambulation or LOB but he requires monitoring in part, due to his confusion. Safety is a concern therefore unattended ambulation is not recommended. He will benefit from strengthening exercises for activity tolerance, balance , and decrease of fall risk. Goals Bed Mobility Goal Independent Transfer Goal Independent,Front Wheeled Walker Gait Goal Independent,Front Wheel Walker Gait Distance 200 Other Goals ambulated without AD 150 ft SBA up/down 7 steps R rail ascending SBA Days to Meet Goals 5 Frequency of Treatment Frequency Of Treatment Once a Day Treatment Plan Physical Therapy Treatment Plan Bed Mobility Training,Transfer Training,Gait Training, Therapeutic Exercise,Balance Retraining,Discharge Planning, Neuromuscular Re-ed, Coordination Retraining Precautions Other Precautions falls Recommendations To Nursing Amount of Assist Needed 1 Person Assist Discharge Recommendations PT Discharge Recommendations SNF Rehab Transportation Needs at Discharge Private Vehicle
--- NOTE | 2020-10-16 09:53 | PC.NURSE ---
Pt states he is feeling well today. He is alert, smiling, and talking amiably. Pt is calm and cooperative. Pt worked with P.T. and was SBA with gait belt. He was steady on his feet and walked fully around the nurses station and to the window to look out at the cha and then back into his room for bkfst. He denies pain, nausea, or shortness of breath.
--- NOTE | 2020-10-16 12:16 | PM.PN.1 ---
Subjective Subjective Date Patient Seen: 10/16/20 Time Patient Seen: 12:16 Interval history: The patient is a 75-year-old male with PMH of dementia, HTN, hypothyroidism who was admitted to the hospital with septic shock. The patient's blood cultures are growing Morganella, urine cultures are growing Morganella. Patient today denies complaints, including fever, chills, abdominal pain, nausea, or vomiting. No chest pain or shortness of breath. His mental status is much better today, he has communicated with me and has clear and coherent speech. Exam Vital Signs (past 8 hours): - 10/16/20 05:00 10/16/20 08:33 10/16/20 11:51 Temperature 98.2 F 98.4 F 97.0 F L Pulse Rate 60 70 63 Respiratory Rate 14 18 16 Blood Pressure 128/61 108/54 L 105/57 L Pulse Oximetry 95 97 97 Oxygen Delivery Method Room Air Oxygen Flow Rate 0 Narrative Exam Narrative: GENERAL APPEARANCE: Well developed, well nourished, elderly male in no acute distress SKIN: Inspection of the skin reveals no rashes, ulcerations or petechiae. HEENT: Normocephalic atraumatic, extraocular muscles are intact, oropharynx is clear and mucous membranes are moist, neck is supple without adenopathy NECK: Supple and symmetric. There was no thyroid enlargement, and no tenderness, or masses were felt. CHEST: Normal AP diameter and normal contour without any kyphoscoliosis. LUNGS: Auscultation of the lungs revealed no wheezes, rhonchi, or rales. CARDIOVASCULAR: There was a regular rate and rhythm without any murmurs, gallops, rubs. Peripheral pulses were 2+ and symmetric. ABDOMEN: Soft and nontender with normal bowel sounds. No ascites was noted. MUSCULOSKELETAL: There was no tenderness or effusions noted. Muscle strength and tone were normal. EXTREMITIES: No cyanosis, clubbing or edema. NEUROLOGIC: Alert and oriented to person and place, (i don't know to date). Strength is grossly +5/5 in the Upper Extremities and Lower Extremities Bilaterally but diffusely weak. Sensation to touch was normal. Cognitive impairment evident. Psych: calm, cooperative. intermittently agitated. Objective Labs Result Diagrams: 10/13/20 04:40 10/16/20 05:23 Labs: Laboratory Results - last 24 hr 10/16/20 05:23 Sodium 135 L Potassium 4.0 Chloride 103 Carbon Dioxide 29 BUN 14 Creatinine 0.73 Estimated GFR > 60.0 BUN/Creatinine Ratio 19.2 Glucose 91 Calcium 8.7 PFSH Medical History Constipation Depression Hyperlipidemia Hypertension Hypothyroidism (acquired) Obstructive sleep apnea syndrome Snoring Surgical History Hx of cataract surgery (Unknown) Hx of knee surgery (Unknown) Family History Father Hypertension Heart disease Mother Diabetes mellitus Hypertension Dementia Grandfather Cancer Grandmother No problems noted. Family/Other Hypertension Diabetes mellitus Social History marital status: household members: spouse lives independently: Yes Smoking Status: Never smoker alcohol intake: never substance use type: does not use Assessment & Plan Assessment & Plan narrative: he patient is a 75-year-old male with PMH of dementia, HTN, hypothyroidism who was admitted to the hospital with septic shock. 1. Septic shock, present on admission Patient admitted with confusion, shock, with a systolic blood pressure of 80/50, organ dysfunction such as renal failure, creatinine elevated at 2.53, and acute encephalopathy Blood and urine cultures with Morganella, sensitive to ceftriaxone Patient was initially continued on meropenem, narrowed to ceftriaxone on 10/12, will continue for a total 14 day course of therapy given improvement, can change to PO on discharge. Laboratory evaluation has shown continued improvement in leukocytosis and procalcitonin. 2. Acute metabolic encephalopathy, improving. -likely related to underlying sepsis, with septic shock -Have resumed his MAO inhibitor other oral medications now that he is on a dysphagia diet -patient continues to be diminished from baseline but has continuously improved with above treaments. -melatonin to bedtime regimen 3. Acute on chronic renal failure, acute portion resolved -secondary to septic shock Blood pressure improved -creatinine normalized now -discontinued IV hydration -will continue to follow creatinine closely, avoid nephrotoxic agent 4. Hypertension -resumed usual outpatient medications including losartan 5. Hypoglycemia, resolved -likely related to sepsis and inability to eat. -will advance diet per speech based on swallow eval today -blood sugar low again this morning, IVF restarted, goal to encourage oral intake when he is able 6. Hypothyroid -continue L-thyroxine 7. Depression -will resume phenelzine 8. Dementia, now with delirium, related to sepsis -patient continues to be agitated and delirious at night. Have started Seroquel 25 b.i.d. with some improvement along with resumption of his MAOI. -continue Dilaudid, Ativan, Haldol for highly aggressive behavior, though try to reorient and limit medications. -resumed namenda Dispo:either home with home health or SNF, likely tomorrow with continued improvement.
--- NOTE | 2020-10-16 14:10 | OT.IP.TRT ---
Current Diagnoses Other constipation (10/08/20) Acute kidney failure, unspecified (10/08/20) Abnormal findings on diagnostic imaging of other specified body structures (10/08/20) Occupational Therapy Treatment Note M2 OT-IP Current Condition Start: 10/14/20 14:35 Freq: Status: Active Protocol: Document 10/15/20 15:39 CGR (Rec: 10/15/20 15:52 CGR [id number]) Occupational Therapy Current Condition Current Condition Evaluation Date 10/15/20 Treatment Diagnosis septic shock with encephalopathy Diagnosis Onset Date 10/08/20 M3 OT- IP Subjective and Pain Start: 10/14/20 14:35 Freq: Status: Active Protocol: Document 10/16/20 16:08 CGR (Rec: 10/16/20 16:15 CGR [id number]) OT- Subjective Occupational Therapy Visit Type Type Progress Note Visit Start Time 13:31 Visit Stop Time 14:10 Total Visit Minutes 39 Occupational Therapy Visit Comments Patient Comments Well I guess I could take a shower if it is right there. OT Pain Assessment Pain When Pain Assessed At Rest Pain Present Pain Present Denied Pain M4 OT- IP ADL's Start: 10/14/20 14:35 Freq: Status: Active Protocol: Document 10/16/20 16:08 CGR (Rec: 10/16/20 16:15 CGR [id number]) OT [id number] Comments OT Self-Feeding Comments Not meal time OT ADL-Grooming General Evaluation Grooming Ability Minimal Assistance Areas Needing Assistance Combing/Brushing Hair Comments OT Grooming Comments seated in chair after shower OT ADL-Oral Care Comments Oral Care Comments not performed OT ADL-Dressing General Eval Upper Body Dressing Ability Minimal Assistance Lower Body Dressing Ability Standby Assistance Areas Needing Assistance Retrieving/Set-up of Clothing, Socks Comments OT Dressing Comments pt had difficulty understanding how to don a hospital gown. Pt needed a reminder to don sock after provided with socks but performs without difficulty. OT ADL-Toileting Comments OT Toileting Comments not performed OT ADL-Bathing Bathing Type Bathing Type Shower General Evaluation Bathing Ability Moderate Assistance Areas Needing Assistance Retrieving/Setting Up Items, Wash/Dry Back,Wash/Dry Lower Extremities Devices Bathing Equipment Hand Held Shower Sprayer, Shower Chair with Arms Comments OT Bathing Comments Pt performed shower on this date. Pt needs VC to wash each area and to stay seated for safety. Pt does not use grab bars when standing dispite verbal cues but does follow most verbal cues during shower . M5 OT- IP IADL's Start: 10/14/20 14:35 Freq: Status: Active Protocol: Document 10/15/20 15:39 CGR (Rec: 10/15/20 15:52 CGR [id number]) OT-Instrumental Activities of Daily Living Deficits IADL Deficits Identified Deficits Home Safety Awareness Awareness of Need for Assistance at Home Decreased Awareness Ability to Problem Solve Emergency Unable to Problem Solve Situations Medication Management Medication Management Caregiver Administers Money Management Money Management Caregiver Provides Assistance Meal Preparation Meal Preparation Caregiver Provides Assist Mail Carriers Supervisor Mail Carriers Supervisor Caregiver Provides Assist Driving Driving Comments Pt is no longer an active hi lo driver M6 OT- IP Functional Cognition Start: 10/14/20 14:35 Freq: Status: Active Protocol: Document 10/15/20 15:39 CGR (Rec: 10/15/20 15:52 CGR [id number]) Cognitive Factors Limiting Selfcare Function Cognitive Ability Level of Alertness Alert,Confusional State Patient Orientation Name Attention Span Ability Unable to Focus,Unable to Sustain Attention Ability to Follow Commands Able to Follow One Step Commands with Increased Time, Able to Follow One Step Commands with Repetition Cognitive Comments Cognitive Assessment Comments Pt may benefit from formal cog assessment. Reported dementia at baseline. OT- Vision and Hearing OT- Hearing Assessment OT- Hearing Assessment Hearing Impaired OT- Vision Assessment Vision Assessment Comments vision not tested in this session. No glasses noted. M7 OT- IP Mobility and Balance Start: 10/14/20 14:35 Freq: Status: Active Protocol: Document 10/16/20 16:08 CGR (Rec: 10/16/20 16:15 CGR [id number]) OT-Transfer Assessment Sit to and From Stand Sit to and from Stand Contact Guard Assistance Transfers Transfer Ability Contact Guard Assistance Technique Transfer Destination Bedside Commode,Chair,Shower Stall Transfer Technique Stand Step Pivot Devices Transfer Assistive Devices Gait Belt Comments Mobility Comments Pt performed mobility with gait belt and hand held assist . Pt without LOB but is not steady. OT- Balance Assessment Sitting Balance and Reactions Static Sitting Balance Ability Good Dynamic Sitting Balance Ability Good M8 OT- IP Objective Assessments Start: 10/14/20 14:35 Freq: Status: Active Protocol: Document 10/15/20 15:39 CGR (Rec: 10/15/20 15:52 CGR [id number]) OT Gross Range of Motion Upper Extremity Range of Motion Assessment Within Functional Limits OT Strength Upper Extremity Strength Assessment Within Functional Limits OT- Coordination Assessment Comments Coordination Comments not tested in this session OT-Muscle Tone Assessment Muscle Tone WNL Yes OT Sensation Assessment Edema Edema Absent M9 OT- IP Assessment and Plan Start: 10/14/20 14:35 Freq: Status: Active Protocol: Document 10/16/20 16:08 CGR (Rec: 10/16/20 16:15 CGR [id number]) OT Summary Assessment and Plan Potential Rehabilitation Potential Good Analytic Complexity at Evaluation Moderate Summary OT Impairments Balance,Functional Cognition, Functional Mobility,Self- Feeding,Grooming,Dressing, Toileting,Bathing,Toilet Transfers,Shower Transfers, Activity Tolerance Progress Towards Goals Slow Progress due to Medical Issues Assessment Summary Pt presents as a moderate complexity evaluation s/p admit for septic shock with encephalopathy. Pt participated in shower on this date and is able to follow most verbal cues. Pt displays poor safety awareness and personal awareness during session but is agreeable to activities and friendly in todays session. Pt will continue to benefit from OT services. Given pt's unsteadiness, recommendation at this time is for SNF. Goals Self-Feeding Goal Independent Grooming Goal Independent Dressing Goal Independent Toileting Goal Independent Bathing Goal Independent Toilet Transfer Goal Independent Shower Transfer Goal Independent Days to Meet Goals 10 Frequency of Treatment Frequency Of Treatment Once a Day Treatment Plan OT Treatment Plan ADL Training,Functional Cognition Training,Functional Mobility,Patient/Family Education,Discharge Planning Other Treatment Recommendations and Next ADLs standing, shower Treatment Focus Discharge Recommendations OT Discharge Recommendations Home with Assistance,SNF Rehab Transportation Needs at Discharge Private Vehicle
--- NOTE | 2020-10-16 15:19 | CM.DPNOTE ---
DCP Note Spoke w/spouse Lissette, updated on SNF search, suggested SNF could be attempted one more time Saturday AM if patient has a good night? Spouse agreeable to this. Had lengthy conversation to prepare spouse for the possibility of DC home tomorrow w/HH if SNF search does not work. Spouse concerned about patient's safety at home, but also willing and agreeable to cg training w/the therapy team, getting HH, and retrieving DME that will assist at home. According to event staff member, patient much improved physically and mentally today JW
[2020-10-16] MEDS: CEFTRIAXONE 2 GM/50 ML FROZ.PIGGY IV (17:52)
[2020-10-16] MEDS: ATORVASTATIN 20 MG TABLET 40 MG PO (17:52)
[2020-10-16] MEDS: MELATONIN 3 MG TABLET 6 MG PO (17:53)
--- NOTE | 2020-10-16 19:23 | PC.NURSE ---
After patient was done in the bathroom,I asked if he wanted to take a walk in the hallway, patient said yes. I had patients accompany us and walk behind with a chair in case he got tired or was suddenly unsteady on his feet. González did fine, walking steady with the walker. He walked to the Main nurses station twice. When we arrived at his room, he sat back in the chair.
--- NOTE | 2020-10-17 00:28 | PC.NURSE ---
Addendum entered by Shilpa Anderson CNA 10/17/20 05:53: Pt sleeping soundly following blood draw by RN. Addendum entered by Shilpa Anderson CNA 10/17/20 04:20: Pt independently got out of bed and began ambulating to restroom. Pt appeared stable on feet and oriented to room. Pt returned to bed and is asleep with bed alarm set. Addendum entered by Shilpa Anderson CNA 10/17/20 01:28: Pt got up and out of bed to get ice cream and bring the pup up. Explained to pt hospital policy re: pets but Lissette would be in to visit in the morning at which point this RECREATION PROGRAMMER was told pt may be d/c'd. Pt stated understanding and went back to bed. More blankets provided and bed alarm on. Original Note: Pt pleasant and cooperative at beginning of shift. Pt does know how to remove chair alarm and ambulate unassisted, doing so at around 2330. Pt then accepted offer of walk and ambulated without trouble from [facility] nurse station around [place] [facility], choosing to get into bed and is now sleeping soundly. Bed alarm is on.
[2020-10-17 04:15] VITALS: BP 136/71; PULSE 60; RESP 14; TEMP 36.4; O2SAT 97
[2020-10-17] MEDS: LEVOTHYROXINE 100 MCG TABLET PO (05:30)
[2020-10-17 06:09] LABS: BUN Creatinine Ratio 23.5 (6-22); Blood Urea Nitrogen 20 mg/dL (9-20); Calcium 8.8 mg/dL (8.4-10.2); Carbon Dioxide 29 mmol/L (22-32); Chloride 103 mmol/L (98-107); Estimated Glomerular Filt Rate > 60.0 mL/min (>60); Glucose 87 mg/dL (80-110); HEMOLYSIS < 15 (0-50); Potassium 4.2 mmol/L (3.4-5.1); Sodium 136 mmol/L (137-145)
[2020-10-17 08:00] VITALS: BP 145/73; PULSE 60; RESP 17; TEMP 36.8; O2SAT 98
[2020-10-17] MEDS: MEMANTINE HCL 5 MG TABLET 10 MG PO (09:43)
[2020-10-17] MEDS: QUETIAPINE 25 MG TABLET PO (09:43)
[2020-10-17] MEDS: ENOXAPARIN 40 MG/0.4 ML SYRINGE SUBCUT (09:43)
[2020-10-17] MEDS: PHENELZINE 15 MG 15 EACH PO (09:44)
--- NOTE | 2020-10-17 11:45 | PT.IPTN ---
Current Diagnoses Other constipation (10/08/20) Acute kidney failure, unspecified (10/08/20) Abnormal findings on diagnostic imaging of other specified body structures (10/08/20) Physical Therapy Treatment Note M2 PT-IP Current Condition Start: 10/15/20 17:33 Freq: NEEDED Status: Active Protocol: Document 10/15/20 15:10 AB (Rec: 10/15/20 17:54 AB [id number]) Physical Therapy Current Condition Current Condition Evaluation Date 10/15/20 Treatment Diagnosis UTI; difficulty in walking Onset Date 10/08/20 Precautions Other Precautions falls M3 PT-IP Subjective Start: 10/15/20 17:33 Freq: NEEDED Status: Active Protocol: Document 10/17/20 10:20 LJ (Rec: 10/17/20 11:45 LJ [id number]) Subjective Physical Therapy Visit Type Type Treatment Note Visit Start Time 10:20 Visit Stop Time 11:10 Total Visit Minutes 50 Number of ROCKET ASSEMBLY OPERATOR Visits 2 Physical Therapy Visit Comments Patient Comments Caregiver training M4 PT-IP Mobility and Gait Start: 10/15/20 17:33 Freq: NEEDED Status: Active Protocol: Document 10/17/20 10:20 LJ (Rec: 10/17/20 11:45 LJ [id number]) PT-Bed Mobility Assessment Supine to Sit Supine to Sit Standby Assistance Sit to Supine Sit to Supine Standby Assistance PT-Transfer Assessment Sit to and From Stand Sit to and from Stand Independent,Standby Assistance Equipment Transfer Assistive Device None,Gait Belt Orthotic/Prosthetic Devices or Brace: No Transfers Transfer Destination Bed,Chair Transfer Technique Ambulated to chair then turned to sit Transfer Ability Level of Assist Independent,Standby Assistance Comments Mobility Comments in room for caregiver training. Pt transfered from bed to chair and back again several times without use of UEs. shown then demonstrating proper use of gait belt including donning, doffing, hand and body positioning while CGA ambulation with . Pt is independent with transfers and has steady gait. Gait Assessment Gait Gait Assistance Required: Independent,Standby Assistance Distance (Feet) 400 Able to Maintain Weight Bearing Status Yes During Gait Assistive Devices Assistive Device None,Gait Belt Orthotic/Prosthetic Devices or Brace: No Gait Deviations General Gait Pattern Decreased Stride Length, Decreased Feet Clearance, Narrow Based Gait Factors Limiting Gait Function Factors Limiting Gait Function Decreased Activity Tolerance, Decreased Strength,Poor Safety Awareness Comments Gait Comments Pt ambulated with from room to stairs and back again. Pt was steady and able to avoid obstacles while was very nervous and reluctant to let go of gait belt. Pt did very well SBA during ambulation. Performed stairs safely also. Stair Climbing Assessment Evaluation Level of Assist On Stairs Independent,Standby Assistance Devices Stair Climbing Assistive Devices Right Railing Technique/Endurance Stair Climbing Direction Ascend and Descend Stair Climbing Technique Step Over Step,Step to Step Number of Steps Climbed 3 Stair Climbing Set # Repetitions (reps) 3 Comments Stair Climbing Comments pt able to safely navigate stairs with both step to and step through pattern. Cued to hold onto railing for ascend and descend M5 PT-IP Objective Assessments Start: 10/15/20 17:33 Freq: NEEDED Status: Active Protocol: Document 10/15/20 15:10 AB (Rec: 10/15/20 17:54 AB [id number]) Orientation Orientation/Cognition Orientation Name Safety Awareness Decreased Safety Awareness Memory Description Short Term Impaired,Radiology Asst Impaired Comments alert and able to follow directions but with poor safety awareness and need max cues for instructions Gross Range of Motion Lower Extremity ROM Assessment Within Functional Limits Strength Lower Extremity Strength Assessment Within Functional Limits Muscle Tone Muscle Tone WNL Yes M6 PT-IP Treatment Start: 10/15/20 17:33 Freq: NEEDED Status: Active Protocol: Document 10/17/20 10:20 LJ (Rec: 10/17/20 11:45 LJ [id number]) Physical Therapy Treatment Education Education Provided Safety Other Treatments Other Treatment Performed sit<>stand x5 twice. M7 PT-IP Assessment and Plan Start: 10/15/20 17:33 Freq: NEEDED Status: Active Protocol: Document 10/17/20 10:20 LJ (Rec: 10/17/20 11:45 LJ [id number]) PT Summary Assessment and Plan Potential Rehabilitation Potential Good Status of Condition at Evaluation Stable Summary Impairments ROM,Strength,Balance,Cognition ,Activity Tolerance Assessment Summary Pt able to walk SBA - CGA 400+ feet and safely perform stairs. is very protective and nervous about potential mishaps such as LOB or unsteadiness. Pt still with confusion but ambulating safely. He does not require constant hands on attention but, due to his confusion, monitoring is a safety measure . He has easily met all the physical goals set for him by PT but is still a safety concern due to occasional confusional state. is trained with safe measures at home and is aware of his abilities. She tends to be very close to him and almost get in his way during mobility . ROCKET ASSEMBLY OPERATOR suggested contact primary doctor if she feels her is not doing well and/or has regressed in his balance and ambulation.Pt is safe to DC home today with 24/ 7 assist Goals Bed Mobility Goal Independent Transfer Goal Independent,Front Wheeled Walker Gait Goal Independent,Front Wheel Walker Gait Distance 200 Other Goals ambulated without AD 150 ft SBA up/down 7 steps R rail ascending SBA Days to Meet Goals 5 Frequency of Treatment Frequency Of Treatment Once a Day Treatment Plan Physical Therapy Treatment Plan Bed Mobility Training,Transfer Training,Gait Training, Therapeutic Exercise,Balance Retraining,Discharge Planning, Neuromuscular Re-ed, Coordination Retraining Precautions Other Precautions falls Recommendations To Nursing Amount of Assist Needed 1 Person Assist Discharge Recommendations PT Discharge Recommendations Home with 24/7 Assist Available Transportation Needs at Discharge Private Vehicle
[2020-10-17 12:00] VITALS: BP 127/65; PULSE 64; RESP 18; TEMP 36.7; O2SAT 98
--- NOTE | 2020-10-17 13:05 | P.DS_ITS ---
History of Present Illness History of Present Illness Date Patient Seen: 10/17/20 Time Patient Seen: 09:00 Chief complaint: Lethargic/ Febrile/ UTI/Sepsis Narrative: Per LUIS Altman: Mr. González Hough is a Movement is all purposeful The patient has memory issues and is confused and unable to contribute to the medical record. Per phone conversation with the patient's she does report that the patient has longstanding confusional issues but is is function much lower than baseline. She distal he states that he to block the morning last night he was having shaking chills and rigors. She describes his teeth would be chattering if his mouth closed. She reports the patient had no complaints of headaches but has been dizzy, chest pain or palpitations, shortness of breath cough or wheezing. He has not reported to her having abdominal pain pre does have constipation. Upon arrival to the ER the patient temperature is 97.9, heart rate of 66, blood pressure is 93/53 dropping to 80/50 with respirations of 18 saturating at 96%. Chest x-ray identifies retrocardiac streaky opacities. On laboratory analysis he has white count of 19.8 with neutrophils of 18,400, hemoglobin of 10.9, hematocrit 31.8 and platelets 152. His coagulation studies within normal limits. He has a sodium 135 potassium 4.6, a BUN of 54 and a creatinine of 1.53. His nonfasting glucose is 109. He has a total bilirubin of 1.3 with an AST of 59, ALT of 23 and alkaline phosphatase of 93. His initial lactic acid is 2.4 and on repeat is 1.6 his procalcitonin is 159. His COVID screening is negative. Ordered additional lab studies including a cardiac panel which showed a total CK of 1234, CK-MB of 13.40 for an index of 1.1. His troponin is 0.016. Also ordered a proBNP which is of 3670. Also ordered a CT of the abdomen and pelvis which finds no urinary tract obstruction with perinephritic stranding likely sequelae of renal insufficiency, mild bilateral pelviectasis no thickening of the adrenal glands, fecal retention constipation of the rectum and sigmoid junction, mesenteric swirl sign with mid abdomen with fluid filled loops of sm all bowel thickening of the cecum, bladder wall thickening. In the ER the patient received 2 L of normal saline, blood cultures and urine culture were completed and then administered Zosyn 3.375 g IV. The patient initially requested for admission for urosepsis found to be cecal colitis. Discharge Providers Provider Date of admission: 10/08/20 23:01 Discharge Date: 10/17/20 Primary care physician: Yann Dempsey MD Consults: 10/09/20 12:29 Consult After Hours PICC Line RN Urgent Comment: 10/11/20 05:13 Consult to Speech Therapy Evaluate & Treat Comment: Swallow eval Physician Instructions: Evaluate and treat 10/13/20 17:14 Consult to Occupational Therapy Evaluate & Treat Comment: Physician Instructions: Evaluate and treat Consult to Physical Therapy Evaluate & Treat Comment: Physician Instructions: Evaluate and Treat 10/15/20 09:18 Consult to Occupational Therapy Evaluate & Treat Comment: Physician Instructions: Evaluate and treat 10/15/20 09:19 Consult to Physical Therapy Evaluate & Treat Comment: Physician Instructions: Evaluate and Treat Discharge provider: Jose Light DO Summary Hospital Course Discharge Diagnosis: 1. Septic shock secondary to morganella bacteremia secondary to morganella urinary tract infection / acute cystitis, present on admission, resolved 2. Acute metabolic encephalopathy, improving. 3. Acute on chronic renal failure, acute portion resolved 4. Hypertension, chronic 5. Hypoglycemia, resolved 6. Hypothyroid, chronic 7. Depression, chronic 8. Dementia, now with resolved delirium, related to sepsis Hospital Course: The patient is a 75-year-old male with PMH of dementia, HTN, hypothyroidism who was admitted to the hospital with septic shock secondary to Morganella bacteremia secondary to an acute cystitis as his urine and blood cultures both grew this organism. Patient was initially continued on meropenem which was narrowed to ceftriaxone on October 12. He was continued on ceftriaxone for the remainder of his stay and will discharge on oral cefdinir at the time of discharge. Patient's stay was quite prolonged due to multiorgan failure including acute encephalopathy, acute on chronic renal failure and his course was complicated by delirium likely multifactorial secondary to his septic shock as well as possible hospital delirium. He was treated for delirium with some agitation with low-dose Seroquel, and he stabilized with treatment of his septic shock and resumption of his home medications once able to tolerate oral intake. On discharge the patient is very near his usual baseline, and was discharged home with home health after home training with his spouse. Upon discharge it is felt unlikely he will continue to need Seroquel, however this may be a consideration as an outpatient as his behavior has been very stable the last 48 hours and it is unclear at this time if this is due to Seroquel or resolution of his underlying sepsis. Status at Discharge Cognitive/behavioral status at discharge: at baseline, confused and calm Functional status at discharge: uses cane/walker Overall status at discharge: patient is progressing back to baseline Time Spent with Patient Time spent: Greater than 30 minutes Exam Vital Signs (past 8 hours): - 10/17/20 08:00 10/17/20 12:00 Temperature 98.2 F 98.1 F Pulse Rate 60 64 Respiratory Rate 17 18 Blood Pressure 145/73 H 127/65 Pulse Oximetry 98 98 Oxygen Delivery Method Room Air Oxygen Flow Rate 0 Narrative Exam Narrative: GENERAL APPEARANCE: Well developed, well nourished, elderly male in no acute distress SKIN: Inspection of the skin reveals no rashes, ulcerations or petechiae. HEENT: Normocephalic atraumatic, extraocular muscles are intact, oropharynx is clear and mucous membranes are moist, neck is supple without adenopathy NECK: Supple and symmetric. There was no thyroid enlargement, and no tenderness, or masses were felt. CHEST: Normal AP diameter and normal contour without any kyphoscoliosis. LUNGS: Auscultation of the lungs revealed no wheezes, rhonchi, or rales. CARDIOVASCULAR: There was a regular rate and rhythm without any murmurs, gallops, rubs. Peripheral pulses were 2+ and symmetric. ABDOMEN: Soft and nontender with normal bowel sounds. No ascites was noted. MUSCULOSKELETAL: There was no tenderness or effusions noted. Muscle strength and tone were normal. EXTREMITIES: No cyanosis, clubbing or edema. NEUROLOGIC: Alert and oriented to person and place. Strength is grossly +5/5 in the Upper Extremities and Lower Extremities Bilaterally but diffusely weak. Sensation to touch was normal. Cognitive impairment evident. Psych: calm, cooperative.. Objective Labs Result Diagrams: 10/13/20 04:40 10/17/20 05:40 Labs: Laboratory Results - last 24 hr 10/17/20 05:40 Sodium 136 L Potassium 4.2 Chloride 103 Carbon Dioxide 29 BUN 20 Creatinine 0.85 Estimated GFR > 60.0 BUN/Creatinine Ratio 23.5 H Glucose 87 Calcium 8.8 [facility] Medical History Constipation Depression Hyperlipidemia Hypertension Hypothyroidism (acquired) Obstructive sleep apnea syndrome Snoring Surgical History Hx of cataract surgery (Unknown) Hx of knee surgery (Unknown) Family History Father Hypertension Heart disease Mother Diabetes mellitus Hypertension Dementia Grandfather Cancer Grandmother No problems noted. Family/Other Hypertension Diabetes mellitus Social History marital status: household members: spouse lives independently: Yes Smoking Status: Never smoker alcohol intake: never substance use type: does not use Discharge Plan Discharge Plan Patient Disposition: Home Health Service Provider Discharge Comment: You were admitted to the hospital with a bloodstream bacterial infection that took a while to recover from with antibiotics. You should complete another 5 days of antibiotic therapy at home. We can probably stop seroquel, however if behavioral changes are an issue this can be restarted. I recommend you follow up with Dr. Dempsey this week if possible to check on symptoms and to follow up from this hospitalization. No other medication changes are necessary at this time. Discharge orders & Medications Prescriptions: New cefdinir 300 mg capsule 300 mg PO BID 5 Days Qty: 10 RF: 0 Continued losartan 25 mg tablet 25 mg PO DAILY Qty: 90 RF: 3 levothyroxine 100 mcg tablet 100 mcg PO DAILY Qty: 90 RF: 3 memantine 10 mg tablet 10 mg PO BID RF: 0 atorvastatin 40 mg tablet 40 mg PO BEDTIME Qty: 90 RF: 3 Ensure Plus 0.05-1.5 gram-kcal/mL liquid 1 each PO .QDAY Qty: 5688 RF: 11 polyethylene glycol 3350 [Miralax] 17 gram/dose Powder 17 g PO DAILY PRN (Reason: Constipation) RF: 0 cholecalciferol (vitamin D3) [Vitamin D3] 50 mcg (2,000 unit) Tablet 50 mcg PO BID RF: 0 famotidine 10 mg tablet 10 mg PO BID RF: 0 phenelzine 15 mg tablet 15 mg PO TID RF: 0 Discontinued prednisone 20 mg tablet 20 mg PO DAILY Qty: 10 RF: 0 Follow up/Referrals: Yann Dempsey MD [Primary Care Provider] - Diet/Activity/Treatments Diet: Diet as Tolerated Activity: As tolerated Discharge Data Primary Care Provider: Yann Dempsey
--- NOTE | 2020-10-17 13:32 | CM.DPC ---
DCP Discharge Home with HH Per MD, pt medically stable to d/c home today with spouse and HH and able to be on oral abx and no identified barriers to discharge. Per PT/ST, recommending safe d/c home with HH and ST recommending ST for cognition and explained pt's recommended diet suggestions to spouse bedside. SW met bedside with pt and spouse and explained role and discussed plan for d/c home with HH today and provided the [facility] the [facility] brochure and discussed HH services and frequency. Spouse is agreeable with HH still and confirmed that she is comfortable with plan of home via her vehicle back to [facility] today. SW provided copy of Medicare message for discharge and explained pt's Medicare Rights and spouse acknowledged understanding and agreeable with d/c home today. Spouse also inquired about Respite Care and resources for pt for likely upcoming knee surgery for herself and SW encouraged her to call the local facilities to inquire about their financial cost and length of stay criteria sooner rather than later. Spouse very appreciative of the information. SW updated RN and MD and called [facility] the [facility] with update on pt d/c home today and faxed d/c summary and MD orders to review and confirmed that [facility] has ST on staff but scheduled out a ways but for cognition rather than swallow needs so delayed start of care for ST would be acceptable. Plan: Patient to d/c home today via spouse POV and [facility] the [facility] to start pt to service. No further SW needs at this time. Kianna Alba, DAVID
--- NOTE | 2020-10-17 14:14 | PC.NURSE ---
pt discharged to home - with spouse, Lissette and follow up with home health. Lengthy review of all discharge plans and medications as well as follow up plans
== END 2020-10-17 14:13 | disposition home or self-care (01) | DRG 871 ==
LOC: ED 20:56 → AC 10-09 00:13 → ICU 10-09 09:07 → AC 10-10 10:21 → ICU 10-10 10:21
PROVIDERS: Internal Medicine; Nurse Practitioner Family; Admitting Provider Nurse Practitioner Adult Health; Emergency Provider Emergency Medicine; PCP Student in an Organized Health Care Education/Training Program; Referring Provider Emergency Medicine; Visit Provider Nurse Practitioner Adult Health
DX: A41.59 Other Gram-negative sepsis (principal); G93.41 Metabolic encephalopathy; R65.21 Severe sepsis with septic shock; N17.9 Acute kidney failure, unspecified; N39.0 Urinary tract infection, site not specified; F32.9 Major depressive disorder, single episode, unspecified; B96.89 Other specified bacterial agents as the cause of diseases classified elsewhere; R31.29 Other microscopic hematuria; F03.90 Unspecified dementia, unspecified severity, without behavioral disturbance, psychotic disturbance, mood disturbance, and anxiety; E78.5 Hyperlipidemia, unspecified; E03.9 Hypothyroidism, unspecified; E16.2 Hypoglycemia, unspecified; Z20.822 Contact with and (suspected) exposure to COVID-19; Z71.3 Dietary counseling and surveillance
CPT/HCPCS: 36415; 36569; 36592; 51705; 71045; 74176; 80048; 80053; 80202; 81001; 82550; 82553; 82962; 83605; 83690; 83735; 83880; 84100; 84145; 84484; 85025; 85610; 85730; 87040; 87077; 87086; 87150; 87186; 87205; 87635; 87797; 92526; 92610; 93005; 96361; 96365; 97116; 97161; 97165; 97166; 97530; 97535; 99284; J0696; J1170; J1630; J1642; J1650; J2060; J2185; J2543; J3480

== ENCOUNTER 2020-10-21 19:19 | Emergency (ER) | payer MEDICARE, BC, SELFPAY ==
[2020-10-09 15:08] VITALS: BMI 24.2
[2020-10-21 19:28] VITALS: BMI 21.2
[2020-10-21 19:36] VITALS: BP 137/63; PULSE 66; RESP 24; TEMP 36.7; O2SAT 100
--- NOTE | 2020-10-21 20:01 | ED_ITS ---
HPI - Nausea/Vomiting/Diarrhea General Chief complaint: Nausea/Vomiting/Diarrhea Stated complaint: Diarrhea since Saturday, dark stool Time Seen by Provider: 10/21/20 19:32 Source: patient and family () Mode of arrival: Ambulatory Limitations: no limitations History of Present Illness HPI Narrative: This is a 75-year-old male who comes to the emergency department with complaint of diarrhea since Saturday. Patient was hospitalized for urosepsis with Morganella. He is still taking oral antibiotics which states with a see. Appears to be cefdinir. Patient has at least 2 days left. He has been afebrile. He has not any nausea or vomiting. His states his appetite has been baseline, he is taking in sugars as well as eating solids. Patient has not had any abdominal pain. He has not had any new urinary symptoms. She states he is having 1-2 stools daily which are large. She does not describe them as significantly foul smelling. She has thought they were darker and states they may have been melanotic earlier this week but does not appreciated today. Patient does have some baseline memory issues and she states he is at his normal mental status. She states that she in contact with his primary care office today and they recommended that he come to the ER for evaluation. Related Data Home Medications Medication Instructions Recorded Confirmed cholecalciferol (vitamin D3) 50 mcg PO BID 01/31/20 10/08/20 [Vitamin D3] famotidine 10 mg tablet 10 mg PO BID tab 04/04/20 10/08/20 phenelzine 15 mg PO TID 06/13/20 10/08/20 polyethylene glycol 3350 [Miralax] 17 g PO DAILY PRN 07/09/20 10/09/20 memantine 10 mg tablet 10 mg PO BID 08/10/20 10/08/20 Previous Rx's Medication Instructions Recorded food supplemt, lactose-reduced 1 each PO .QDAY #5688 ml 03/12/19 0.05 gram-1.5 kcal/mL oral liquid losartan 25 mg tablet 25 mg PO DAILY #90 tab 12/02/19 levothyroxine 100 mcg tablet 100 mcg PO DAILY #90 tab 04/27/20 atorvastatin 40 mg tablet 40 mg PO BEDTIME #90 tab 08/31/20 Allergies Allergy/AdvReac Type Severity Reaction Status Date / Time contrast dye Allergy Unknown Rash Uncoded 10/21/20 19:56 high tyramine foods AdvReac Severe Hypertensio Uncoded 10/13/20 17:07 n Review of Systems Review of Systems ROS Unobtainable: All systems reviewed & are unremarkable except as noted in HPI and below ( gives majority of history) Patient History Medical History Constipation Depression Hyperlipidemia Hypertension Hypothyroidism (acquired) Obstructive sleep apnea syndrome Snoring Surgical History Hx of cataract surgery (Unknown) Hx of knee surgery (Unknown) Family History Father Hypertension Heart disease Mother Diabetes mellitus Hypertension Dementia Grandfather Cancer Grandmother No problems noted. Family/Other Hypertension Diabetes mellitus Social History marital status: household members: spouse lives independently: Yes Smoking Status: Never smoker alcohol intake: never substance use type: does not use Smoking Status: Never smoker alcohol intake frequency: 0-2 drinks per day Substance Use Type: does not use Exam Narrative Exam Narrative: GENERAL: Alert male, patient was initially resting/sleeping but awakens easily. Mild distress. HEENT: Head normocephalic, atraumatic, EOMI, pupils reactive, face symmetric, moist mucous membranes NECK: Supple, full range of motion CARDIOVASCULAR: Regular rate and rhythm without murmurs, rubs or gallops. RESPIRATORY: Breath sounds equal bilaterally, no wheezes rales or rhonchi. ABDOMEN: Soft, nontender. Nondistended. Normoactive bowel sounds all 4 quadrants. No guarding or rebound, rigidity, no mass. Stool occult is negative. : No CVA tenderness EXTREMITIES: Normal range of motion, no clubbing or edema. Neurovascularly intact NEUROLOGICAL: Cranial nerves II through XII grossly intact. Moving all extremities SKIN: Warm, dry, no petechiae, no rashes or lesions. Initial Vital Signs Initial Vital Signs: Vital Signs Temperature 98.1 F 10/21/20 19:36 Pulse Rate 66 10/21/20 19:36 Respiratory Rate 24 10/21/20 19:36 Blood Pressure 137/63 10/21/20 19:36 Pulse Oximetry 100 10/21/20 19:36 Course Orders Ordered: ED Orders 10/21/20 19:59 Complete Blood Count AUTO DIFF Stat Comprehensive Metabolic Panel Stat Lipase Stat 10/21/20 20:18 XR abdomen min 2V Stat 10/21/20 20:20 Clostridium Difficile Tox PCR Stat Discontinued Medications Sodium Chloride (Normal Saline 0.9%) 1,000 mls @ 150 mls/hr IV CONT MICHELLE Last Infusion: 10/21/20 21:53 Dose: 0 mls/hr Documented by: Admin: 10/21/20 20:03 Dose: 150 mls/hr Documented by: RONNY Reevaluation(s) Reevaluation #1: patient is comfortable, discussed labs and findings. Time: 21:43 Vital Signs Vital signs: Vital Signs - 8 hr 10/21/20 19:36 10/21/20 20:46 10/21/20 21:55 Temperature 98.1 F Pulse Rate 66 65 61 Respiratory Rate 24 23 12 Blood Pressure 137/63 144/74 H 152/73 H Pulse Oximetry 100 100 98 10/21/20 22:05 Temperature Pulse Rate 64 Respiratory Rate 16 Blood Pressure 134/68 Pulse Oximetry 98 MDM - Nausea/Vomiting/Diarrhea Lab Data Attestation: I reviewed the patient's lab results. Result diagrams: 10/21/20 19:59 10/21/20 19:59 Labs: Lab Results 10/21/20 10/21/20 10/21/20 Range/Units 19:59 19:59 20:20 WBC 4.3 L (4.5-11.0) X10^3/uL RBC 3.21 L (4.5-5.9) X10^6/uL Hgb 10.3 L (13.5-17.5) g/dL Hct 29.5 L (41-53) % MCV 92.0 D (80-100) fL MCH 32.1 (26-34) PG MCHC 34.9 (30-36) % RDW 13.1 (11.6-14.8) % Plt Count 268 (150-400) X10^3/uL Neut % (Auto) 61.4 (50-75) % Lymph % (Auto) 22.3 L (25-40) % [place] % (Auto) 12.4 (3-14) % Eos % (Auto) 2.1 (2-4) % Baso % (Auto) 1.8 (0-2) % Neut # (Auto) 2700 (9401-9755) /uL Lymph # (Auto) 1000 L (8150-8085) /uL [place] # (Auto) 500 (0-900) /uL Eos # (Auto) 100 (0-450) /uL Baso # (Auto) 100 (0-100) /uL Sodium 139 (137-145) mmol/L Potassium 4.2 (3.4-5.1) mmol/L Chloride 102 (98-107) mmol/L Carbon Dioxide 31 (22-32) mmol/L BUN 20 (9-20) mg/dL Creatinine 0.81 (0.66-1.25) mg/dL Estimated GFR > 60.0 (>60) mL/min BUN/Creatinine Ratio 24.7 H (6-22) Glucose 98 (80-110) mg/dL Calcium 9.2 (8.4-10.2) mg/dL Total Bilirubin 0.3 (0.2-1.3) mg/dL AST 29 (17-59) IU/L ALT 50 H (<50) IU/L Alkaline Phosphatase 65 (38-126) U/L Total Protein 6.8 (6.3-8.2) g/dL Albumin 3.9 (3.5-5.0) g/dL Globulin 2.9 (1.7-4.1) g/dL Albumin/Globulin Ratio 1.3 (1.0-2.8) Lipase 662 H (23-300) U/L C. difficile Tox (PCR) Negative for c. diff Point of Care Testing Glucose POC 107 Imaging Data Abdominal x-ray: Radiologist's Impression: [address] [id number] ReportSigned Patient: González Hough LMR#: [id number]: [id number]:[id number]/Sex: 75 / MDate of Service: 10/21/20Loc: EDAccession Number: [id number] Procedure: XR abdomen min 2V Ordering Provider: Ines Cool D.O. PROCEDURE: XR ABDOMEN MIN 2V INDICATIONS: diarrhea TECHNIQUE: 2 views of the abdomen were acquired. COMPARISON: [facility], CT, CT ABDOMEN PELVIS WO CON, 10/09/2020, 0:40. [facility], CR, XR ABDOMEN MIN 2V, 07/09/2020, 19:40. FINDINGS: Surgical changes and devices: None. Bowel: No pneumoperitoneum. The bowel gas pattern is nonobstructive. Moderate air is seen within the colon Soft tissues: No masses; visualized solid organ contours appear normal in size. No suspicious abdominal calcifications. Bones: No suspicious bony abnormalities. IMPRESSION: Nonspecific nonobstructive bowel gas pattern. No pneumoperitoneum. Dictated by: Wilton Fuentes M.D. on 10/21/2020 at 21:00 Approved by: Wilton Fuentes M.D. on 10/21/2020 at 21:02 MDM Narrative Medical decision making narrative: This is a 75-year-old male comes in with complaint of diarrhea since Saturday. Patient has had dark stools. Here his stool occult is negative. Patient has had 1-2 episodes each day that are somewhat large. Patient is currently on antibiotics and this may be the source. Labs today show a leukopenia, he did have a leukocytosis while admitted. His hemoglobin appears stable. His platelets have improved since his hospitalization he does not have a leftward shift. 50, and a lipase of 662, his last was 38 in September. Unclear if this could be related to his diarrhea. He has not had any abdominal pain. Patient's x-ray does not show any acute findings. Plan for watchful waiting recheck his lipase in this following week have patient return if any new or worsening symptoms. Discharge Plan Departure Patient Disposition: Home Clinical Impression: Diarrhea Instructions: Diarrhea Activity Restrictions/Additional Instructions: Follow-up with primary care this week for recheck. Call Saturday morning for an appointment. You may give Imodium [id number] for diarrhea if necessary. If only once or twice daily I would not give Imodium. C diff testing was negative today. Antibiotics can cause diarrhea and this may be the source. Your labs do show a elevation in your lipase today. It is unclear if this is related to your symptoms and I would have this rechecked with your physician. Please call on Saturday so they can arrange this. Please return for fevers greater than 100.4 F, chills, new or worsening abdominal, back or flank pain, new chest pain or shortness of breath, lightheadedness or passing out, black or bloody bowel movements or other new or concerning symptoms. Prescriptions: No Action losartan 25 mg tablet 25 mg PO DAILY Qty: 90 RF: 3 levothyroxine 100 mcg tablet 100 mcg PO DAILY Qty: 90 RF: 3 memantine 10 mg tablet 10 mg PO BID RF: 0 atorvastatin 40 mg tablet 40 mg PO BEDTIME Qty: 90 RF: 3 Ensure Plus 0.05-1.5 gram-kcal/mL liquid 1 each PO .QDAY Qty: 5688 RF: 11 polyethylene glycol 3350 [Miralax] 17 gram/dose Powder 17 g PO DAILY PRN (Reason: Constipation) RF: 0 cholecalciferol (vitamin D3) [Vitamin D3] 50 mcg (2,000 unit) Tablet 50 mcg PO BID RF: 0 famotidine 10 mg tablet 10 mg PO BID RF: 0 phenelzine 15 mg tablet 15 mg PO TID RF: 0 Referrals: Yann Dempsey MD [Primary Care Provider] -
[2020-10-21] MEDS: SODIUM CHLORIDE 0.9% 1,000 ML 150 ML IV (20:03)
[2020-10-21 20:12] LABS: Add Manual Diff / Slide Review NO; Basophils Absolute Auto 100 /uL (0-100); Basophils Percent Auto 1.8 % (0-2); Eosinophils Absolute Auto 100 /uL (0-450); Eosinophils Percent Auto 2.1 % (2-4); Hematocrit 29.5 % (41-53); Hemoglobin 10.3 g/dL (13.5-17.5); Lymphocytes Absolute Auto 1000 /uL (1100-4500); Lymphocytes Percent Auto 22.3 % (25-40); Mean Corpuscular HGB Conc 34.9 % (30-36); Mean Corpuscular Hemoglobin 32.1 PG (26-34); Monocytes Absolute Auto 500 /uL (0-900); Monocytes Percent Auto 12.4 % (3-14); Neutrophils Absolute Auto 2700 /uL (1500-7000); Neutrophils Percent Auto 61.4 % (50-75); Platelet Count 268 X10^3/uL (150-400); Red Blood Cell Count 3.21 X10^6/uL (4.5-5.9); Red Cell Distribution Width 13.1 % (11.6-14.8); White Blood Cell Count 4.3 X10^3/uL (4.5-11.0)
--- NOTE | 2020-10-21 20:18 | DI.RAD.S_ITS ---
PROCEDURE: XR ABDOMEN MIN 2V INDICATIONS: diarrhea TECHNIQUE: 2 views of the abdomen were acquired. COMPARISON: [facility], CT, CT ABDOMEN PELVIS WO CON, 10/09/2020, 0:40. [facility], CR, XR ABDOMEN MIN 2V, 07/09/2020, 19:40. FINDINGS: Surgical changes and devices: None. Bowel: No pneumoperitoneum. The bowel gas pattern is nonobstructive. Moderate air is seen within the colon Soft tissues: No masses; visualized solid organ contours appear normal in size. No suspicious abdominal calcifications. Bones: No suspicious bony abnormalities. IMPRESSION: Nonspecific nonobstructive bowel gas pattern. No pneumoperitoneum. Dictated by: Wilton Fuentes M.D. on 10/21/2020 at 21:00 Approved by: Wilton Fuentes M.D. on 10/21/2020 at 21:02
[2020-10-21 20:28] LABS: Alanine Aminotransferase 50 IU/L (<50); Albumin 3.9 g/dL (3.5-5.0); Albumin Globulin Ratio 1.3 (1.0-2.8); Alkaline Phosphatase 65 U/L (38-126); Aspartate Aminotransferase 29 IU/L (17-59); BUN Creatinine Ratio 24.7 (6-22); Bilirubin Total 0.3 mg/dL (0.2-1.3); Blood Urea Nitrogen 20 mg/dL (9-20); Calcium 9.2 mg/dL (8.4-10.2); Carbon Dioxide 31 mmol/L (22-32); Chloride 102 mmol/L (98-107); Estimated Glomerular Filt Rate > 60.0 mL/min (>60); Globulin 2.9 g/dL (1.7-4.1); Glucose 98 mg/dL (80-110); HEMOLYSIS < 15 (0-50); Lipase 662 U/L (23-300); Potassium 4.2 mmol/L (3.4-5.1); Sodium 139 mmol/L (137-145); Total Protein 6.8 g/dL (6.3-8.2)
[2020-10-21 20:46] VITALS: BP 144/74; PULSE 65; RESP 23; O2SAT 100
[2020-10-21 21:21] LABS: Clostridium Difficile Tox PCR Negative for C. diff
[2020-10-21 21:55] VITALS: BP 152/73; PULSE 61; RESP 12; O2SAT 98
[2020-10-21 22:05] VITALS: BP 134/68; PULSE 64; RESP 16; O2SAT 98
== END 2020-10-21 22:23 | disposition home or self-care (01) ==
PROVIDERS: Emergency Provider Emergency Medicine; PCP Student in an Organized Health Care Education/Training Program
DX: R19.7 Diarrhea, unspecified (principal)
CPT/HCPCS: 36415; 74019; 80053; 82962; 83690; 85025; 87493; 96360; 96361; 99284

== ENCOUNTER 2020-11-03 08:40 | Emergency (ER) | payer MEDICARE, BC, SELFPAY ==
[2020-10-09 15:08] VITALS: BMI 24.2
[2020-11-03 08:59] VITALS: BP 115/66; PULSE 78; RESP 16; TEMP 36.8; BMI 21.2
--- NOTE | 2020-11-03 09:09 | ED.MALEGU ---
HPI - Male Genitourinary General Chief complaint: Urogenital-Male Stated complaint: blood in urine Time Seen by Provider: 11/03/20 09:08 Source: patient and family ( gives majority of history.) Mode of arrival: Ambulatory Limitations: no limitations History of Present Illness HPI Narrative: This is a 75-year-old male comes to the emergency department with complaint of hematuria. Patient and noted yesterday when he urinated but was in a public toilet and she was unsure if this was from him or another individual. They noted again today when he used his urinal at home. Patient has not had any fevers or chills at home. He has not had any changes in mentation. His states he has actually improved since he was discharged from the hospital. Was hospitalized in September for urosepsis with Morganella morganii as the organism on urine culture and was quite ill. He was discharged home on oral antibiotics which he has completed. Patient does not have any abdominal, pelvic or flank pain. He denies any painful urination, no frequency, urgency or other new changes in urination. Patient does have some history of memory issues and his helps to supplement his history. He takes medication for hypertension, hypothyroidism and dyslipidemia. is understandably concerned about possible infection. Related Data Home Medications Medication Instructions Recorded Confirmed cholecalciferol (vitamin D3) 50 mcg PO BID 01/31/20 11/03/20 [Vitamin D3] famotidine 10 mg tablet 10 mg PO BID tab 04/04/20 11/03/20 phenelzine 15 mg PO TID 06/13/20 11/03/20 polyethylene glycol 3350 [Miralax] 17 g PO DAILY PRN 07/09/20 11/03/20 memantine 10 mg tablet 10 mg PO BID 08/10/20 11/03/20 Previous Rx's Medication Instructions Recorded food supplemt, lactose-reduced 1 each PO .QDAY #5688 ml 03/12/19 0.05 gram-1.5 kcal/mL oral liquid losartan 25 mg tablet 25 mg PO DAILY #90 tab 12/02/19 levothyroxine 100 mcg tablet 100 mcg PO DAILY #90 tab 04/27/20 atorvastatin 40 mg tablet 40 mg PO BEDTIME #90 tab 08/31/20 Allergies Allergy/AdvReac Type Severity Reaction Status Date / Time contrast dye Allergy Unknown Rash Uncoded 11/03/20 13:27 high tyramine foods AdvReac Severe Hypertensio Uncoded 11/03/20 13:27 n Review of Systems Review of Systems ROS Unobtainable: All systems reviewed & are unremarkable except as noted in HPI and below Patient History Medical History Constipation Depression Hyperlipidemia Hypertension Hypothyroidism (acquired) Obstructive sleep apnea syndrome Snoring Surgical History Hx of cataract surgery (Unknown) Hx of knee surgery (Unknown) Family History Father Hypertension Heart disease Mother Diabetes mellitus Hypertension Dementia Grandfather Cancer Grandmother No problems noted. Family/Other Hypertension Diabetes mellitus Social History marital status: household members: spouse lives independently: Yes Smoking Status: Never smoker alcohol intake: never substance use type: does not use Smoking Status: Never smoker alcohol intake frequency: 0-2 drinks per day Substance Use Type: does not use Exam Narrative Exam Narrative: GENERAL: Alert, thin appearing male patient is cooperative and answers some questions but allow his to answer majority of history. HEENT: Head normocephalic, atraumatic, EOMI, pupils reactive, face symmetric, moist mucous membranes NECK: Supple, full range of motion CARDIOVASCULAR: Regular rate and rhythm without murmurs, rubs or gallops. RESPIRATORY: Breath sounds equal bilaterally, no wheezes rales or rhonchi. ABDOMEN: Soft, nontender. Normoactive bowel sounds all 4 quadrants. No guarding or rebound, rigidity, no mass : No CVA tenderness EXTREMITIES: Normal range of motion, no clubbing or edema. Neurovascularly intact NEUROLOGICAL: Cranial nerves II through XII grossly intact. Moving all extremities SKIN: Warm, dry, no petechiae, no rashes or lesions. Initial Vital Signs Initial Vital Signs: Vital Signs Temperature 98.2 F 11/03/20 08:59 Pulse Rate 78 11/03/20 08:59 Respiratory Rate 16 11/03/20 08:59 Blood Pressure 115/66 11/03/20 08:59 Course Orders Ordered: ED Orders 11/03/20 09:39 Basic Metabolic Panel Stat Complete Blood Count AUTO DIFF Stat Partial Thromboplastin Time Stat Prothrombin Time INR Stat 11/03/20 10:15 Urinalysis and Microscopic Stat Urine Culture Stat Reevaluation(s) Reevaluation #1: Patient's urine shows blood but no obvious infection. It was sent for urine culture. Patient's labs were reviewed with the patient and his . He had CT images at the end of September and this was also reviewed which showed some cobwebbing of the kidneys bilaterally. Time: 10:39 Vital Signs Vital signs: Vital Signs - 8 hr 11/03/20 10:49 Temperature 97.6 F Pulse Rate 62 Respiratory Rate 15 Blood Pressure 124/61 Pulse Oximetry 98 MDM - Male Genitourinary Lab Data Attestation: I reviewed the patient's lab results. Result diagrams: 11/03/20 09:39 11/03/20 09:39 Labs: Lab Results 11/03/20 11/03/20 11/03/20 Range/Units 09:39 09:39 09:39 WBC 2.6 L (4.5-11.0) X10^3/uL RBC 3.13 L (4.5-5.9) X10^6/uL Hgb 10.3 L (13.5-17.5) g/dL Hct 29.0 L (41-53) % MCV 92.5 (80-100) fL MCH 32.9 (26-34) PG MCHC 35.6 (30-36) % RDW 14.7 (11.6-14.8) % Plt Count 130 L (150-400) X10^3/uL Neut % (Auto) 54.6 (50-75) % Lymph % (Auto) 23.9 L (25-40) % [place] % (Auto) 16.7 H (3-14) % Eos % (Auto) 4.0 (2-4) % Baso % (Auto) 0.8 (0-2) % Neut # (Auto) 1400 L (7186-9466) /uL Lymph # (Auto) 600 L (9083-2582) /uL [place] # (Auto) 400 (0-900) /uL Eos # (Auto) 100 (0-450) /uL Baso # (Auto) 0 (0-100) /uL PT 10.6 (10.1-12.7) SECONDS INR 0.9 (0.9-1.3) APTT 30 (26.4-36.2) SECONDS Sodium 136 L (137-145) mmol/L Potassium 4.3 (3.4-5.1) mmol/L Chloride 99 (98-107) mmol/L Carbon Dioxide 31 (22-32) mmol/L BUN 17 (9-20) mg/dL Creatinine 0.82 (0.66-1.25) mg/dL Estimated GFR > 60.0 (>60) mL/min BUN/Creatinine Ratio 20.7 (6-22) Glucose 109 (80-110) mg/dL Calcium 9.1 (8.4-10.2) mg/dL Urine Color Urine Appearance Urine pH (4.5-8.0) Ur Specific [place] (1.000-1.035) Urine Protein (Negative) Urine Glucose (UA) (Negative) g/dL Urine Ketones (NEGATIVE) Urine Occult Blood (Negative) Urine Nitrate (Negative) Urine Bilirubin (NEGATIVE) Urine Urobilinogen (0.2) E.U./dL Ur Leukocyte Esterase (NEGATIVE) Urine RBC (0-5/HPF) Urine WBC (0-5/HPF) Amorphous Sediment Urine Bacteria (None) Ur Culture Indicated? 11/03/20 Range/Units 10:15 WBC (4.5-11.0) X10^3/uL RBC (4.5-5.9) X10^6/uL Hgb (13.5-17.5) g/dL Hct (41-53) % MCV (80-100) fL MCH (26-34) PG MCHC (30-36) % RDW (11.6-14.8) % Plt Count (150-400) X10^3/uL Neut % (Auto) (50-75) % Lymph % (Auto) (25-40) % [place] % (Auto) (3-14) % Eos % (Auto) (2-4) % Baso % (Auto) (0-2) % Neut # (Auto) (9836-1744) /uL Lymph # (Auto) (4969-2944) /uL [place] # (Auto) (0-900) /uL Eos # (Auto) (0-450) /uL Baso # (Auto) (0-100) /uL PT (10.1-12.7) SECONDS INR (0.9-1.3) APTT (26.4-36.2) SECONDS Sodium (137-145) mmol/L Potassium (3.4-5.1) mmol/L Chloride (98-107) mmol/L Carbon Dioxide (22-32) mmol/L BUN (9-20) mg/dL Creatinine (0.66-1.25) mg/dL Estimated GFR (>60) mL/min BUN/Creatinine Ratio (6-22) Glucose (80-110) mg/dL Calcium (8.4-10.2) mg/dL Urine Color Yellow Urine Appearance Clear Urine pH 7.0 (4.5-8.0) Ur Specific [place] 1.010 (1.000-1.035) Urine Protein Negative (Negative) Urine Glucose (UA) Negative (Negative) g/dL Urine Ketones Negative (NEGATIVE) Urine Occult Blood Trace-lysed (Negative) Urine Nitrate Negative (Negative) Urine Bilirubin Negative (NEGATIVE) Urine Urobilinogen 0.2 (0.2) E.U./dL Ur Leukocyte Esterase Negative (NEGATIVE) Urine RBC 0-1/hpf D (0-5/HPF) Urine WBC 0-1/hpf (0-5/HPF) Amorphous Sediment 1+ Urine Bacteria None seen (None) Ur Culture Indicated? Cult not indicated MDM Narrative Medical decision making narrative: This is a 75-year-old male who comes emergency department with hematuria which is painless. Patient does not have an obvious infection today. He was admitted in the last month with urosepsis for Morganella and patient was justify oblique concerned that he may be having a recurrence. Urine showed hematuria, no infection and was sent for urine culture. Labs did not show any clear cause than he had prior CT in September which showed some [place] webbing of the kidneys but no other significant changes. He is otherwise asymptomatic so imaging was not repeated today. Patient's is aware that if infection is not found he needs follow-up to make sure his hematuria has resolved and if it is continuing he will need follow-up for cystoscopy with Urology. We also discussed return precautions and patient's expressed her understanding is she is the patient's main caregiver. Discharge Plan Departure Patient Disposition: Home Clinical Impression: Hematuria Instructions: DI for Hematuria Activity Restrictions/Additional Instructions: Follow-up with your physician next week for recheck. Your urine today does not show clear signs of infection but it was sent for urine culture which typically results in 24-48 hours. If positive you should expect a phone call to update you on the results and call in antibiotics. You had CT that imaged your kidneys in september. They only changes noted were that there was senescent cobwebbing noted on both kidneys. Share this information with your physician. If your urine culture is negative and you continue to have hematuria you should follow-up with your primary care physician for recheck. If this continues you may need to follow up with Urology for cystoscopy for further evaluation. Please return for fevers, new or worsening abdominal, back or flank pain, difficulty or inability to urinate, lightheadedness or passing out, new chest, shortness of breath, increasing hematuria with large clots or other new or concerning symptoms. Prescriptions: No Action losartan 25 mg tablet 25 mg PO DAILY Qty: 90 RF: 3 levothyroxine 100 mcg tablet 100 mcg PO DAILY Qty: 90 RF: 3 memantine 10 mg tablet 10 mg PO BID RF: 0 atorvastatin 40 mg tablet 40 mg PO BEDTIME Qty: 90 RF: 3 Ensure Plus 0.05-1.5 gram-kcal/mL liquid 1 each PO .QDAY Qty: 5688 RF: 11 polyethylene glycol 3350 [Miralax] 17 gram/dose Powder 17 g PO DAILY PRN (Reason: Constipation) RF: 0 cholecalciferol (vitamin D3) [Vitamin D3] 50 mcg (2,000 unit) Tablet 50 mcg PO BID RF: 0 famotidine 10 mg tablet 10 mg PO BID RF: 0 phenelzine 15 mg tablet 15 mg PO TID RF: 0 Referrals: Yann Dempsey MD [Primary Care Provider] -
[2020-11-03 09:48] LABS: Add Manual Diff / Slide Review NO; Basophils Absolute Auto 0 /uL (0-100); Basophils Percent Auto 0.8 % (0-2); Eosinophils Absolute Auto 100 /uL (0-450); Hemoglobin 10.3 g/dL (13.5-17.5); Lymphocytes Absolute Auto 600 /uL (1100-4500); Lymphocytes Percent Auto 23.9 % (25-40); Mean Corpuscular HGB Conc 35.6 % (30-36); Mean Corpuscular Hemoglobin 32.9 PG (26-34); Mean Corpuscular Volume 92.5 fL (80-100); Monocytes Absolute Auto 400 /uL (0-900); Monocytes Percent Auto 16.7 % (3-14); Neutrophils Absolute Auto 1400 /uL (1500-7000); Neutrophils Percent Auto 54.6 % (50-75); Platelet Count 130 X10^3/uL (150-400); Red Blood Cell Count 3.13 X10^6/uL (4.5-5.9); Red Cell Distribution Width 14.7 % (11.6-14.8); White Blood Cell Count 2.6 X10^3/uL (4.5-11.0)
[2020-11-03 09:58] LABS: INR 0.9 (0.9-1.3); Prothrombin Time 10.6 SECONDS (10.1-12.7)
[2020-11-03 10:00] LABS: PTT Partial Thromboplastin Tim 30 SECONDS (26.4-36.2)
[2020-11-03 10:02] LABS: BUN Creatinine Ratio 20.7 (6-22); Blood Urea Nitrogen 17 mg/dL (9-20); Calcium 9.1 mg/dL (8.4-10.2); Carbon Dioxide 31 mmol/L (22-32); Chloride 99 mmol/L (98-107); Estimated Glomerular Filt Rate > 60.0 mL/min (>60); Glucose 109 mg/dL (80-110); HEMOLYSIS < 15 (0-50); Potassium 4.3 mmol/L (3.4-5.1); Sodium 136 mmol/L (137-145)
[2020-11-03 10:21] LABS: Bacteria Urine None Seen
[2020-11-03 10:25] LABS: Appearance Urine UA CLEAR; Bilirubin Urine UA NEGATIVE (NEGATIVE); Color Urine UA YELLOW; Glucose Urine UA NEGATIVE (Negative); Ketones Urine UA NEGATIVE (NEGATIVE); Leukocyte Esterase Urine UA NEGATIVE (NEGATIVE); Nitrite Urine UA NEGATIVE (Negative); Occult Blood Urine UA TRACE-LYSED (Negative); Protein Urine UA NEGATIVE (Negative); Urobilinogen Urine UA 0.2 E.U./dL (0.2)
[2020-11-03 10:33] LABS: Amorphous Sediment Urine 1+; Culture Indicated Urine Cult Not Indicated; RBC Urine 0-1/HPF (0-5/HPF); WBC Urine 0-1/HPF (0-5/HPF)
[2020-11-03 10:49] VITALS: BP 124/61; PULSE 62; RESP 15; TEMP 36.4; O2SAT 98
== END 2020-11-03 11:08 | disposition home or self-care (01) ==
PROVIDERS: Emergency Provider Emergency Medicine; PCP Student in an Organized Health Care Education/Training Program
DX: R31.9 Hematuria, unspecified (principal)
CPT/HCPCS: 36415; 80048; 81001; 85025; 85610; 85730; 87086; 99283

== ENCOUNTER → 2020-11-23 17:37 | Outpatient (CLI) | payer MEDICARE, BC, SELFPAY ==
[2020-10-09 15:08] VITALS: BMI 24.2
[2020-11-23 18:14] LABS: Appearance Urine UA CLEAR; Bilirubin Urine UA NEGATIVE (NEGATIVE); Color Urine UA YELLOW; Glucose Urine UA NEGATIVE (Negative); Ketones Urine UA NEGATIVE (NEGATIVE); Leukocyte Esterase Urine UA TRACE (NEGATIVE); Nitrite Urine UA NEGATIVE (Negative); Occult Blood Urine UA NEGATIVE (Negative); Protein Urine UA NEGATIVE (Negative); Specific Gravity Urine UA 1.025 (1.000-1.035); Urobilinogen Urine UA 0.2 E.U./dL (0.2)
[2020-11-23 19:34] LABS: Calcium Oxalate Crystals Urine Few; RBC Urine 1-5/HPF (0-5/HPF); Squamous Epithelial Cell Urine 1-5 /HPF (0-5/HPF); WBC Urine 10-30/HPF (0-5/HPF)
[2020-11-23 19:35] LABS: Bacteria Urine Occasional (0-1); Culture Indicated Urine Specimen Cultured; Hyaline Casts Urine 1-5/LPF; Mucus Urine 1+ (Negative)
== END ==
PROVIDERS: PCP Student in an Organized Health Care Education/Training Program; Referring Provider Student in an Organized Health Care Education/Training Program; Visit Provider Student in an Organized Health Care Education/Training Program
DX: R31.9 Hematuria, unspecified (principal)
CPT/HCPCS: 81001; 87086

== ENCOUNTER 2020-12-22 08:08 | Emergency (ER) | payer MEDICARE, BC, SELFPAY ==
[2020-10-09 15:08] VITALS: BMI 24.2
[2020-12-22 08:10] VITALS: BP 185/88; PULSE 77; RESP 16; O2SAT 97
--- NOTE | 2020-12-22 08:15 | DI.RAD.S_ITS ---
PROCEDURE: XR ABDOMEN MIN 2V INDICATIONS: severe lower abdomen pain TECHNIQUE: 2 views of the abdomen were acquired. COMPARISON: [facility], CT, CT ABDOMEN PELVIS WO CON, 10/09/2020, 0:40. [facility], CR, XR ABDOMEN MIN 2V, 10/21/2020, 20:17. [facility], CR, XR ABDOMEN MIN 2V, 07/09/2020, 19:40. FINDINGS: Surgical changes and devices: None. Bowel: No pneumoperitoneum. Prominent stool in the colon and rectal vault. No dilated loops of small bowel are identified. Soft tissues: No masses; visualized solid organ contours appear normal in size. No suspicious abdominal calcifications. Bones: No suspicious bony abnormalities. IMPRESSION: No dilated loops of bowel are identified. Prominent stool in the colon and rectal vault. These findings could be seen in constipation. If clinically indicated consider CT abdomen pelvis with IV contrast. Dictated by: Harvey Tian M.D. on 12/22/2020 at 9:11 Approved by: Harvey Tian M.D. on 12/22/2020 at 9:21
--- NOTE | 2020-12-22 08:53 | ED.ABDPAIN ---
HPI - Abdominal Pain General Chief Complaint: Abdominal Pain Stated Complaint: Lower ABD pain Time Seen by Provider: 12/22/20 08:15 Source: patient Mode of arrival: EMS Limitations: no limitations History of Present Illness HPI narrative: 75-year-old male nonsmoker with history of dementia, hypothyroid and hyperlipidemia presents with family in the chief complaint of severe lower pelvic pain over the course of the past day. He is a terrible historian and states only that his abdomen is hurting. He states it hurts worse when he moves and improves with rest. He denies any nausea or vomiting and states his last bowel movement was yesterday and soft. He is passing gas. He denies any change in diet or medications. He denies any dysuria, frequency, urgency or obvious urinary retention. Patient was here few weeks ago and evaluated for hematuria. He has no reported history of prostate trouble MD complaint: abdominal pain Onset (ago): hour(s) Pain Consistency: constant Location: suprapubic Severity: moderate Quality: cramping and stabbing Radiation: none Relieving factors: rest Exacerbating factors: movement Associated symptoms: denies other symptoms Related Data Home Medications Medication Instructions Recorded Confirmed cholecalciferol (vitamin D3) 50 mcg PO BID 01/31/20 11/03/20 [Vitamin D3] famotidine 10 mg tablet 10 mg PO BID tab 04/04/20 11/03/20 phenelzine 15 mg PO TID 06/13/20 11/03/20 polyethylene glycol 3350 [Miralax] 17 g PO DAILY PRN 07/09/20 11/03/20 memantine 10 mg tablet 10 mg PO BID 08/10/20 11/03/20 Previous Rx's Medication Instructions Recorded food supplemt, lactose-reduced 1 each PO .QDAY #5688 ml 03/12/19 0.05 gram-1.5 kcal/mL oral liquid levothyroxine 100 mcg tablet 100 mcg PO DAILY #90 tab 04/27/20 atorvastatin 40 mg tablet 40 mg PO BEDTIME #90 tab 08/31/20 losartan 25 mg tablet 25 mg PO DAILY #90 tab 12/09/20 Allergies Allergy/AdvReac Type Severity Reaction Status Date / Time contrast dye Allergy Unknown Rash Uncoded 11/03/20 13:27 high tyramine foods AdvReac Severe Hypertensio Uncoded 11/03/20 13:27 n Review of Systems Constitutional Constitutional: Denies chills, Denies fatigue, Denies fever(s), Denies frequent falls, Denies lethargy and Denies weakness Eyes Eyes: Denies change in vision, Denies eye discharge, Denies irritation and Denies loss of vision ENT Ears, Nose, Mouth, and Throat: Denies change in voice, Denies dizziness, Denies neck pain, Denies sore throat and Denies throat swelling Cardiovascular Cardiovascular: Denies chest pain, Denies irregular heart rhythm, Denies lightheadedness, Denies palpitations, Denies dyspnea, Denies dyspnea on exertion and Denies orthopnea Respiratory Respiratory: Denies cough, Denies dyspnea, Denies dyspnea on exertion and Denies wheezing Gastrointestinal Gastrointestinal: Reports abdominal pain, Denies change in bowel habits, Denies diarrhea, Denies nausea and Denies vomiting Musculoskeletal Musculoskeletal: Denies neck pain and Denies numbness Integumentary/Breasts Skin/Breast: Denies pruritus, Denies erythema, Denies rash and Denies wounds Neurologic Neurologic: Denies behavioral changes, Denies confusion, Denies dizziness, Denies frequent falls, Denies loss of vision, Denies numbness and Denies weakness Psychiatric Psychiatric: Denies anxiety, Denies behavioral changes, Denies confusion, Denies depression, Denies homicidal ideation and Denies suicidal ideation Endocrine Endocrine: Denies fatigue, Denies flushing and Denies palpitations Hematologic/Lymphatic Hematologic/Lymphatic: Denies easy bruising Allergic/Immunologic Allergic/Immunologic: Denies urticaria, Denies throat swelling and Denies wheezing Patient History Medical History Depression Hyperlipidemia Hypertension Hypothyroidism (acquired) Obstructive sleep apnea syndrome Snoring Surgical History Hx of cataract surgery (Unknown) Hx of knee surgery (Unknown) Family History Father Hypertension Heart disease Mother Diabetes mellitus Hypertension Dementia Grandfather Cancer Grandmother No problems noted. Family/Other Hypertension Diabetes mellitus Social History marital status: household members: spouse lives independently: Yes Smoking Status: Never smoker alcohol intake: never substance use type: does not use Smoking Status: Never smoker alcohol intake frequency: 0-2 drinks per day Substance Use Type: does not use Exam Narrative Exam Narrative: GENERAL: [75] year old patient appears stated age. Well-developed patient, in mild distress. Pleasantly confused HEAD: Atraumatic. Normocephalic. EYES: Pupils equal round and reactive. Extraocular motions intact. No scleral icterus. No injection or drainage. ENT: Nose without bleeding, purulent drainage. Throat without erythema, tonsillar hypertrophy or exudate. Airway patent. NECK: Trachea midline. Non tender CARDIOVASCULAR: Regular rate and rhythm without murmurs, gallops, or rubs. RESPIRATORY: Clear to auscultation. Breath sounds equal bilaterally. No wheezes, rales, or rhonchi. GASTROINTESTINAL: Abdomen firm in the suprapubic region, bowel sounds present, tender to palpate EXTREMITIES: No edema or joint tenderness. BACK: Nontender without deformity or crepitance. No flank tenderness. NEURO: AOx3. SKIN: No rash or erythema of visible areas Initial Vital Signs Initial Vital Signs: Vital Signs Pulse Rate 77 12/22/20 08:10 Respiratory Rate 16 12/22/20 08:10 Blood Pressure 185/88 H 12/22/20 08:10 Pulse Oximetry 97 12/22/20 08:10 Course Course Course Narrative: Nearly immediately after initial evaluation nursing was asked to perform bedside bladder scan which noted over 750 mL. At that point a Cheek catheter was ordered and promptly drained over 1 L of urine, this was sent to the lab, patient's abdomen soft and symptoms greatly improved Orders Ordered: ED Orders 12/22/20 08:15 XR abdomen min 2V Stat 12/22/20 08:58 Urinalysis and Microscopic Stat 12/22/20 09:20 Complete Blood Count AUTO DIFF Stat Comprehensive Metabolic Panel Stat Vital Signs Vital signs: Vital Signs - 8 hr 12/22/20 11:19 Pulse Rate 67 Respiratory Rate 18 Blood Pressure 151/80 H Pulse Oximetry 99 MDM - Abdominal Pain Lab Data Result diagrams: 12/22/20 09:20 12/22/20 09:20 Labs: Lab Results 12/22/20 12/22/20 12/22/20 Range/Units 08:58 09:20 09:20 WBC 8.1 (4.5-11.0) X10^3/uL RBC 3.66 L (4.5-5.9) X10^6/uL Hgb 12.0 L (13.5-17.5) g/dL Hct 34.0 L (41-53) % MCV 92.9 (80-100) fL MCH 32.7 (26-34) PG MCHC 35.2 (30-36) % RDW 13.8 (11.6-14.8) % Plt Count 144 L (150-400) X10^3/uL Neut % (Auto) 86.5 H (50-75) % Lymph % (Auto) 6.8 L (25-40) % [place] % (Auto) 6.4 (3-14) % Eos % (Auto) 0.2 L (2-4) % Baso % (Auto) 0.1 (0-2) % Neut # (Auto) 7000 (2754-9199) /uL Lymph # (Auto) 600 L (1742-7323) /uL [place] # (Auto) 500 (0-900) /uL Eos # (Auto) 0 (0-450) /uL Baso # (Auto) 0 (0-100) /uL Sodium 136 L (137-145) mmol/L Potassium 4.2 (3.4-5.1) mmol/L Chloride 100 (98-107) mmol/L Carbon Dioxide 28 (22-32) mmol/L BUN 20 (9-20) mg/dL Creatinine 0.73 (0.66-1.25) mg/dL Estimated GFR > 60.0 (>60) mL/min BUN/Creatinine Ratio 27.4 H (6-22) Glucose 110 (80-110) mg/dL Calcium 9.8 (8.4-10.2) mg/dL Total Bilirubin 1.0 (0.2-1.3) mg/dL AST 25 (17-59) IU/L ALT 16 (<50) IU/L Alkaline Phosphatase 71 (38-126) U/L Total Protein 7.3 (6.3-8.2) g/dL Albumin 4.3 (3.5-5.0) g/dL Globulin 3.0 (1.7-4.1) g/dL Albumin/Globulin Ratio 1.4 (1.0-2.8) Urine Color Yellow Urine Appearance Clear Urine pH 7.0 (4.5-8.0) Ur Specific [place] 1.015 (1.000-1.035) Urine Protein Negative (Negative) Urine Glucose (UA) Negative (Negative) g/dL Urine Ketones Negative (NEGATIVE) Urine Occult Blood Trace-intact (Negative) Urine Nitrate Negative (Negative) Urine Bilirubin Negative (NEGATIVE) Urine Urobilinogen 0.2 (0.2) E.U./dL Ur Leukocyte Esterase Negative (NEGATIVE) Urine RBC 0-1/hpf (0-5/HPF) Urine WBC 0-1/hpf (0-5/HPF) Urine Bacteria Few (2-10) H (None) Ur Culture Indicated? Cult not indicated Imaging Data Abdominal x-ray: Radiologist's Impression: [address] [id number] ReportSigned Patient: González Hough LMR#: [id number]: 6Acct:[id number]/Sex: 75 / MDate of Service: 12/22/20Loc: EDAccession Number: [id number] Procedure: XR abdomen min 2V Ordering Provider: Xavier Centeno D.O. PROCEDURE: XR ABDOMEN MIN 2V INDICATIONS: severe lower abdomen pain TECHNIQUE: 2 views of the abdomen were acquired. COMPARISON: [facility], CT, CT ABDOMEN PELVIS WO CON, 10/09/2020, 0:40. [facility], CR, XR ABDOMEN MIN 2V, 10/21/2020, 20:17. [facility], CR, XR ABDOMEN MIN 2V, 07/09/2020, 19:40. FINDINGS: Surgical changes and devices: None. Bowel: No pneumoperitoneum. Prominent stool in the colon and rectal vault. No dilated loops of small bowel are identified. Soft tissues: No masses; visualized solid organ contours appear normal in size. No suspicious abdominal calcifications. Bones: No suspicious bony abnormalities. IMPRESSION: No dilated loops of bowel are identified. Prominent stool in the colon and rectal vault. These findings could be seen in constipation. If clinically indicated consider CT abdomen pelvis with IV contrast. Dictated by: Harvey Tian M.D. on 12/22/2020 at 9:11 Approved by: Harvey Tian M.D. on 12/22/2020 at 9:21 Discharge Plan Departure Patient Disposition: Home Clinical Impression: Acute urinary retention Instructions: DI for Urinary Retention in Men Activity Restrictions/Additional Instructions: *You have been diagnosed with [acute urinary retention with very reassuring blood work, no sign of infection in the urine or kidney failure. X-rays demonstrate no obstruction or other ominous finding] *What to do: *Please continue to take your regular medications as directed. [ ] New medication prescriptions sent to your pharmacy: [ ] [ ] New medication written as a paper prescription [x ] No new medications given *Please follow up with your primary care provider in 2-3 days, call for an appointment. Let them know you were seen in the Emergency Department and that we ask that you be seen in follow up. We will electronically transmit a record of today's note if your PCP is in our system *If you do not have a primary care provider please contact the [facility] Resource line at [phone]. They will ask some questions about your medical history and help get you set up with a doctor in the community. *Return to Emergency Department if you should have any new, worsening or concerning symptoms, such as [fever greater than 101 F, shaking chills, worsening pain, persistent vomiting or other bothersome symptoms] Prescriptions: No Action levothyroxine 100 mcg tablet 100 mcg PO DAILY Qty: 90 RF: 3 memantine 10 mg tablet 10 mg PO BID RF: 0 atorvastatin 40 mg tablet 40 mg PO BEDTIME Qty: 90 RF: 3 losartan 25 mg tablet 25 mg PO DAILY Qty: 90 RF: 1 Ensure Plus 0.05-1.5 gram-kcal/mL liquid 1 each PO .QDAY Qty: 5688 RF: 11 polyethylene glycol 3350 [Miralax] 17 gram/dose Powder 17 g PO DAILY PRN (Reason: Constipation) RF: 0 cholecalciferol (vitamin D3) [Vitamin D3] 50 mcg (2,000 unit) Tablet 50 mcg PO BID RF: 0 famotidine 10 mg tablet 10 mg PO BID RF: 0 phenelzine 15 mg tablet 15 mg PO TID RF: 0 Referrals: Yann Dempsey MD [Primary Care Provider] - Mary Reyes MD [Physician] -
[2020-12-22 09:05] LABS: Appearance Urine UA CLEAR; Bilirubin Urine UA NEGATIVE (NEGATIVE); Color Urine UA YELLOW; Glucose Urine UA NEGATIVE (Negative); Ketones Urine UA NEGATIVE (NEGATIVE); Leukocyte Esterase Urine UA NEGATIVE (NEGATIVE); Nitrite Urine UA NEGATIVE (Negative); Occult Blood Urine UA TRACE-INTACT (Negative); Protein Urine UA NEGATIVE (Negative); Specific Gravity Urine UA 1.015 (1.000-1.035); Urobilinogen Urine UA 0.2 E.U./dL (0.2)
[2020-12-22 09:16] LABS: Bacteria Urine Few (2-10); Culture Indicated Urine Cult Not Indicated; RBC Urine 0-1/HPF (0-5/HPF); WBC Urine 0-1/HPF (0-5/HPF)
[2020-12-22 09:27] LABS: Add Manual Diff / Slide Review NO; Basophils Absolute Auto 0 /uL (0-100); Basophils Percent Auto 0.1 % (0-2); Eosinophils Absolute Auto 0 /uL (0-450); Eosinophils Percent Auto 0.2 % (2-4); Lymphocytes Absolute Auto 600 /uL (1100-4500); Lymphocytes Percent Auto 6.8 % (25-40); Mean Corpuscular HGB Conc 35.2 % (30-36); Mean Corpuscular Hemoglobin 32.7 PG (26-34); Mean Corpuscular Volume 92.9 fL (80-100); Monocytes Absolute Auto 500 /uL (0-900); Monocytes Percent Auto 6.4 % (3-14); Neutrophils Absolute Auto 7000 /uL (1500-7000); Neutrophils Percent Auto 86.5 % (50-75); Platelet Count 144 X10^3/uL (150-400); Red Blood Cell Count 3.66 X10^6/uL (4.5-5.9); Red Cell Distribution Width 13.8 % (11.6-14.8); White Blood Cell Count 8.1 X10^3/uL (4.5-11.0)
[2020-12-22 09:41] LABS: Alanine Aminotransferase 16 IU/L (<50); Albumin 4.3 g/dL (3.5-5.0); Albumin Globulin Ratio 1.4 (1.0-2.8); Alkaline Phosphatase 71 U/L (38-126); Aspartate Aminotransferase 25 IU/L (17-59); BUN Creatinine Ratio 27.4 (6-22); Blood Urea Nitrogen 20 mg/dL (9-20); Calcium 9.8 mg/dL (8.4-10.2); Carbon Dioxide 28 mmol/L (22-32); Chloride 100 mmol/L (98-107); Estimated Glomerular Filt Rate > 60.0 mL/min (>60); Glucose 110 mg/dL (80-110); HEMOLYSIS < 15 (0-50); Potassium 4.2 mmol/L (3.4-5.1); Sodium 136 mmol/L (137-145); Total Protein 7.3 g/dL (6.3-8.2)
[2020-12-22 11:19] VITALS: BP 151/80; PULSE 67; RESP 18; O2SAT 99
--- NOTE | 2020-12-22 11:41 | PC.NURSE ---
Detailed teaching about catheter,keeping it sterile and changing bags.
== END 2020-12-22 11:42 | disposition home or self-care (01) ==
PROVIDERS: Emergency Provider Emergency Medicine; PCP Student in an Organized Health Care Education/Training Program
DX: R33.8 Other retention of urine (principal); R10.30 Lower abdominal pain, unspecified
CPT/HCPCS: 36415; 51702; 74019; 80053; 81001; 85025; 99284

== ENCOUNTER 2020-12-23 14:01 | Emergency (ER) | payer MEDICARE, BC, SELFPAY ==
[2020-10-09 15:08] VITALS: BMI 24.2
[2020-12-23 14:08] VITALS: BP 129/63; PULSE 81; RESP 16; TEMP 37.2; O2SAT 95; BMI 21.2
--- NOTE | 2020-12-23 14:13 | ED_ITS ---
HPI - Male Genitourinary <Xavier Bianchian, - Last Filed: 12/24/20 07:22> General Chief complaint: Urogenital-Male Stated complaint: pulled catheter last night/cut it off Time Seen by Provider: 12/23/20 14:06 Source: patient Mode of arrival: Ambulatory Limitations: no limitations History of Present Illness HPI Narrative: 75-year-old male nonsmoker with history of dementia, hypothyroid and hyperlipidemia presents with family and the chief complaint of agrawal catheter problem. He was seen and evaluated by myself a few days ago and diagnosed with urinary retention and a Agrawal catheter was placed. Apparently last evening he was irritated by the presence of the catheter and was pulling and tugging at it for much of the evening. His states that they had multiple conversations about leaving alone and ran the process of following up with local urology but over the course of the night he cut the Agrawal catheter with a pair of scissors and the most distal tip has pulled up within his urethra. He is otherwise well and free of complaint. He did not injure himself with this process. He is having no pain or fever chills. His last oral intake would have been about 8:00 a.m. this morning for both solids and liquids. MD Complaint: other Onset (ago): hour(s) Associated symptoms: Reports denies other symptoms Related Data Home Medications Medication Instructions Recorded Confirmed cholecalciferol (vitamin D3) 50 mcg PO BID 01/31/20 11/03/20 [Vitamin D3] famotidine 10 mg tablet 10 mg PO BID tab 04/04/20 11/03/20 phenelzine 15 mg PO TID 06/13/20 11/03/20 polyethylene glycol 3350 [Miralax] 17 g PO DAILY PRN 07/09/20 11/03/20 memantine 10 mg tablet 10 mg PO BID 08/10/20 11/03/20 Previous Rx's Medication Instructions Recorded food supplemt, lactose-reduced 1 each PO .QDAY #5688 ml 03/12/19 0.05 gram-1.5 kcal/mL oral liquid levothyroxine 100 mcg tablet 100 mcg PO DAILY #90 tab 04/27/20 atorvastatin 40 mg tablet 40 mg PO BEDTIME #90 tab 08/31/20 losartan 25 mg tablet 25 mg PO DAILY #90 tab 12/09/20 cefuroxime axetil 500 mg PO BID #14 tab 12/23/20 Allergies Allergy/AdvReac Type Severity Reaction Status Date / Time COVID-19 vaccine, mRNA, AdvReac Rash Verified 12/23/20 14:11 [id number], [COVID-19 vaccine, mRNA-1273, LNP-S] contrast dye Allergy Unknown Rash Uncoded 11/03/20 13:27 high tyramine foods AdvReac Severe Hypertensio Uncoded 11/03/20 13:27 n Review of Systems <Xavier Centeno DO - Last Filed: 12/24/20 07:22> Constitutional Constitutional: Denies chills, Denies fatigue, Denies fever(s), Denies frequent falls, Denies lethargy and Denies weakness Eyes Eyes: Denies change in vision, Denies eye discharge, Denies irritation and Denies loss of vision ENT Ears, Nose, Mouth, and Throat: Denies change in voice, Denies dizziness, Denies neck pain, Denies sore throat and Denies throat swelling Cardiovascular Cardiovascular: Denies chest pain, Denies irregular heart rhythm, Denies lightheadedness, Denies palpitations, Denies dyspnea, Denies dyspnea on exertion and Denies orthopnea Respiratory Respiratory: Denies cough, Denies dyspnea, Denies dyspnea on exertion and Denies wheezing Gastrointestinal Gastrointestinal: Denies abdominal pain, Denies change in bowel habits, Denies diarrhea, Denies nausea and Denies vomiting Genitourinary Comments: Agrawal catheter problem Musculoskeletal Musculoskeletal: Denies neck pain and Denies numbness Integumentary/Breasts Skin/Breast: Denies pruritus, Denies erythema, Denies rash and Denies wounds Neurologic Neurologic: Denies behavioral changes, Denies confusion, Denies dizziness, Denies frequent falls, Denies loss of vision, Denies numbness and Denies weakness Psychiatric Psychiatric: Denies anxiety, Denies behavioral changes, Denies confusion, Denies depression, Denies homicidal ideation and Denies suicidal ideation Endocrine Endocrine: Denies fatigue, Denies flushing and Denies palpitations Hematologic/Lymphatic Hematologic/Lymphatic: Denies easy bruising Allergic/Immunologic Allergic/Immunologic: Denies urticaria, Denies throat swelling and Denies wheezing Patient History <DO Tor Palma Last Filed: 12/24/20 07:22> Medical History Depression Hyperlipidemia Hypertension Hypothyroidism (acquired) Obstructive sleep apnea syndrome Snoring Surgical History Hx of cataract surgery (Unknown) Hx of knee surgery (Unknown) Family History Father Hypertension Heart disease Mother Diabetes mellitus Hypertension Dementia Grandfather Cancer Grandmother No problems noted. Family/Other Hypertension Diabetes mellitus Social History marital status: household members: spouse lives independently: Yes Smoking Status: Never smoker alcohol intake: never substance use type: does not use Smoking Status: Never smoker alcohol intake frequency: 0-2 drinks per day Substance Use Type: does not use Exam <Xavier Centeno DO - Last Filed: 12/24/20 07:22> Narrative Exam Narrative: GEN: 75M resting comfortably in no obvious distress. Pleasantly confused and at baseline EYES: Pupils are equal, round, and reactive to light and accommodation. Extraoccular muscles are intact bilaterally. There is no subconjunctival hemorrhage or exudate. CHEST: Lungs are clear to auscultation bilaterally and free of wheezes, rales, or rhonchi. Heart rate is regular rhythm, there are no murmurs, clicks, rubs, or gallops. There is no chest wall tenderness. ABD: Abdomen is soft and nontender. There is no guarding or rebound. Bowel soun ds are normal in all 4 quadrants. There is no mass or organomegaly. : no agrawal seen at meatus EXT: Full painless ROM of all extremities with no loss of sensation or strength. SKIN: Warm, pink, and dry. No erythema or rash Initial Vital Signs Initial Vital Signs: Vital Signs Temperature 99.0 F 12/23/20 14:08 Pulse Rate 81 12/23/20 14:08 Respiratory Rate 16 12/23/20 14:08 Blood Pressure 129/63 12/23/20 14:08 Pulse Oximetry 95 12/23/20 14:08 <Claudia Denney DO - Last Filed: 12/23/20 20:36> Initial Vital Signs Initial Vital Signs: Vital Signs Temperature 99.0 F 12/23/20 14:08 Pulse Rate 81 12/23/20 14:08 Respiratory Rate 16 12/23/20 14:08 Blood Pressure 129/63 12/23/20 14:08 Pulse Oximetry 95 12/23/20 14:08 Course <Xavier Centeno DO - Last Filed: 12/24/20 07:22> Course Course Narrative: Of had a lengthy discussion at the bedside with patient's and we sure the opinion that if we can avoid placing another Agrawal that would be in the patient's best interest, she understands that with this we do run the risk of possible recurrence of retention and she understands return precautions for this. Orders Ordered: Discontinued Medications Lidocaine HCl (Lidocaine 2% (Glydo) 6 Ml Gel) 6 ml TOP NOW ONE Stop: 12/23/20 15:41 Last Admin: 12/23/20 15:46 Dose: 6 ml Documented by: CARLOS Reevaluation(s) Reevaluation #1: straight cath easily drains 400mL urine, minimal post void. Will observe until 1830 for ability to void. 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 Dr. Pelaez suggests placing another catheter to push existing catheter into bladder until he can follow up early next week for definitive treatment. If unable then transfer is needed. calls back, same recommendation Vital Signs Vital signs: Vital Signs - 8 hr 12/23/20 14:08 Temperature 99.0 F Pulse Rate 81 Respiratory Rate 16 Blood Pressure 129/63 Pulse Oximetry 95 <Claudia Denney, DO - Last Filed: 12/23/20 20:36> Orders Ordered: Discontinued Medications Lidocaine HCl (Lidocaine 2% (Glydo) 6 Ml Gel) 6 ml TOP NOW ONE Stop: 12/23/20 15:41 Last Admin: 12/23/20 15:46 Dose: 6 ml Documented by: CARLOS Vital Signs Vital signs: Vital Signs - 8 hr 12/23/20 14:08 Temperature 99.0 F Pulse Rate 81 Respiratory Rate 16 Blood Pressure 129/63 Pulse Oximetry 95 MDM - Male Genitourinary <Xavier Centeno DO - Last Filed: 12/24/20 07:22> Lab Data Labs: Lab Results 12/23/20 Range/Units 14:47 SARS-CoV-2 (PCR) Negative (Negative) <Claudia Jumana, DO - Last Filed: 12/23/20 20:36> Lab Data Labs: Lab Results 12/23/20 Range/Units 14:47 SARS-CoV-2 (PCR) Negative (Negative) MDM Narrative Medical decision making narrative: Patient signed out to me by Dr. Frey and seen evaluated patient myself. Awaiting patient to spontaneously void currently has 195 mL in bladder and is unable to do so. Discussed with him Agrawal catheter possible is admissions that he does not remove it or spontaneous void. At this time patient becomes agitated and walks out. large animal husbandry technician was called and notified to find patient he was found on the outskirts of the hospital. Police were called and he was brought back to the emergency department. After speaking to his he finally agrees to Agrawal catheter placement for 5-6 days the is taught how to deflate the balloon. An appointment with Urology on Saturday which is in 3 days. Discharge Plan Departure Patient Disposition: Home Clinical Impression: Agrawal catheter problem Qualifiers: Encounter type: initial encounter Qualified Code(s): T83.9XXA - Unspecified complication of genitourinary prosthetic device, implant and graft, initial encounter Instructions: How to Care for Your Agrawal Catheter -- Male, DI for Urinary Retention in Men Activity Restrictions/Additional Instructions: *You have been diagnosed with [ agrawal cather problem, urinary retention] *What to do: *Please continue to take your regular medications as directed. [ x] New medication prescriptions sent to your pharmacy: [ [facility]] [ ] New medication written as a paper prescription [ ] No new medications given * please contact Dr. Reyes in his office on Saturday, his contact information is listed below. Please let them know that you have been seen in the emergency department twice and we need do seen in follow-up. I will electronically transmitted a record of today's note *Return to Emergency Department if you should have any new, worsening or concerning symptoms, such as [fever greater than 101 F, shaking chills, worsening pain, persistent vomiting, failure to urinate or other bothersome symptoms] Prescriptions: New cefuroxime axetil 500 mg tablet 500 mg PO BID Qty: 14 RF: 0 No Action levothyroxine 100 mcg tablet 100 mcg PO DAILY Qty: 90 RF: 3 memantine 10 mg tablet 10 mg PO BID RF: 0 atorvastatin 40 mg tablet 40 mg PO BEDTIME Qty: 90 RF: 3 losartan 25 mg tablet 25 mg PO DAILY Qty: 90 RF: 1 Ensure Plus 0.05-1.5 gram-kcal/mL liquid 1 each PO .QDAY Qty: 5688 RF: 11 polyethylene glycol 3350 [Miralax] 17 gram/dose Powder 17 g PO DAILY PRN (Reason: Constipation) RF: 0 cholecalciferol (vitamin D3) [Vitamin D3] 50 mcg (2,000 unit) Tablet 50 mcg PO BID RF: 0 famotidine 10 mg tablet 10 mg PO BID RF: 0 phenelzine 15 mg tablet 15 mg PO TID RF: 0 Referrals: Yann Dempsey MD [Primary Care Provider] -
--- NOTE | 2020-12-23 14:15 | PC.NURSE ---
Unable to visualize catheter. Pt cut at the base.
[2020-12-23 15:08] LABS: COVID19 -Nasal RAPID Negative (Negative)
[2020-12-23] MEDS: LIDOCAINE 2% (GLYDO) 6 ML GEL TOP (15:46)
--- NOTE | 2020-12-23 16:20 | PC.NURSE ---
Pt given sandwich, juice and cheese while he waits for PVR check at 1830.
--- NOTE | 2020-12-23 18:11 | PC.NURSE ---
Pt given multiple juices, soda and water. Pt is unable to urinate at this time.
--- NOTE | 2020-12-23 18:39 | PC.NURSE ---
Pt is unable to urinate.
[2020-12-23 21:16] VITALS: BP 112/62; PULSE 90; RESP 16; TEMP 36.8; O2SAT 95
== END 2020-12-23 21:18 | disposition home or self-care (01) ==
PROVIDERS: Emergency Medicine; Emergency Provider Emergency Medicine; PCP Student in an Organized Health Care Education/Training Program
DX: T83.9XXA Unspecified complication of genitourinary prosthetic device, implant and graft, initial encounter (principal); R33.8 Other retention of urine; Z20.822 Contact with and (suspected) exposure to COVID-19
CPT/HCPCS: 51701; 51702; 51798; 87635; 99283; C9803

== ENCOUNTER → 2020-12-28 13:51 | Outpatient (CLI) | payer MEDICARE, BC, SELFPAY ==
[2020-10-09 15:08] VITALS: BMI 24.2
[2020-12-28 14:25] LABS: COVID19 -Nasal RAPID Negative (Negative)
== END ==
PROVIDERS: PCP Student in an Organized Health Care Education/Training Program; Visit Provider Specialist
DX: Z20.822 Contact with and (suspected) exposure to COVID-19 (principal); R33.8 Other retention of urine; T19.1XXA Foreign body in bladder, initial encounter; K59.09 Other constipation; Z68.21 Body mass index [BMI] 21.0-21.9, adult
CPT/HCPCS: 87635; 99215

== ENCOUNTER 2020-12-30 07:19 | Day surgery (SDC) | payer MEDICARE, BC, SELFPAY ==
[2020-10-09 15:08] VITALS: BMI 24.2
[2020-12-29 08:12] VITALS: BMI 21.2
[2020-12-30] VITALS (7 sets, daily range): BP systolic 110–159; BP diastolic 58–80; PULSE 56–67; RESP 9–16; TEMP 36.1–36.8; O2SAT 96–98; BMI 21.2
[2020-12-30] MEDS: LACTATED RINGERS 1,000 ML 42 ML IV (08:28)
--- NOTE | 2020-12-30 08:38 | PM.PREOP ---
Pre-operative Note Interval Note History & Physical reviewed/Exam performed by Physician: Yes Changes to H&P: No
[2020-12-30] MEDS: GENTAMICIN 160 MG in SODIUM CHLORIDE 0.9% 100 ML 104 ML IV (09:04)
[2020-12-30] MEDS: AMPICILLIN/SULBACTAM 3 GM 3 GM in SODIUM CHLORIDE 0.9% 100 ML IV (09:46)
--- NOTE | 2020-12-30 10:14 | P.OP_ITS ---
Operative Date/Time/Diagnoses Date of procedure: 12/30/20 Time of procedure: 10:14 Pre-op diagnosis: Foreign body in bladder Post-op diagnosis: other (Bladder calculi) Procedure & Clinicians Procedure: Cystoscopy/removal bladder calculi (less than 2.5 cm). Same procedure as scheduled: No (No Cheek tip found in lower urinary tract.) Indications: 1. History of patient with dementia transecting Cheek catheter with scissors. Surgeon: Mary Reyes Click Yes if Unassisted: Yes Anesthesia Type: General Operative Notes Findings: Urethra-normal caliber without annular stricture or lesion. External sphincter-coapted with normal overlying urothelium other than mild foreign body related erosions. Prostate 4-4.5 cm length with elevated median bar. Bladder-1+ trabeculation. Ureteral orifices in normal position bilaterally with clear efflux. There was a moderate amount of amorphous calculus debris line dependently in the bladder floor. Multiple inspections with filling and emptying the bladder failed to identify foreign body. The calculus material was irrigated and and removed manually from the bladder. Closure Type: not applicable Specimen(s): other (Stone material) Applied: catheter (18 [place] Cheek) Estimated Blood Loss (mL): 0 Blood products transfused: none Procedure in detail: Patient was positioned supine administered general anesthesia. He was then repositioned semi-lithotomy the lower abdomen, genital ia, and groin were then prepped and draped in sterile fashion. A 22 [place] panendoscope was then passed into the lower urinary tract with the findings as described above. The alligator tip flexible foreign body grasper was then used to remove a portion of the calculus material on the bladder floor. The remainder was irrigated from within the lumen of the bladder. Final inspection failed once again to identify foreign body within the bladder. The bladder was then left partially filled in the panendoscope was removed. An 18 [place] Cheek catheter was then inserted lower urinary tract, the balloon inflated 10 cc, and the catheter was then placed to gravity drainage. Patient was then repositioned in supine, was awakened, transferred to a gurney and transported to recovery in stable condition. Complications: none Post-operative Condition: stable Disposition: PACU Plan for aftercare: Discharge home
--- NOTE | 2020-12-30 10:18 | SUR.OPER ---
Lithotomy on padded OR bed, head on pillow, arms secured on padded arm boards at <90 degrees abduction. Legs secured in padded yellow fins stirrups.
--- NOTE | 2020-12-30 10:55 | SUR.PHASEI ---
Pt gradually awake, follows simple commands, squeezed my hand, stated he did not want ice because he was not thirsty. Denied pain, agrawal draining pink urine with no clots.
--- NOTE | 2020-12-30 12:02 | SUR.PHASEII ---
family member requested leg bag in addition to larger bag to use with FC. Extensive teaching was performed with family member assisting. D/C instructions were reviewed and pt was dressed with the assistance of the family member and myself. Trans[facility] main [facility] by JOSE Rucker
== END 2020-12-30 12:08 | disposition home or self-care (01) ==
PROVIDERS: PCP Student in an Organized Health Care Education/Training Program; Referring Provider Specialist; Visit Provider Specialist
PROC: 0TJB8ZZ Inspection of Bladder, Via Natural or Artificial Opening Endoscopic (ICD-10-PCS; CPT 52000; principal; 2020-12-30 08:45)
DX: N21.0 Calculus in bladder (principal); G47.33 Obstructive sleep apnea (adult) (pediatric); F32.9 Major depressive disorder, single episode, unspecified; E03.9 Hypothyroidism, unspecified; E78.5 Hyperlipidemia, unspecified; I10 Essential (primary) hypertension
CPT/HCPCS: 52310; J0295; J2704; J3010

== ENCOUNTER → 2021-07-31 14:21 | Outpatient (CLI) | payer MEDICARE, BC, SELFPAY ==
[2021-01-02 11:09] VITALS: BMI 24.2
[2021-08-03 17:41] LABS: Clostridium Difficile Tox PCR Negative for C. diff (Negative)
== END ==
PROVIDERS: PCP Student in an Organized Health Care Education/Training Program; Referring Provider Student in an Organized Health Care Education/Training Program; Visit Provider Student in an Organized Health Care Education/Training Program
DX: R19.7 Diarrhea, unspecified (principal)
CPT/HCPCS: 87045; 87205; 87493; 87899

== ENCOUNTER → 2021-08-09 07:39 | Outpatient (CLI) | payer MEDICARE, BC, SELFPAY ==
[2021-01-02 11:09] VITALS: BMI 24.2
[2021-08-09 08:16] LABS: BUN Creatinine Ratio 18.9 (6-22); Blood Urea Nitrogen 21 mg/dL (9-20); Calcium 9.4 mg/dL (8.4-10.2); Carbon Dioxide 34 mmol/L (22-32); Chloride 101 mmol/L (98-107); Estimated Glomerular Filt Rate > 60.0 mL/min (>60); Glucose 92 mg/dL (80-110); HEMOLYSIS < 15 (0-50); Potassium 4.5 mmol/L (3.4-5.1); Sodium 140 mmol/L (137-145)
--- NOTE | 2021-08-09 08:58 | DI.CT.S_ITS ---
PROCEDURE: CT ABDOMEN PELVIS W CON INDICATIONS: ongoing diarrhea x > 1 week, abd pain TECHNIQUE: After the administration of oral and IV contrast, axial sections were acquired from the lung bases to the pubic symphysis. Coronal and sagittal reformats were performed. For radiation dose reduction, the following was used: automated exposure control, adjustment of mA and/or kV according to patient size. COMPARISON: [facility], CT, CT ABDOMEN PELVIS WO CON, 10/09/2020, 0:40. [facility], CT, CT ABDOMEN PELVIS W CON, 03/06/2019, 13:22. FINDINGS: Image quality: Excellent. Lung bases: Mild opacity at the left lung base is decreased compared to 2019. There is left lower lobe bronchiectasis. Heart: No significant findings. ABDOMEN: Liver: No focal lesion. Gallbladder: Not distended. No calcified gallstones. Biliary ducts: Unremarkable. Pancreas: Enhances uniformly. No peripancreatic fluid. Spleen: Unremarkable. Adrenal Glands: No nodule. Kidneys and Ureters: No hydronephrosis. Small low-density cyst at the superior pole the left kidney. Stomach and Bowel: Stomach is not distended. No small bowel obstruction. There is prominent stool in the colon. A few colonic diverticuli. The appendix is not dilated. Peritoneum: No abnormal intraperitoneal fluid. No free air. Ventral Wall: No hernia. Abdominal Nodes: No retroperitoneal or mesenteric adenopathy by size criteria. Vessels: Aorta and inferior vena cava are normal in size. PELVIS: Pelvic Organs: Unremarkable. Bladder: Unremarkable. Pelvic Nodes: No enlarged lymph nodes. Miscellaneous: Fat containing inguinal hernias are seen. Sigmoid colon is at the opening of the left inguinal hernia. Bones: No compression fracture. Grade 1 anterolisthesis of L5 on S1. Multilevel DDD. IMPRESSION: 1. No acute inflammatory process is identified. No free fluid. 2. There is prominent stool in the colon. No bowel obstruction. 3. Left lung base opacity is decreased compared to 2019. Left lower lobe bronchiectasis. Dictated by: Harvey Tian M.D. on 08/09/2021 at 9:28 Approved by: Harvey Tian M.D. on 08/09/2021 at 9:37
== END ==
PROVIDERS: PCP Student in an Organized Health Care Education/Training Program; Referring Provider Student in an Organized Health Care Education/Training Program; Visit Provider Student in an Organized Health Care Education/Training Program
DX: Z01.812 Encounter for preprocedural laboratory examination (principal); R19.7 Diarrhea, unspecified; R10.9 Unspecified abdominal pain; K40.90 Unilateral inguinal hernia, without obstruction or gangrene, not specified as recurrent; J47.9 Bronchiectasis, uncomplicated
CPT/HCPCS: 36415; 74177; 80048; Q9967

== ENCOUNTER 2022-04-13 20:37 | Emergency (ER) | payer MEDICARE, BC, SELFPAY ==
[2021-01-02 11:09] VITALS: BMI 24.2
[2022-04-13] VITALS (9 sets, daily range): BP systolic 104–136; BP diastolic 58–74; PULSE 63–92; RESP 14–28; TEMP 37.2; O2SAT 85–99; BMI 19.8
--- NOTE | 2022-04-13 20:53 | DI.RAD.S_ITS ---
PROCEDURE: XR CHEST 1V INDICATIONS: altered mental status TECHNIQUE: One view of the chest was acquired. COMPARISON: [facility], CR, XR CHEST FOR PICC 1V, 10/09/2020, 16:33. FINDINGS: Surgical changes and devices: None. Lungs and pleura: Lungs are clear. No pleural effusions or pneumothorax. Mediastinum: Mediastinal contours appear normal. Heart size is normal. Bones and chest wall: No suspicious bony lesions. Overlying soft tissues appear unremarkable. IMPRESSION: 1. No acute cardiopulmonary disease. Dictated by: Ghulam Elizondo M.D. on 04/13/2022 at 22:42 Approved by: Ghulam Elizondo M.D. on 04/13/2022 at 22:45
[2022-04-13 21:00] LABS: Add Manual Diff / Slide Review NO; Basophils Absolute Auto 0 /uL (0-100); Basophils Percent Auto 0.5 % (0-2); Eosinophils Absolute Auto 100 /uL (0-450); Eosinophils Percent Auto 2.1 % (2-4); Hematocrit 31.9 % (41-53); Hemoglobin 11.3 g/dL (13.5-17.5); Lymphocytes Absolute Auto 1000 /uL (1100-4500); Mean Corpuscular HGB Conc 35.3 % (30-36); Mean Corpuscular Hemoglobin 32.5 PG (26-34); Mean Corpuscular Volume 92.1 fL (80-100); Monocytes Absolute Auto 500 /uL (0-900); Monocytes Percent Auto 8.2 % (3-14); Neutrophils Absolute Auto 3900 /uL (1500-7000); Neutrophils Percent Auto 71.2 % (50-75); Platelet Count 175 X10^3/uL (150-400); Red Blood Cell Count 3.46 X10^6/uL (4.5-5.9); Red Cell Distribution Width 13.5 % (11.6-14.8); White Blood Cell Count 5.5 X10^3/uL (4.5-11.0)
[2022-04-13 21:01] LABS: Prothrombin Time 11.3 SECONDS (10.1-12.7)
--- NOTE | 2022-04-13 21:13 | DI.CT.S_ITS ---
PROCEDURE: CT HEAD/BRAIN WO CON INDICATIONS: acute confusion TECHNIQUE: Noncontrast 4.5 mm thick angled axial sections acquired from the foramen magnum to the vertex, with coronal and sagittal reformats. For radiation dose reduction, the following was used: automated exposure control, adjustment of mA and/or kV according to patient size. COMPARISON: None. FINDINGS: Image quality: Excellent. CSF spaces: Basal cisterns are patent. No extra-axial fluid collections. There is mild to moderate cerebral volume loss, with resultant ventricular and sulcal prominence. Brain: No intracranial hemorrhage, mass, or mass effect. There are subcortical, periventricular and deep white matter hypodensities consistent with [id number] chronic small vessel ischemic changes. The hall-white matter junction appears preserved. There is intracranial internal carotid artery atherosclerosis. Skull and face: Calvarium and visualized facial bones appear intact, without suspicious lesions. Sinuses: Visualized sinuses and mastoids are clear. IMPRESSION: 1. No acute intracranial abnormality. 2. Mild to moderate chronic white matter small vessel ischemic changes and cerebral volume loss. Dictated by: Ghulam Elizondo M.D. on 04/13/2022 at 21:50 Approved by: Ghulam Elizondo M.D. on 04/13/2022 at 21:51
[2022-04-13 21:28] LABS: Acetaminophen < 10 ug/mL (10-30); Magnesium 2.1 mg/dL (1.6-2.3); Salicylate < 1.0 mg/dL (<20)
[2022-04-13 21:29] LABS: Appearance Urine UA CLEAR; Bilirubin Urine UA NEGATIVE (NEGATIVE); Color Urine UA YELLOW; Glucose Urine UA NEGATIVE (Negative); Ketones Urine UA NEGATIVE (NEGATIVE); Leukocyte Esterase Urine UA NEGATIVE (NEGATIVE); Nitrite Urine UA NEGATIVE (Negative); Occult Blood Urine UA TRACE-INTACT (Negative); Protein Urine UA NEGATIVE (Negative); Urobilinogen Urine UA 0.2 E.U./dL (0.2); pH Urine UA 7.5 (4.5-8.0)
[2022-04-13 21:29] LABS: Ethanol (ETOH) < 10 mg/dL
[2022-04-13 21:32] LABS: Alanine Aminotransferase 16 IU/L (<50); Albumin 4.3 g/dL (3.5-5.0); Albumin Globulin Ratio 1.4 (1.0-2.8); Alkaline Phosphatase 68 U/L (38-126); Aspartate Aminotransferase 21 IU/L (17-59); BUN Creatinine Ratio 25.6 (6-22); Bilirubin Total 0.7 mg/dL (0.2-1.3); Blood Urea Nitrogen 22 mg/dL (9-20); Calcium 9.1 mg/dL (8.4-10.2); Carbon Dioxide 24 mmol/L (22-32); Chloride 102 mmol/L (98-107); Estimated Glomerular Filt Rate > 60 mL/min (>60); Glucose 115 mg/dL (80-110); HEMOLYSIS < 15 (0-50); Sodium 139 mmol/L (137-145); Total Protein 7.3 g/dL (6.3-8.2)
[2022-04-13 21:44] LABS: Bacteria Urine None Seen; Culture Indicated Urine Cult Not Indicated; RBC Urine 0-1/HPF (0-5/HPF); WBC Urine None Seen (0-5/HPF)
[2022-04-13 21:47] LABS: Ur Creatinine 20 (Normal); Urine pH 7.5 (Normal)
[2022-04-13 21:48] LABS: UR Morphine/Opiate cutoff 300 Negative (Negative); Urine Amphetamines Negative (Negative); Urine Barbiturates Negative (Negative); Urine Benzodiazepines Negative (Negative); Urine Cocaine Negative (Negative); Urine MDMA Negative (Negative); Urine Methadone Negative (Negative); Urine Methamphetamines Negative (Negative); Urine Oxycodone Negative (Negative); Urine Phencyclidine Negative (Negative); Urine Tetrahydrocannabinol Negative (Negative); Urine Tricyclic Antidepressant Negative (Negative)
[2022-04-13 21:51] LABS: COVID19 -Nasal RAPID Negative (Negative)
[2022-04-13 22:00] LABS: Ammonia (NH3) < 9 umol/L (9-30)
[2022-04-13 22:02] LABS: Thyroid Stimulating Hormone 0.017 uIU/mL (0.47-4.68)
--- NOTE | 2022-04-13 22:07 | ED.GENADULT ---
HPI - General Adult <Raj Valencia DO - Last Filed: 04/14/22 17:59> General Chief complaint: Altered Mental Status Stated complaint: ALT Mental status Time Seen by Provider: 04/13/22 20:47 Source: family and EMS Mode of arrival: EMS Limitations: altered mental status History of Present Illness HPI narrative: Patient is a 76-year-old male who is brought in by EMS after they were called to the local very the [facility] because the patient was combative and destroying property. Prior to arrival the patient received an initial 200 mg dose of IM ketamine and then an additional 100 mg IM ketamine just prior to arrival. Patient is unable to provide any HPI or review of systems. Patient's did come to the emergency department. She states that the patient has been diagnosed with dementia. He is not on any specific medications for this. She states he is seen neurology and has had all kinds of x-rays and CT scans and lab work. There is no specific etiology of the dementia. She is concerned that he is not been tested for Lyme disease. For some time now she is been taking care of the patient at home. She states that he very frequently takes ?walks ?he does this by himself. He does go on his neighbor's property. states that the neighbors are okay with him roaming the property. She frequently has to go out and find him however over the past week there have been episodes where he has been gone for extended periods of time where she could not find him. They have had to contact the EMS and also the deputy sheriff custody's department to help find him recently. She states that she came to the local area because she needed to get her phone fixed. While they are waiting for the [place] am unsure exactly what caused the patient become very agitated although the thinks that it maybe because he wanted to go and walk around and he was not able to and then when he became combative another individual's became concerned this escalated him. Related Data Home Medications Medication Instructions Recorded Confirmed cholecalciferol (vitamin D3) 50 50 mcg PO BID 01/31/20 04/14/22 mcg (2,000 unit) tablet (Vitamin D3) memantine 10 mg tablet 10 mg PO BID 08/10/20 04/14/22 Previous Rx's Medication Instructions Recorded food supplemt, lactose-reduced 1 each PO .QDAY #5,688 mL 03/12/19 0.05 gram-1.5 kcal/mL oral liquid (Ensure Plus) atorvastatin 40 mg tablet 40 mg PO BEDTIME #90 tabs 10/11/21 phenelzine 15 mg tablet 15 mg PO TID #90 tabs 01/03/22 losartan 25 mg tablet 25 mg PO DAILY #90 tabs 02/20/22 levothyroxine 100 mcg tablet 100 mcg PO DAILY #90 tabs 03/12/22 alfuzosin 10 mg tablet,extended See Rx Instructions .Route 03/20/22 release 24 hr .COMPLEX #90 tabs quetiapine 25 mg tablet (Seroquel) See Rx Instructions .Route 04/14/22 .COMPLEX #45 tabs Allergies Allergy/AdvReac Type Severity Reaction Status Date / Time COVID-19 vaccine, mRNA, AdvReac Rash Verified 07/31/21 14:05 [id number], [COVID-19 vaccine, mRNA-1273, LNP-S] contrast dye Allergy Unknown Rash Uncoded 07/31/21 14:05 high tyramine foods AdvReac Severe Hypertensio Uncoded 07/31/21 14:05 n Review of Systems <Raj Valencia DO - Last Filed: 04/14/22 17:59> Review of Systems ROS Unobtainable: Unobtainable due to mental condition Patient History <Raj Valencia DO - Last Filed: 04/14/22 17:59> Medical History Depression Foreign body in bladder History of recent hospitalization (10/09/20) Hyperlipidemia Hypertension Hypothyroidism (acquired) Obstructive sleep apnea syndrome Snoring Vaccine reaction Surgical History Hx of cataract surgery (Unknown) Hx of knee surgery (Unknown) Family History Father Hypertension Heart disease Mother Diabetes mellitus Hypertension Dementia Grandfather Cancer Grandmother No problems noted. Family/Other Hypertension Diabetes mellitus Social History marital status: household members: spouse lives independently: Yes Smoking Status: Never smoker alcohol intake: never substance use type: does not use Smoking Status: Never smoker alcohol intake frequency: 0-2 drinks per day Substance Use Type: does not use Exam <Raj Valencia DO - Last Filed: 04/14/22 17:59> Initial Vital Signs Initial Vital Signs: Vital Signs Pulse Rate 76 04/13/22 20:46 Pulse Oximetry 86 L 04/13/22 20:46 Const General: cooperative, No in distress and No ill appearing HENVT Head: normal to inspection and normocephalic Eyes General: Yes appearance normal, both eyes and all related structures Resp Effort & Inspection: normal respiratory effort Auscultation: clear to auscultation bilaterally Cardio Rate: regular rate Rhythm: regular rhythm GI Inspection: normal to inspection Skin General: no rashes or lesions noted Neuro General: patient alert, patient awake and moves all extremities Extrem General: normal to inspection and capillary refill normal Psych Appearance: grossly normal <Gilma Reyez MD - Last Filed: 04/14/22 13:03> Initial Vital Signs Initial Vital Signs: Vital Signs Pulse Rate 76 04/13/22 20:46 Pulse Oximetry 86 L 04/13/22 20:46 Course <Raj Valencia DO - Last Filed: 04/14/22 17:59> Orders Ordered: ED Orders 04/14/22 11:19 Free T4, Direct Thyroxine Stat Discontinued Medications Haloperidol (Haloperidol 5 Mg/Ml Vial) 5 mg IV NOW ONE Stop: 04/13/22 22:29 Last Admin: 04/13/22 22:43 Dose: 5 mg Documented By: CTS Lorazepam (Lorazepam 2 Mg/Ml Inj) 2 mg IM NOW ONE Stop: 04/13/22 23:31 Last Admin: 04/13/22 23:46 Dose: 2 mg Documented By: EB Lorazepam (Lorazepam 2 Mg/Ml Inj) 0.5 mg IV NOW ONE Stop: 04/14/22 05:28 Last Admin: 04/14/22 05:59 Dose: 0.5 mg Documented By: KB Quetiapine Fumarate (Quetiapine 25 Mg Tablet) 12.5 mg PO NOW ONE Stop: 04/14/22 11:20 Last Admin: 04/14/22 12:23 Dose: 12.5 mg Documented By: BT Vital Signs Vital signs: Vital Signs - 8 hr 04/14/22 10:00 04/14/22 10:00 04/14/22 10:30 Pulse Rate 57 L Blood Pressure 149/76 H 140/68 Pulse Oximetry 100 04/14/22 10:30 04/14/22 11:00 04/14/22 11:00 Pulse Rate 56 L 61 Blood Pressure 157/77 H Pulse Oximetry 99 99 04/14/22 11:30 04/14/22 11:30 04/14/22 12:00 Pulse Rate 60 60 Blood Pressure 136/93 H Pulse Oximetry 100 99 04/14/22 12:01 04/14/22 12:01 04/14/22 12:30 Pulse Rate 58 L Blood Pressure 149/77 H 162/84 H Pulse Oximetry 100 04/14/22 12:30 04/14/22 13:00 04/14/22 13:00 Pulse Rate 61 58 L Blood Pressure 137/77 Pulse Oximetry 100 100 04/14/22 13:22 04/14/22 13:30 Pulse Rate 65 Blood Pressure 158/75 H Pulse Oximetry 99 <Gilma Reyez MD - Last Filed: 04/14/22 13:03> Orders Ordered: ED Orders 04/14/22 11:19 Free T4, Direct Thyroxine Stat Discontinued Medications Haloperidol (Haloperidol 5 Mg/Ml Vial) 5 mg IV NOW ONE Stop: 04/13/22 22:29 Last Admin: 04/13/22 22:43 Dose: 5 mg Documented By: CTS Lorazepam (Lorazepam 2 Mg/Ml Inj) 2 mg IM NOW ONE Stop: 04/13/22 23:31 Last Admin: 04/13/22 23:46 Dose: 2 mg Documented By: EB Lorazepam (Lorazepam 2 Mg/Ml Inj) 0.5 mg IV NOW ONE Stop: 04/14/22 05:28 Last Admin: 04/14/22 05:59 Dose: 0.5 mg Documented By: KB Quetiapine Fumarate (Quetiapine 25 Mg Tablet) 12.5 mg PO NOW ONE Stop: 04/14/22 11:20 Last Admin: 04/14/22 12:23 Dose: 12.5 mg Documented By: BT Vital Signs Vital signs: Vital Signs - 8 hr 04/14/22 10:00 04/14/22 10:00 04/14/22 10:30 Pulse Rate 57 L Blood Pressure 149/76 H 140/68 Pulse Oximetry 100 04/14/22 10:30 04/14/22 11:00 04/14/22 11:00 Pulse Rate 56 L 61 Blood Pressure 157/77 H Pulse Oximetry 99 99 04/14/22 11:30 04/14/22 11:30 04/14/22 12:00 Pulse Rate 60 60 Blood Pressure 136/93 H Pulse Oximetry 100 99 04/14/22 12:01 04/14/22 12:01 04/14/22 12:30 Pulse Rate 58 L Blood Pressure 149/77 H 162/84 H Pulse Oximetry 100 04/14/22 12:30 04/14/22 13:00 04/14/22 13:00 Pulse Rate 61 58 L Blood Pressure 137/77 Pulse Oximetry 100 100 04/14/22 13:22 04/14/22 13:30 Pulse Rate 65 Blood Pressure 158/75 H Pulse Oximetry 99 Medical Decision Making <Raj Valencia, - Last Filed: 04/14/22 17:59> Lab Data Lab results reviewed: Yes I reviewed the patient's lab results. Result diagrams: 04/13/22 20:46 04/13/22 20:46 Labs: Lab Results 04/13/22 04/13/22 04/13/22 Range/Units 20:40 20:40 20:40 WBC (4.5-11.0) X10^3/uL RBC (4.5-5.9) X10^6/uL Hgb (13.5-17.5) g/dL Hct (41-53) % MCV (80-100) fL MCH (26-34) PG MCHC (30-36) % RDW (11.6-14.8) % Plt Count (150-400) X10^3/uL Neut % (Auto) (50-75) % Lymph % (Auto) (25-40) % [place] % (Auto) (3-14) % Eos % (Auto) (2-4) % Baso % (Auto) (0-2) % Neut # (Auto) (4504-4177) /uL Lymph # (Auto) (8051-4178) /uL [place] # (Auto) (0-900) /uL Eos # (Auto) (0-450) /uL Baso # (Auto) (0-100) /uL PT (10.1-12.7) SECONDS INR (0.9-1.3) Sodium (137-145) mmol/L Potassium (3.4-5.1) mmol/L Chloride (98-107) mmol/L Carbon Dioxide (22-32) mmol/L BUN (9-20) mg/dL Creatinine (0.66-1.25) mg/dL Estimated GFR (>60) mL/min BUN/Creatinine Ratio (6-22) Glucose (80-110) mg/dL Calcium (8.4-10.2) mg/dL Magnesium 2.1 (1.6-2.3) mg/dL Total Bilirubin (0.2-1.3) mg/dL AST (17-59) IU/L ALT (<50) IU/L Alkaline Phosphatase (38-126) U/L Ammonia (9-30) umol/L Total Protein (6.3-8.2) g/dL Albumin (3.5-5.0) g/dL Globulin (1.7-4.1) g/dL Albumin/Globulin Ratio (1.0-2.8) TSH 0.017 L (0.47-4.68) uIU/mL Free T4 (0.78-2.19) ng/dL Urine Color Urine Appearance Urine pH (4.5-8.0) Ur Specific [place] (1.000-1.035) Urine Protein (Negative) Urine Glucose (UA) (Negative) g/dL Urine Ketones (NEGATIVE) Urine Occult Blood (Negative) Urine Nitrate (Negative) Urine Bilirubin (NEGATIVE) Urine Urobilinogen (0.2) E.U./dL Ur Leukocyte Esterase (NEGATIVE) Urine RBC (0-5/HPF) Urine WBC (0-5/HPF) Urine Bacteria (None) Ur Culture Indicated? Salicylates < 1.0 (<20) mg/dL U Opiates 300ng/mL cut (Negative) Ur Oxycodone Screen (Negative) Urine Methadone Screen (Negative) Acetaminophen < 10 (10-30) ug/mL Ur Barbiturates Screen (Negative) U Tricyclic Antidepress (Negative) Ur Phencyclidine Scrn (Negative) Ur Amphetamines Screen (Negative) U Methamphetamines Scrn (Negative) Ur MDMA Scrn (Ecstasy) (Negative) U Benzodiazepines Scrn (Negative) Urine Cocaine Screen (Negative) U Marijuana (THC) Screen (Negative) Ethyl Alcohol < 10 ( - 10) mg/dL SARS-CoV-2 (PCR) (Negative) 04/13/22 04/13/22 04/13/22 Range/Units 20:40 20:46 20:46 WBC 5.5 (4.5-11.0) X10^3/uL RBC 3.46 L (4.5-5.9) X10^6/uL Hgb 11.3 L (13.5-17.5) g/dL Hct 31.9 L (41-53) % MCV 92.1 (80-100) fL MCH 32.5 (26-34) PG MCHC 35.3 (30-36) % RDW 13.5 (11.6-14.8) % Plt Count 175 (150-400) X10^3/uL Neut % (Auto) 71.2 (50-75) % Lymph % (Auto) 18.0 L (25-40) % [place] % (Auto) 8.2 (3-14) % Eos % (Auto) 2.1 (2-4) % Baso % (Auto) 0.5 (0-2) % Neut # (Auto) 3900 (6267-6963) /uL Lymph # (Auto) 1000 L (8453-4840) /uL [place] # (Auto) 500 (0-900) /uL Eos # (Auto) 100 (0-450) /uL Baso # (Auto) 0 (0-100) /uL PT 11.3 (10.1-12.7) SECONDS INR 1.0 (0.9-1.3) Sodium (137-145) mmol/L Potassium (3.4-5.1) mmol/L Chloride (98-107) mmol/L Carbon Dioxide (22-32) mmol/L BUN (9-20) mg/dL Creatinine (0.66-1.25) mg/dL Estimated GFR (>60) mL/min BUN/Creatinine Ratio (6-22) Glucose (80-110) mg/dL Calcium (8.4-10.2) mg/dL Magnesium (1.6-2.3) mg/dL Total Bilirubin (0.2-1.3) mg/dL AST (17-59) IU/L ALT (<50) IU/L Alkaline Phosphatase (38-126) U/L Ammonia (9-30) umol/L Total Protein (6.3-8.2) g/dL Albumin (3.5-5.0) g/dL Globulin (1.7-4.1) g/dL Albumin/Globulin Ratio (1.0-2.8) TSH (0.47-4.68) uIU/mL Free T4 1.10 (0.78-2.19) ng/dL Urine Color Urine Appearance Urine pH (4.5-8.0) Ur Specific [place] (1.000-1.035) Urine Protein (Negative) Urine Glucose (UA) (Negative) g/dL Urine Ketones (NEGATIVE) Urine Occult Blood (Negative) Urine Nitrate (Negative) Urine Bilirubin (NEGATIVE) Urine Urobilinogen (0.2) E.U./dL Ur Leukocyte Esterase (NEGATIVE) Urine RBC (0-5/HPF) Urine WBC (0-5/HPF) Urine Bacteria (None) Ur Culture Indicated? Salicylates (<20) mg/dL U Opiates 300ng/mL cut (Negative) Ur Oxycodone Screen (Negative) Urine Methadone Screen (Negative) Acetaminophen (10-30) ug/mL Ur Barbiturates Screen (Negative) U Tricyclic Antidepress (Negative) Ur Phencyclidine Scrn (Negative) Ur Amphetamines Screen (Negative) U Methamphetamines Scrn (Negative) Ur MDMA Scrn (Ecstasy) (Negative) U Benzodiazepines Scrn (Negative) Urine Cocaine Screen (Negative) U Marijuana (THC) Screen (Negative) Ethyl Alcohol ( - 10) mg/dL SARS-CoV-2 (PCR) (Negative) 04/13/22 04/13/22 04/13/22 Range/Units 20:46 21:06 21:06 WBC (4.5-11.0) X10^3/uL RBC (4.5-5.9) X10^6/uL Hgb (13.5-17.5) g/dL Hct (41-53) % MCV (80-100) fL MCH (26-34) PG MCHC (30-36) % RDW (11.6-14.8) % Plt Count (150-400) X10^3/uL Neut % (Auto) (50-75) % Lymph % (Auto) (25-40) % [place] % (Auto) (3-14) % Eos % (Auto) (2-4) % Baso % (Auto) (0-2) % Neut # (Auto) (2678-5762) /uL Lymph # (Auto) (1026-3548) /uL [place] # (Auto) (0-900) /uL Eos # (Auto) (0-450) /uL Baso # (Auto) (0-100) /uL PT (10.1-12.7) SECONDS INR (0.9-1.3) Sodium 139 (137-145) mmol/L Potassium 4.0 (3.4-5.1) mmol/L Chloride 102 (98-107) mmol/L Carbon Dioxide 24 (22-32) mmol/L BUN 22 H (9-20) mg/dL Creatinine 0.86 (0.66-1.25) mg/dL Estimated GFR > 60 (>60) mL/min BUN/Creatinine Ratio 25.6 H (6-22) Glucose 115 H (80-110) mg/dL Calcium 9.1 (8.4-10.2) mg/dL Magnesium (1.6-2.3) mg/dL Total Bilirubin 0.7 (0.2-1.3) mg/dL AST 21 (17-59) IU/L ALT 16 (<50) IU/L Alkaline Phosphatase 68 (38-126) U/L Ammonia (9-30) umol/L Total Protein 7.3 (6.3-8.2) g/dL Albumin 4.3 (3.5-5.0) g/dL Globulin 3.0 (1.7-4.1) g/dL Albumin/Globulin Ratio 1.4 (1.0-2.8) TSH (0.47-4.68) uIU/mL Free T4 (0.78-2.19) ng/dL Urine Color Yellow Urine Appearance Clear Urine pH 7.5 (4.5-8.0) Ur Specific [place] 1.010 (1.000-1.035) Urine Protein Negative (Negative) Urine Glucose (UA) Negative (Negative) g/dL Urine Ketones Negative (NEGATIVE) Urine Occult Blood Trace-intact (Negative) Urine Nitrate Negative (Negative) Urine Bilirubin Negative (NEGATIVE) Urine Urobilinogen 0.2 (0.2) E.U./dL Ur Leukocyte Esterase Negative (NEGATIVE) Urine RBC 0-1/hpf (0-5/HPF) Urine WBC None seen (0-5/HPF) Urine Bacteria None seen (None) Ur Culture Indicated? Cult not indicated Salicylates (<20) mg/dL U Opiates 300ng/mL cut Negative (Negative) Ur Oxycodone Screen Negative (Negative) Urine Methadone Screen Negative (Negative) Acetaminophen (10-30) ug/mL Ur Barbiturates Screen Negative (Negative) U Tricyclic Antidepress Negative (Negative) Ur Phencyclidine Scrn Negative (Negative) Ur Amphetamines Screen Negative (Negative) U Methamphetamines Scrn Negative (Negative) Ur MDMA Scrn (Ecstasy) Negative (Negative) U Benzodiazepines Scrn Negative (Negative) Urine Cocaine Screen Negative (Negative) U Marijuana (THC) Screen Negative (Negative) Ethyl Alcohol ( - 10) mg/dL SARS-CoV-2 (PCR) (Negative) 04/13/22 04/13/22 Range/Units 21:16 21:42 WBC (4.5-11.0) X10^3/uL RBC (4.5-5.9) X10^6/uL Hgb (13.5-17.5) g/dL Hct (41-53) % MCV (80-100) fL MCH (26-34) PG MCHC (30-36) % RDW (11.6-14.8) % Plt Count (150-400) X10^3/uL Neut % (Auto) (50-75) % Lymph % (Auto) (25-40) % [place] % (Auto) (3-14) % Eos % (Auto) (2-4) % Baso % (Auto) (0-2) % Neut # (Auto) (9746-6242) /uL Lymph # (Auto) (0110-9522) /uL [place] # (Auto) (0-900) /uL Eos # (Auto) (0-450) /uL Baso # (Auto) (0-100) /uL PT (10.1-12.7) SECONDS INR (0.9-1.3) Sodium (137-145) mmol/L Potassium (3.4-5.1) mmol/L Chloride (98-107) mmol/L Carbon Dioxide (22-32) mmol/L BUN (9-20) mg/dL Creatinine (0.66-1.25) mg/dL Estimated GFR (>60) mL/min BUN/Creatinine Ratio (6-22) Glucose (80-110) mg/dL Calcium (8.4-10.2) mg/dL Magnesium (1.6-2.3) mg/dL Total Bilirubin (0.2-1.3) mg/dL AST (17-59) IU/L ALT (<50) IU/L Alkaline Phosphatase (38-126) U/L Ammonia < 9 L (9-30) umol/L Total Protein (6.3-8.2) g/dL Albumin (3.5-5.0) g/dL Globulin (1.7-4.1) g/dL Albumin/Globulin Ratio (1.0-2.8) TSH (0.47-4.68) uIU/mL Free T4 (0.78-2.19) ng/dL Urine Color Urine Appearance Urine pH (4.5-8.0) Ur Specific [place] (1.000-1.035) Urine Protein (Negative) Urine Glucose (UA) (Negative) g/dL Urine Ketones (NEGATIVE) Urine Occult Blood (Negative) Urine Nitrate (Negative) Urine Bilirubin (NEGATIVE) Urine Urobilinogen (0.2) E.U./dL Ur Leukocyte Esterase (NEGATIVE) Urine RBC (0-5/HPF) Urine WBC (0-5/HPF) Urine Bacteria (None) Ur Culture Indicated? Salicylates (<20) mg/dL U Opiates 300ng/mL cut (Negative) Ur Oxycodone Screen (Negative) Urine Methadone Screen (Negative) Acetaminophen (10-30) ug/mL Ur Barbiturates Screen (Negative) U Tricyclic Antidepress (Negative) Ur Phencyclidine Scrn (Negative) Ur Amphetamines Screen (Negative) U Methamphetamines Scrn (Negative) Ur MDMA Scrn (Ecstasy) (Negative) U Benzodiazepines Scrn (Negative) Urine Cocaine Screen (Negative) U Marijuana (THC) Screen (Negative) Ethyl Alcohol ( - 10) mg/dL SARS-CoV-2 (PCR) Negative (Negative) Point of Care Testing Glucose POC 115 Point of care testing: Point of Care Testing Glucose POC 115 Imaging Data Chest x-ray: Radiologist's Impression: [place] [id number] XRay Report Signed Patient: González Hough MR#: [id number] : 1945 Acct:[id number] Age/Sex: 76 / M Date of Service: 04/13/22 Loc: ED Accession Number: [id number] ?? Procedure: XR chest 1V Ordering Provider: Raj Valencia D.O. PROCEDURE:? XR CHEST 1V ? INDICATIONS:? altered mental status ? TECHNIQUE:? One view of the chest was acquired.? ? COMPARISON:? [facility], CR, XR CHEST FOR PICC 1V, 10/09/2020, 16:33. ? FINDINGS:? ? Surgical changes and devices:? None.? ? Lungs and pleura:? Lungs are clear.? No pleural effusions or pneumothorax.? ? Mediastinum:? Mediastinal contours appear normal.? Heart size is normal.? ? Bones and chest wall:? No suspicious bony lesions.? Overlying soft tissues appear unremarkable.? ? IMPRESSION:? ? 1.? No acute cardiopulmonary disease. ? ? ? Dictated by: Ghulam Elizondo M.D. on 04/13/2022 at 22:42 ? ? Approved by: Ghulam Elizondo M.D. on 04/13/2022 at 22:45? CT scan - head: Radiologist's Impression: A Launch?Image [facility] [address] [place] [address] CT Scan Report Signed Patient: González Hough MR#: [id number] : 1945 Acct:[id number] Age/Sex: 76 / M Date of Service: 04/13/22 Loc: ED Accession Number: [id number] ?? Procedure: CT head/brain wo con Ordering Provider: Raj Valencia D.O. PROCEDURE:? CT HEAD/BRAIN WO CON ? INDICATIONS:? acute confusion ? TECHNIQUE:? Noncontrast 4.5 mm thick angled axial sections acquired from the foramen magnum to the vertex, with coronal and sagittal reformats.? For radiation dose reduction, the following was used:? automated exposure control, adjustment of mA and/or kV according to patient size.? ? COMPARISON:? None. ? FINDINGS:? Image quality:? Excellent.? ? CSF spaces:? Basal cisterns are patent.? No extra-axial fluid collections.? There is mild to moderate cerebral volume loss, with resultant ventricular and sulcal prominence.? ? Brain:? No intracranial hemorrhage, mass, or mass effect.? There are subcortical, periventricular and deep white matter hypodensities consistent with [id number] chronic small vessel ischemic changes.? The hall-white matter junction appears preserved. ?There is intracranial internal carotid artery atherosclerosis.? ? Skull and face:? Calvarium and visualized facial bones appear intact, without suspicious lesions.? ? Sinuses:? Visualized sinuses and mastoids are clear.? ? IMPRESSION:? ? 1. No acute intracranial abnormality. ? 2. Mild to moderate chronic white matter small vessel ischemic changes and cerebral volume loss. ? ? Dictated by: Ghulam Elizondo M.D. on 04/13/2022 at 21:50 ? ? Approved by: Ghulam Elizondo M.D. on 04/13/2022 at 21:51? ECG Data Attestation: I personally reviewed and interpreted this ECG as follows: Interpretation: Sinus rhythm Ventricular rate is 78 Left axis deviation Normal QRS Normal QTC No ST T wave changes MDM Narrative Medical decision making narrative: Patient's physical exam is essentially unremarkable. Head CT is unremarkable. No signs of any infection or easily reversible or identifiable cause. According to with the patient's states I suspect that the patient became very agitated because he wanted to go and walk around and was unable to do so and this escalated this situation. It is obvious that the patient's is having problems taking care of him at home. She does seem somewhat in denial about his medical situation. I feel that is best that he stay here in the emergency department this evening and have social work become involved tomorrow to discuss potential other living situations. The patient's expressed understanding and agreement with this. The patient has been given small aliquots of Ativan and this seems to keep him very calm. He has been able to sleep overnight. Social work consult is placed. Care turned over to day provider to follow-up and disposition. <Gilma Reyez MD - Last Filed: 04/14/22 13:03> Lab Data Labs: Lab Results 04/13/22 04/13/22 04/13/22 Range/Units 20:40 20:40 20:40 WBC (4.5-11.0) X10^3/uL RBC (4.5-5.9) X10^6/uL Hgb (13.5-17.5) g/dL Hct (41-53) % MCV (80-100) fL MCH (26-34) PG MCHC (30-36) % RDW (11.6-14.8) % Plt Count (150-400) X10^3/uL Neut % (Auto) (50-75) % Lymph % (Auto) (25-40) % [place] % (Auto) (3-14) % Eos % (Auto) (2-4) % Baso % (Auto) (0-2) % Neut # (Auto) (1344-6150) /uL Lymph # (Auto) (8617-0776) /uL [place] # (Auto) (0-900) /uL Eos # (Auto) (0-450) /uL Baso # (Auto) (0-100) /uL PT (10.1-12.7) SECONDS INR (0.9-1.3) Sodium (137-145) mmol/L Potassium (3.4-5.1) mmol/L Chloride (98-107) mmol/L Carbon Dioxide (22-32) mmol/L BUN (9-20) mg/dL Creatinine (0.66-1.25) mg/dL Estimated GFR (>60) mL/min BUN/Creatinine Ratio (6-22) Glucose (80-110) mg/dL Calcium (8.4-10.2) mg/dL Magnesium 2.1 (1.6-2.3) mg/dL Total Bilirubin (0.2-1.3) mg/dL AST (17-59) IU/L ALT (<50) IU/L Alkaline Phosphatase (38-126) U/L Ammonia (9-30) umol/L Total Protein (6.3-8.2) g/dL Albumin (3.5-5.0) g/dL Globulin (1.7-4.1) g/dL Albumin/Globulin Ratio (1.0-2.8) TSH 0.017 L (0.47-4.68) uIU/mL Free T4 (0.78-2.19) ng/dL Urine Color Urine Appearance Urine pH (4.5-8.0) Ur Specific [place] (1.000-1.035) Urine Protein (Negative) Urine Glucose (UA) (Negative) g/dL Urine Ketones (NEGATIVE) Urine Occult Blood (Negative) Urine Nitrate (Negative) Urine Bilirubin (NEGATIVE) Urine Urobilinogen (0.2) E.U./dL Ur Leukocyte Esterase (NEGATIVE) Urine RBC (0-5/HPF) Urine WBC (0-5/HPF) Urine Bacteria (None) Ur Culture Indicated? Salicylates < 1.0 (<20) mg/dL U Opiates 300ng/mL cut (Negative) Ur Oxycodone Screen (Negative) Urine Methadone Screen (Negative) Acetaminophen < 10 (10-30) ug/mL Ur Barbiturates Screen (Negative) U Tricyclic Antidepress (Negative) Ur Phencyclidine Scrn (Negative) Ur Amphetamines Screen (Negative) U Methamphetamines Scrn (Negative) Ur MDMA Scrn (Ecstasy) (Negative) U Benzodiazepines Scrn (Negative) Urine Cocaine Screen (Negative) U Marijuana (THC) Screen (Negative) Ethyl Alcohol < 10 ( - 10) mg/dL SARS-CoV-2 (PCR) (Negative) 04/13/22 04/13/22 04/13/22 Range/Units 20:40 20:46 20:46 WBC 5.5 (4.5-11.0) X10^3/uL RBC 3.46 L (4.5-5.9) X10^6/uL Hgb 11.3 L (13.5-17.5) g/dL Hct 31.9 L (41-53) % MCV 92.1 (80-100) fL MCH 32.5 (26-34) PG MCHC 35.3 (30-36) % RDW 13.5 (11.6-14.8) % Plt Count 175 (150-400) X10^3/uL Neut % (Auto) 71.2 (50-75) % Lymph % (Auto) 18.0 L (25-40) % [place] % (Auto) 8.2 (3-14) % Eos % (Auto) 2.1 (2-4) % Baso % (Auto) 0.5 (0-2) % Neut # (Auto) 3900 (6245-9261) /uL Lymph # (Auto) 1000 L (8772-4617) /uL [place] # (Auto) 500 (0-900) /uL Eos # (Auto) 100 (0-450) /uL Baso # (Auto) 0 (0-100) /uL PT 11.3 (10.1-12.7) SECONDS INR 1.0 (0.9-1.3) Sodium (137-145) mmol/L Potassium (3.4-5.1) mmol/L Chloride (98-107) mmol/L Carbon Dioxide (22-32) mmol/L BUN (9-20) mg/dL Creatinine (0.66-1.25) mg/dL Estimated GFR (>60) mL/min BUN/Creatinine Ratio (6-22) Glucose (80-110) mg/dL Calcium (8.4-10.2) mg/dL Magnesium (1.6-2.3) mg/dL Total Bilirubin (0.2-1.3) mg/dL AST (17-59) IU/L ALT (<50) IU/L Alkaline Phosphatase (38-126) U/L Ammonia (9-30) umol/L Total Protein (6.3-8.2) g/dL Albumin (3.5-5.0) g/dL Globulin (1.7-4.1) g/dL Albumin/Globulin Ratio (1.0-2.8) TSH (0.47-4.68) uIU/mL Free T4 1.10 (0.78-2.19) ng/dL Urine Color Urine Appearance Urine pH (4.5-8.0) Ur Specific [place] (1.000-1.035) Urine Protein (Negative) Urine Glucose (UA) (Negative) g/dL Urine Ketones (NEGATIVE) Urine Occult Blood (Negative) Urine Nitrate (Negative) Urine Bilirubin (NEGATIVE) Urine Urobilinogen (0.2) E.U./dL Ur Leukocyte Esterase (NEGATIVE) Urine RBC (0-5/HPF) Urine WBC (0-5/HPF) Urine Bacteria (None) Ur Culture Indicated? Salicylates (<20) mg/dL U Opiates 300ng/mL cut (Negative) Ur Oxycodone Screen (Negative) Urine Methadone Screen (Negative) Acetaminophen (10-30) ug/mL Ur Barbiturates Screen (Negative) U Tricyclic Antidepress (Negative) Ur Phencyclidine Scrn (Negative) Ur Amphetamines Screen (Negative) U Methamphetamines Scrn (Negative) Ur MDMA Scrn (Ecstasy) (Negative) U Benzodiazepines Scrn (Negative) Urine Cocaine Screen (Negative) U Marijuana (THC) Screen (Negative) Ethyl Alcohol ( - 10) mg/dL SARS-CoV-2 (PCR) (Negative) 04/13/22 04/13/22 04/13/22 Range/Units 20:46 21:06 21:06 WBC (4.5-11.0) X10^3/uL RBC (4.5-5.9) X10^6/uL Hgb (13.5-17.5) g/dL Hct (41-53) % MCV (80-100) fL MCH (26-34) PG MCHC (30-36) % RDW (11.6-14.8) % Plt Count (150-400) X10^3/uL Neut % (Auto) (50-75) % Lymph % (Auto) (25-40) % [place] % (Auto) (3-14) % Eos % (Auto) (2-4) % Baso % (Auto) (0-2) % Neut # (Auto) (1308-1169) /uL Lymph # (Auto) (6655-4738) /uL [place] # (Auto) (0-900) /uL Eos # (Auto) (0-450) /uL Baso # (Auto) (0-100) /uL PT (10.1-12.7) SECONDS INR (0.9-1.3) Sodium 139 (137-145) mmol/L Potassium 4.0 (3.4-5.1) mmol/L Chloride 102 (98-107) mmol/L Carbon Dioxide 24 (22-32) mmol/L BUN 22 H (9-20) mg/dL Creatinine 0.86 (0.66-1.25) mg/dL Estimated GFR > 60 (>60) mL/min BUN/Creatinine Ratio 25.6 H (6-22) Glucose 115 H (80-110) mg/dL Calcium 9.1 (8.4-10.2) mg/dL Magnesium (1.6-2.3) mg/dL Total Bilirubin 0.7 (0.2-1.3) mg/dL AST 21 (17-59) IU/L ALT 16 (<50) IU/L Alkaline Phosphatase 68 (38-126) U/L Ammonia (9-30) umol/L Total Protein 7.3 (6.3-8.2) g/dL Albumin 4.3 (3.5-5.0) g/dL Globulin 3.0 (1.7-4.1) g/dL Albumin/Globulin Ratio 1.4 (1.0-2.8) TSH (0.47-4.68) uIU/mL Free T4 (0.78-2.19) ng/dL Urine Color Yellow Urine Appearance Clear Urine pH 7.5 (4.5-8.0) Ur Specific [place] 1.010 (1.000-1.035) Urine Protein Negative (Negative) Urine Glucose (UA) Negative (Negative) g/dL Urine Ketones Negative (NEGATIVE) Urine Occult Blood Trace-intact (Negative) Urine Nitrate Negative (Negative) Urine Bilirubin Negative (NEGATIVE) Urine Urobilinogen 0.2 (0.2) E.U./dL Ur Leukocyte Esterase Negative (NEGATIVE) Urine RBC 0-1/hpf (0-5/HPF) Urine WBC None seen (0-5/HPF) Urine Bacteria None seen (None) Ur Culture Indicated? Cult not indicated Salicylates (<20) mg/dL U Opiates 300ng/mL cut Negative (Negative) Ur Oxycodone Screen Negative (Negative) Urine Methadone Screen Negative (Negative) Acetaminophen (10-30) ug/mL Ur Barbiturates Screen Negative (Negative) U Tricyclic Antidepress Negative (Negative) Ur Phencyclidine Scrn Negative (Negative) Ur Amphetamines Screen Negative (Negative) U Methamphetamines Scrn Negative (Negative) Ur MDMA Scrn (Ecstasy) Negative (Negative) U Benzodiazepines Scrn Negative (Negative) Urine Cocaine Screen Negative (Negative) U Marijuana (THC) Screen Negative (Negative) Ethyl Alcohol ( - 10) mg/dL SARS-CoV-2 (PCR) (Negative) 04/13/22 04/13/22 Range/Units 21:16 21:42 WBC (4.5-11.0) X10^3/uL RBC (4.5-5.9) X10^6/uL Hgb (13.5-17.5) g/dL Hct (41-53) % MCV (80-100) fL MCH (26-34) PG MCHC (30-36) % RDW (11.6-14.8) % Plt Count (150-400) X10^3/uL Neut % (Auto) (50-75) % Lymph % (Auto) (25-40) % [place] % (Auto) (3-14) % Eos % (Auto) (2-4) % Baso % (Auto) (0-2) % Neut # (Auto) (4649-5051) /uL Lymph # (Auto) (5929-5848) /uL [place] # (Auto) (0-900) /uL Eos # (Auto) (0-450) /uL Baso # (Auto) (0-100) /uL PT (10.1-12.7) SECONDS INR (0.9-1.3) Sodium (137-145) mmol/L Potassium (3.4-5.1) mmol/L Chloride (98-107) mmol/L Carbon Dioxide (22-32) mmol/L BUN (9-20) mg/dL Creatinine (0.66-1.25) mg/dL Estimated GFR (>60) mL/min BUN/Creatinine Ratio (6-22) Glucose (80-110) mg/dL Calcium (8.4-10.2) mg/dL Magnesium (1.6-2.3) mg/dL Total Bilirubin (0.2-1.3) mg/dL AST (17-59) IU/L ALT (<50) IU/L Alkaline Phosphatase (38-126) U/L Ammonia < 9 L (9-30) umol/L Total Protein (6.3-8.2) g/dL Albumin (3.5-5.0) g/dL Globulin (1.7-4.1) g/dL Albumin/Globulin Ratio (1.0-2.8) TSH (0.47-4.68) uIU/mL Free T4 (0.78-2.19) ng/dL Urine Color Urine Appearance Urine pH (4.5-8.0) Ur Specific [place] (1.000-1.035) Urine Protein (Negative) Urine Glucose (UA) (Negative) g/dL Urine Ketones (NEGATIVE) Urine Occult Blood (Negative) Urine Nitrate (Negative) Urine Bilirubin (NEGATIVE) Urine Urobilinogen (0.2) E.U./dL Ur Leukocyte Esterase (NEGATIVE) Urine RBC (0-5/HPF) Urine WBC (0-5/HPF) Urine Bacteria (None) Ur Culture Indicated? Salicylates (<20) mg/dL U Opiates 300ng/mL cut (Negative) Ur Oxycodone Screen (Negative) Urine Methadone Screen (Negative) Acetaminophen (10-30) ug/mL Ur Barbiturates Screen (Negative) U Tricyclic Antidepress (Negative) Ur Phencyclidine Scrn (Negative) Ur Amphetamines Screen (Negative) U Methamphetamines Scrn (Negative) Ur MDMA Scrn (Ecstasy) (Negative) U Benzodiazepines Scrn (Negative) Urine Cocaine Screen (Negative) U Marijuana (THC) Screen (Negative) Ethyl Alcohol ( - 10) mg/dL SARS-CoV-2 (PCR) Negative (Negative) Point of Care Testing Glucose POC 115 Point of care testing: Point of Care Testing Glucose POC 115 MDM Narrative Medical decision making narrative: Patient's physical exam is essentially unremarkable. Head CT is unremarkable. No signs of any infection or easily reversible or identifiable cause. According to with the patient's states I suspect that the patient became very agitated because he wanted to go and walk around and was unable to do so and this escalated this situation. It is obvious that the patient's is having problems taking care of him at home. She does seem somewhat in denial about his medical situation. I feel that is best that he stay here in the emergency department this evening and have social work become involved tomorrow to discuss potential other living situations. The patient's expressed understanding and agreement with this. The patient has been given small aliquots of Ativan and this seems to keep him very calm. He has been able to sleep overnight. Social work consult is placed. Care turned over to day provider to follow-up and disposition. Dr Dereje Lu is assumed studies labs and patient are reviewed. Long discussion with patient's . They have met with the delinquency prevention social worker, discussed home health, home caregivers, your medication primary care follow-up after the addition of Seroquel, reaching out to friends and family and began researching memory care issues. Discussion with both patient and his regarding POLST form as well as additional advanced directives. t Discussion regarding medications and may help with sundowning as well as behavioral issues. He was given 12.5 mg of Seroquel this morning that did seem to make a nice difference. I am going to suggest that he began 12.5 mg of Seroquel in the morning and 25 mg in the evening. This does not interact with his JELLY inhibitor as the other antipsychotic such is mirtazapine will do. All of this is reviewed with his and BLS transport is arranged for helping him get home. Discharge Plan Departure Patient Disposition: Home Clinical Impression: Dementia with behavioral disturbance Instructions: DI for Alzheimer Disease Activity Restrictions/Additional Instructions: Thank you for coming in today Dealing with our loved ones as they have more memory issues is challenging for everybody. To help with some of the wondering, anger, behavioral issues and such I am suggesting that we start González on quetiapine/Seroquel. Half a pill in the morning and a full pill in the evening. If that seems to make him too sleepy than do half a pill in the morning and half a pill in the evening. [facility] His thyroid level was checked in the emergency department and the more important portion (free T4) of it seems to be okay. Please do not make any changes to his thyroid dose but do discuss this with his primary care doctor You talked with our delinquency prevention social worker and I hope this was helpful. Some of the things for you to consider in the coming weeks are advanced directives such as a POLS form (the green sheet we gave you), a will, looking at options for in home help and care and considering the possibility of a dementia care facility knowing that this disease is unfortunately a relentlessly progressive problem You do need to see your primary care physician as soon as an appointment is available If you find that you are getting worse or develop any new symptoms, please feel free to return to the emergency department for further evaluation. Prescriptions: New quetiapine [Seroquel] 25 mg tablet See Rx Instructions .ROUTE .COMPLEX Qty: 45 1RF Rx Instructions: 1/2 pill (12.5 mg) every morning, full pill (25mg) every evening No Action memantine 10 mg tablet 10 mg PO BID Rx Instructions: Up-titer PO; atorvastatin 40 mg tablet 40 mg PO BEDTIME Qty: 90 2RF phenelzine 15 mg tablet 15 mg PO TID Qty: 90 11RF losartan 25 mg tablet 25 mg PO DAILY Qty: 90 1RF levothyroxine 100 mcg tablet 100 mcg PO DAILY Qty: 90 0RF Rx Instructions: APPT DUE BEFORE END OF RX. PLEASE CALL TO SCHEDULE APPT 03/12/22. alfuzosin 10 mg tablet extended release 24 hr See Rx Instructions .ROUTE .COMPLEX Qty: 90 1RF Dose Instruction: take 1 tablet by mouth at bedtime Rx Instructions: take 1 tablet by mouth at bedtime Ensure Plus 0.05-1.5 gram-kcal/mL liquid 1 each PO .QDAY Qty: 5688 11RF cholecalciferol (vitamin D3) [Vitamin D3] 50 mcg (2,000 unit) Tablet 50 mcg PO BID Referrals: Yann Dempsey MD [Primary Care Provider] - Visit Report Forms: Patient Portal/API
--- NOTE | 2022-04-13 22:36 | PC.NURSE ---
Pt more alert at this time, no longer at bedside. Pt moved to room 6 for better observation of pt. Pt pulling at lines and drains. Pt agrawal removed as pt was pulling at agrawal. Pt nearly ripping IV out of his arm. Pt frequently attempting to exit bed and needing to be reoriented to place and situation. Provider aware and medication ordered for pt agitation.
[2022-04-13] MEDS: HALOPERIDOL 5 MG/ML VIAL IV (22:43)
--- NOTE | 2022-04-13 23:02 | PC.NURSE ---
Addendum entered by Logan Denis R.N. 04/14/22 05:54: Pt was to be placed in restraints but pt calmed down. Provider aware. Original Note: Pt continues to pull at lines and attempting to get out of bed despite medications to help with agitation. Pt placed in 4-point soft restraints at this time. Provider notified.
--- NOTE | 2022-04-13 23:29 | PC.NURSE ---
Pt continues to yank on security monitor, almost pulling the cord out of the monitor. quality assurance monitor body removed. Pt pulled out second IV. Provider notified. Pt to receive meds per MD order via newly established PIV.
[2022-04-13] MEDS: LORazepam 2 MG/ML INJ IM (23:46)
[2022-04-14] VITALS (35 sets, daily range): BP systolic 108–170; BP diastolic 61–93; PULSE 54–78; RESP 18; O2SAT 98–100
--- NOTE | 2022-04-14 05:54 | PC.NURSE ---
pt becoming increasingly agitated, pulling at lines, grabbing at siderails, removing covers, will not keep gown on. meds given
[2022-04-14] MEDS: LORazepam 2 MG/ML INJ 0.5 MG IV (05:59)
--- NOTE | 2022-04-14 06:07 | PC.NURSE ---
Pt brief changed for incontinence.
--- NOTE | 2022-04-14 06:38 | PC.NURSE ---
pt resting in bed, less agitated, pulling occasionally at blankets but closing eyes now and resting
[2022-04-14] MEDS: QUETIAPINE 25 MG TABLET 12.5 MG PO (12:23)
--- NOTE | 2022-04-14 13:25 | CM.SWNOTE ---
CHIP FRIER/DCP Note Patient is 76 y/o male who presents to ED via EMS after being given ketamine by paramedics with restraints on. Patient presents to ED due to concern for Altered mental status. It was reported by patient's that [place] and became combative. It was reported by that patient has hx of Dementia and patient presents with agitation and often wanders out of the house. Patient's PCP is Dr. Dempsey, Patient has Medicare and out of state [employer] insurance. Patient has hx of Dementia with Behavioral Disturbances, mixed hyperlipidemia, labile hypertension, Anemia, Acute CVA and Depression. Patient presents as resting as he was given new rx for Seroquel to address patient's Dementia and behaviors. CHIP FRIER meets with patient's , she reports that the goal of care is for patient to stay at home. endorse there is no DPOA, Advanced Directive or POLST for patient. endorses when she has talked to patient about POLST in the past he did not make a decision. Patient is not in a present state to discuss POLST wishes. CHIP FRIER provides POLST for patient and to discuss with PCP at a later date at upcoming PCP f/u appt. endorses she is the primary caregiver for patient, patient is independent with walking, patient can manage some ADLs but there is concern for his independence to do so hygienically. Patient no longer drives. CHIP FRIER reviews EMR and patient had hx of referral for [facility] last year, patient's endorses that they did not go through with service as patient has difficulty receiving assistance. Patient's continues to report that patient's mother had poor experience with APS, visiting [place] in her older age and patient often becomes agitated regarding care for himself. endorses that on Saturday patient was wandering and it required search and rescue and donor services manager's office to find patient after 5 hours of being missing. endorses she plans to get a GPS tracker for patient as recommended from search and rescue. CHIP FRIER discusses HH services but it is uncertain if patient will qualify due to patient's ability to walk without difficulty. CHIP FRIER encourages patient's to f/u with PCP to discuss patient's new medication and discuss services available to patient. CHIP FRIER provides senior resource guide and discusses option for caregivers in the home and usp care/memory care facilities. endorses the goal of patient is to live at home. CHIP FRIER provides Advanced directive paper work and POLST for patient's to review and discuss at patient's next PCP appt. Patient's endorses there are limited supports for patient and she worries about patient's agitation. endorses she would like to take patient back home upon d/c. Patient is medically clear for d/c. Plan: Patient to d/c to home via BLS, patient to d/c with new Seroquel rx, patient to f/u with PCP appt. endorses she will call PCP office to schedule appt. Patient's to review higher level of care for patient. Vandana King, [employer]
== END 2022-04-14 13:58 | disposition home or self-care (01) ==
PROVIDERS: Emergency Medicine; Emergency Provider Emergency Medicine; PCP Student in an Organized Health Care Education/Training Program
DX: F03.91 Unspecified dementia, unspecified severity, with behavioral disturbance (principal); Z20.822 Contact with and (suspected) exposure to COVID-19; I10 Essential (primary) hypertension
CPT/HCPCS: 70450; 71045; 80053; 80305; 80320; 80329; 81001; 82140; 82962; 83735; 84439; 84443; 85025; 85610; 87635; 93005; 93010; 96372; 96374; 96375; 99284; C9803; G0480; J1630; J2060

== ENCOUNTER 2022-04-22 11:18 | Emergency (ER) | payer MEDICARE, BC, SELFPAY ==
[2021-01-02 11:09] VITALS: BMI 24.2
[2022-04-22 10:55] VITALS: TEMP 36.9
--- NOTE | 2022-04-22 12:07 | ED.GENADULT ---
HPI - General Adult General Chief complaint: Altered Mental Status Stated complaint: TWAN Time Seen by Provider: 04/22/22 12:05 Source: family (), EMS and police Mode of arrival: EMS Limitations: other (Dementia) History of Present Illness HPI narrative: Patient is a 76-year-old male. Does have a history of dementia. Lives with his . I evaluated the patient here in the emergency department approximately 10 days ago for an episode where he was waiting for the [place] at the terminal became agitated. His states that this happened because the patient wanted to go for a walk and he was unable to do so. His states that he frequently goes on walks. She states that at least twice a day he will leave their house and walk around their property in the neighbor's property. Frequently the needs to call either the paramedics or the police for the fire department to help her find the patient. After his last visit here the emergency physician started the patient on Seroquel which she is been taking for the past 10 days. They were instructed to follow-up with their primary doctor. The patient's wanted to take the patient home. Is reported that today the patient was on 1 of his walks. He was on a neighbor's property. It was reported that he had a screwdriver in his hand and was threatening other individuals. [place]. [employer] was involved. He was brought to the emergency department for evaluation under a police TWAN. Patient has not received any medication. Patient's is at bedside. She feels that since he started the Seroquel his aggression has become more pronounced. States that she sometimes is able to stop him from going on walks but other times she does not. She states that if individual tries to stop him from doing what he wants to do he can become very aggressive. Patient is unable to provide any HPI Related Data Home Medications Medication Instructions Recorded Confirmed cholecalciferol (vitamin D3) 50 50 mcg PO BID 01/31/20 04/14/22 mcg (2,000 unit) tablet (Vitamin D3) memantine 10 mg tablet 10 mg PO BID 08/10/20 04/14/22 Previous Rx's Medication Instructions Recorded food supplemt, lactose-reduced 1 each PO .QDAY #5,688 mL 03/12/19 0.05 gram-1.5 kcal/mL oral liquid (Ensure Plus) atorvastatin 40 mg tablet 40 mg PO BEDTIME #90 tabs 10/11/21 phenelzine 15 mg tablet 15 mg PO TID #90 tabs 01/03/22 losartan 25 mg tablet 25 mg PO DAILY #90 tabs 02/20/22 levothyroxine 100 mcg tablet 100 mcg PO DAILY #90 tabs 03/12/22 alfuzosin 10 mg tablet,extended See Rx Instructions .Route 03/20/22 release 24 hr .COMPLEX #90 tabs quetiapine 25 mg tablet (Seroquel) See Rx Instructions .Route 04/14/22 .COMPLEX #45 tabs Allergies Allergy/AdvReac Type Severity Reaction Status Date / Time COVID-19 vaccine, mRNA, AdvReac Rash Verified 04/22/22 12:10 [id number], [COVID-19 vaccine, mRNA-1273, LNP-S] contrast dye Allergy Unknown Rash Uncoded 04/22/22 12:10 high tyramine foods AdvReac Severe Hypertensio Uncoded 04/22/22 12:10 n Review of Systems Review of Systems ROS Unobtainable: Unobtainable due to mental status/LOC Patient History Medical History Depression Foreign body in bladder History of recent hospitalization (10/09/20) Hyperlipidemia Hypertension Hypothyroidism (acquired) Obstructive sleep apnea syndrome Snoring Vaccine reaction Surgical History Hx of cataract surgery (Unknown) Hx of knee surgery (Unknown) Family History Father Hypertension Heart disease Mother Diabetes mellitus Hypertension Dementia Grandfather Cancer Grandmother No problems noted. Family/Other Hypertension Diabetes mellitus Social History marital status: household members: spouse lives independently: Yes Smoking Status: Never smoker alcohol intake: never substance use type: does not use Smoking Status: Never smoker alcohol intake frequency: 0-2 drinks per day Substance Use Type: does not use Exam Initial Vital Signs Initial Vital Signs: Vital Signs Temperature 98.4 F 04/22/22 10:55 Const General: comfortable HENMT Head: normal to inspection and normocephalic Chest Chest: normal inspection of the chest Resp Effort & Inspection: normal respiratory effort Cardio Rate: regular rate GI Inspection: normal to inspection Back/Spine/Pelvis Back: normal to inspection Skin General: no rashes or lesions noted Neuro Other: Patient does not answer questions. Moves all 4 extremities spontaneously. Extrem Other: No gross deformities. Psych Appearance: grossly normal Scores GCS Maryjane coma scale eye opening: Spontaneous Maryjane coma scale verbal response: Words Maryjane coma scale motor response: Localising [place] coma scale total score: 12 Course Orders Ordered: ED Orders 04/22/22 11:53 COVID19 -Nasal RAPID/Pre-Proc Stat 04/22/22 12:08 [place] [facility] [place] [employer] Stat 04/22/22 13:04 COVID19 - ADMIT (HEALTH INSURANCE SPECIALIST swab/PCR) Stat 04/22/22 13:05 EKG-12 Lead Stat 04/22/22 15:50 Acetaminophen Stat Complete Blood Count AUTO DIFF Stat Comprehensive Metabolic Panel Stat Ethanol (ETOH) Stat Magnesium Stat Salicylate Stat Thyroid Stimulating Hormone Stat 04/22/22 18:06 Urinalysis and Microscopic Stat Urine Drug Screen, Rapid Stat Discontinued Medications Diphenhydramine HCl (Diphenhydramine 50 Mg/Ml Vial) 25 mg IM NOW ONE Stop: 04/22/22 14:24 Last Admin: 04/22/22 14:24 Dose: 25 mg Documented By: HERBER Haloperidol (Haloperidol 5 Mg Tablet) 10 mg PO NOW ONE Stop: 04/22/22 18:21 Haloperidol (Haloperidol 5 Mg/Ml Vial) 10 mg IM NOW ONE Stop: 04/22/22 18:27 Lorazepam (Lorazepam 2 Mg/Ml Inj) 2 mg IM NOW ONE Stop: 04/22/22 13:50 Last Admin: 04/22/22 14:25 Dose: 2 mg Documented By: HERBER Lorazepam (Lorazepam 2 Mg/Ml Inj) 2 mg IM NOW ONE Stop: 04/22/22 14:50 Last Admin: 04/22/22 15:00 Dose: 1 mg Documented By: HERBER Vital Signs Vital signs: Vital Signs - 8 hr 04/22/22 10:55 Temperature 98.4 F Medical Decision Making Medical Records Medical records reviewed: Yes I reviewed the patient's medical records. Lab Data Lab results reviewed: Yes I reviewed the patient's lab results. Result diagrams: 04/22/22 15:50 04/22/22 15:50 Labs: Lab Results 04/22/22 04/22/22 04/22/22 Range/Units 11:53 15:50 15:50 WBC 5.5 (4.5-11.0) X10^3/uL RBC 3.62 L (4.5-5.9) X10^6/uL Hgb 11.7 L (13.5-17.5) g/dL Hct 33.0 L (41-53) % MCV 91.0 (80-100) fL MCH 32.4 (26-34) PG MCHC 35.6 (30-36) % RDW 13.2 (11.6-14.8) % Plt Count 183 (150-400) X10^3/uL Neut % (Auto) 77.2 H (50-75) % Lymph % (Auto) 8.8 L (25-40) % Geneva % (Auto) 9.3 (3-14) % Eos % (Auto) 3.4 (2-4) % Baso % (Auto) 1.3 (0-2) % Neut # (Auto) 4300 (2863-7230) /uL Lymph # (Auto) 500 L (2415-6496) /uL Geneva # (Auto) 500 (0-900) /uL Eos # (Auto) 200 (0-450) /uL Baso # (Auto) 100 (0-100) /uL Sodium 138 (137-145) mmol/L Potassium 3.9 (3.4-5.1) mmol/L Chloride 100 (98-107) mmol/L Carbon Dioxide 26 (22-32) mmol/L BUN 17 (9-20) mg/dL Creatinine 1.01 (0.66-1.25) mg/dL Estimated GFR > 60 (>60) mL/min BUN/Creatinine Ratio 16.8 (6-22) Glucose 89 (80-110) mg/dL Calcium 9.3 (8.4-10.2) mg/dL Magnesium 2.1 (1.6-2.3) mg/dL Total Bilirubin 1.0 (0.2-1.3) mg/dL AST 23 (17-59) IU/L ALT 13 (<50) IU/L Alkaline Phosphatase 81 (38-126) U/L Total Protein 7.2 (6.3-8.2) g/dL Albumin 4.1 (3.5-5.0) g/dL Globulin 3.1 (1.7-4.1) g/dL Albumin/Globulin Ratio 1.3 (1.0-2.8) TSH (0.47-4.68) uIU/mL Urine Color Urine Appearance Urine pH (4.5-8.0) Ur Specific Leonard (1.000-1.035) Urine Protein (Negative) Urine Glucose (UA) (Negative) g/dL Urine Ketones (NEGATIVE) Urine Occult Blood (Negative) Urine Nitrate (Negative) Urine Bilirubin (NEGATIVE) Urine Urobilinogen (0.2) E.U./dL Ur Leukocyte Esterase (NEGATIVE) Salicylates (<20) mg/dL Acetaminophen < 10 (10-30) ug/mL Ethyl Alcohol < 10 ( - 10) mg/dL SARS-CoV-2 (PCR) Negative (Negative) 04/22/22 04/22/22 04/22/22 Range/Units 15:50 15:50 18:06 WBC (4.5-11.0) X10^3/uL RBC (4.5-5.9) X10^6/uL Hgb (13.5-17.5) g/dL Hct (41-53) % MCV (80-100) fL MCH (26-34) PG MCHC (30-36) % RDW (11.6-14.8) % Plt Count (150-400) X10^3/uL Neut % (Auto) (50-75) % Lymph % (Auto) (25-40) % Geneva % (Auto) (3-14) % Eos % (Auto) (2-4) % Baso % (Auto) (0-2) % Neut # (Auto) (9384-4902) /uL Lymph # (Auto) (7154-8662) /uL Geneva # (Auto) (0-900) /uL Eos # (Auto) (0-450) /uL Baso # (Auto) (0-100) /uL Sodium (137-145) mmol/L Potassium (3.4-5.1) mmol/L Chloride (98-107) mmol/L Carbon Dioxide (22-32) mmol/L BUN (9-20) mg/dL Creatinine (0.66-1.25) mg/dL Estimated GFR (>60) mL/min BUN/Creatinine Ratio (6-22) Glucose (80-110) mg/dL Calcium (8.4-10.2) mg/dL Magnesium (1.6-2.3) mg/dL Total Bilirubin (0.2-1.3) mg/dL AST (17-59) IU/L ALT (<50) IU/L Alkaline Phosphatase (38-126) U/L Total Protein (6.3-8.2) g/dL Albumin (3.5-5.0) g/dL Globulin (1.7-4.1) g/dL Albumin/Globulin Ratio (1.0-2.8) TSH 0.075 L D (0.47-4.68) uIU/mL Urine Color Yellow Urine Appearance Sl cloudy Urine pH 7.5 (4.5-8.0) Ur Specific Leonard 1.010 (1.000-1.035) Urine Protein Negative (Negative) Urine Glucose (UA) Negative (Negative) g/dL Urine Ketones Negative (NEGATIVE) Urine Occult Blood Negative (Negative) Urine Nitrate Negative (Negative) Urine Bilirubin Negative (NEGATIVE) Urine Urobilinogen 1.0 (0.2) E.U./dL Ur Leukocyte Esterase Negative (NEGATIVE) Salicylates < 1.0 (<20) mg/dL Acetaminophen (10-30) ug/mL Ethyl Alcohol ( - 10) mg/dL SARS-CoV-2 (PCR) (Negative) MDM Narrative Medical decision making narrative: Patient is unable to provide any HPI. He is had a mental status very similar to when I evaluated him approximately 10 days ago. At 1 point during his stay here he became very agitated. He was trying to get up out of bed. He started swinging his arms and kicking his legs. He was given Benadryl and Ativan and for short period of time was placed in soft restraints. This was done for concern of safety of himself and staff members. He did calm down afterwards. Has been seen by social work. Awaiting urinalysis in order to completely medically clear him. Care turned over to Dr. Reyez at change of shift to follow-up and disposition. Discharge Plan Departure Prescriptions: No Action memantine 10 mg tablet 10 mg PO BID Rx Instructions: Up-titer PO; atorvastatin 40 mg tablet 40 mg PO BEDTIME Qty: 90 2RF phenelzine 15 mg tablet 15 mg PO TID Qty: 90 11RF losartan 25 mg tablet 25 mg PO DAILY Qty: 90 1RF levothyroxine 100 mcg tablet 100 mcg PO DAILY Qty: 90 0RF Rx Instructions: APPT DUE BEFORE END OF RX. PLEASE CALL TO SCHEDULE APPT 03/12/22. alfuzosin 10 mg tablet extended release 24 hr See Rx Instructions .ROUTE .COMPLEX Qty: 90 1RF Dose Instruction: take 1 tablet by mouth at bedtime Rx Instructions: take 1 tablet by mouth at bedtime Ensure Plus 0.05-1.5 gram-kcal/mL liquid 1 each PO .QDAY Qty: 5688 11RF quetiapine [Seroquel] 25 mg tablet See Rx Instructions .ROUTE .COMPLEX Qty: 45 1RF Rx Instructions: 1/2 pill (12.5 mg) every morning, full pill (25mg) every evening cholecalciferol (vitamin D3) [Vitamin D3] 50 mcg (2,000 unit) Tablet 50 mcg PO BID Referrals: Yann Dempsey MD [Primary Care Provider] - Restraint Rxot-en-Qopg Restraint Agiv-dj-Klft Evaluation Ooww-az-Mpdt #1: Date: 04/22/22 Time: 14:39 Patient Appearance: Disheveled Level of Consciousness: Combative, Disoriented, Inappropriate and Restless Speech Pattern: Mumbled Mood Description: Angry and Hostile Ability to Follow Directions: Poor Respirations: Normal respiratory rate and Unlabored Cardiac: Regular Rate Circulation: Moves all extremities Behavior necessitating restraint: Agitated, Confusion, Dementia, Escalating verbal abuse, Pulling at lines/tubes and Violent Restraint Risks: Restricted blood flow, Damaged nerves and Damaged tissue Restraint risks explained to patient: No Restraint risks explained to family: No Reaction to Intervention: Pulling at Restraints Restraint Needs: Continue Restraints
[2022-04-22 12:17] VITALS: BP 121/62
--- NOTE | 2022-04-22 14:14 | PC.NURSE ---
Became agitated and combative for unknown reason(s). Put in four point restraints
[2022-04-22] MEDS: diphenhydrAMINE 50 MG/ML VIAL 25 MG IM (14:24)
[2022-04-22] MEDS: LORazepam 2 MG/ML INJ IM ×2 (14:25→15:00)
--- NOTE | 2022-04-22 14:26 | PC.NURSE ---
Patient became agitated and required IM ativan and IM benadryl for his safety as he was attempting to strike, kick, and bite staff. Patient required 4 point restraints for his safety.
--- NOTE | 2022-04-22 14:53 | CM.SWNOTE ---
Addendum entered by DAVID Amin 04/22/22 15:21: ADD: COURTESY BOOTH CASHIER also called [facility] [phone] and currently they do not have beds but recommended calling again in the AM as they take dementia pt's but would be considered TWAN as they do not feel demented pt's can be considered voluntary even if spouse agreeable to placement as the pt could not consent themselves. BF Original Note: COURTESY BOOTH CASHIER Assessment: Patient is a 76 yo male who was admitted to [facility] ED on 04/22/22 today for Dementia Behavioral Disturbances. Patient's PCP is Dr. Dempsey, Patient has Medicare and out of state [employer] insurance. Patient has hx of Dementia with Behavioral Disturbances, mixed hyperlipidemia, labile hypertension, Anemia, Acute CVA and Depression. Patient presents as resting as he was given new rx for Seroquel to address patient's Dementia and behaviors, not a reliable historian and due to increased agitation no bedside assessment completed at this time with pt but met with spouse Lissette. COURTESY BOOTH CASHIER meets with patient's , she reports that the goal of care has been for patient to stay at home but over the past couple weeks has had increased safety concerns with his wandering and agitation. endorse there is no DPOA, Advanced Directive or POLST for patient. endorses when she has talked to patient about POLST in the past he did not make a decision. Patient is not in a present state to discuss POLST wishes. COURTESY BOOTH CASHIER provides POLST for patient and to discuss with PCP at a later date at upcoming PCP f/u appt. endorses she is the primary caregiver for patient, patient is independent with walking, patient can manage ADLs but there is concern for his independence to complete personal hygiene thoroughly. Patient no longer drives. Pt was last admitted to the ED at [facility] about 10 days ago on 04/13/22 for similar. Spouse feels since pt's new addition of Seroquel his agitation has increased some and states he has never really threatened anyone before until today. Per ED MD and this COURTESY BOOTH CASHIER, feel that pt could benefit from [facility] for med management and stabilization of dementia behaviors towards ability to function better in the community and for safety. COURTESY BOOTH CASHIER discussed [facility] at length with spouse who is in agreement that [facility] could be attempted towards determining bed availability and if pt could be accepted for stabilization. COURTESY BOOTH CASHIER also inquired about the LTC resources provided at pt's last admit to the ED 10 days ago and spouse confirms that GPS tracker was just installed and set up for the pt and was used yesterday successfully and that she has requested her sister to begin calling LTC facilities for placement as well. Pt's mother had been in Memory Care Unit at [facility] before and therefore she is aware of their facility. COURTESY BOOTH CASHIER provided the Dementia Care Unit list for [facility] and discussed at length the process for placement and that it likely would take too long to finalize while pt is in the ED and therefore spouse is agreeable with having sister continue calling even if pt is accepted at [facility]. Spouse states they have experienced private pay Caregivers through [facility] before with her mother bridget and we were not too impressed, they were ok with their care but didn't seem to interact a lot with my MIL but read books and things to themselves. Spouse leaning towards [facility] for stabilization and then likely Memory Care Unit. COURTESY BOOTH CASHIER called [facility] [phone] and confirmed they have an opening on their Memory Care Unit and willing to review and COURTESY BOOTH CASHIER provided some information re pt. Requesting pt's Facesheet, note stating pt medically cleared, labs, COVID swab be faxed to [phone]. COURTESY BOOTH CASHIER updated ED MD who is agreeable with placing lab orders towards [facility] placement and COURTESY BOOTH CASHIER requested ED COLOR DIPPER to fax the requested clinicals and provided fax number. COURTESY BOOTH CASHIER also called following Memory Care Units: [facility] would be willing to review [facility]- call tomorrow Saturday when admissions staff back [facility] openings and call Admin Jason Alvarez tomorrow Sat cell #[phone] COURTESY BOOTH CASHIER provided the list of Memory Care openings to spouse to continue working on LTC plan after discharge. COURTESY BOOTH CASHIER updated ED special ed assistant who states pt's behaviors started to escalate and needed chemical and physical restraints at this time for safety. Plan: SW to follow closely for [facility] to review to determine if they can accept for med management and stabilization and ongoing f/u in the AM with Memory Care Units for placement once pt more stabilized with his behaviors. Kianna Alba MSW
--- NOTE | 2022-04-22 15:03 | PC.NURSE ---
1410 -Patient attempting to get out bed multiple times. This RN redirected him back into bed without incident on two separate occasions. On the third attempt to get out of his bed, unable to redirect and patient becoming physically agitated and began to swing arms and kick. The provider notified and patient was subsequently restrained and medicated with Ativan, per order.
[2022-04-22 16:16] LABS: Add Manual Diff / Slide Review NO; Basophils Absolute Auto 100 /uL (0-100); Basophils Percent Auto 1.3 % (0-2); Eosinophils Absolute Auto 200 /uL (0-450); Eosinophils Percent Auto 3.4 % (2-4); Hemoglobin 11.7 g/dL (13.5-17.5); Lymphocytes Absolute Auto 500 /uL (1100-4500); Lymphocytes Percent Auto 8.8 % (25-40); Mean Corpuscular HGB Conc 35.6 % (30-36); Mean Corpuscular Hemoglobin 32.4 PG (26-34); Monocytes Absolute Auto 500 /uL (0-900); Monocytes Percent Auto 9.3 % (3-14); Neutrophils Absolute Auto 4300 /uL (1500-7000); Neutrophils Percent Auto 77.2 % (50-75); Platelet Count 183 X10^3/uL (150-400); Red Blood Cell Count 3.62 X10^6/uL (4.5-5.9); Red Cell Distribution Width 13.2 % (11.6-14.8); White Blood Cell Count 5.5 X10^3/uL (4.5-11.0)
[2022-04-22 16:17] LABS: Salicylate < 1.0 mg/dL (<20)
[2022-04-22 16:18] LABS: Acetaminophen < 10 ug/mL (10-30); Alanine Aminotransferase 13 IU/L (<50); Albumin 4.1 g/dL (3.5-5.0); Albumin Globulin Ratio 1.3 (1.0-2.8); Alkaline Phosphatase 81 U/L (38-126); Aspartate Aminotransferase 23 IU/L (17-59); BUN Creatinine Ratio 16.8 (6-22); Blood Urea Nitrogen 17 mg/dL (9-20); Calcium 9.3 mg/dL (8.4-10.2); Carbon Dioxide 26 mmol/L (22-32); Chloride 100 mmol/L (98-107); Estimated Glomerular Filt Rate > 60 mL/min (>60); Ethanol (ETOH) < 10 mg/dL; Globulin 3.1 g/dL (1.7-4.1); Glucose 89 mg/dL (80-110); HEMOLYSIS < 15 (0-50); Magnesium 2.1 mg/dL (1.6-2.3); Potassium 3.9 mmol/L (3.4-5.1); Sodium 138 mmol/L (137-145); Total Protein 7.2 g/dL (6.3-8.2)
[2022-04-22 16:20] LABS: COVID19 -Nasal RAPID Negative (Negative)
[2022-04-22 16:58] LABS: Thyroid Stimulating Hormone 0.075 uIU/mL (0.47-4.68)
[2022-04-22 18:21] LABS: Appearance Urine UA SL CLOUDY; Bilirubin Urine UA NEGATIVE (NEGATIVE); Color Urine UA YELLOW; Glucose Urine UA NEGATIVE (Negative); Ketones Urine UA NEGATIVE (NEGATIVE); Leukocyte Esterase Urine UA NEGATIVE (NEGATIVE); Nitrite Urine UA NEGATIVE (Negative); Occult Blood Urine UA NEGATIVE (Negative); Protein Urine UA NEGATIVE (Negative); pH Urine UA 7.5 (4.5-8.0)
--- NOTE | 2022-04-22 18:26 | PC.NURSE ---
Offered patient water. He took a couple of sips. Offered applesauce, pt stated, Not now. Pt declined other foods and drinks.
[2022-04-22 18:28] VITALS: PULSE 76; O2SAT 96
[2022-04-22 18:29] VITALS: BP 111/79; BP 125/60; PULSE 80; O2SAT 96
[2022-04-22 18:31] LABS: Amorphous Sediment Urine 3+; RBC Urine None Seen (0-5/HPF); Squamous Epithelial Cell Urine 1-5 /HPF (0-5/HPF); WBC Urine 0-1/HPF (0-5/HPF)
[2022-04-22 18:32] LABS: Bacteria Urine Few (2-10); Culture Indicated Urine Specimen Cultured
[2022-04-22 18:37] LABS: Ur Creatinine Normal (Normal); Ur Specific Gravity Normal (Normal); Urine pH Normal (Normal)
[2022-04-22] MEDS: HALOPERIDOL 5 MG/ML VIAL 10 MG IM (18:37)
[2022-04-22 18:38] LABS: UR Morphine/Opiate cutoff 300 Negative (Negative); Urine Amphetamines Negative (Negative); Urine Barbiturates Negative (Negative); Urine Benzodiazepines Negative (Negative); Urine Cocaine Negative (Negative); Urine MDMA Negative (Negative); Urine Methadone Negative (Negative); Urine Methamphetamines Negative (Negative); Urine Oxycodone Negative (Negative); Urine Phencyclidine Negative (Negative); Urine Tetrahydrocannabinol Negative (Negative); Urine Tricyclic Antidepressant Positive (Negative)
--- NOTE | 2022-04-22 18:38 | PC.NURSE ---
Pt ate half a container of applesauce with this RN feeding 1:1.
[2022-04-23 05:29] VITALS: BP 120/64
[2022-04-23 05:30] VITALS: BP 120/64; PULSE 89; O2SAT 95
--- NOTE | 2022-04-23 08:43 | CM.SWNOTE ---
Addendum entered by Vandana King 04/23/22 15:01: CAUSTICISER calls [facility], it is reported they do not have beds today. Vandana King, [facility] Addendum entered by Kianna Alba CAUSTICISER 04/23/22 11:17: ADD: CAUSTICISER spoke to RODY Lopes for consultation and she confirms currently only [facility] units are [facility] and [facility]. RODY Lopes called and confirmed with [facility] that their own hospital policy now requires official DPOA or guardianship pwk even if pt is TWAN'd as they have had pts go to court and have the TWAN fail and no decision maker legally in place and they have an unsafe discharge. RODY Lopes does not feel TWAN would be helpful as [facility] does not require DPOA/guardianship as long as spouse willing to complete admission pwk. RODY Lopes recommends calling [facility] but likely plan will end up being ED MD do med management and get pt slightly more stable for home or d/c to LTC facility Memory Care at Assisted Living facility. Spouse will likely now need to go through assistant prosecuting attorney for guardianship due to pt's dementia status for future needs. CAUSTICISER called [facility] ([phone]) and had to leave a msg. CAUSTICISER called Jason Alvarez and then Kimberly ([phone]) at [facility] and provided info on pt status and need and confirmed they have openings for Memory Care and Kimberly can meet bedside with pt and spouse in ED before lunch time today. CAUSTICISER updated ED MD and supervisor force adjustment and in agreement that pt has been stable overnight and this morning and appropriate for assessment by [facility]. ED MD agreeable to place Psych Consult order in case Dr. Perez can provide any med management recommendation for pt's stability with dementia behaviors. Plan: CAUSTICISER awaiting to see if [facility] will return call about bed availability but likely plan for today will be stabilizing pt with med management towards either d/c to Memory Care facility for long-term placement vs return home while spouse continues to work on either placement at Memory Care or hire in-home caregivers. BF Original Note: [facility] Update: CAUSTICISER received a call from [facility] Dementia Unit stating that they could likely accept pt clinically but cannot accept unless DPOA pwk has been completed. CAUSTICISER called spouse Lissette on her cell phone and confirmed that they still have not completed DPOA pwk or have a Living Will etc.. in place at this time. Spouse confirms that they have not had any children and no children from previous relationships. CAUSTICISER discussed the barriers to getting these documents completed now since pt has advancing dementia and spouse acknowledges that these documents should have been completed years ago. CAUSTICISER discussed possible need to have [facility] dispatch a DCR for Involuntary Placement since pt cannot sign for himself and spouse does not have DPOA and pt currently not safe to return to the community. Spouse would be agreeable with this as she continues to feel [facility] needed as pt's best option for stabilization. CAUSTICISER also strongly encouraged spouse to reach out to her sister and continue with calling the Memory Care facilities ([facility], [facility], [facility], [place], etc that CAUSTICISER called yesterday for bed availabilty). Spouse is in agreement and states she will this morning after [place] ferry [place] [facility] [place]. CAUSTICISER updated ED MD and in agreement that [facility] still needed for med management and stabilization and since pt has not completed DPOA pwk then CAUSTICISER to call [facility] to request DCR be dispatched for likely need of TWAN for involuntary tx. CAUSTICISER also asked ED GLAZE MIXER and requested she call [facility] ([phone]) as they MAY have a bed today. CAUSTICISER called [facility] and discussed above and requested consulting with DCR to determine if they need to be dispatched in order to place pt at [facility] with no DPOA. DCR will be consulted and call CAUSTICISER back to determine next steps needed towards [facility] placement. DAVID Amin
[2022-04-23 08:53] VITALS: PULSE 69; O2SAT 99
[2022-04-23 08:55] VITALS: BP 125/60; PULSE 67; O2SAT 99
--- NOTE | 2022-04-23 10:41 | PC.NURSE ---
Pt at bedside. Pt updates this RN on pt medications.
[2022-04-23] MEDS: MEMANTINE HCL 5 MG TABLET 10 MG PO (11:00)
[2022-04-23] MEDS: ATORVASTATIN 20 MG TABLET 40 MG PO (11:00)
[2022-04-23 11:01] VITALS: BP 111/65; PULSE 66
[2022-04-23] MEDS: LOSARTAN 25 MG TABLET PO (11:01)
[2022-04-23 11:02] VITALS: BP 111/65; PULSE 68; RESP 16; O2SAT 96
--- NOTE | 2022-04-23 12:08 | PC.NURSE ---
1130: [facility] at bedside with permission. at bedside as well. This RN remains as 1:1 sitter.
--- NOTE | 2022-04-23 12:24 | PC.NURSE ---
pt wanted to stand up next to bed so RNs x2 both helped pt up to his feet at the side of the bed. The pt complained of right knee, joint pain and said he wanted to sit back down. Pt is now lying in bed and quiet. The pt's confirmed that the pt does have right knee pain on and off from past surgery.
[2022-04-23] MEDS: QUETIAPINE 25 MG TABLET PO ×2 (13:50→21:49)
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
--- NOTE | 2022-04-23 17:52 | PC.NURSE ---
daily medications reviewed, verbal order received from Dr. Valencia. Alfuzosin and Phenelzine not available.
--- NOTE | 2022-04-23 18:09 | CM.SWNOTE ---
Addendum entered by Vandana King 04/23/22 19:22: Sitter attempts to redirect patient when he tries to leave room at approximately 1830, patient presents with aggression. Patient requires several staff members to hold patient, provide chemical intervention and patient is given soft restraints in bed. Plan: ED staff to call [facility] geriopsych unit to seek Geropsych bed for patient, Psych consultation in place. Vandana King, [facility] Original Note: DCP/BATCH TRUCKER Note BATCH TRUCKER calls [facility] Geropsych intake and it is reported that there are no beds. BATCH TRUCKER speaks with Kimberly admissions at [facility] after she meets with patient and patient's , BATCH TRUCKER provides clinicals for review. Kimberly calls back and reports that patient is not a good fit for admission at this time due to unmanaged behaviors and concern for vulnerable adults at the facility. It is reported that the facility would like to consider patient once he is stable and medications have been managed. BATCH TRUCKER to call Kimberly tomorrow with further patient updates. Psychiatrist Dr. Perez consults patient and provides his recommendations: 1. Patient is likely not able to return to home environment safely. Recommend involving social work to assist in placement. 2. Continue his antidepressant, phenalzine 30 mg p.o. daily 3. If patient attempts to wander, engage in distraction and behavioral intervention 1st. 4. If patient becomes combative or violent, recommend quetiapine 25-50 mg p.o. up to q.i.d. as needed to minimize negative behavior while not over sedating. 5. Will continue to follow with you periodically while he remains in ED. BATCH TRUCKER attempts to call [facility] but there is no answer. BATCH TRUCKER calls [facility] regarding memory care unit. It is reported that they can review patient and they have openings. It is reported that the base monthly pay is $4700 for a shared room and there are additional monthly fees for needed level of care. ( ) BATCH TRUCKER to fax clinicals for review once patient's behavior is managed on current recommended medication. BATCH TRUCKER endorses that [facility] does not have any openings for geropsych today and it is uncertain when they will have availability. BATCH TRUCKER discusses this with patient's Lissette, who reports concern for ability to cover cost for ALFs but also has concerns for caregivers in the home. endorses that she called around to seek for caregiver openings and it was reported that there are not many caregivers and it is unlikely they will come to [facility]. endorses she called [facility] Memory care and they reported that the facility is full. endorses willingness to move forward with patient place at a [facility] memory care unit if patient is accepted. Plan:Patient to continue to board in ED, BATCH TRUCKER to seek [facility] memory care unit for patient, Psychiatry to continue to consult for medication management. Vandana King, BIOLOGICAL SCIENCES INSTRUCTOR
[2022-04-23] MEDS: LORazepam 2 MG/ML INJ IM (18:48)
[2022-04-23] MEDS: HALOPERIDOL 5 MG/ML VIAL (18:54)
--- NOTE | 2022-04-23 19:03 | PC.NURSE ---
Around 183 patient was attempting to exit his room. Staff attempted to redirect patient back into room and he became combative. He started to kick out and strike out with his hands. Was repositioned into a folding chair where he started to attempt to bite and headbutt. Required staff to restrain patient so that medication could be administered for agitation and safety of patient and staff. 2mg of Ativan and 5mg of Haldol were administered without difficulty. Patient was then transition into bed and 4 point soft restraints were applied until agitation passes. Patient continues with 1:1 sitter.
--- NOTE | 2022-04-23 19:09 | PC.NURSE ---
At about 1845 the pt got out of bed and insisted on leaving room. RN was not able to redirect pt back to bed, RN called out for help and pt was directed to stay in room. The pt became angry and started pushing and kicking at RNs, additional help came in to keep pt safe and were able to get pt seated in chair. pt was given medication and it took about 15 minutes for pt to calm down and stop kicking. Pt was walked to bed with soft restraints in place. pt is now lying quietly in bed.
[2022-04-24] VITALS (18 sets, daily range): BP systolic 75–166; BP diastolic 41–85; PULSE 60–110; RESP 12–16; TEMP 36.1–36.4; O2SAT 94–98
[2022-04-24 05:57] LABS: Alanine Aminotransferase 13 IU/L (<50); Albumin 3.7 g/dL (3.5-5.0); Albumin Globulin Ratio 1.3 (1.0-2.8); Alkaline Phosphatase 74 U/L (38-126); Aspartate Aminotransferase 36 IU/L (17-59); BUN Creatinine Ratio 20.7 (6-22); Bilirubin Total 0.7 mg/dL (0.2-1.3); Blood Urea Nitrogen 17 mg/dL (9-20); Calcium 8.9 mg/dL (8.4-10.2); Carbon Dioxide 29 mmol/L (22-32); Chloride 100 mmol/L (98-107); Estimated Glomerular Filt Rate > 60 mL/min (>60); Globulin 2.8 g/dL (1.7-4.1); Glucose 104 mg/dL (80-110); HEMOLYSIS < 15 (0-50); Potassium 3.7 mmol/L (3.4-5.1); Sodium 135 mmol/L (137-145); Total Protein 6.5 g/dL (6.3-8.2)
[2022-04-24 06:13] LABS: Add Manual Diff / Slide Review NO; Basophils Absolute Auto 0 /uL (0-100); Basophils Percent Auto 0.3 % (0-2); Eosinophils Absolute Auto 100 /uL (0-450); Eosinophils Percent Auto 2.9 % (2-4); Hematocrit 30.9 % (41-53); Hemoglobin 11.1 g/dL (13.5-17.5); Lymphocytes Absolute Auto 1000 /uL (1100-4500); Mean Corpuscular Hemoglobin 32.5 PG (26-34); Mean Corpuscular Volume 90.2 fL (80-100); Monocytes Absolute Auto 500 /uL (0-900); Monocytes Percent Auto 13.3 % (3-14); Neutrophils Absolute Auto 2100 /uL (1500-7000); Neutrophils Percent Auto 57.5 % (50-75); Platelet Count 161 X10^3/uL (150-400); Red Blood Cell Count 3.43 X10^6/uL (4.5-5.9); Red Cell Distribution Width 13.5 % (11.6-14.8); White Blood Cell Count 3.7 X10^3/uL (4.5-11.0)
--- NOTE | 2022-04-24 06:50 | PC.NURSE ---
Helicopter Technician took over patient care at 0130 as a 1:1. Patient rested comfortably throughout the night. updated this AM on patient's status.
--- NOTE | 2022-04-24 08:43 | PC.NURSE ---
[address] Perez office spoke with rn, Dr Perez coming today, likely this am to see patient
--- NOTE | 2022-04-24 09:11 | PC.NURSE ---
0905 am called and left a message with TYRESE Carmona [phone] requesting call back regarding possible transfer/placement
[2022-04-24] MEDS: QUETIAPINE 25 MG TABLET PO ×5 (09:54→22:39)
[2022-04-24] MEDS: MEMANTINE HCL 5 MG TABLET 10 MG PO (09:54)
--- NOTE | 2022-04-24 12:59 | PC.NURSE ---
Pt took afternoon med crushed in applesauce without complications.
[2022-04-24] MEDS: PHENELZINE 15 MG 1 EACH PO ×2 (13:49→22:40)
--- NOTE | 2022-04-24 13:52 | PC.NURSE ---
at the bedside. brought the patient's home meds, they were given to pharmacy for daily distribution at scheduled times. Physician aware.
--- NOTE | 2022-04-24 13:54 | PC.NURSE ---
Assumed care of pt at 0700. Pt slept on and off throughout the morning. Sitter stationed near the bedside for Q15 monitoring. Pharmacist consulted re: home meds and home med distribution.
--- NOTE | 2022-04-24 13:58 | PC.NURSE ---
[address] Chris Sosa to find out timing of counsult by dr wagner [phone] Dr Chris Bentley called to update me Dr wagner will be here at [phone]
--- NOTE | 2022-04-24 14:02 | PC.NURSE ---
TYRESE Carmona declined to screen patient at this time i have to many patients in my er and waiting room that will take priority [phone]
[2022-04-24] MEDS: LORazepam 2 MG/ML INJ IM (18:13)
[2022-04-24] MEDS: HALOPERIDOL 5 MG/ML VIAL IM ×2 (18:13→18:27)
[2022-04-24] MEDS: diphenhydrAMINE 50 MG/ML VIAL IM (18:27)
--- NOTE | 2022-04-24 18:30 | PC.NURSE ---
seroquel dose given late, pt became irritable and combative in attempt to do po dose at 1745, dose then crushed and given but wrapper lost and unable to scan, verified dose by 2 rns, meds given im for behavior. IM ativan 2mg and haldol 5mg IM haldol 5mg and benadryl 50mg (second round of im meds for continued behavior)
--- NOTE | 2022-04-24 18:39 | PC.NURSE ---
Pt became aggressive and unable to redirect. Pt trying to climb out of bed, hitting staff with closed hand, trying to bite staff and kicking staff. Ashvin miller called at 1815, physician at bedside. Meds given to help de-escalate pt's behavior. VSS 166/85, HR 110, 98% RA
--- NOTE | 2022-04-24 18:43 | PC.NURSE ---
Pt calm and redirectable for the majority of the day. at the bedside. Sitter at the bedside. Pt increasingly agitated at 1800.
--- NOTE | 2022-04-24 19:12 | CM.SWNOTE ---
CONVEYOR BELT REPAIRER Note [facility] Kristine is not able to review patient due to their full ED, it is recommended to f/u with [facility] tomorrow. CONVEYOR BELT REPAIRER meets with patient's and gives this information and reports that Psychiatrist Dr. Perez will re-assess patient today. CONVEYOR BELT REPAIRER encourages patient to seek DPOA for more placement options, endorses she is starting the process and was told that it will take some time. Patient endorses she will work on this further tomorrow. [facility] still willing to review patient for Memory care once patient is stable with medication management. Upon 1800, patient proceeded to to when RN attempted to provide patient with seroquel scheduled for 1700. Patient required restraints and IM Haldol. Plan: Continue to f/u with patient for alternative DCP solutions, Psychiatry to continue to consult and manage patient medication. Vandana King, SEED CLEANER OPERATOR
--- NOTE | 2022-04-24 20:28 | PC.NURSE ---
Patient laying back on gurney, resting with eyes open and legs crossed. Respirations equal, regular and unlabored. 1:1 at the bedside for safety. Patient accepting sips of water, appropriately from sitter. Will continue to monitor.
[2022-04-24] MEDS: ATORVASTATIN 20 MG TABLET 40 MG PO (22:39)
--- NOTE | 2022-04-24 22:46 | PC.NURSE ---
Patient tolerated pills crushed in apple sauce and accepted more sips of water. Tolerating both well. Follows basic directions. Appears to be having visual hallucinations. 1:1 remains at bedside for safety
[2022-04-25 06:26] VITALS: BP 148/76; PULSE 65; RESP 14; O2SAT 97
--- NOTE | 2022-04-25 07:50 | PC.NURSE ---
Relatively agitated. Not able to get back in bed. Pushing against staff when trying to be guided back to bed. Trying to get patient into wheelchair.
[2022-04-25] MEDS: HALOPERIDOL 5 MG/ML VIAL IM ×2 (07:56→15:31)
[2022-04-25 08:43] VITALS: BP 144/74; PULSE 74; RESP 14; O2SAT 97
[2022-04-25] MEDS: PHENELZINE 15 MG 1 EACH PO (10:09)
[2022-04-25] MEDS: QUETIAPINE 25 MG TABLET PO ×2 (10:09→15:01)
[2022-04-25] MEDS: MEMANTINE HCL 5 MG TABLET 10 MG PO (10:10)
[2022-04-25 10:11] VITALS: BP 144/74; PULSE 88
[2022-04-25] MEDS: LOSARTAN 25 MG TABLET PO (10:11)
--- NOTE | 2022-04-25 11:12 | DIET.CONS2 ---
Dietary Inpatient Consultation Note Admission Date: RD consulted for pts low tyramine diet needs secondary to medication interaction. RD provided both kitchen and ED room sitter copy of handout with evidence-based reccs on tyramine content of foods from [employer]. Because of technology advancements in detecting tyramine, list of foods to avoid is small. Because of strict food safety practices in our institutional kitchen, our selection of deli meats are safe to consume. Pt will not be offered feta cheese, cheddar cheese, tofu or soy sauce containing foods. ED nursing to Em [facility] once pts returns to answer any questions and share updated evidence-based recommendations. Diet: 04/24/22 Breakfast General (Regular) Diet Diet Modifications: low tyramine, no tofu or soy sauce items Nutrition Percent Meal Consumed 75% 04/24/22 17:14 Percent Meal Consumed 100% 04/24/22 13:12 Electronically Signed by: Orly Owusu 04/25/22 11:12 Clinical Dietitian [address] [id number]
[2022-04-25 12:06] VITALS: BP 125/80; PULSE 68; RESP 18; O2SAT 98
--- NOTE | 2022-04-25 12:55 | PC.NURSE ---
Patient eating turkey sandwich and banana, also likes the chocolate milk.
--- NOTE | 2022-04-25 13:01 | PC.NURSE ---
pt was agitated this am. received Haldol earlier. pt had soft restraints on for about 2 hours. he has been intermittently agitated. able to redirect. pt is currently eating a sandwich. continuous observation with patient.
--- NOTE | 2022-04-25 13:18 | PC.NURSE ---
Discussed medication management with pharmacist and Dr. Perez. Suggested changes in Seroquel to equal 25 mg morning and afternoon, 50 mg at bedtime as well as seroquel 25 mg bid prn breakthrough agitation.
--- NOTE | 2022-04-25 14:15 | PC.NURSE ---
arrived. Patient seemingly more relaxed
--- NOTE | 2022-04-25 15:16 | PC.NURSE ---
Got up, was put back in bed and became agitated and slightly combative
--- NOTE | 2022-04-25 15:30 | PC.NURSE ---
Gradually became more and more agitated
[2022-04-25] MEDS: LORazepam 2 MG/ML INJ IM (15:31)
[2022-04-25] MEDS: diphenhydrAMINE 50 MG/ML VIAL IM (15:31)
--- NOTE | 2022-04-25 15:46 | PC.NURSE ---
pt got agitated. hitting, kicking and spitting out his medications. Dr. Cool aware and meds ordered.
--- NOTE | 2022-04-25 16:35 | PC.NURSE ---
pt is sleeping. at bedside. spoke with about patient and that we are still waiting for placement.
--- NOTE | 2022-04-25 18:05 | CM.SWNOTE ---
core worker spoke to Chet at [facility]. They are only willing to review patient if patient has DPOA that can sign admission documents. They do not accept TWAN dementia patients and do not accept voluntary dementia patients without DPOA already in place. KAPIL Carmona did not return mental health social worker's calls throughout social work shift. Alonso KEENE
--- NOTE | 2022-04-25 21:00 | PC.NURSE ---
pt restless in bed.pt keeps tying to get out of bed.
--- NOTE | 2022-04-25 21:15 | PC.NURSE ---
pt restless and tying to get out of bed.
--- NOTE | 2022-04-25 22:02 | PC.NURSE ---
pt is verry restless and trying to get out of bed.
--- NOTE | 2022-04-25 23:02 | PC.NURSE ---
pt restless trying to get out of bed.
--- NOTE | 2022-04-25 23:32 | PC.NURSE ---
pt restless and trying to get out of the bed
[2022-04-26] MEDS: QUETIAPINE 25 MG TABLET 50 MG PO (00:41)
[2022-04-26] MEDS: LORazepam 0.5 MG TABLET 2 MG PO (00:45)
--- NOTE | 2022-04-26 01:17 | PC.NURSE ---
pt restless tying to get out of bed
[2022-04-26 06:43] VITALS: BP 151/65; PULSE 65; RESP 17; TEMP 35.9; O2SAT 98
[2022-04-26] MEDS: LEVOTHYROXINE 100 MCG TABLET PO (07:57)
[2022-04-26] MEDS: PHENELZINE 15 MG 1 EACH PO (08:02)
[2022-04-26] MEDS: MEMANTINE HCL 5 MG TABLET 10 MG PO (08:02)
[2022-04-26 08:03] VITALS: BP 151/65; PULSE 65
[2022-04-26] MEDS: LOSARTAN 25 MG TABLET PO (08:03)
[2022-04-26] MEDS: QUETIAPINE 25 MG TABLET PO ×2 (08:06→14:32)
--- NOTE | 2022-04-26 09:58 | PC.NURSE ---
pt has been resting. took his medication with chocolate pudding today. pt has dementia.emotional support to patient with frequent reorientation
[2022-04-26 11:59] VITALS: BP 134/64; PULSE 68; RESP 18; O2SAT 97
--- NOTE | 2022-04-26 12:00 | PC.NURSE ---
Changing brief and changing sheets on the bed
--- NOTE | 2022-04-26 12:32 | PC.NURSE ---
updated on pt's condition. pt seems drowsy today. he did take his morning meds in the pudding. Pt is not awake enough for his breakfast or lunch. pt was given a bath, hair wash, mouth care. bed change. pt resisted a little. emotional support and reoriented to room
[2022-04-26 12:40] VITALS: TEMP 36
--- NOTE | 2022-04-26 14:25 | PT.IIE ---
Surgical History (Last Reviewed 04/23/22 @ 16:42 by Robbi Perez MD) Hx of cataract surgery (Unknown) Hx of knee surgery (Unknown) Medical History (Last Reviewed 04/23/22 @ 16:42 by Robbi Perez MD) Depression Foreign body in bladder History of recent hospitalization (10/09/20) Hyperlipidemia Hypertension Hypothyroidism (acquired) Obstructive sleep apnea syndrome Snoring Vaccine reaction Physical Therapy Inpatient Evaluation/Re-Eval M1 PT/OT-IP Prior Functional Status Start: 04/26/22 16:52 Freq: Status: Active Protocol: Document 04/26/22 14:25 AB (Rec: 04/26/22 17:10 AB [email or web address]) Medical Review Prior Functional Status Medical History Reviewed Yes Communication able to answer simple questions but inconsistent and has difficulty following directions Mobility and Gait spouse stated that pt was independent with all mobilities and ambulation without AD Social History Household Members spouse Living Arrangements Mobile home Number of Floors (Floors) One Floor Number of Stairs To Enter/Railing? 7 steps R rail ascending +wall on L Home Environment Standard Height Toilet,Tub/ Shower Home Equipment Straight Cane,Tub Transfer Bench M2 PT-IP Current Condition Start: 04/26/22 16:52 Freq: Status: Active Protocol: Document 04/26/22 14:25 AB (Rec: 04/26/22 17:10 AB [email or web address]) Physical Therapy Current Condition Current Condition Evaluation Date 04/26/22 Treatment Diagnosis dementia; difficulty in walking Onset Date 04/22/22 M3 PT-IP Subjective Start: 04/26/22 16:52 Freq: Status: Active Protocol: Document 04/26/22 14:25 AB (Rec: 04/26/22 17:10 AB [email or web address]) Subjective Physical Therapy Visit Type Type Initial Evaluation Visit Start Time 14:25 Visit Stop Time 15:05 Total Visit Minutes 40 Number of MOBILE HOME SERVICER Visits 0 Therapy Pain Assessment Pain When Pain Assessed During Mobility Pain Present Pain Present Pain Reported Location Right Hip Scale Used pain scale not stated M4 PT-IP Mobility and Gait Start: 04/26/22 16:52 Freq: Status: Active Protocol: Document 04/26/22 14:25 AB (Rec: 04/26/22 17:10 AB [email or web address]) PT-Bed Mobility Assessment Supine to Sit Supine to Sit Maximum Assistance,1 Person Assistance,Head of Bed Elevated,Bedrails Sit to Supine Sit to Supine Maximum Assistance,1 Person Assistance,Bedrails PT-Transfer Assessment Sit to and From Stand Sit to and from Stand Maximum Assistance,1 Person Assistance,Use of Upper Extremities Equipment Transfer Assistive Device None,Gait Belt,Front Wheeled Walker Orthotic/Prosthetic Devices or Brace: No Comments Mobility Comments pt in bed and agreed to get up . Found pt with LE in flexion . pt completed supine to sit with HOB elevated max A and max cues. pt needing max cues with all tasks with difficulty following directions. pt able to sit on EOB CGA. completed sit to stand max A and ambulated in room without AD ~ 2 ft max A and cues. c/o R lateral hip pain. pt sat on EOB. pt agreed to ambulate using fWW. completed sit to stand max A and ambulated in room using FWW initial min to mod A but midway back to bed only requiring CGA. pt completed sit to supine max A and max cues. positioned in bed. call light and table placed within reach. Gait Assessment Gait Gait Assistance Required: Contact Guard Assist,Minimum Assistance,Moderate Assistance ,Maximum Assistance,1 Person Assist Assistive Devices Assistive Device None,Gait Belt,Front Wheeled Walker Orthotic/Prosthetic Devices or Brace: No Gait Deviations General Gait Pattern Decreased Stride Length, Decreased Feet Clearance,Step- to Gait Factors Limiting Gait Function Factors Limiting Gait Function Decreased Activity Tolerance, Decreased Strength,Difficulty Following Directions,Limited Range of Motion,Pain,Poor Balance,Poor Safety Awareness PT-Balance Assessment Sitting Balance and Reactions Static Sitting Balance Ability Good Dynamic Sitting Balance Ability Fair Standing Balance and Reactions Static Standing Balance Ability Fair Dynamic Standing Balance Ability Poor Device Used FWW M5 PT-IP Objective Assessments Start: 04/26/22 16:52 Freq: Status: Active Protocol: Document 04/26/22 14:25 AB (Rec: 04/26/22 17:10 AB [id number]) Orientation Orientation/Cognition Level of Alertness Confusional State Language Function Ability Hard of Hearing Safety Awareness Decreased Safety Awareness Memory Description Short Term Impaired,Chcf Impaired Gross Range of Motion Lower Extremity ROM Impairments BLE tightness with mobility Strength Comments Strength Comments MMT not formally assessed due to pt difficulty following directions Muscle Tone Comments Muscle Tone Comments trunk and LE rigidity noted with pt's enbloc movement and with difficulty making eye contact M6 PT-IP Treatment Start: 04/26/22 16:52 Freq: Status: Active Protocol: Document 04/26/22 14:25 AB (Rec: 04/26/22 17:10 AB [email or web address]) Physical Therapy Treatment Education Education Provided Safety M7 PT-IP Assessment and Plan Start: 04/26/22 16:52 Freq: Status: Active Protocol: Document 04/26/22 14:25 AB (Rec: 04/26/22 17:10 AB [email or web address]) PT Summary Assessment and Plan Potential Rehabilitation Potential Fair Status of Condition at Evaluation Evolving Summary Impairments Pain,ROM,Strength,Balance, Coordination,Sensation,Tone, Cognition,Bed Mobility, Transfers,Gait,Activity Tolerance Assessment Summary received PT eval from ER. Pt is pending placement and mobility assessed. pt requiring max A with bed mobility and sit to stand. initially requiring max A with ambulation without AD. min to mod A initially with ambulation using FWW but improved to CGA after a few feet of walking. Pt has dx of dementia affecting mobility with presents with overall body rigidity with en bloc movement and unable to make eye contact. pt requires max A with all tasks and step by step instructions. pt also has been medicated due to h/o agitation and influencing ability to mobilize. pt will need 24/ assist and will need memory care LTC placement . will continue to assess progress. Goals Bed Mobility Goal Standby Assistance Transfer Goal Standby Assistance,Front Wheeled Walker Gait Goal Standby Assistance,Front Wheel Walker Gait Distance 100 Days to Meet Goals 10 Frequency of Treatment Frequency Of Treatment Once a Day Treatment Plan Physical Therapy Treatment Plan Bed Mobility Training,Transfer Training,Gait Training, Therapeutic Exercise,Balance Retraining,Discharge Planning, Hot or Cold Pack,Neuromuscular Re-ed,Coordination Retraining ,Manual Therapy Precautions Other Precautions falls Recommendations To Nursing Amount of Assist Needed 1 Person Assist Discharge Recommendations Other Discharge Recommendations Memory care LTC Transportation Needs at Discharge Wheelchair/Cabulance
--- NOTE | 2022-04-26 16:00 | CM.DPNOTE ---
Addendum entered by DAVID Grey 04/27/22 08:05: ADD: Raj Duran at [facility] states this morning patient is a good fit Raj's cell P#[phone]. Lissette touring thismorning and if spouse agreeable, patient can move in this afternoon JW Original Note: CONVERSION DEVELOPER Note: Received call from Kristyn from the ED re: placement for this 76yr old male. Reviewed previous CONVERSION DEVELOPER notes. Kristyn reports that patient's behavior has been appropriate for the last 24hrs. Patient did undergo psychiatry evaluation and medications were changed. There were no geriatric psychiatric beds available yesterday 04-25-22. In addition, patient's spouse does not have mental health DPOA in writing which most facilities require. Today since behavior is much improved by changes that Dr. Perez made CM team attempting memory care placement. Placed call to [facility] and they have no beds. Placed calls to [facility]# [phone] spoke with Magda and she is willing to review records (which were faxed). In addition to the above, CONVERSION DEVELOPER placed call to [facility] and left vm, also left vm with [facility]. Placed call to [facility] in [place] and spoke with Raj. She reports that herself or colleague will come this evening and evaluate in person. Clinicals also faxed to [facility]. CONVERSION DEVELOPER notified Kristyn of the above. CONVERSION DEVELOPER hopeful that [facility] in [place] will be able to accept this patient. CONVERSION DEVELOPER also spoke with spouse/Lissette and she is in agreement. Lissette hopes for patient to go somewhere that will take Medicaid after 2-3yrs which [facility] does. Other options include: [facility] in [place], [facility], and [facility]. I do not think [facility] accepts patient that need Medicaid after a few years. Dr. Light reports that patient does not need to be admitted to acute care floor. Admitting patient upstairs could even more delay the process. P: Memory Care Placement upon d/c. DAVID Marroquin
--- NOTE | 2022-04-26 17:17 | PC.NURSE ---
will check [facility] out tomorrow,and if she likes it,transfer there.
[2022-04-26] MEDS: ACETAMINOPHEN 325 MG TABLET 650 MG PO (17:21)
--- NOTE | 2022-04-26 18:31 | PC.NURSE ---
Cleaning and changing of his brief
[2022-04-26] MEDS: HALOPERIDOL 5 MG/ML VIAL IM (22:16)
--- NOTE | 2022-04-26 22:16 | PC.NURSE ---
Addendum entered by Dea Henriquez R.N. 04/27/22 01:06: Required a second dose of IM 5mg Haldol for agitation. Original Note: Made multiple attempts started at 2029 to give bedtime meds, patient refused at 2029 and was appearing to sleep until 2204 when patient was awake. Sitter wanted to change patient but patient appeared agitated and when offered bed time meds attempted to strike this RN but was unsuccessful. Continued to strike out at staff so requested verbal order for IM 5mg Haldol for agitation, given successful per SEP. Patient continues under 1:1 for safety.
[2022-04-27] MEDS: HALOPERIDOL 5 MG/ML VIAL IM (00:33)
[2022-04-27 00:59] VITALS: BP 99/58; PULSE 76; RESP 16; TEMP 37; O2SAT 97
[2022-04-27] MEDS: QUETIAPINE 25 MG TABLET PO ×3 (08:09→15:52)
[2022-04-27] MEDS: LEVOTHYROXINE 100 MCG TABLET PO (08:09)
[2022-04-27 08:28] VITALS: BP 126/57; PULSE 72
[2022-04-27] MEDS: MEMANTINE HCL 5 MG TABLET 10 MG PO (08:28)
[2022-04-27] MEDS: LOSARTAN 25 MG TABLET PO (08:28)
[2022-04-27] MEDS: PHENELZINE 15 MG 1 EACH PO (08:29)
[2022-04-27 08:44] VITALS: BP 126/82; PULSE 72; RESP 16; TEMP 36.8; O2SAT 96
--- NOTE | 2022-04-27 08:45 | PC.NURSE ---
pt attempting to spit out meds during medical appointment clerk, redirection and therapeutic communication utilizied. pt offered breakfast and assistance with feeding. pt looks at this RN and states I do not want that right now then returned to sleeping with eyes closed. multiple warm blankets offered and provided.
--- NOTE | 2022-04-27 09:46 | PC.NURSE ---
pt ate approximately 50% of breakfast with 1:1 feeding; pt able to assist with holding spoon to feed self. pt able to verbalized when he was done with meal. fluids encouraged and accepted. brief change offered and refused; pt agreeable to allow RN to check brief. brief dry.
--- NOTE | 2022-04-27 11:01 | PC.NURSE ---
pt awake, new warm blankets offered and applied. brief checked, dry. pt offered and accepted water.
--- NOTE | 2022-04-27 11:21 | PT.IPTN ---
Physical Therapy Treatment Note M2 PT-IP Current Condition Start: 04/26/22 16:52 Freq: Status: Active Protocol: Document 04/26/22 14:25 AB (Rec: 04/26/22 17:10 AB [email or web address]) Physical Therapy Current Condition Current Condition Evaluation Date 04/26/22 Treatment Diagnosis dementia; difficulty in walking Onset Date 04/22/22 M3 PT-IP Subjective Start: 04/26/22 16:52 Freq: Status: Active Protocol: Document 04/27/22 11:05 KS (Rec: 04/27/22 11:56 KS [id number]) Subjective Physical Therapy Visit Type Type Treatment Note Visit Start Time 11:05 Visit Stop Time 11:21 Total Visit Minutes 16 Notes RN present for assistance Number of CHILDCARE WORKER Visits 1 Therapy Pain Assessment Pain When Pain Assessed During Mobility Pain Present Pain Present Pain Reported Location Right Hip Scale Used pain scale not stated M4 PT-IP Mobility and Gait Start: 04/26/22 16:52 Freq: Status: Active Protocol: Document 04/27/22 11:05 KS (Rec: 04/27/22 11:56 KS [id number]) PT-Bed Mobility Assessment Sit to Supine Sit to Supine Maximum Assistance,1 Person Assistance,Bedrails PT-Transfer Assessment Sit to and From Stand Sit to and from Stand Maximum Assistance,1 Person Assistance,Use of Upper Extremities Equipment Transfer Assistive Device None,Gait Belt,Front Wheeled Walker Orthotic/Prosthetic Devices or Brace: No Transfers Transfer Destination Bed Transfer Technique Stand Step Pivot Transfer Ability Level of Assist Maximum Assistance Comments Mobility Comments Pt sitting on BSC upon arrival and wanting to get back in bed. RN present for assistance . Pt required Max A x1-2 for sit<>stand w/ FWW w/ max cues/ hand over hand for hand placement on FWW. Upon standing, pt had difficulty following instructions to stand upright, but ultimately able to improve w/ cues to straighten knees. Pt required Max A and max cues for LE sequencing for stand step pivot from BSC to bed w/ FWW. Step by step cues for LE advancement and FWW mgmt. Required Max A for LE elevation into bed for sit<> sup. Pt closed eyes and reported fatigue following. Left in bed w/ RN in room. Gait Assessment Assistive Devices Assistive Device Gait Belt,Front Wheeled Walker Orthotic/Prosthetic Devices or Brace: No Gait Deviations General Gait Pattern Decreased Stride Length, Decreased Feet Clearance,Step- to Gait Factors Limiting Gait Function Factors Limiting Gait Function Decreased Activity Tolerance, Decreased Strength,Difficulty Following Directions,Limited Range of Motion,Pain,Poor Balance,Poor Safety Awareness Comments Gait Comments Please refer to mobility section, stand step pivot only due to max A required and pt w/ difficulty following cues. PT-Balance Assessment Sitting Balance and Reactions Static Sitting Balance Ability Good Dynamic Sitting Balance Ability Fair Standing Balance and Reactions Static Standing Balance Ability Fair Dynamic Standing Balance Ability Poor Device Used FWW M5 PT-IP Objective Assessments Start: 04/26/22 16:52 Freq: Status: Active Protocol: Document 04/26/22 14:25 AB (Rec: 04/26/22 17:10 AB [id number]) Orientation Orientation/Cognition Level of Alertness Confusional State Language Function Ability Hard of Hearing Safety Awareness Decreased Safety Awareness Memory Description Short Term Impaired,Ecommerce Analyst Impaired Gross Range of Motion Lower Extremity ROM Impairments BLE tightness with mobility Strength Comments Strength Comments MMT not formally assessed due to pt difficulty following directions Muscle Tone Comments Muscle Tone Comments trunk and LE rigidity noted with pt's enbloc movement and with difficulty making eye contact M6 PT-IP Treatment Start: 04/26/22 16:52 Freq: Status: Active Protocol: Document 04/27/22 11:05 KS (Rec: 04/27/22 11:56 KS [id number]) Physical Therapy Treatment Education Education Provided Safety M7 PT-IP Assessment and Plan Start: 04/26/22 16:52 Freq: Status: Active Protocol: Document 04/27/22 11:05 KS (Rec: 04/27/22 11:56 KS [id number]) PT Summary Assessment and Plan Potential Rehabilitation Potential Fair Summary Impairments Pain,ROM,Strength,Balance, Coordination,Sensation,Tone, Cognition,Bed Mobility, Transfers,Gait,Activity Tolerance Progress Towards Goals Slow Progress due to Medical Issues Assessment Summary Pt still requiring Max A and max cues for mobility. Able to follow commands for sit<> stand and stand step pivot transfer from BSC to bed w/ step by step verbal and tacile cues and FWW mgmt. Did not progress gait today due to pt difficulty extending knees fully, level of assist, and difficulty following some cues . Pt will need 24/7 assist and will need memory care LTC placement. Will continue to assess progress. Goals Bed Mobility Goal Standby Assistance Transfer Goal Standby Assistance,Front Wheeled Walker Gait Goal Standby Assistance,Front Wheel Walker Gait Distance 100 Days to Meet Goals 10 Frequency of Treatment Frequency Of Treatment Once a Day Treatment Plan Physical Therapy Treatment Plan Bed Mobility Training,Transfer Training,Gait Training, Therapeutic Exercise,Balance Retraining,Discharge Planning, Hot or Cold Pack,Neuromuscular Re-ed,Coordination Retraining ,Manual Therapy Precautions Other Precautions falls Recommendations To Nursing Amount of Assist Needed 1 Person Assist Discharge Recommendations Other Discharge Recommendations Memory care LTC Transportation Needs at Discharge Wheelchair/Cabulance
--- NOTE | 2022-04-27 15:26 | CM.SWNOTE ---
TEST PILOT/DCP Note TEST PILOT is informed by DCP DAVID Jaramillo that patient's is visiting [facility] facility and the facility has accepted patient. TEST PILOT coordinates with Raymond at [facility] and faruperto GONSALES move orders from the ED. It is reported that patient's is waiting for patient at facility and patient has been accepted. TEST PILOT requests [employer]G [employer] to set up transportation. Plan: Patient to transfer to [facility] in [place] via BLS today at 1600. Vandana King, LITHOGRAPHER HELPER
== END 2022-04-27 16:10 ==
PROVIDERS: Emergency Medicine; Emergency Provider Emergency Medicine; PCP Student in an Organized Health Care Education/Training Program
DX: F03.911 Unspecified dementia, unspecified severity, with agitation (principal); Z20.822 Contact with and (suspected) exposure to COVID-19; F32.A Depression, unspecified; I44.4 Left anterior fascicular block
CPT/HCPCS: 80053; 80305; 80320; 80329; 81001; 83735; 84443; 85025; 87086; 87635; 93005; 93010; 96372; 97163; 97530; 99284; 99285; C9803; G0480; J1200; J1630; J2060